=== PATIENT | female | born 1935 | race Caucasian/White ===

== ENCOUNTER 2016-11-20 12:20 | Inpatient (IN) | payer MEDICARE ==
[2016-11-20] VITALS (12 sets, daily range): BP systolic 119–150; BP diastolic 52–77; PULSE 55–99; RESP 16–18; TEMP 97.9–99.6; O2SAT 93–97
[~2016-11-20] VITALS: Ht 149.9 cm; Wt 58.5 kg
[~2016-11-20 12:20] MED LIST: AMLO5 PO; ASPI81 PO; ATOR40TA PO; CLOP75 PO; DOCU1CAP39 PO; FISH100020 PO; GLUCTAB PO; HYDR-2768 PO; METO50TA PO; PACE200T4 PO; THERM PO; TRAD5TAB PO; VITA20003 PO; WALKER ROLLING
[2016-11-20] MEDS ORDERED: ASPIRIN 81 MG CHEW TAB PO ONE (13:00)
--- NOTE | 2016-11-20 13:00 | PD ---
HPI Chief Complaint: General Weakness Time Seen by Provider: 12:36 Travel History International Travel<30 days: No Contact w/Intl Traveler<30days: No Traveled to known affect area: No History of Present Illness HPI The patient is a 81-year-old female who presents emergency department for shortness of breath and generalized weakness. The patient has a history of previous bypass 2, last cardiac bypass was performed by Dr. Albarado in May 2016. The patient notes deconditioning over the last month with increased shortness of breath with exertion. The patient also notes progressive symptoms over the last 2 days with walking, shortness of breath, and anterior chest discomfort. The patient states the pain is dull, nonradiating, associated shortness of breath, occasionally diaphoresis. She did note one fevers high as 100.4, but denies any cough. The patient's symptoms are exertional and alleviated at rest, similar to previous chest pain from coronary artery disease but not as intense as prior episodes. 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 Marlon Dickey. The patient's primary physician is Dr. Flowers. Symptoms are moderate , worse with exertion, and alleviated at rest. The patient denies any nausea, vomiting, or abdominal pain. The patient does have a history of hypertension, hyperlipidemia, coronary artery disease with previous bypass, and diabetes which is controlled with metformin. PFSH Past Medical History Hx Anticoagulant Therapy: Yes (Plavix) Arthritis: Yes (HANDS) Asthma: Yes Autoimmune Disease: No Blood Disorders: No Heart Rhythm Problems: Yes Cancer: No Cardiac Catheterization: Yes (10 STENTS) Cardiovascular Problems: Yes (CABG 2015) High Cholesterol: Yes Chemotherapy: No Chest Pain: Yes Congestive Heart Failure: Yes COPD: No Cerebrovascular Accident: No Diabetes: Yes Patient Takes Glucophage: Yes (11/20/16) Diminished Hearing: No Diverticulitis: Yes Endocrine: No Gastrointestinal Disorders: Yes (DIVERTICULITIS) GERD: No Glaucoma: No Genitourinary: Yes Hepatitis: No Hiatal Hernia: Yes Heparin Induced Thrombocytopen: Yes Hypertension: Yes Immune Disorder: No Kidney Stones: No Musculoskeletal: No Neurologic: No Psychiatric: No Reproductive: No Respiratory: No Integumentary: No Myocardial Infarction: Yes (X6) Renal Failure: No Sickle Cell Disease: No Sleep Apnea: No Thyroid Disease: No Ulcer: No Tetanus Vaccination: < 5 Years Influenza Vaccination: Yes PNEUMOCCOCAL Vaccine (Year): 2 Menopausal: Yes : 3 Para: 3 Miscarriage: 0 : 0 Past Surgical History Abdominal Surgery: Yes (GALLBLADDER) AICD: No Appendectomy: Yes Arteriovenous Shunt: No Cardiac Surgery: Yes (CABG 1994) Section: Yes (X1) Cholecystectomy: Yes Coronary Artery Bypass Graft: Yes (X2- 1994) Coronary Stent: Yes Ear Surgery: No Endocrine Surgery: No Eye Surgery: No Genitourinary Surgery: Yes Gynecologic Surgery: Yes (HYSTERECTOMY) Hysterectomy: Yes Insulin Pump: No Joint Replacement: No Oral Surgery: No Pacemaker: No Thoracic Surgery: No Other Surgery: Yes (APPY, SURG, GALLBLADDER, CABG, STENTS) Family History Family Myocardial Infarction: Yes Social History Alcohol Use: No Tobacco Use: No Substance Use: No Allergies-Medications (Allergen,Severity, Reaction): Coded Allergies: HMG-CoA Reductase Inhibitors (Verified Allergy, Intermediate, BODY ACHES, 11/20/16) Lipitor (Verified Adverse Reaction, Severe, ""STATINS""-ELEVATED LIVER ENZYMES, 11/20/16) Contrast Media (Verified Adverse Reaction, Intermediate, Hives, 11/20/16) Iodine (Verified Adverse Reaction, Intermediate, Hives, 11/20/16) Micardis (Verified Adverse Reaction, Intermediate, Chest Pain, 11/20/16) Monopril (Verified Adverse Reaction, Intermediate, Cough, 11/20/16) Reported Meds & Prescriptions Reported Meds & Active Scripts Active Reported Amlodipine (Amlodipine Besylate) 5 Mg Tab 5 Mg PO HS Aspirin 81 Mg Tabdr 81 Mg PO HS Atorvastatin (Atorvastatin Calcium) 40 Mg Tab 40 Mg PO HS Plavix (Clopidogrel Bisulfate) 75 Mg Tab 75 Mg PO DAILY Metformin (Metformin HCl) 500 Mg Tab 500 Mg PO TIDPC With meals Metoprolol Tartrate 50 Mg Tab 50 Mg PO BID Multi Vitamin (Multiple Vitamin) 1 Tab Tab 1 Tab PO DAILY Fish Oil 1000 mg ([place]-3 Fatty Acids) 1 Cap Cap 1,000 Mg PO TID Fenofibrate 48 Mg Tab 48 Mg PO HS Nitroglycerin SL (Nitroglycerin) 0.4 Mg Subl 0.4 Mg SL DIRECTED PRN ONE TABLET UNDER THE TONGUE NEEDED FOR CHEST PAIN, MAY REPEAT EVERY FIVE MINUTES FOR A TOTAL OF 3 DOSES OR CALL 911 IF NO RELIEF Lasix (Furosemide) 40 Mg Tab 40 Mg PO DAILY Levothyroxine (Levothyroxine Sodium) 25 Mcg Tab 25 Mcg PO DAILY Losartan (Losartan Potassium) 50 Mg Tab 50 Mg PO DAILY K-Tab (Potassium Chloride) 20 Meq Tab 20 Meq PO DAILY Vitamin D-3 (Cholecalciferol) 2,000 Unit Tab 2,000 Units PO HS Review of Systems Except as stated in HPI: all other systems reviewed are Neg General / Constitutional: Positive: Fever (1 temperature of 100.4) Cardiovascular: Positive: Chest Pain or Discomfort, Dyspnea on exertion Respiratory: Positive: Shortness of Breath, No: Cough Gastrointestinal: No: Nausea, Vomiting, Abdominal Pain Musculoskeletal: Positive: Weakness, No: Edema Neurologic: Positive: Weakness Physical Exam Narrative GENERAL: Awake, alert, pleasant 81-year-old female who appears her stated age and is in no acute respiratory distress. SKIN: Warm and dry. HEAD: Atraumatic. Normocephalic. EYES: Pupils equal and round. No scleral icterus. No injection or drainage. ENT: No nasal bleeding or discharge. Mucous membranes pink and moist. NECK: Trachea midline. No JVD. CARDIOVASCULAR: Regular rate and rhythm. No murmur appreciated. Midline sternal scar. RESPIRATORY: No accessory muscle use. Clear to auscultation. Breath sounds equal bilaterally. GASTROINTESTINAL: Abdomen soft, non-tender, nondistended. Hepatic and splenic margins not palpable. MUSCULOSKELETAL: No obvious deformities. No clubbing. No cyanosis. No edema. Well-healed scar medial aspect lower extremities. NEUROLOGICAL: Awake and alert. No obvious cranial nerve deficits. Motor grossly within normal limits. Normal speech. Nonfocal. PSYCHIATRIC: Appropriate mood and affect; insight and judgment normal. Data Data Last Documented VS Vital Signs Date Time Temp Pulse Resp B/P Pulse Ox O2 Delivery O2 Flow Rate FiO2 11/20/16 14:00 61 16 138/61 96 Nasal Cannula 2 11/20/16 12:21 97.9 Orders Electrocardiogram (11/20/16 ) B-Type Natriuretic Peptide (11/20/16 12:55) Ckmb (Isoenzyme) Profile (11/20/16 12:55) Complete Blood Count With Diff (11/20/16 12:55) Comprehensive Metabolic Panel (11/20/16 12:55) Magnesium (Mg) (11/20/16 12:55) Prothrombin Time / Inr (Pt) (11/20/16 12:55) Act Partial Throm Time (Ptt) (11/20/16 12:55) Troponin I (11/20/16 12:55) Lipase (11/20/16 12:55) Chest, Single Ap (11/20/16 12:55) Ecg Monitoring (11/20/16 12:55) Bilateral Bp Monitoring (11/20/16 12:55) Iv Access Insert/Monitor (11/20/16 12:55) Oximetry (11/20/16 12:55) Oxygen Administration (11/20/16 12:55) Aspirin Chew (Aspirin Chew) (11/20/16 13:00) Sodium Chloride 0.9% Flush (Ns Flush) (11/20/16 13:00) Nitroglycerin 2% Oint (Nitroglycerin 2% (11/20/16 14:00) Furosemide Inj (Lasix Inj) (11/20/16 14:00) Admit Order (Ed Use Only) (11/20/16 14:09) Labs Laboratory Tests Test 11/20/16 13:00 White Blood Count 11.8 TH/MM3 Red Blood Count 3.30 MIL/MM3 Hemoglobin 9.7 GM/DL Hematocrit 28.7 % Mean Corpuscular Volume 87.0 FL Mean Corpuscular Hemoglobin 29.4 PG Mean Corpuscular Hemoglobin 33.7 % Concent Red Cell Distribution Width 15.1 % Platelet Count 177 TH/MM3 Mean Platelet Volume 8.7 FL Neutrophils (%) (Auto) 80.6 % Lymphocytes (%) (Auto) 11.4 % Monocytes (%) (Auto) 7.1 % Eosinophils (%) (Auto) 0.5 % Basophils (%) (Auto) 0.4 % Neutrophils # (Auto) 9.5 TH/MM3 Lymphocytes # (Auto) 1.3 TH/MM3 Monocytes # (Auto) 0.8 TH/MM3 Eosinophils # (Auto) 0.1 TH/MM3 Basophils # (Auto) 0.0 TH/MM3 CBC Comment DIFF FINAL Differential Comment Prothrombin Time 11.7 SEC Prothromb Time International 1.1 RATIO Ratio Activated Partial 31.4 SEC Thromboplast Time Sodium Level 136 MEQ/L Potassium Level 3.9 MEQ/L Chloride Level 101 MEQ/L Carbon Dioxide Level 22.8 MEQ/L Anion Gap 12 MEQ/L Blood Urea Nitrogen 36 MG/DL Creatinine 2.18 MG/DL Estimat Glomerular Filtration 22 ML/MIN Rate Random Glucose 160 MG/DL Calcium Level 9.1 MG/DL Magnesium Level 1.6 MG/DL Total Bilirubin 1.2 MG/DL Aspartate Amino Transf 32 U/L (AST/SGOT) Alanine Aminotransferase 30 U/L (ALT/SGPT) Alkaline Phosphatase 70 U/L Total Creatine Kinase 64 U/L Troponin I 0.50 NG/ML B-Type Natriuretic Peptide 1182 PG/ML Total Protein 8.1 GM/DL Albumin 3.5 GM/DL Lipase 226 U/L MDM Medical Decision Making Medical Screen Exam Complete: Yes Emergency Medical Condition: Yes Medical Record Reviewed: Yes Interpretation(s) EKG reveals normal sinus rhythm with a rate of 64. Right bundle-branch block. No significant changes when compared to previous EKG June 03, 2016. Laboratory Tests Test 11/20/16 13:00 White Blood Count 11.8 TH/MM3 Red Blood Count 3.30 MIL/MM3 Hemoglobin 9.7 GM/DL Hematocrit 28.7 % Mean Corpuscular Volume 87.0 FL Mean Corpuscular Hemoglobin 29.4 PG Mean Corpuscular Hemoglobin 33.7 % Concent Red Cell Distribution Width 15.1 % Platelet Count 177 TH/MM3 Mean Platelet Volume 8.7 FL Neutrophils (%) (Auto) 80.6 % Lymphocytes (%) (Auto) 11.4 % Monocytes (%) (Auto) 7.1 % Eosinophils (%) (Auto) 0.5 % Basophils (%) (Auto) 0.4 % Neutrophils # (Auto) 9.5 TH/MM3 Lymphocytes # (Auto) 1.3 TH/MM3 Monocytes # (Auto) 0.8 TH/MM3 Eosinophils # (Auto) 0.1 TH/MM3 Basophils # (Auto) 0.0 TH/MM3 CBC Comment DIFF FINAL Differential Comment Prothrombin Time 11.7 SEC Prothromb Time International 1.1 RATIO Ratio Activated Partial 31.4 SEC Thromboplast Time Sodium Level 136 MEQ/L Potassium Level 3.9 MEQ/L Chloride Level 101 MEQ/L Carbon Dioxide Level 22.8 MEQ/L Anion Gap 12 MEQ/L Blood Urea Nitrogen 36 MG/DL Creatinine 2.18 MG/DL Estimat Glomerular Filtration 22 ML/MIN Rate Random Glucose 160 MG/DL Calcium Level 9.1 MG/DL Magnesium Level 1.6 MG/DL Total Bilirubin 1.2 MG/DL Aspartate Amino Transf 32 U/L (AST/SGOT) Alanine Aminotransferase 30 U/L (ALT/SGPT) Alkaline Phosphatase 70 U/L Total Creatine Kinase 64 U/L Troponin I 0.50 NG/ML B-Type Natriuretic Peptide 1182 PG/ML Total Protein 8.1 GM/DL Albumin 3.5 GM/DL Lipase 226 U/L Chest x-ray reveals mild pulmonary vascular congestion. Differential Diagnosis Differential diagnosis includes acute coronary syndrome, congestive heart failure, aortic stenosis, pleural effusion, pneumonia, deconditioning, pulmonary embolism. Narrative Course IV was established, labs were drawn and sent, and the patient was placed on cardiac telemetry monitoring and continuous pulse oximetry monitoring. EKG was ordered and interpreted. Chest x-ray was ordered. The patient was administered aspirin 162 mg orally. The patient's chest x-ray reveals pulmonary edema. BNP is elevated greater than 1100, troponin is +0.50. EKG reveals right bundle branch block but there are no acute changes. Patient may have underlying acute coronary syndrome versus acute congestive heart failure. The patient has [facility], therefore, the on-call [facility] physician was paged for admission. Patient was placed on nitro paste administered 1 dose of Lasix. The mid-level provider, Leia Amaya, discussed the patient with Dr. Berg who recommends heparin drip. Therefore, patient was placed on a heparin drip. Physician Communication Physician Communication The on-call [facility] physician was paged for admission. I discussed the patient Dr. Garza who agrees with admission. Diagnosis Primary Impression: ACS (acute coronary syndrome) Additional Impression: Congestive heart failure Qualified Code: I50.9 - Acute congestive heart failure, unspecified congestive heart failure type Admitting Information Admitting Physician Requests: Admit Condition: Stable Salo Gallagher MD Nov 20, 2016 13:00
[2016-11-20 13:10] LABS: AUTOMATED NEUTROPHIL # 9.5 TH/MM3 (1.8-7.7); BASOPHIL % 0.4 % (0.0-2.0); EOSINOPHIL # 0.1 TH/MM3 (0-0.4); EOSINOPHIL % 0.5 % (0.0-4.0); HEMATOCRIT 28.7 % (35.0-46.0); HEMO FLAGS DIFF FINAL; LYMPH % 11.4 % (9.0-44.0); LYMPHOCYTE # 1.3 TH/MM3 (1.0-4.8); MEAN CORPUSCULAR HEMOGLOBIN 29.4 PG (27.0-34.0); MEAN CORPUSCULAR HGB CONC 33.7 % (32.0-36.0); MONO % 7.1 % (0.0-8.0); NEUT % 80.6 % (16.0-70.0); PLATELET COUNT 177 TH/MM3 (150-450); RED CELL DISTRIBUTION WIDTH 15.1 % (11.6-17.2); WHITE BLOOD COUNT 11.8 TH/MM3 (4.0-11.0)
[2016-11-20 13:18] LABS: ANION GAP 12 MEQ/L (5-15); AST (GOT) 32 U/L (15-37); BICARBONATE 22.8 MEQ/L (21.0-32.0); BLOOD UREA NITROGEN 36 MG/DL (7-18); CHLORIDE 101 MEQ/L (98-107); GLOMERULAR FILTRATION RATE 22 ML/MIN (>89); MAGNESIUM 1.6 MG/DL (1.5-2.5); POTASSIUM 3.9 MEQ/L (3.5-5.1); SODIUM (NA) 136 MEQ/L (136-145)
[2016-11-20 13:19] LABS: APTT (PATIENT) 31.4 SEC (24.3-30.1); INTERNATIONAL NORMALIZED RATIO 1.1 RATIO; PROTHROMBIN TIME - PATIENT 11.7 SEC (9.8-11.6)
[2016-11-20 13:23] LABS: ALKALINE PHOSPHATASE 70 U/L (45-117); ALT (GPT) 30 U/L (10-53); TOTAL BILIRUBIN ADULT 1.2 MG/DL (0.2-1.0)
[2016-11-20 13:24] LABS: CREATINE KINASE 64 U/L (26-192)
[2016-11-20] MEDS ORDERED: LOSA50TA PO (13:38)
[2016-11-20] MEDS ORDERED: FISH100020 PO (13:38)
[2016-11-20] MEDS ORDERED: POTA1TAB4 PO (13:38)
[2016-11-20] MEDS ORDERED: NITR1SUB3 SL (13:38)
[2016-11-20] MEDS ORDERED: LEVO25TA4 PO (13:38)
[2016-11-20] MEDS ORDERED: MULT-135 PO (13:38)
[2016-11-20] MEDS ORDERED: FENO48TA PO (13:38)
[2016-11-20] MEDS ORDERED: METF500T PO (13:38)
[2016-11-20] MEDS ORDERED: FURO1TAB60 PO (13:38)
[2016-11-20] MEDS ORDERED: CHOL1TAB42 PO (13:38)
[2016-11-20] MEDS ORDERED: METO50TA PO (13:38)
[2016-11-20] MEDS ORDERED: PLAV75TA29 PO (13:38)
[2016-11-20] MEDS ORDERED: ASPI1TAB69 PO (13:39)
[2016-11-20] MEDS ORDERED: ATOR40TA16 PO (13:39)
[2016-11-20] MEDS ORDERED: AMLO5TAB2 PO (13:40)
--- NOTE | 2016-11-20 13:59 | RADRPT ---
EXAM DATE/TIME: 11/20/2016 13:31 [facility] COMPARISON: No previous studies available for comparison. INDICATIONS : Chest pain. MEDICAL HISTORY : Hypertension. Myocardial infarction. Congestive heart failure. SURGICAL HISTORY : CABG. Coronary artery stent. ENCOUNTER: Initial ACUITY: 2 days PAIN SCORE: 10/10 LOCATION: Bilateral chest FINDINGS: A single view of the chest demonstrates the left chest tube has been removed. There is no evidence o f pneumothorax. Central line has also been removed. There are seven intact sternal wires. Mild pul monary hilar vascular congestion. CONCLUSION: Chest tube has been removed. No pneumothorax seen. Leonel Gutierrez MD on November 20, 2016 at 13:55 Board Certified Radiologist. This report was verified electronically.
[2016-11-20] MEDS ORDERED: FUROSEMIDE 40 MG/4 ML VIAL IV PUSH ONE (14:00)
[2016-11-20] MEDS ORDERED: NITROGLYCERIN 2% OINT 1 GM PACKET TOPICAL ONE (14:00)
[2016-11-20 15:44] LABS: HEMATOCRIT 27.4 % (35.0-46.0); MEAN CELL VOLUME 87.5 FL (80.0-100.0); MEAN CORPUSCULAR HGB CONC 34.2 % (32.0-36.0); PLATELET COUNT 164 TH/MM3 (150-450); RED BLOOD COUNT 3.13 MIL/MM3 (4.00-5.30); RED CELL DISTRIBUTION WIDTH 15.1 % (11.6-17.2); REVIEW FLAG FINAL; WHITE BLOOD COUNT 10.5 TH/MM3 (4.0-11.0)
[2016-11-20 15:58] LABS: APTT (PATIENT) 30.1 SEC (24.3-30.1)
[2016-11-20] MEDS: INSULIN ASPART SUPPLEMENTAL SCALE SQ SCH ×2 (16:00→21:00)
[2016-11-20] MEDS ORDERED: GLUCAGON 1 MG/ML VIAL OTHER PRN (16:00)
[2016-11-20] MEDS ORDERED: DEXTROSE 50% IN WATER 50 ML VIAL(D50) IV PUSH PRN (16:00)
[2016-11-20] MEDS: HEPARIN-D5W INJ 250 ML IV SCH (16:04)
[2016-11-20] MEDS ORDERED: FUROSEMIDE 40 MG/4 ML VIAL IV PUSH SCH (16:15)
--- NOTE | 2016-11-20 16:19 | HHI.HP ---
HPI Service [facility] Hospitalists Primary Care Physician Hermila Lanier MD Admission Diagnosis acute coronary syndrome/NSTEMI, congestive heart failure Chief Complaint: weakness Travel History International Travel<30 Days: No Contact w/Intl Traveler <30 Da: No Traveled to Known Affected Are: No History of Present Illness Pt has cad and had redo cabg x 3 in May 2016. over past month has had some progressive weakness. noted some palpitations today. described some sob in ED. seen by cardiology and felt to have some chf. pt started on lasix and heparin in ED and medicine asked to admit. pt says she had low grade fever and some msk pain in left arm and took 6 ibuprofen over past few days. Review of Systems Other msk left arm pain vague palpitations weakness. Past Family Social History Past Medical History cad, redo cabg x 3 2015 htn dm ckd 3 hypothyroidism hyperlipidema lap mirian Reported Medications Amlodipine (Amlodipine Besylate) 5 Mg Tab 5 Mg PO HS Aspirin 81 Mg Tabdr 81 Mg PO HS Atorvastatin (Atorvastatin Calcium) 40 Mg Tab 40 Mg PO HS Plavix (Clopidogrel Bisulfate) 75 Mg Tab 75 Mg PO DAILY Metformin (Metformin HCl) 500 Mg Tab 500 Mg PO TIDPC With meals Metoprolol Tartrate 50 Mg Tab 50 Mg PO BID Multi Vitamin (Multiple Vitamin) 1 Tab Tab 1 Tab PO DAILY Fish Oil 1000 mg ([place]-3 Fatty Acids) 1 Cap Cap 1,000 Mg PO TID Fenofibrate 48 Mg Tab 48 Mg PO HS Nitroglycerin SL (Nitroglycerin) 0.4 Mg Subl 0.4 Mg SL DIRECTED PRN ONE TABLET UNDER THE TONGUE NEEDED FOR CHEST PAIN, MAY REPEAT EVERY FIVE MINUTES FOR A TOTAL OF 3 DOSES OR CALL 911 IF NO RELIEF Lasix (Furosemide) 40 Mg Tab 40 Mg PO DAILY Levothyroxine (Levothyroxine Sodium) 25 Mcg Tab 25 Mcg PO DAILY Losartan (Losartan Potassium) 50 Mg Tab 50 Mg PO DAILY K-Tab (Potassium Chloride) 20 Meq Tab 20 Meq PO DAILY Vitamin D-3 (Cholecalciferol) 2,000 Unit Tab 2,000 Units PO HS Allergies: Coded Allergies: HMG-CoA Reductase Inhibitors (Verified Allergy, Intermediate, BODY ACHES, 11/20/16) Lipitor (Verified Adverse Reaction, Severe, ""STATINS""-ELEVATED LIVER ENZYMES, 11/20/16) Contrast Media (Verified Adverse Reaction, Intermediate, Hives, 11/20/16) Iodine (Verified Adverse Reaction, Intermediate, Hives, 11/20/16) Micardis (Verified Adverse Reaction, Intermediate, Chest Pain, 11/20/16) Monopril (Verified Adverse Reaction, Intermediate, Cough, 11/20/16) Family History nc Social History no etoh/tob Physical Exam Vital Signs heart reg lung cta abd s/nt ext no edema Vital Signs Date Time Temp Pulse Resp B/P Pulse Ox O2 Delivery O2 Flow Rate FiO2 11/20/16 15:00 56 16 130/61 96 Nasal Cannula 2 11/20/16 14:00 61 16 138/61 96 Nasal Cannula 2 11/20/16 12:50 97 Nasal Cannula 2 11/20/16 12:41 63 18 145/62 97 Nasal Cannula 2 11/20/16 12:41 66 18 92 Room Air 11/20/16 12:21 97.9 99 17 134/77 95 Laboratory Laboratory Tests Test 11/20/16 11/20/16 13:00 15:35 White Blood Count 11.8 10.5 Red Blood Count 3.30 3.13 Hemoglobin 9.7 9.4 Hematocrit 28.7 27.4 Mean Corpuscular Volume 87.0 87.5 Mean Corpuscular Hemoglobin 29.4 30.0 Mean Corpuscular Hemoglobin 33.7 34.2 Concent Red Cell Distribution Width 15.1 15.1 Platelet Count 177 164 Mean Platelet Volume 8.7 8.9 Neutrophils (%) (Auto) 80.6 Lymphocytes (%) (Auto) 11.4 Monocytes (%) (Auto) 7.1 Eosinophils (%) (Auto) 0.5 Basophils (%) (Auto) 0.4 Neutrophils # (Auto) 9.5 Lymphocytes # (Auto) 1.3 Monocytes # (Auto) 0.8 Eosinophils # (Auto) 0.1 Basophils # (Auto) 0.0 CBC Comment DIFF FINAL Differential Comment Prothrombin Time 11.7 Prothromb Time International 1.1 Ratio Activated Partial 31.4 30.1 Thromboplast Time Sodium Level 136 Potassium Level 3.9 Chloride Level 101 Carbon Dioxide Level 22.8 Anion Gap 12 Blood Urea Nitrogen 36 Creatinine 2.18 Estimat Glomerular Filtration 22 Rate Random Glucose 160 Calcium Level 9.1 Magnesium Level 1.6 Total Bilirubin 1.2 Aspartate Amino Transf 32 (AST/SGOT) Alanine Aminotransferase 30 (ALT/SGPT) Alkaline Phosphatase 70 Total Creatine Kinase 64 Troponin I 0.50 B-Type Natriuretic Peptide 1182 Total Protein 8.1 Albumin 3.5 Lipase 226 Result Diagram: 11/20/16 1535 11/20/16 1300 Assessment and Plan Problem List: (1) CAD (coronary artery disease) Status: Acute Plan: cad and redo 3v cabg 05/22 Pt presents with vague chest/respiratory sx's and weakness troponin elevated and she has devante. cxr was concerning for chf. pt seen by cardiology heparin initiated cont bb/asa/plavix/statin lasix initiated monitor cr in AM...if worsens then will need to hold diuretic (2) DEVANTE (acute kidney injury) Status: Acute Plan: see above (3) HTN (hypertension) Status: Chronic Plan: home meds (4) DM type 2 (diabetes mellitus, type 2) Status: Chronic Plan: ssi. hold oha (5) redo cabg x 3 Status: Chronic Plan: see above Physician Certification 2 Midnight Certification Type: Admission for Inpatient Services Order for Inpatient Services 3The services are ordered in accordance with Medicare regulations or non- Medicare payer requirements, as applicable. In the case of services not specified as inpatient-only, they are appropriately provided as inpatient services in accordance with the 2-midnight benchmark. Estimated LOS (days): 3 3 days is the estimated time the patient will need to remain in the hospital, assuming treatment plan goals are met and no additional complications. Post-Hospital Plan: Home Adrian Garza MD Nov 20, 2016 16:19
--- NOTE | 2016-11-20 16:54 | MB ---
cc: KELLIE GARCIA MD DATE OF CONSULTATION 11/20/16 REASON FOR CONSULTATION Possible non-ST elevation IA. HISTORY OF PRESENT ILLNESS The patient is a very pleasant 81-year woman who sees my colleague, Dr. Marlon Dickey, for a history of coronary artery disease with a recent redo coronary artery bypass graft May 2016. She presented with about a month of increased shortness of breath on exertion as well as some cough with a mild fever but also some fairly vague central chest discomfort. She describes it as pressure but also more of an inability to "get air". Because of the symptoms, she presented to the emergency department where her BNP was elevated and her troponin was also mildly elevated thus I was consulted. She is currently feeling well without any residual symptoms. No current chest pain, shortness of breath. PAST MEDICAL HISTORY 1. The coronary disease as above 2. Diabetes 3. Hypertension, 4. Hyperlipidemia, 5. COPD, 6. Asthma. MEDICATIONS Current, Heparin drip. ALLERGIES CONTRAST MEDIA STATINS IODINE LIPITOR MICARDIS MONPRIL. PHYSICAL EXAMINATION VITAL SIGNS: Afebrile, pulse 56, respiratory rate 16, BP 130/61, satting 96 on two liters. GENERAL: Pleasant elderly woman in no distress. NECK: No JVD. LUNGS: Clear to auscultation bilaterally. CARDIOVASCULAR: Regular rhythm, no murmurs appreciated. ABDOMEN: Benign. EXTREMITIES: No edema. LABORATORY DATA White count 10.0, hematocrit 27.4, platelets 164. Sodium 36, potassium 3.9, chloride 101, bicarb 22.8, BUN 36, creatinine 2.18 up from 17 May 2016. Troponin is 0.5, total CK is normal, BNP is 1182. CARDIOLOGY STUDIES EKG shows sinus rhythm with right bundle-branch block and left anterior fascicular block. No acute ST or T-wave changes. IMPRESSION 1. Shortness of breath. The patient's shortness of breath may be due to congestive heart given her elevated BNP does falsely elevated acute renal failure. I think it is somewhat more likely that she is fluid overloaded as opposed to volume depleted so I think gentle diuresis is reasonable despite her acute renal failure. Hopefully, her creatinine turns around fairly quickly with diuresis. If her creatinine bumps an alternatives strategy will be required. Her chest pain is fairly atypical and her troponin is likely more due to her renal insufficiency as opposed to acute coronary syndrome, but we will trend these enzymes and make a determination about any further cardiac imaging once this has been completed. Further recommendations will be based on her clinical course. Thank you again for the opportunity to participate in this patient's care. MD PEARL De Jesus/ /4:05 PM /4:34 PM
[2016-11-20] MEDS ORDERED: NON-FORMULARY DRUG (Omega-3 Fatty Acids (Fish Oil 1000 mg) 1,000 MG) PO SCH (18:00)
[2016-11-20] MEDS: ASPIRIN EC 81 MG TABEC PO SCH (21:00)
--- NOTE | 2016-11-20 21:17 | RADRPT ---
EXAM DATE/TIME: 11/20/2016 20:37 [facility] COMPARISON: CHEST SINGLE AP, November 20, 2016, 13:31. CHEST PA & LAT, June 05, 2016, 8:0 9. INDICATIONS : Short of Breath. MEDICAL HISTORY : Hypertension. Myocardial infarction. Congestive heart failure. SURGICAL HISTORY : CABG. Coronary artery stent. ENCOUNTER: Subsequent ACUITY: 2 days PAIN SCORE: 0/10 LOCATION: Bilateral chest FINDINGS: The heart is enlarged. There is very mild interstitial edema present. There is no alveolar consolid ation, pleural effusion or pneumothorax. Portion of bony skeleton visualized is unremarkable. CONCLUSION: Cardiomegaly. I believe there is mild congestive failure that has improved from film earlier the . Daniel Corey MD FACR on November 20, 2016 at 21:09 Board Certified Radiologist. This report was verified electronically.
[2016-11-20] MEDS: ATORVASTATIN 40 MG TAB PO SCH (21:54)
[2016-11-20] MEDS: amLODIPine BESYLATE 5 MG TAB PO SCH (21:54)
[2016-11-20] MEDS: FENOFIBRATE 48 MG TAB PO SCH (21:54)
[2016-11-20] MEDS: METOPROLOL TARTRATE 50 MG TAB PO SCH (21:54)
[2016-11-20] MEDS: CHOLECALCIFEROL (VIT D3) 1000 UNIT TAB PO SCH (21:55)
[2016-11-21] VITALS (28 sets, daily range): BP systolic 106–127; BP diastolic 48–62; PULSE 50–86; RESP 16–18; TEMP 98.2–100.3; O2SAT 93–95
[2016-11-21 00:43] LABS: APTT (PATIENT) 42.2 SEC (24.3-30.1)
[2016-11-21 05:30] LABS: APTT (PATIENT) 44.4 SEC (24.3-30.1)
[2016-11-21 05:36] LABS: BICARBONATE 25.9 MEQ/L (21.0-32.0); POTASSIUM 3.4 MEQ/L (3.5-5.1)
[2016-11-21] MEDS: INSULIN ASPART SUPPLEMENTAL SCALE SQ SCH ×4 (06:10→21:20)
[2016-11-21] MEDS: LEVOTHYROXINE SODIUM 25 MCG TAB PO SCH (06:10)
[2016-11-21] MEDS: METOPROLOL TARTRATE 50 MG TAB PO SCH ×2 (08:20→21:20)
[2016-11-21] MEDS: POTASSIUM CHLORIDE 20 MEQ CONTROLLED RELEASE TAB PO SCH (08:20)
[2016-11-21] MEDS: CLOPIDOGREL 75 MG TAB PO SCH (08:20)
[2016-11-21] MEDS: FUROSEMIDE 40 MG/4 ML VIAL IV PUSH SCH (08:21)
--- NOTE | 2016-11-21 08:38 | HHI.PR ---
Subjective Remarks feels ok. says she thinks her "heart was playing tricks on her last night...?fluttering" Objective Vitals heart reg lung basilar crackles abd s/nt ext no edema Vital Signs Date Time Temp Pulse Resp B/P Pulse Ox O2 Delivery O2 Flow Rate FiO2 11/21/16 07:00 100.3 64 18 118/55 94 11/21/16 06:00 58 11/21/16 05:00 63 11/21/16 04:00 65 11/21/16 03:30 99.0 68 16 120/54 94 11/21/16 03:00 66 11/21/16 02:00 70 11/21/16 01:00 66 11/21/16 00:00 65 11/20/16 23:30 99.6 63 16 119/52 96 11/20/16 23:00 65 11/20/16 22:00 77 11/20/16 21:00 99.0 71 18 150/66 93 11/20/16 21:00 65 11/20/16 20:00 60 16 146/57 96 Nasal Cannula 2 11/20/16 19:00 63 16 127/58 96 Nasal Cannula 2 11/20/16 18:00 64 16 137/57 96 Nasal Cannula 2 11/20/16 17:00 55 16 130/57 96 Nasal Cannula 2 11/20/16 15:00 56 16 130/61 96 Nasal Cannula 2 11/20/16 14:00 61 16 138/61 96 Nasal Cannula 2 11/20/16 12:50 97 Nasal Cannula 2 11/20/16 12:41 63 18 145/62 97 Nasal Cannula 2 11/20/16 12:41 66 18 92 Room Air 11/20/16 12:21 97.9 99 17 134/77 95 11/20/16 11/20/16 11/21/16 15:00 23:00 07:00 Intake Total 331 ml Output Total 650 ml Balance -319 ml Intake Oral 240 ml IV Total 91 ml Output Urine Total 650 ml # Bowel Movements 0 Result Diagram: 11/20/16 1535 11/21/16 0501 A/P Problem List: (1) CAD (coronary artery disease) Status: Acute Plan: cad and redo 3v cabg 05/22 Pt presents with vague chest/respiratory sx's and weakness troponin elevated and she has devante. cxr was concerning for chf. pt seen by cardiology heparin initiated cont bb/asa/plavix/statin lasix initiated monitor cr and hold diuretic if worsening. (2) DEVANTE (acute kidney injury) Status: Acute Plan: see above (3) HTN (hypertension) Status: Chronic Plan: home meds (4) DM type 2 (diabetes mellitus, type 2) Status: Chronic Plan: ssi. hold oha (5) redo cabg x 3 Status: Chronic Plan: see above Adrian Garza MD Nov 21, 2016 08:38
[2016-11-21] MEDS ORDERED: LOSARTAN 50 MG TAB PO SCH (09:00)
[2016-11-21] MEDS ORDERED: POTASSIUM CHLORIDE 20 MEQ CONTROLLED RELEASE TAB PO ONE (09:00)
--- NOTE | 2016-11-21 10:40 | PD.CARD.PN ---
Subjective Subjective Remarks Pt feels much better. Objective Medications Administered Medications Medications (Trade) Dose Ordered Sig/Mildred Route PRN Reason Start Time Stop Time Status Last Admin Dose Admin Heparin Sodium/ Dextrose (Heparin-D5W Inj) 250 ml @ 0 mls/hr TITRATE IV 11/20/16 15:00 11/20/16 16:04 Furosemide (Lasix Inj) 40 mg DAILY IV PUSH 11/21/16 09:00 11/21/16 08:21 Amlodipine Besylate (Norvasc) 5 mg HS PO 11/20/16 21:00 11/20/16 21:54 Atorvastatin Calcium (Lipitor) 40 mg HS PO 11/20/16 21:00 11/20/16 21:54 Clopidogrel Bisulfate (Plavix) 75 mg DAILY PO 11/21/16 09:00 11/21/16 08:20 Fenofibrate (Tricor) 48 mg HS PO 11/20/16 21:00 11/20/16 21:54 Levothyroxine Sodium (Synthroid) 25 mcg DAILY@06 PO 11/21/16 06:00 11/21/16 06:10 Losartan Potassium (Cozaar) 50 mg DAILY PO 11/21/16 09:00 11/21/16 08:20 Metoprolol Tartrate (Lopressor) 50 mg BID PO 11/20/16 21:00 11/21/16 08:20 Potassium Chloride (KCl) 20 meq DAILY PO 11/21/16 09:00 11/21/16 08:20 Cholecalciferol (Vitamin D3) 2,000 units HS PO 11/20/16 21:00 11/20/16 21:55 Vital Signs / I&O Vital Signs Date Time Temp Pulse Resp B/P Pulse Ox O2 Delivery O2 Flow Rate FiO2 11/21/16 07:00 100.3 64 18 118/55 94 11/21/16 06:00 58 11/21/16 05:00 63 11/21/16 04:00 65 11/21/16 03:30 99.0 68 16 120/54 94 11/21/16 03:00 66 11/21/16 02:00 70 11/21/16 01:00 66 11/21/16 00:00 65 11/20/16 23:30 99.6 63 16 119/52 96 11/20/16 23:00 65 11/20/16 22:00 77 11/20/16 21:00 99.0 71 18 150/66 93 11/20/16 21:00 65 11/20/16 20:00 60 16 146/57 96 Nasal Cannula 2 11/20/16 19:00 63 16 127/58 96 Nasal Cannula 2 11/20/16 18:00 64 16 137/57 96 Nasal Cannula 2 11/20/16 17:00 55 16 130/57 96 Nasal Cannula 2 11/20/16 15:00 56 16 130/61 96 Nasal Cannula 2 11/20/16 14:00 61 16 138/61 96 Nasal Cannula 2 11/20/16 12:50 97 Nasal Cannula 2 11/20/16 12:41 63 18 145/62 97 Nasal Cannula 2 11/20/16 12:41 66 18 92 Room Air 11/20/16 12:21 97.9 99 17 134/77 95 I/O 11/20/16 11/20/16 11/20/16 11/21/16 11/21/16 11/21/16 07:00 15:00 23:00 07:00 15:00 23:00 Intake Total 331 ml Output Total 650 ml Balance -319 ml Intake Oral 240 ml IV Total 91 ml Output Urine Total 650 ml # Bowel Movements 0 Physical Exam GENERAL: This is a well-nourished, well-developed patient, in no apparent distress. CARDIOVASCULAR: Regular rate and rhythm without murmurs, gallops, or rubs. RESPIRATORY: Clear to auscultation. Breath sounds equal bilaterally. No wheezes , rales, or rhonchi. GASTROINTESTINAL: Abdomen soft, non-tender, nondistended. Normal active bowel sounds MUSCULOSKELETAL: Extremities without clubbing, cyanosis, or edema. NEURO: Alert & Oriented x4 to person, place, time, situation. Moves all ext x4 Laboratory Laboratory Tests Test 11/20/16 11/20/16 11/20/16 11/21/16 13:00 15:35 23:47 05:01 White Blood Count 11.8 TH/MM3 10.5 TH/MM3 Red Blood Count 3.30 MIL/MM3 3.13 MIL/MM3 Hemoglobin 9.7 GM/DL 9.4 GM/DL Hematocrit 28.7 % 27.4 % Mean Corpuscular Volume 87.0 FL 87.5 FL Mean Corpuscular Hemoglobin 29.4 PG 30.0 PG Mean Corpuscular Hemoglobin 33.7 % 34.2 % Concent Red Cell Distribution Width 15.1 % 15.1 % Platelet Count 177 TH/MM3 164 TH/MM3 Mean Platelet Volume 8.7 FL 8.9 FL Neutrophils (%) (Auto) 80.6 % Lymphocytes (%) (Auto) 11.4 % Monocytes (%) (Auto) 7.1 % Eosinophils (%) (Auto) 0.5 % Basophils (%) (Auto) 0.4 % Neutrophils # (Auto) 9.5 TH/MM3 Lymphocytes # (Auto) 1.3 TH/MM3 Monocytes # (Auto) 0.8 TH/MM3 Eosinophils # (Auto) 0.1 TH/MM3 Basophils # (Auto) 0.0 TH/MM3 CBC Comment DIFF FINAL Differential Comment Prothrombin Time 11.7 SEC Prothromb Time International 1.1 RATIO Ratio Activated Partial 31.4 SEC 30.1 SEC 42.2 SEC 44.4 SEC Thromboplast Time Sodium Level 136 MEQ/L 137 MEQ/L Potassium Level 3.9 MEQ/L 3.4 MEQ/L Chloride Level 101 MEQ/L 101 MEQ/L Carbon Dioxide Level 22.8 MEQ/L 25.9 MEQ/L Anion Gap 12 MEQ/L 10 MEQ/L Blood Urea Nitrogen 36 MG/DL 39 MG/DL Creatinine 2.18 MG/DL 2.06 MG/DL Estimat Glomerular Filtration 22 ML/MIN 23 ML/MIN Rate Random Glucose 160 MG/DL 187 MG/DL Calcium Level 9.1 MG/DL 8.9 MG/DL Magnesium Level 1.6 MG/DL Total Bilirubin 1.2 MG/DL Aspartate Amino Transf 32 U/L (AST/SGOT) Alanine Aminotransferase 30 U/L (ALT/SGPT) Alkaline Phosphatase 70 U/L Total Creatine Kinase 64 U/L Troponin I 0.50 NG/ML B-Type Natriuretic Peptide 1182 PG/ML Total Protein 8.1 GM/DL Albumin 3.5 GM/DL Lipase 226 U/L Assessment and Plan Problem List: (1) Troponin level elevated Assessment and Plan: will continue to trend, likely due to chf, may need nuc stress (2) CAD (coronary artery disease) (3) CKD (chronic kidney disease) stage 3, GFR 30-59 ml/min Assessment and Plan: Improved w/ diuresis (4) Systolic CHF Assessment and Plan: much improved sx today. Tomi Cummings MD Nov 21, 2016 10:40
--- NOTE | 2016-11-21 15:36 | EKG ---
Date Performed: 11/20/2016 Time Performed: 12:38:19 PTAGE: 81 years EKG: Sinus rhythm MARKED LEFT AXIS DEVIATION RIGHT BUNDLE BRANCH BLOCK Probable inferior infarct, age undetermined Dif fuse nonspecific ST-T wave changes, probably secondary to bundle branch block and largely unchanged f rom prior tracing Clinical correlation is recommended ABNORMAL ECG PREVIOUS TRACING : 06/03/2016 03.43 DOCTOR: Dominick Lima Interpretating Date/Time 11/21/2016 15:35:59
--- NOTE | 2016-11-21 16:41 | EC ---
Study Study Date:11/21/2016 STUDY CONCLUSIONS SUMMARY - Left ventricle: The cavity size was normal. Wall thickness was normal. Systolic function was normal. The estimated ejection fraction was in the range of 50% to 55%. Wall motion was normal; there were no regional wall motion abnormalities. - Aortic valve: Valve mobility was restricted. Transvalvular velocity was increased. There was moderate stenosis. Mean gradient: 21mm Hg (S). Valve area: 1.29cm^2 (Vmax). - Mitral valve: Moderate regurgitation. - Tricuspid valve: Mild-moderate regurgitation. - Pulmonic valve: Peak gradient: 11mm Hg (S). If LV function is below 40, please consider prescribing an ACEI or ARB or document rationale for non-use. PROCEDURE DATA STUDY STATUS: Elective. Procedure: Transthoracic echocardiography. Image quality was good. Scanning was performed from the parasternal, apical, and subcostal acoustic windows. Study completion: The patient tolerated the procedure well. Transthoracic echocardiography. M-mode, complete 2D, complete spectral Doppler, and color Doppler. Height: Height: 59in. Weight: Weight: 129.7lb. Body mass index: BMI: 26.3kg/m^2. Body surface area: BSA: 1.54m^2. Patient status: Inpatient. CARDIAC ANATOMY LEFT VENTRICLE: The cavity size was normal. Wall thickness was normal. Systolic function was normal. The estimated ejection fraction was in the range of 50% to 55%. Wall motion was normal; there were no regional wall motion abnormalities. AORTIC VALVE: Trileaflet; mildly thickened, moderately calcified leaflets. Valve mobility was restricted. Doppler: Transvalvular velocity was increased. There was moderate stenosis. No regurgitation. Valve area: 1.29cm^2 (Vmax). Indexed valve area: 0.84cm^2/m^2 (Vmax). Mean gradient: 21mm Hg (S). Peak gradient: 33mm Hg (S). AORTA: Aortic root: The aortic root was normal in size. MITRAL VALVE: Mildly thickened leaflets, . Doppler: Transvalvular velocity was within the normal range. There was no evidence for stenosis. Moderate regurgitation. Mean gradient: 3mm Hg (D). Peak gradient: 10mm Hg (D). LEFT ATRIUM: The atrium was normal in size. RIGHT VENTRICLE: The cavity size was normal. Wall thickness was normal. PULMONIC VALVE: Doppler: Transvalvular velocity was within the normal range. There was no evidence for stenosis. Mild to moderate regurgitation. Peak gradient: 11mm Hg (S). TRICUSPID VALVE: Structurally normal valve. Doppler: Transvalvular velocity was within the normal range. Mild-moderate regurgitation. PULMONARY ARTERY: The main pulmonary artery was normal-sized. Systolic pressure was within the normal range. RIGHT ATRIUM: The atrium was normal in size. PERICARDIUM: There was no pericardial effusion. SYSTEMIC VEINS: Inferior vena cava: The vessel was normal in size. Patient weight: 129.7lb _Ejection fraction:_ 65-75% _Fractional shortening:_ 32% up to 5Kg 5-11.5Kg 11.6-22.9Kg 23-45Kg 45-57Kg Aortic Root 7-13 <17 13-22 17-27 17-27 LA diam 6-13 <23 24-38 33-47 37-40 RVID 10-17 7-15 7-15 7-18 8-17 LVIDd 12-22 <32 24-38 33-47 37-40 LVPW 2-4 3-6 5-7 6-8 7-8 IVS 2-4 3-6 5-7 6-8 7-8 BASIC MEASUREMENTS ADULT NORMAL Left ventricle LV internal dimension, ED, chordal 46.7 mm 43-52 level, PLAX LV internal dimension, ES, chordal 37 mm 23-38 level, PLAX Fractional shortening, chordal level, *21 % >29 PLAX LV posterior wall thickness, ED 7.7 mm IVS/LVPW ratio, ED 1.14 <1.3 Ventricular septum Septal thickness, ED 8.81 mm Aortic valve Leaflet separation 20 mm 15-26 BASIC MEASUREMENTS ADULT NORMAL Aortic valve Leaflet separation 20 mm 15-26 Aorta Root diameter, ED 25 mm 20-37 Left atrium Anterior-posterior dimension, ES 29 mm 19-40 Anterior-posterior dimension index, ES 1.88 cm/m^2 <2.2 LA/aortic root ratio 1.16 DOPPLER MEASUREMENTS ADULT NORMAL Main pulmonary artery Pressure, S 22 mm Hg =30 Pressure, ED 14 mm Hg Aortic valve Peak velocity, S 289 cm/s Mean velocity, S 215 cm/s VTI, S 50.9 cm Mean gradient, S 21 mm Hg Peak gradient, S 33 mm Hg Valve area, Vmax 1.29 cm^2 Valve area index, Vmax 0.84 cm^2/m^2 Mitral valve Peak E-wave velocity 147 cm/s Peak A-wave velocity 90.1 cm/s Mean velocity, D 74.2 cm/s Deceleration time 183 ms 150-230 Mean gradient, D 3 mm Hg Peak gradient, D 10 mm Hg Peak E/A ratio 1.6 Maximal regurgitant velocity 557 cm/s Tricuspid valve Regurgitant peak velocity 238 cm/s Peak RV-RA gradient, S 23 mm Hg Maximal regurgitant velocity 238 cm/s Systemic veins Estimated CVP 10 mm Hg Right ventricle RV pressure, S *33 mm Hg <30 Pulmonic valve Peak velocity, S 167 cm/s Peak gradient, S 11 mm Hg Regurgitant velocity, ED 103 cm/s LEGEND: Mean values are shown as u=mean value. Asterisk (*) farfan values outside specified normal range. Prepared and signed by Tomi Cummings [id number]
[2016-11-21] MEDS: ASPIRIN EC 81 MG TABEC PO SCH (21:20)
[2016-11-21] MEDS: amLODIPine BESYLATE 5 MG TAB PO SCH (21:20)
[2016-11-21] MEDS: ATORVASTATIN 40 MG TAB PO SCH (21:21)
[2016-11-21] MEDS: CHOLECALCIFEROL (VIT D3) 1000 UNIT TAB PO SCH (21:21)
[2016-11-21] MEDS: FENOFIBRATE 48 MG TAB PO SCH (21:21)
[2016-11-21 21:30] LABS: BLOOD, URINE NEG (NEG); COMMENT (UR) CULT NOT INDICATED; CULTURE IF INDICATED CULT NOT INDICATED; GLUCOSE,URINE NEG (NEG); HYALINE CAST, URINE 1 /lpf (RARE); KETONE, URINE NEG (NEG); MUCUS URINE FEW /lpf (OCC); NITRITE,URINE NEG (NEG); URINE COLOR YELLOW (YELLW/STRAW)
[2016-11-21] MEDS: HEPARIN-D5W INJ 250 ML IV SCH (22:10)
[2016-11-21] MEDS ORDERED: ACETAMINOPHEN 325 MG TAB PO PRN (23:00)
[2016-11-21 23:33] LABS: POTASSIUM 3.6 MEQ/L (3.5-5.1)
[2016-11-22] VITALS (26 sets, daily range): BP systolic 124–153; BP diastolic 48–78; PULSE 48–81; RESP 16–18; TEMP 97.8–98.4; O2SAT 95–97
[2016-11-22 06:01] LABS: APTT (PATIENT) 51.5 SEC (24.3-30.1)
[2016-11-22] MEDS: LEVOTHYROXINE SODIUM 25 MCG TAB PO SCH (06:17)
[2016-11-22] MEDS: INSULIN ASPART SUPPLEMENTAL SCALE SQ SCH ×4 (06:17→21:00)
--- NOTE | 2016-11-22 07:56 | PD.CARD.PN ---
Subjective Subjective Remarks c/o irregular heart rhythm (Avery Goldberg) Objective Vital Signs / I&O Vital Signs Date Time Temp Pulse Resp B/P Pulse Ox O2 Delivery O2 Flow Rate FiO2 11/22/16 06:00 59 11/22/16 05:00 48 11/22/16 04:00 63 11/22/16 03:00 97.8 51 16 124/66 95 11/22/16 03:00 51 11/22/16 02:00 50 11/22/16 01:00 54 11/22/16 00:00 55 11/21/16 23:00 98.4 56 16 108/48 93 11/21/16 23:00 56 11/21/16 22:00 59 11/21/16 21:00 67 11/21/16 20:00 98.2 71 16 127/62 95 11/21/16 20:00 71 11/21/16 19:00 66 11/21/16 18:00 64 11/21/16 17:16 93 21 11/21/16 17:00 60 11/21/16 16:00 56 11/21/16 15:24 98.3 61 18 114/48 94 11/21/16 15:00 60 11/21/16 14:00 55 11/21/16 13:00 86 11/21/16 12:14 95 11/21/16 12:00 54 11/21/16 11:00 98.5 53 18 106/48 94 11/21/16 11:00 51 11/21/16 10:00 53 11/21/16 09:00 50 11/21/16 08:00 62 I/O 11/21/16 11/21/16 11/21/16 11/22/16 11/22/16 11/22/16 07:00 15:00 23:00 07:00 15:00 23:00 Intake Total 331 ml 720 ml 324 ml Output Total 650 ml 1150 ml Balance -319 ml 720 ml -826 ml Intake Oral 240 ml 720 ml 240 ml IV Total 91 ml 84 ml Output Urine Total 650 ml 1150 ml # Voids 4 # Bowel Movements 0 0 Physical Exam GENERAL: Well-nourished, well-developed patient in no apparent distress. NECK: No JVD. No carotid bruit. CARDIOVASCULAR: bradycardia irregular rhythm. S1/S2 no murmur, rub, or gallop. RESPIRATORY: No accessory muscle use. Clear to auscultation. Breath sounds equal bilaterally. GASTROINTESTINAL: Abdomen soft, non-tender, nondistended. MUSCULOSKELETAL: Extremities without clubbing, cyanosis, or edema. Laboratory Laboratory Tests Test 11/21/16 11/21/16 11/21/16 11/21/16 12:08 16:13 21:00 22:24 Total Creatine Kinase 72 U/L 67 U/L 59 U/L Troponin I 0.34 NG/ML 0.30 NG/ML 0.26 NG/ML Urine Color YELLOW Urine Turbidity CLEAR Urine pH 5.0 Urine Specific [place] 1.008 Urine Protein NEG mg/dL Urine Glucose (UA) NEG mg/dL Urine Ketones NEG mg/dL Urine Occult Blood NEG Urine Nitrite NEG Urine Bilirubin NEG Urine Urobilinogen 2.0 MG/DL Urine Leukocyte Esterase NEG Urine RBC LESS THAN 1 /hpf Urine WBC LESS THAN 1 /hpf Urine Hyaline Casts 1 /lpf Urine Mucus FEW /lpf Microscopic Urinalysis Comment CULT NOT INDICATED Sodium Level 138 MEQ/L Potassium Level 3.6 MEQ/L Chloride Level 101 MEQ/L Carbon Dioxide Level 27.0 MEQ/L Anion Gap 10 MEQ/L Blood Urea Nitrogen 43 MG/DL Creatinine 1.98 MG/DL Estimat Glomerular Filtration 24 ML/MIN Rate Random Glucose 134 MG/DL Calcium Level 9.0 MG/DL Test 11/22/16 05:25 Activated Partial 51.5 SEC Thromboplast Time (Avery Goldberg) Assessment and Plan Problem List: (1) Troponin level elevated (2) CAD (coronary artery disease) (3) CKD (chronic kidney disease) stage 3, GFR 30-59 ml/min (4) Systolic CHF Assessment and Plan elevated troponin - get Lexiscan SPECT bradycardia - get ECG stop metoprolol (Avery Goldberg) Assessment and Plan CHF, acute diastolic - moderate valve dz. moderate and moderate MR. Volume overload likely due to renal insufficiency. Gentle diuresis. Lasix 40 IV daily. -I/O slightly. weight 0.5 Kg less. On losartan. May consider changing to hydralazine to minimize any contributing factors to her worsened kidney function. bradycardia - tele shows irreg irreg rhythm probable afib with slow ventricular rate. Will obtain EKG. CAD - recent CABG 6 mo ago. No CP. troponin mildly elevated due to CHF and Cr. no plans lexiscan for now. Regardless of results, [facility] would certainly put her on HD. (Leonel Coyle MD) Avery Goldberg Nov 22, 2016 07:56 Leonel Coyle MD Nov 22, 2016 08:29
--- NOTE | 2016-11-22 09:48 | HHI.PR ---
Subjective Remarks Pt with h/o re-do CABG approx 1 yr ago Objective Vitals Vital Signs Date Time Temp Pulse Resp B/P Pulse Ox O2 Delivery O2 Flow Rate FiO2 11/22/16 08:15 67 11/22/16 06:00 59 11/22/16 05:00 48 11/22/16 04:00 63 11/22/16 03:00 97.8 51 16 124/66 95 11/22/16 03:00 51 11/22/16 02:00 50 11/22/16 01:00 54 11/22/16 00:00 55 11/21/16 23:00 98.4 56 16 108/48 93 11/21/16 23:00 56 11/21/16 22:00 59 11/21/16 21:00 67 11/21/16 20:00 98.2 71 16 127/62 95 11/21/16 20:00 71 11/21/16 19:00 66 11/21/16 18:00 64 11/21/16 17:16 93 21 11/21/16 17:00 60 11/21/16 16:00 56 11/21/16 15:24 98.3 61 18 114/48 94 11/21/16 15:00 60 11/21/16 14:00 55 11/21/16 13:00 86 11/21/16 12:14 95 11/21/16 12:00 54 11/21/16 11:00 98.5 53 18 106/48 94 11/21/16 11:00 51 11/21/16 10:00 53 11/21/16 11/21/16 11/22/16 15:00 23:00 07:00 Intake Total 720 ml 324 ml Output Total 1150 ml Balance 720 ml -826 ml Intake Oral 720 ml 240 ml IV Total 84 ml Output Urine Total 1150 ml # Voids 4 # Bowel Movements 0 Result Diagram: 11/20/16 1535 11/21/16 2224 A/P Problem List: (1) CAD (coronary artery disease) Status: Acute Plan: - cad and redo 3v cabg 05/22 - Pt admitted with vague chest/respiratory sx's and weakness - troponins were elevated but flat pattern - Case d/w Dr. Coyle (11/22/16) - ACS unlikely, flat troponins, and LHC would likely cause ARF - NO ihsan at this time - stop heparin (11/22/16) - CXR improving from admission and pt on NO supplemental oxygen - Echo (11/20/16) - EF 50-55% - Aortic Valve moderated stenosis - Mitral valve moderate regurgitation - Tricuspid valve mild to moderate regurgitation - pt's lasix 40mg was changed from PO to IV on admission for possible CHF - closely follow pt's renal fxn - Possible underlying afib noted on telemetry - awaiting repeat 12-lead EKG - pt with bradycardia - metoprolol was decreased to 25mg BID with parameters to hold if HR below 60 - bb/asa/plavix/statin (2) DEVANTE (acute kidney injury) Status: Acute Plan: see above (3) HTN (hypertension) Status: Chronic Plan: home meds (4) DM type 2 (diabetes mellitus, type 2) Status: Chronic Plan: ssi. hold oha (5) redo cabg x 3 Status: Chronic Plan: see above Problem Qualifiers (1) CAD (coronary artery disease): Qualified Code: I25.10 - Coronary artery disease involving [place] heart without angina pectoris, unspecified vessel or lesion type (2) DM type 2 (diabetes mellitus, type 2): Qualified Code: E11.8 - Type 2 diabetes mellitus with complication, without long-term current use of insulin You Cheek DO Nov 22, 2016 09:48
[2016-11-22] MEDS: CLOPIDOGREL 75 MG TAB PO SCH (10:03)
[2016-11-22] MEDS: METOPROLOL TARTRATE 25 MG TAB PO SCH ×2 (10:03→21:03)
[2016-11-22] MEDS: POTASSIUM CHLORIDE 20 MEQ CONTROLLED RELEASE TAB PO SCH (10:03)
[2016-11-22] MEDS: FUROSEMIDE 40 MG/4 ML VIAL IV PUSH SCH (10:04)
[2016-11-22] MEDS: SODIUM CHLORIDE 0.9% FLUSH 5 ML FLUSH IVF PRN ×2 (10:04→21:03)
[2016-11-22 11:57] LABS: FREE T4 1.31 NG/DL (0.76-1.46)
[2016-11-22] MEDS: FENOFIBRATE 48 MG TAB PO SCH (21:02)
[2016-11-22] MEDS: ATORVASTATIN 40 MG TAB PO SCH (21:02)
[2016-11-22] MEDS: amLODIPine BESYLATE 5 MG TAB PO SCH (21:03)
[2016-11-22] MEDS: CHOLECALCIFEROL (VIT D3) 1000 UNIT TAB PO SCH (21:03)
[2016-11-22] MEDS: ASPIRIN EC 81 MG TABEC PO SCH (21:03)
[2016-11-23] VITALS (17 sets, daily range): BP systolic 116–133; BP diastolic 49–71; PULSE 58–90; RESP 18; TEMP 97.7–99.2; O2SAT 96–99
[2016-11-23] MEDS: INSULIN ASPART SUPPLEMENTAL SCALE SQ SCH ×2 (05:17→11:20)
[2016-11-23] MEDS: LEVOTHYROXINE SODIUM 25 MCG TAB PO SCH (05:17)
[2016-11-23 06:33] LABS: AUTOMATED NEUTROPHIL # 2.5 TH/MM3 (1.8-7.7); BASOPHIL # 0.1 TH/MM3 (0-0.2); BASOPHIL % 1.1 % (0.0-2.0); EOSINOPHIL # 0.4 TH/MM3 (0-0.4); EOSINOPHIL % 8.3 % (0.0-4.0); HEMATOCRIT 27.6 % (35.0-46.0); HEMO FLAGS DIFF FINAL; LYMPH % 32.6 % (9.0-44.0); LYMPHOCYTE # 1.7 TH/MM3 (1.0-4.8); MEAN CELL VOLUME 86.3 FL (80.0-100.0); MEAN CORPUSCULAR HEMOGLOBIN 29.5 PG (27.0-34.0); MEAN CORPUSCULAR HGB CONC 34.2 % (32.0-36.0); MONO % 10.1 % (0.0-8.0); NEUT % 47.9 % (16.0-70.0); PLATELET COUNT 218 TH/MM3 (150-450); RED CELL DISTRIBUTION WIDTH 15.1 % (11.6-17.2); WHITE BLOOD COUNT 5.1 TH/MM3 (4.0-11.0)
[2016-11-23 06:52] LABS: APTT (PATIENT) 29.7 SEC (24.3-30.1)
[2016-11-23 06:54] LABS: MAGNESIUM 1.8 MG/DL (1.5-2.5); POTASSIUM 4.2 MEQ/L (3.5-5.1)
[2016-11-23] MEDS: METOPROLOL TARTRATE 25 MG TAB PO SCH (08:16)
[2016-11-23] MEDS: POTASSIUM CHLORIDE 20 MEQ CONTROLLED RELEASE TAB PO SCH (08:17)
[2016-11-23] MEDS: FUROSEMIDE 40 MG/4 ML VIAL IV PUSH SCH (08:17)
[2016-11-23] MEDS: CLOPIDOGREL 75 MG TAB PO SCH (08:17)
--- NOTE | 2016-11-23 08:38 | HHI.PR ---
Objective Vitals Vital Signs Date Time Temp Pulse Resp B/P Pulse Ox O2 Delivery O2 Flow Rate FiO2 11/23/16 07:00 70 11/23/16 06:00 62 11/23/16 05:00 69 11/23/16 04:00 61 11/23/16 04:00 98.9 65 18 116/49 97 11/23/16 03:00 69 11/23/16 02:00 66 11/23/16 01:00 66 11/23/16 00:00 58 11/23/16 00:00 99.2 65 18 133/71 97 11/22/16 23:00 67 11/22/16 22:00 68 11/22/16 21:00 80 11/22/16 20:27 21 11/22/16 20:00 78 11/22/16 20:00 97.8 75 18 134/78 95 11/22/16 19:00 80 11/22/16 18:19 81 11/22/16 17:00 64 11/22/16 16:20 98.3 62 18 124/48 95 11/22/16 16:00 56 11/22/16 15:00 68 11/22/16 14:02 68 11/22/16 13:00 65 11/22/16 12:00 64 11/22/16 11:45 97.8 64 18 153/69 97 11/22/16 11:00 55 11/22/16 10:28 96 21 11/22/16 10:00 67 11/22/16 09:00 70 11/22/16 11/22/16 11/23/16 15:00 23:00 07:00 Intake Total 720 ml 240 ml Output Total 800 ml 550 ml Balance -80 ml -310 ml Intake Oral 720 ml 240 ml Output Urine Total 800 ml 550 ml # Bowel Movements 1 Result Diagram: 11/23/16 0505 11/23/16 0505 Other Results Laboratory Tests Test 11/21/16 11/21/16 11/21/16 11/21/16 12:08 16:13 21:00 22:24 Total Creatine Kinase 72 U/L 67 U/L 59 U/L Troponin I 0.34 NG/ML 0.30 NG/ML 0.26 NG/ML Urine Color YELLOW Urine Turbidity CLEAR Urine pH 5.0 Urine Specific [place] 1.008 Urine Protein NEG mg/dL Urine Glucose (UA) NEG mg/dL Urine Ketones NEG mg/dL Urine Occult Blood NEG Urine Nitrite NEG Urine Bilirubin NEG Urine Urobilinogen 2.0 MG/DL Urine Leukocyte Esterase NEG Urine RBC LESS THAN 1 /hpf Urine WBC LESS THAN 1 /hpf Urine Hyaline Casts 1 /lpf Urine Mucus FEW /lpf Microscopic Urinalysis Comment CULT NOT INDICATED Sodium Level 138 MEQ/L Potassium Level 3.6 MEQ/L Chloride Level 101 MEQ/L Carbon Dioxide Level 27.0 MEQ/L Anion Gap 10 MEQ/L Blood Urea Nitrogen 43 MG/DL Creatinine 1.98 MG/DL Estimat Glomerular Filtration 24 ML/MIN Rate Random Glucose 134 MG/DL Calcium Level 9.0 MG/DL Test 11/22/16 11/22/16 11/23/16 05:25 11:09 05:05 Activated Partial 51.5 SEC 29.7 SEC Thromboplast Time Free Thyroxine 1.31 NG/DL Thyroid Stimulating Hormone 1.420 uIU/ML 3rd Gen White Blood Count 5.1 TH/MM3 Red Blood Count 3.20 MIL/MM3 Hemoglobin 9.4 GM/DL Hematocrit 27.6 % Mean Corpuscular Volume 86.3 FL Mean Corpuscular Hemoglobin 29.5 PG Mean Corpuscular Hemoglobin 34.2 % Concent Red Cell Distribution Width 15.1 % Platelet Count 218 TH/MM3 Mean Platelet Volume 8.8 FL Neutrophils (%) (Auto) 47.9 % Lymphocytes (%) (Auto) 32.6 % Monocytes (%) (Auto) 10.1 % Eosinophils (%) (Auto) 8.3 % Basophils (%) (Auto) 1.1 % Neutrophils # (Auto) 2.5 TH/MM3 Lymphocytes # (Auto) 1.7 TH/MM3 Monocytes # (Auto) 0.5 TH/MM3 Eosinophils # (Auto) 0.4 TH/MM3 Basophils # (Auto) 0.1 TH/MM3 CBC Comment DIFF FINAL Differential Comment Sodium Level 137 MEQ/L Potassium Level 4.2 MEQ/L Chloride Level 99 MEQ/L Carbon Dioxide Level 28.0 MEQ/L Anion Gap 10 MEQ/L Blood Urea Nitrogen 45 MG/DL Creatinine 1.86 MG/DL Estimat Glomerular Filtration 26 ML/MIN Rate Random Glucose 129 MG/DL Calcium Level 9.3 MG/DL Magnesium Level 1.8 MG/DL B-Type Natriuretic Peptide 146 PG/ML Imaging Last Impressions Chest X-Ray 1/14/17 1255 Signed Impressions: Service Date/Time: Sunday, November 20, 2016 13:31 - CONCLUSION: Chest tube has been removed. No pneumothorax seen. Leonel Gutierrez MD Objective Remarks General: NAD, AAOx3 Chest: CTA bilaterally Cardiac: Regular Abd: +BS, soft ND/NT Ext: No edema A/P Problem List: (1) CAD (coronary artery disease) Status: Acute Plan: - Pt with hx of CAD and redo 3v CABG in 05/22 - Pt admitted with vague chest/respiratory sx's and weakness - troponin were elevated but flat pattern - ACS unlikely, flat troponin, and LHC would likely cause ARF - NO ihsan at this time - Heparin stopped on 11/22/16 - CXR improving from admission and pt on NO supplemental oxygen - Echo (11/20/16) - EF 50-55% - Aortic Valve moderated stenosis - Mitral valve moderate regurgitation - Tricuspid valve mild to moderate regurgitation - pt's Lasix 40mg was changed from PO to IV on admission for possible CHF - closely follow pt's renal fxn - Possible underlying A. fib noted on telemetry - 12-lead EKG with noted sinus rhythm - Pt had noted bradycardia on 11/22/16 and Metoprolol was decreased to 25mg BID with parameters to hold if HR below 60 - bb/asa/plavix/statin (2) DEVANTE (acute kidney injury) Status: Acute Plan: - See above (3) HTN (hypertension) Status: Chronic Plan: - Stable on home meds (4) DM type 2 (diabetes mellitus, type 2) Status: Chronic Plan: - NovoLog SSI - Accu check - OHA on hold (5) redo cabg x 3 Status: Chronic Plan: - See above Problem Qualifiers (1) CAD (coronary artery disease): Qualified Code: I25.10 - Coronary artery disease involving [place] heart without angina pectoris, unspecified vessel or lesion type (2) DM type 2 (diabetes mellitus, type 2): Qualified Code: E11.8 - Type 2 diabetes mellitus with complication, without long-term current use of insulin Lisseth Renteria Nov 23, 2016 08:38
[2016-11-23] MEDS ORDERED: METO25TA3 PO (08:51)
--- NOTE | 2016-11-23 08:59 | HHI.DCPOC ---
Discharge Care Plan Diagnosis: (1) Congestive heart failure (2) DEVANTE (acute kidney injury) (3) Troponin level elevated (4) CKD (chronic kidney disease) stage 3, GFR 30-59 ml/min (5) DM type 2 (diabetes mellitus, type 2) (6) HTN (hypertension) (7) CAD (coronary artery disease) (8) redo cabg x 3 Goals to Promote Your Health - Patient will STOP her Losartan 50mg daily for now. She is to monitor her blood pressures at home and keep a log for her PCP. - Patient will get repeat labs on with results to go to Dr. Charles Painter - Patient will be on a decreased dose of Metoprolol 25mg twice daily - Patient is to followup with her PCP. Dr. Lanier in 1 week, call for an appt. - Patient is to followup with Dr. Coyle in 1-2 weeks, call for an appt. Directions to Meet Your Goals Take your medications as prescribed Follow your dietary instruction Follow activity as directed Keep your appointments as scheduled Take your immunizations and boosters as scheduled If your symptoms worsen call your PCP, if no PCP go to Urgent Care Center or Emergency Room Smoking is Dangerous to Your Health. Avoid second hand smoke Call the 24-hour hour crisis hotline for domestic abuse at Lisseth Renteria Nov 23, 2016 08:59 You Cheek DO Dec 02, 2016 22:42
--- NOTE | 2016-11-23 09:15 | HHI.DS ---
Discharge Summary Admission Date Nov 20, 2016 at 14:12 Discharge Date: Nov 23, 2016 Admitting Diagnosis acute coronary syndrome/NSTEMI, congestive heart failure (1) CAD (coronary artery disease) Diagnosis: Principal (2) DEVANTE (acute kidney injury) Diagnosis: Principal (3) HTN (hypertension) Diagnosis: Secondary (4) DM type 2 (diabetes mellitus, type 2) Diagnosis: Secondary (5) redo cabg x 3 Diagnosis: Secondary Consultants Dr. Leonel Coyle - Cardiology Brief History Pt has cad and had redo cabg x 3 in May 2016. over past month has had some progressive weakness. noted some palpitations today. described some sob in ED. seen by cardiology and felt to have some chf. pt started on lasix and heparin in ED and medicine asked to admit. pt says she had low grade fever and some msk pain in left arm and took 6 ibuprofen over past few days. CBC/BMP: 11/23/16 0505 11/23/16 0505 Significant Findings Laboratory Tests Test 11/20/16 11/20/16 11/20/16 11/21/16 13:00 15:35 23:47 05:01 White Blood Count 11.8 TH/MM3 (4.0-11.0) Red Blood Count 3.30 MIL/MM3 3.13 MIL/MM3 (4.00-5.30) (4.00-5.30) Hemoglobin 9.7 GM/DL 9.4 GM/DL (11.6-15.3) (11.6-15.3) Hematocrit 28.7 % 27.4 % (35.0-46.0) (35.0-46.0) Neutrophils (%) (Auto) 80.6 % (16.0-70.0) Neutrophils # (Auto) 9.5 TH/MM3 (1.8-7.7) Prothrombin Time 11.7 SEC (9.8-11.6) Activated Partial 31.4 SEC 42.2 SEC 44.4 SEC Thromboplast Time (24.3-30.1) (24.3-30.1) (24.3-30.1) Blood Urea Nitrogen 36 MG/DL (7-18) 39 MG/DL (7-18) Creatinine 2.18 MG/DL 2.06 MG/DL (0.50-1.00) (0.50-1.00) Estimat Glomerular Filtration 22 ML/MIN (>89) 23 ML/MIN (>89) Rate Random Glucose 160 MG/DL 187 MG/DL (74-106) (74-106) Total Bilirubin 1.2 MG/DL (0.2-1.0) Troponin I 0.50 NG/ML (0.02-0.05) B-Type Natriuretic Peptide 1182 PG/ML (0-100) Potassium Level 3.4 MEQ/L (3.5-5.1) Test 11/21/16 11/21/16 11/21/16 11/21/16 12:08 16:13 21:00 22:24 Troponin I 0.34 NG/ML 0.30 NG/ML 0.26 NG/ML (0.02-0.05) (0.02-0.05) (0.02-0.05) Urine Mucus FEW /lpf (OCC) Blood Urea Nitrogen 43 MG/DL (7-18) Creatinine 1.98 MG/DL (0.50-1.00) Estimat Glomerular Filtration 24 ML/MIN (>89) Rate Random Glucose 134 MG/DL (74-106) Test 11/22/16 11/23/16 05:25 05:05 Activated Partial 51.5 SEC Thromboplast Time (24.3-30.1) Red Blood Count 3.20 MIL/MM3 (4.00-5.30) Hemoglobin 9.4 GM/DL (11.6-15.3) Hematocrit 27.6 % (35.0-46.0) Monocytes (%) (Auto) 10.1 % (0.0-8.0) Eosinophils (%) (Auto) 8.3 % (0.0-4.0) Blood Urea Nitrogen 45 MG/DL (7-18) Creatinine 1.86 MG/DL (0.50-1.00) Estimat Glomerular Filtration 26 ML/MIN (>89) Rate Random Glucose 129 MG/DL (74-106) B-Type Natriuretic Peptide 146 PG/ML (0-100) PE at Discharge General: NAD, AAOx3 Chest: CTA bilaterally Cardiac: Regular Abd: +BS, soft ND/NT Ext: No edema Hospital Course Pt with hx of CAD and redo 3v CABG in 05/22. She was admitted with vague chest/ respiratory sx's and weakness. Her renal function was worse than baseline at admission with Cr 2.18. Troponin were elevated but flat pattern, felt that ACS unlikely with flat troponin. Cardiology was consulted and they felt that a LHC would likely cause ARF so it was decided that no Lexiscan was to be performed at that time. CXR at admission with evidence of mild CHF. 2D Echo (11/20/16) with EF 50-55%, moderate aortic stenosis, moderate mitral regurgitation, and mild to moderate tricuspid regurgitation. It was felt that her symptoms were related to CHF, acute diastolic with her moderate valve dz. with volume overload likely due to renal insufficiency. We proceeded with gentle diuresis converting her po Lasix to 40mg IV daily on 11/21/16. Her Losartan was held at admission due to acute kidney injury. Repeat CXR with improved from admission and pt was did not require any supplemental oxygen. Pt was noted to have bradycardia during admission with telemetry showing irreg irreg rhythm probable A. fib with slow ventricular rate. 12-lead EKG with noted sinus rhythm. Pt Metoprolol was decreased to 25mg BID and HR remained stable in the 60-70's. Patient will STOP her Losartan 50mg daily for now. She is to monitor her blood pressures at home and keep a log for her PCP. Patient will get repeat labs on with results to go to Dr. Spencer Painter She will be on a decreased dose of Metoprolol 25mg twice daily Patient is to followup with her PCP. Dr. Lanier in 1 week, call for an appt. Patient is to followup with Dr. Coyle in 1-2 weeks, call for an appt. Pt Condition on Discharge: Stable Discharge Disposition: Discharge Home Discharge Instructions DIET: Follow Instructions for: Heart Healthy Diet Activities you can perform: Regular-No Restrictions Follow up Referrals: Cardiology - [address] Leonel Coyle PCP Follow-up - [address] Spencer Painter New Medications: Metoprolol Tartrate (Metoprolol Tartrate) 25 Mg Tab 25 MG PO BID CAD #62 TAB Continued Medications: Amlodipine (Amlodipine) 5 Mg Tab 5 MG PO HS Blood Pressure Management #30 Ref 0 TAB Aspirin (Aspirin) 81 Mg Tabdr 81 MG PO HS TAB Atorvastatin (Atorvastatin) 40 Mg Tab 40 MG PO HS Cholesterol Management #30 Ref 0 TAB Cholecalciferol (Vitamin D-3) 2,000 Unit Tab 2000 UNITS PO HS Clopidogrel (Plavix) 75 Mg Tab 75 MG PO DAILY Blood Clot Prevention #30 Ref 0 TAB Fenofibrate (Fenofibrate) 48 Mg Tab 48 MG PO HS #30 Ref 0 TAB Furosemide (Lasix) 40 Mg Tab 40 MG PO DAILY #30 Ref 0 TAB Levothyroxine (Levothyroxine) 25 Mcg Tab 25 MCG PO DAILY Thyroid #30 Ref 0 TAB Metformin (Metformin) 500 Mg Tab 500 MG PO TIDPC With meals Blood Sugar Management #90 Ref 0 TAB Multiple Vitamin (Multi Vitamin) 1 Tab Tab 1 TAB PO DAILY TAB Nitroglycerin SL (Nitroglycerin SL) 0.4 Mg Subl 0.4 MG SL DIRECTED ONE TABLET UNDER THE TONGUE NEEDED FOR CHEST PAIN, MAY REPEAT EVERY FIVE MINUTES FOR A TOTAL OF 3 DOSES OR CALL 911 IF NO RELIEF PRN CHEST PAIN #100 Ref 0 TAB.SL Rhame-3 Fatty Acids (Fish Oil 1000 mg) 1 Cap Cap 1000 MG PO TID Potassium Chloride ER (K-Tab) 20 Meq Tab 20 MEQ PO DAILY Electrolyte Replacement #30 Ref 0 TAB Discontinued Medications: Losartan (Losartan) 50 Mg Tab 50 MG PO DAILY Blood Pressure Management #30 Ref 0 TAB Metoprolol Tartrate (Metoprolol Tartrate) 50 Mg Tab 50 MG PO BID #60 Ref 0 TAB Additional Information Patient examined. Assessment and plan formulated with Lisseth Renteria PA-C. I agree with the above. Lisseth Renteria Nov 23, 2016 09:15 You Cheek DO Dec 02, 2016 22:42
--- NOTE | 2016-11-23 10:23 | EKG ---
Date Performed: 11/22/2016 Time Performed: 16:32:24 PTAGE: 81 years EKG: Normal Sinus rhythm RBBB Left axis deviation Compared to prior tracing no significant change Abnormal ECG PREVIOUS TRACING : 11/20/2016 12.38 DOCTOR: Randall Rodriguez Interpretating Date/Time 11/23/2016 10:22:27
--- NOTE | 2016-11-23 10:50 | EKG ---
Date Performed: 11/23/2016 Time Performed: 05:35:10 PTAGE: 81 years EKG: Sinus rhythm Prolonged QT interval Left axis deviation RBBB with left anterior fascicular block Abnormal ECG Comp ared to prior tracing no significant change PREVIOUS TRACING : 11/22/2016 16.32 DOCTOR: Randall Rodriguez Interpretating Date/Time 11/23/2016 10:46:02
[2016-11-23] MEDS ORDERED: EPINEPHrine HCL (1:10,000) 1 MG/10 ML SYRINGE ONE (11:45)
[2016-11-23] MEDS ORDERED: ATROPINE SULFATE 1 MG/10 ML SYRINGE ONE (11:45)
== END 2016-11-23 15:24 | disposition home or self-care (01) | DRG 682 ==
LOC: NEPE 12:20 → NEDA 14:12 → HCIS 20:45
PROVIDERS: ADMIT Hospitalist; ATTEND Hospitalist
DX: N17.9 Acute kidney failure, unspecified (principal); I50.31 Acute diastolic (congestive) heart failure; E11.22 Type 2 diabetes mellitus with diabetic chronic kidney disease; I45.2 Bifascicular block; I13.0 Hypertensive heart and chronic kidney disease with heart failure and stage 1 through stage 4 chronic kidney disease, or unspecified chronic kidney disease; J44.9 Chronic obstructive pulmonary disease, unspecified; I25.10 Atherosclerotic heart disease of native coronary artery without angina pectoris; N18.3 Chronic kidney disease, stage 3 (moderate); I08.3 Combined rheumatic disorders of mitral, aortic and tricuspid valves; I48.91 Unspecified atrial fibrillation; E78.5 Hyperlipidemia, unspecified; E03.9 Hypothyroidism, unspecified; I45.10 Unspecified right bundle-branch block; M19.042 Primary osteoarthritis, left hand; M19.041 Primary osteoarthritis, right hand; J45.909 Unspecified asthma, uncomplicated; I25.2 Old myocardial infarction; Z79.84 Long term (current) use of oral hypoglycemic drugs; Z91.041 Radiographic dye allergy status; Z95.1 Presence of aortocoronary bypass graft
CPT/HCPCS: 71010; 71020; 80048; 80053; 81001; 82550; 82948; 83690; 83735; 83880; 84439; 84443; 84484; 85025; 85027; 85610; 85730; 93005; 93306; J0171; J0461; J1644; J1815; J1940

== ENCOUNTER 2018-01-15 00:31 | Inpatient (IN) | payer MEDICARE ==
[~2018-01-15] VITALS: Ht 149.9 cm; Wt 57.5 kg
[2018-01-15] VITALS (14 sets, daily range): BP systolic 122–200; BP diastolic 57–91; PULSE 45–105; RESP 14–18; TEMP 97.8–99.1; O2SAT 95–100
[~2018-01-15 00:31] MED LIST changes: -AMLO5 PO; +AMLO5TAB2 PO; +ASPI1TAB69 PO; -ASPI81 PO; -ATOR40TA PO; +ATOR40TA16 PO; +CHOL1TAB42 PO; -CLOP75 PO; -DOCU1CAP39 PO; +FENO48TA PO; +FURO1TAB60 PO; -GLUCTAB PO; -HYDR-2768 PO; +LEVO25TA4 PO; +METF500T PO; +METO25TA3 PO; -METO50TA PO; +MULT-135 PO; +NITR1SUB3 SL; -PACE200T4 PO; +PLAV75TA29 PO; +POTA1TAB4 PO; -THERM PO; -TRAD5TAB PO; -VITA20003 PO; -WALKER ROLLING
[2018-01-15] MEDS ORDERED: SODIUM CHLORIDE 0.9% FLUSH 10 ML FLUSH IVF PRN (00:45)
--- NOTE | 2018-01-15 00:57 | PD ---
HPI Chief Complaint: Chest Pain Time Seen by Provider: 00:39 Travel History International Travel<30 days: No Contact w/Intl Traveler<30days: No Traveled to known affect area: No History of Present Illness HPI 82-year-old female patient with history of CAD, multiple MIs, status post CABG, hypertension, presents to the ER today because she started having substernal chest pains or radiation to the back today which she states was earlier 9 out of 10. She had taken her on nitroglycerin and EMS had given her some nitroglycerin as well on aspirin and she states that is currently not that bad. She denies any nausea, vomiting, or other symptoms. She states that she has been having intermittent chest pains and had been prescribed indoor but states that this was worse than usual. Modifying Factors: None Associated Signs & Symptoms: Chest pains Risk Factors: Cardiac history PFSH Past Medical History Hx Anticoagulant Therapy: Yes (Plavix) Arthritis: Yes (HANDS) Asthma: No Autoimmune Disease: No Blood Disorders: No Anxiety: No Depression: No Heart Rhythm Problems: Yes Cancer: No Cardiac Catheterization: Yes (>20 STENTS) Cardiovascular Problems: Yes (CABG 2015) High Cholesterol: Yes Chemotherapy: No Chest Pain: Yes Congestive Heart Failure: Yes COPD: No Cerebrovascular Accident: No Diabetes: Yes Patient Takes Glucophage: No Diminished Hearing: No Diverticulitis: Yes Endocrine: Yes Gastrointestinal Disorders: Yes GERD: No Glaucoma: No Genitourinary: Yes Hepatitis: No Hiatal Hernia: No Heparin Induced Thrombocytopen: Yes Hypertension: Yes Immune Disorder: No Kidney Stones: No Musculoskeletal: No Neurologic: No Psychiatric: No Reproductive: No Respiratory: No Integumentary: No Myocardial Infarction: Yes (X6) Renal Failure: No Sickle Cell Disease: No Sleep Apnea: No Thyroid Disease: Yes Ulcer: No PNEUMOCCOCAL Vaccine (Year): 2 Menopausal: Yes : 3 Para: 3 Miscarriage: 0 : 0 Past Surgical History Abdominal Surgery: Yes (GALLBLADDER) AICD: No Appendectomy: Yes Arteriovenous Shunt: No Body Medical Devices: heart stents Cardiac Surgery: Yes (CABG 1994) Section: Yes (X1) Cholecystectomy: Yes Coronary Artery Bypass Graft: Yes (X2) Coronary Stent: Yes Ear Surgery: No Endocrine Surgery: No Eye Surgery: No Genitourinary Surgery: Yes Gynecologic Surgery: Yes (HYSTERECTOMY) Hysterectomy: Yes Insulin Pump: No Joint Replacement: No Oral Surgery: No Pacemaker: No Thoracic Surgery: No Tonsillectomy: Yes Other Surgery: Yes ( SURG) Family History Family Myocardial Infarction: Yes Social History Alcohol Use: No Tobacco Use: No Substance Use: No Allergies-Medications (Allergen,Severity, Reaction): Coded Allergies: amlodipine (Unverified Allergy, Intermediate, BODY ACHES, 01/15/18) pravastatin (Unverified Allergy, Intermediate, BODY ACHES, 01/15/18) simvastatin (Unverified Allergy, Intermediate, BODY ACHES, 01/15/18) atorvastatin (Unverified Adverse Reaction, Severe, ""STATINS""-ELEVATED LIVER ENZYMES, 01/15/18) diatrizoate meglumine (Unverified Adverse Reaction, Intermediate, Hives, ) fosinopril (Unverified Adverse Reaction, Intermediate, Cough, 01/15/18) gadobenic acid (Unverified Adverse Reaction, Intermediate, Hives, 01/15/18) gadodiamide (Unverified Adverse Reaction, Intermediate, Hives, 01/15/18) gadoteridol (Unverified Adverse Reaction, Intermediate, Hives, 01/15/18) iodine (Unverified Adverse Reaction, Intermediate, Hives, 01/15/18) iodixanol (Unverified Adverse Reaction, Intermediate, Hives, 01/15/18) iohexol (Unverified Adverse Reaction, Intermediate, Hives, 01/15/18) potassium iodide (Unverified Adverse Reaction, Intermediate, Hives, ) povidone-iodine (Unverified Adverse Reaction, Intermediate, Hives, 01/15/18 ) sodium iodide (Unverified Adverse Reaction, Intermediate, Hives, 01/15/18) sodium iodide (Unverified Adverse Reaction, Intermediate, Hives, 01/15/18) telmisartan (Unverified Adverse Reaction, Intermediate, Chest Pain, ) Reported Meds & Prescriptions Reported Meds & Active Scripts Active Metoprolol Tartrate 25 Mg Tab 25 Mg PO BID Reported Isosorbide Mononitrate ER (Isosorbide Mononitrate) 30 Mg Kashif 30 Mg PO DAILY Losartan (Losartan Potassium) 25 Mg Tab 25 Mg PO DAILY Tradjenta (Linagliptin) 5 Mg Tab 5 Mg PO DAILY Amlodipine (Amlodipine Besylate) 5 Mg Tab 5 Mg PO HS Atorvastatin (Atorvastatin Calcium) 40 Mg Tab 40 Mg PO HS Nitroglycerin SL (Nitroglycerin) 0.4 Mg Subl 0.4 Mg SL DIRECTED PRN ONE TABLET UNDER THE TONGUE NEEDED FOR CHEST PAIN, MAY REPEAT EVERY FIVE MINUTES FOR A TOTAL OF 3 DOSES OR CALL 911 IF NO RELIEF Lasix (Furosemide) 40 Mg Tab 20 Mg PO DAILY Levothyroxine (Levothyroxine Sodium) 25 Mcg Tab 25 Mcg PO DAILY Vitamin D-3 (Cholecalciferol) 2,000 Unit Tab 2,000 Units PO HS Review of Systems Except as stated in HPI: all other systems reviewed are Neg Physical Exam Narrative GENERAL: Well-developed elderly female patient currently mild distress. Awake and oriented 3. SKIN: Focused skin assessment warm/dry. HEAD: Atraumatic. Normocephalic. EYES: Pupils equal and round. No scleral icterus. No injection or drainage. ENT: No nasal bleeding or discharge. Mucous membranes pink and moist. NECK: Trachea midline. No JVD. Supple. CARDIOVASCULAR: Regular rate and rhythm. No murmur appreciated. RESPIRATORY: No accessory muscle use. Clear to auscultation. Breath sounds equal bilaterally. GASTROINTESTINAL: Abdomen soft, non-tender, nondistended. Hepatic and splenic margins not palpable. MUSCULOSKELETAL: No obvious deformities. No clubbing. No cyanosis. No edema. NEUROLOGICAL: Awake and alert. No obvious cranial nerve deficits. Motor grossly within normal limits. Normal speech. PSYCHIATRIC: Appropriate mood and affect; insight and judgment normal. Data Data Last Documented VS Vital Signs Date Time Temp Pulse Resp B/P (MAP) Pulse Ox O2 Delivery O2 Flow Rate FiO2 01/15/18 00:52 80 18 183/85 (117) 100 Nasal Cannula 2.00 01/15/18 00:32 97.8 Orders Orders Electrocardiogram (01/15/18 00:40) B-Type Natriuretic Peptide (01/15/18 00:40) Ckmb (Isoenzyme) Profile (01/15/18 00:40) Complete Blood Count With Diff (01/15/18 00:40) Comprehensive Metabolic Panel (01/15/18 00:40) Magnesium (Mg) (01/15/18 00:40) Prothrombin Time / Inr (Pt) (01/15/18 00:40) Act Partial Throm Time (Ptt) (01/15/18 00:40) Troponin I (01/15/18 00:40) Ecg Monitoring (01/15/18 00:40) Bilateral Bp Monitoring (01/15/18 00:40) Iv Access Insert/Monitor (01/15/18 00:40) Oximetry (01/15/18 00:40) Oxygen Administration (01/15/18 00:40) Sodium Chloride 0.9% Flush (Ns Flush) (01/15/18 00:45) Chest, Single Ap (01/15/18 00:52) Labetalol Inj (Trandate Inj) (01/15/18 03:30) Admit Order (Ed Use Only) (01/15/18 03:23) Commercial Portfolio Manager / Telemetry GABY.Q8H (01/15/18 03:23) Vital Signs (Adult) Q4H (01/15/18 03:23) Diet Heart Healthy (01/15/18 Breakfast) Activity Bed Rest (01/15/18 03:23) Labs Laboratory Tests Test 01/15/18 00:40 White Blood Count 7.6 TH/MM3 Red Blood Count 3.95 MIL/MM3 Hemoglobin 11.4 GM/DL Hematocrit 33.4 % Mean Corpuscular Volume 84.4 FL Mean Corpuscular Hemoglobin 28.9 PG Mean Corpuscular Hemoglobin Concent 34.2 % Red Cell Distribution Width 15.8 % Platelet Count 220 TH/MM3 Mean Platelet Volume 8.5 FL Neutrophils (%) (Auto) 37.7 % Lymphocytes (%) (Auto) 49.0 % Monocytes (%) (Auto) 6.6 % Eosinophils (%) (Auto) 5.7 % Basophils (%) (Auto) 1.0 % Neutrophils # (Auto) 2.9 TH/MM3 Lymphocytes # (Auto) 3.8 TH/MM3 Monocytes # (Auto) 0.5 TH/MM3 Eosinophils # (Auto) 0.4 TH/MM3 Basophils # (Auto) 0.1 TH/MM3 CBC Comment DIFF FINAL Differential Comment Prothrombin Time 10.3 SEC Prothromb Time International Ratio 1.0 RATIO Activated Partial Thromboplast Time 30.1 SEC Blood Urea Nitrogen 27 MG/DL Creatinine 1.23 MG/DL Random Glucose 198 MG/DL Total Protein 8.9 GM/DL Albumin 3.6 GM/DL Calcium Level 9.7 MG/DL Magnesium Level 1.8 MG/DL Alkaline Phosphatase 253 U/L Aspartate Amino Transf (AST/SGOT) 40 U/L Alanine Aminotransferase (ALT/SGPT) 33 U/L Total Bilirubin 0.3 MG/DL Sodium Level 137 MEQ/L Potassium Level 4.0 MEQ/L Chloride Level 103 MEQ/L Carbon Dioxide Level 24.9 MEQ/L Anion Gap 9 MEQ/L Estimat Glomerular Filtration Rate 42 ML/MIN Total Creatine Kinase 81 U/L Troponin I 0.03 NG/ML B-Type Natriuretic Peptide 161 PG/ML MDM Medical Decision Making Medical Screen Exam Complete: Yes Emergency Medical Condition: Yes Medical Record Reviewed: Yes Interpretation(s) EKG shows normal sinus rhythm at a rate of 91 bpm with a right bundle branch block pattern unchanged from previous EKG. Laboratory Tests Test 01/15/18 00:40 Red Blood Count 3.95 MIL/MM3 (4.00-5.30) Hemoglobin 11.4 GM/DL (11.6-15.3) Hematocrit 33.4 % (35.0-46.0) Lymphocytes (%) (Auto) 49.0 % (9.0-44.0) Eosinophils (%) (Auto) 5.7 % (0.0-4.0) Blood Urea Nitrogen 27 MG/DL (7-18) Creatinine 1.23 MG/DL (0.50-1.00) Random Glucose 198 MG/DL (74-106) Total Protein 8.9 GM/DL (6.4-8.2) Alkaline Phosphatase 253 U/L (45-117) Aspartate Amino Transf (AST/SGOT) 40 U/L (15-37) Estimat Glomerular Filtration Rate 42 ML/MIN (>89) B-Type Natriuretic Peptide 161 PG/ML (0-100) Differential Diagnosis Chest pains: ACS versus anxiety attack versus unstable angina Narrative Course Chest x-ray did not show any signs of acute pulmonary processes. Cardiac enzymes negative. EKG did not show any signs of acute ST changes. Her blood pressures are fairly elevated in the ER. She was given labetalol for the blood pressure elevation. My plan would be to admit her for further evaluation and treatment. Case has been discussed with Dr. Mejia who states the patient can be admitted under Dr. Garza service with cardiology consult. Diagnosis Primary Impression: Chest pain Additional Impression: Hypertensive urgency Admitting Information Admitting Physician Requests: Admit Evaristo Masters MD Jan 15, 2018 00:57
[2018-01-15 01:07] LABS: AUTOMATED NEUTROPHIL # 2.9 TH/MM3 (1.8-7.7); BASOPHIL # 0.1 TH/MM3 (0-0.2); EOSINOPHIL # 0.4 TH/MM3 (0-0.4); EOSINOPHIL % 5.7 % (0.0-4.0); HEMATOCRIT 33.4 % (35.0-46.0); HEMOGLOBIN 11.4 GM/DL (11.6-15.3); LYMPHOCYTE # 3.8 TH/MM3 (1.0-4.8); MEAN CELL VOLUME 84.4 FL (80.0-100.0); MEAN CORPUSCULAR HEMOGLOBIN 28.9 PG (27.0-34.0); MEAN CORPUSCULAR HGB CONC 34.2 % (32.0-36.0); MEAN PLATELET VOLUME 8.5 FL (7.0-11.0); MONO % 6.6 % (0.0-8.0); MONOCYTE # 0.5 TH/MM3 (0-0.9); NEUT % 37.7 % (16.0-70.0); PLATELET COUNT 220 TH/MM3 (150-450); RED BLOOD COUNT 3.95 MIL/MM3 (4.00-5.30); RED CELL DISTRIBUTION WIDTH 15.8 % (11.6-17.2); WHITE BLOOD COUNT 7.6 TH/MM3 (4.0-11.0)
[2018-01-15] MEDS ORDERED: ISOS30TA3 PO (01:10)
[2018-01-15] MEDS ORDERED: LOSA25TA PO (01:10)
[2018-01-15] MEDS ORDERED: TRAD5TAB PO (01:10)
--- NOTE | 2018-01-15 01:13 | RADRPT ---
EXAM DATE/TIME: 01/15/2018 01:54 [facility] COMPARISON: CHEST PA & LAT, November 20, 2016, 20:37. INDICATIONS : Chest pain MEDICAL HISTORY : Hypertension. Diabetes mellitus type II. Congestive heart failure. Myocardial infarctions. SURGICAL HISTORY : CABG. Appendectomy. Stents. ENCOUNTER: Initial ACUITY: 1 day PAIN SCORE: 4/10 LOCATION: Bilateral chest FINDINGS: No infiltrates seen. No large effusion. No perceptible pneumothorax. Mild cardiomegaly is stable. Patient has had previous median sternotomy and CABG. CONCLUSION: No acute cardiopulmonary disease demonstrated. Previous CABG. Mild compensated cardiomegaly is stable . Fausto Sterling MD on January 15, 2018 at 1:10 Board Certified Radiologist. This report was verified electronically.
[2018-01-15 01:21] LABS: PROTHROMBIN TIME - PATIENT 10.3 SEC (9.8-11.6)
[2018-01-15 01:24] LABS: ALBUMIN 3.6 GM/DL (3.4-5.0); ALT (GPT) 33 U/L (10-53); AST (GOT) 40 U/L (15-37); BICARBONATE 24.9 MEQ/L (21.0-32.0); BLOOD UREA NITROGEN 27 MG/DL (7-18); CALCIUM 9.7 MG/DL (8.5-10.1); CHLORIDE 103 MEQ/L (98-107); CREATININE 1.23 MG/DL (0.50-1.00); GLOMERULAR FILTRATION RATE 42 ML/MIN (>89); GLUCOSE,RANDOM 198 MG/DL (74-106); MAGNESIUM 1.8 MG/DL (1.5-2.5); SODIUM (NA) 137 MEQ/L (136-145)
[2018-01-15 01:28] LABS: ALKALINE PHOSPHATASE 253 U/L (45-117); TOTAL BILIRUBIN ADULT 0.3 MG/DL (0.2-1.0); TOTAL PROTEIN 8.9 GM/DL (6.4-8.2); TROPONIN I 0.03 NG/ML (0.02-0.05)
[2018-01-15] MEDS ORDERED: LABETALOL HCL 100 MG/20 ML VIAL IV PUSH ONE (03:30)
[2018-01-15] MEDS ORDERED: INSU1INJ13 SQ (08:53)
[2018-01-15] MEDS ORDERED: GLUCAGON 1 MG/ML VIAL OTHER PRN (09:15)
[2018-01-15] MEDS ORDERED: DEXTROSE 50% IN WATER 50 ML VIAL(D50) IV PUSH PRN (09:15)
--- NOTE | 2018-01-15 09:23 | HHI.HP ---
HPI Service [facility] Hospitalists Primary Care Physician Hermila Lanier MD Admission Diagnosis Chest pain/hypertensive urgency Chief Complaint: Chest pain, SOB Travel History International Travel<30 Days: No Contact w/Intl Traveler <30 Da: No Traveled to Known Affected Are: No History of Present Illness Mrs. Reyes is a pleasant 82 y/o female with CAD s/p CABG x 2 in 1994 and redo CABG x 3 in 05/22, diastolic CHF, aortic valve stenosis and HTN. Pt presented to the ED on 01/14/18 with complaints of chest pain and SOB. Pt has been having intermittent chest pain for some time, basically since her redo CABG in 2015. She reports that the pain is felt mid sternally and occurs sporadically, occasionally with exertion and is also nonexertional. This pain can have some associated SOB as well as belching/gas. She reports that she takes Nitro regularly for this pain. She had some improvement after being started on Imdur with the pain occurring less frequently. Last night the pain began while she was sitting and watching TV around 9PM. She had taken two Nitro pills without relief of the pain. This prompted her to call EMS. EMS had given her some nitroglycerin as well on aspirin with some minimal improvement. Her BP was quite high at the time of arrival to the ED at 200/91. Pt was given Labetalol IV and her BP did improve. Pt reports that once her BP improved that her pain resolved. She denies any nausea/vomiting, diaphoresis, headache, dizziness or palpitations. Her CXR at admission noted no acute cardiopulmonary disease demonstrated, previous CABG, and mild compensated cardiomegaly is stable. Pt reports that she has had several changes to her medications recently. She was taken on her Plavix in November. Her Lasix was decreased from 40mg daily to 20mg daily and she was taken off her Metformin due to her renal indices rising earlier this year. She states that she has had more issues with LE edema since her dose of Lasix was reduced earlier this year. Review of Systems Constitutional: DENIES: Fever, Chills, Dizziness Eyes: DENIES: Vision loss Ears, nose, mouth, throat: DENIES: Hearing loss Respiratory: DENIES: Cough Cardiovascular: COMPLAINS OF: Chest pain, Dyspnea on Exertion, Lower Extremity Edema, DENIES: Palpitations, Orthopnea Gastrointestinal: DENIES: Abdominal pain, Nausea, Vomiting Genitourinary: DENIES: Hematuria, Dysuria Musculoskeletal: DENIES: Back pain, Neck pain Integumentary: DENIES: Rash Neurologic: DENIES: Headache Psychiatric: DENIES: Confusion Past Family Social History Past Medical History CAD with hx of [place] Angina pectoris Aortic valve stenosis Chronic kidney disease, stage 3 CHF Diabetes mellitus HTN Hyperlipidemia Hypothyroidism Vitamin B12 deficiency Vitamin D deficiency 2D Echo (11/20/16) with EF 50-55%, moderate aortic stenosis, moderate mitral regurgitation, and mild to moderate tricuspid regurgitation. Past Surgical History CABG x 2 in 1994 Re-do CABG x3 in 05/2016 Multiple coronary stents Appendectomy Cholecystectomy MIGUEL in 1968 Salpingo-oophorectomy in 2011 Reported Medications -Metoprolol Tartrate 25 Mg PO BID -Isosorbide Mononitrate ER 30 Mg PO DAILY -Losartan 25 Mg PO DAILY -Tradjenta 5 Mg PO DAILY -Amlodipine 5 Mg PO HS -Atorvastatin 40 Mg PO HS -Nitroglycerin SL 0.4 Mg SL DIRECTED PRN ONE TABLET UNDER THE TONGUE NEEDED FOR CHEST PAIN, MAY REPEAT EVERY FIVE MINUTES FOR A TOTAL OF 3 DOSES OR CALL 911 IF NO RELIEF -Lasix 20 Mg PO DAILY -Levothyroxine 25 Mcg PO DAILY -Vitamin D-3 2,000 Units PO HS -Tresiba 10 Units SQ DAILY Allergies: Coded Allergies: glipizide (Verified Allergy, Intermediate, 01/15/18) LEG SWELLING pravastatin (Verified Allergy, Intermediate, BODY ACHES, 01/15/18) simvastatin (Verified Allergy, Intermediate, BODY ACHES, 01/15/18) atorvastatin (Verified Adverse Reaction, Severe, ""STATINS""-ELEVATED LIVER ENZYMES, 01/15/18) diatrizoate meglumine (Verified Adverse Reaction, Intermediate, Hives, 09/24) fosinopril (Verified Adverse Reaction, Intermediate, Cough, 01/15/18) gadobenic acid (Verified Adverse Reaction, Intermediate, Hives, 01/15/18) gadodiamide (Verified Adverse Reaction, Intermediate, Hives, 01/15/18) gadoteridol (Verified Adverse Reaction, Intermediate, Hives, 01/15/18) iodine (Verified Adverse Reaction, Intermediate, Hives, 01/15/18) iodixanol (Verified Adverse Reaction, Intermediate, Hives, 01/15/18) iohexol (Verified Adverse Reaction, Intermediate, Hives, 01/15/18) potassium iodide (Verified Adverse Reaction, Intermediate, Hives, 01/15/18) povidone-iodine (Verified Adverse Reaction, Intermediate, Hives, 01/15/18) sodium iodide (Verified Adverse Reaction, Intermediate, Hives, 01/15/18) sodium iodide (Verified Adverse Reaction, Intermediate, Hives, 01/15/18) telmisartan (Verified Adverse Reaction, Intermediate, Chest Pain, 01/15/18) Family History Noncontributory Social History Pt denies any alcohol, tobacco or illicit drug use Pt lives alone, she is Pt has 3 children 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8 105 18 200/91 (127) 100 Physical Exam GENERAL: This is a well-nourished, well-developed patient, in no apparent distress. SKIN: No rashes, ecchymoses or lesions. Cool and dry. HEENT: Atraumatic. Normocephalic. No temporal or scalp tenderness. No scleral icterus. Airway patent. NECK: Trachea midline, supple, nontender. CARDIO: Regular. RESP: Crackles at the bases bilaterally. ABD: +BS, soft, non-tender, nondistended. EXT: Mild pedal edema. NEURO: Awake and alert. Motor and sensory grossly within normal limits. Normal speech. Laboratory Laboratory Tests Test 01/15/18 00:40 White Blood Count 7.6 Red Blood Count 3.95 Hemoglobin 11.4 Hematocrit 33.4 Mean Corpuscular Volume 84.4 Mean Corpuscular Hemoglobin 28.9 Mean Corpuscular Hemoglobin Concent 34.2 Red Cell Distribution Width 15.8 Platelet Count 220 Mean Platelet Volume 8.5 Neutrophils (%) (Auto) 37.7 Lymphocytes (%) (Auto) 49.0 Monocytes (%) (Auto) 6.6 Eosinophils (%) (Auto) 5.7 Basophils (%) (Auto) 1.0 Neutrophils # (Auto) 2.9 Lymphocytes # (Auto) 3.8 Monocytes # (Auto) 0.5 Eosinophils # (Auto) 0.4 Basophils # (Auto) 0.1 CBC Comment DIFF FINAL Differential Comment Prothrombin Time 10.3 Prothromb Time International Ratio 1.0 Activated Partial Thromboplast Time 30.1 Blood Urea Nitrogen 27 Creatinine 1.23 Random Glucose 198 Total Protein 8.9 Albumin 3.6 Calcium Level 9.7 Magnesium Level 1.8 Alkaline Phosphatase 253 Aspartate Amino Transf (AST/SGOT) 40 Alanine Aminotransferase (ALT/SGPT) 33 Total Bilirubin 0.3 Sodium Level 137 Potassium Level 4.0 Chloride Level 103 Carbon Dioxide Level 24.9 Anion Gap 9 Estimat Glomerular Filtration Rate 42 Total Creatine Kinase 81 Troponin I 0.03 B-Type Natriuretic Peptide 161 Result Diagram: 01/15/180 01/15/1839 Imaging Last Impressions Chest X-Ray 01/15/18 0052 Signed Impressions: Service Date/Time: Monday, January 15, 2018 01:54 - CONCLUSION: No acute cardiopulmonary disease demonstrated. Previous CABG. Mild compensated cardiomegaly is stable. Fausto Sterling MD Caprini VTE Risk Assessment Caprini VTE Risk Assessment: Mod/High Risk (score >= 2) Caprini Risk Assessment Model Point Value = 1 Point Value = 2 Point Value = 3 Point Value = 5 Age 41-60 Minor surgery BMI > 25 kg/m2 Swollen legs Varicose veins or History of unexplained or recurrent spontaneous Oral contraceptives or hormone replacement Sepsis (< 1 month) Serious lung disease, including pneumonia (< 1 month) Abnormal pulmonary function Acute myocardial infarction Congestive heart failure (< 1 month) History of inflammatory bowel disease Medical patient at bed rest Age 61-74 Arthroscopic surgery Major open surgery (> 45 min) Laparoscopic surgery (> 45 min) Malignancy Confined to bed (> 72 hours) Immobilizing plaster cast Central venous access Age >= 75 History of VTE Family history of VTE Factor V Leiden Prothrombin 14320P Lupus anticoagulant Anticardiolipin antibodies Elevated serum homocysteine Heparin-induced thrombocytopenia Other congenital or acquired thrombophilia Stroke (< 1 month) Elective arthroplasty Hip, pelvis, or leg fracture Acute spinal cord injury (< 1 month) Prophylaxis Regimen Total Risk Factor Score Risk Level Prophylaxis Regimen 0-1 Low Early ambulation 2 Moderate Order ONE of the following: *Sequential Compression Device (SCD) *Heparin 5000 units SQ BID 3-4 Higher Order ONE of the following medications: *Heparin 5000 units SQ TID *Enoxaparin/Lovenox 40 mg SQ daily (WT < 150 kg, CrCl > 30 mL/min) *Enoxaparin/Lovenox 30 mg SQ daily (WT < 150 kg, CrCl > 10-29 mL/min) *Enoxaparin/Lovenox 30 mg SQ BID (WT < 150 kg, CrCl > 30 mL/min) AND/OR *Sequential Compression Device (SCD) 5 or more Highest Order ONE of the following medications: *Heparin 5000 units SQ TID (Preferred with Epidurals) *Enoxaparin/Lovenox 40 mg SQ daily (WT < 150 kg, CrCl > 30 mL/min) *Enoxaparin/Lovenox 30 mg SQ daily (WT < 150 kg, CrCl > 10-29 mL/min) *Enoxaparin/Lovenox 30 mg SQ BID (WT < 150 kg, CrCl > 30 mL/min) AND *Sequential Compression Device (SCD) Assessment and Plan Problem List: (1) Chest pain ICD Codes: R07.9 - Chest pain, unspecified Status: Acute Plan: Chest pain CAD with hx of redo 3 vessel CABG in 2016 Angina Pectoris Hx of CHF - Pt is an 82 y/o female with CAD s/p CABG x 2 in 1994 and redo CABG x 3 in 05/22 , diastolic CHF, aortic valve stenosis and HTN. - Pt presented to the ED on 01/14/18 with complaints of chest pain and SOB. Pt has been having intermittent chest pain for some time, basically since her redo CABG in 2016. She reports that the pain is felt mid sternally and occurs sporadically, occasionally with exertion and is also nonexertional. This pain can have some associated SOB as well as belching/gas. She reports that she takes Nitro regularly for this pain. She had some improvement after being started on Imdur with the pain occurring less frequently. - Last night the pain began while she was sitting and watching TV. She had taken two Nitro pills without relief of the pain. EMS had given her some nitroglycerin as well on aspirin with some minimal improvement. Her BP was quite high at the time of arrival to the ED at 200/91. Pt was given Labetalol IV and her BP did improve. - CXR at admission noted no acute cardiopulmonary disease demonstrated, previous CABG, and mild compensated cardiomegaly is stable. - Her chest pain is chronic and intermittent, ?chest wall pain vs. anginal equivalent vs. CHF/volume related vs GERD vs. other. - Pt reports that she has had several changes to her medications recently. She was taken on her Plavix in November. Her Lasix was decreased from 40mg daily to 20mg daily and she was taken off her Metformin due to her renal indices rising earlier this year. She states that she has had more issues with LE edema since her dose of Lasix was reduced earlier this year. - Resume her Imdur 30mg po daily, Metoprolol 25mg po BID, Norvasc 5mg po daily - Increase Lasix to 40mg po daily and monitor renal function. Pt does not take KCL as an outpt - Cariology has been consulted from the ED - 2D echo to re-evaluate valvular heart disease - Repeat CXR in AM - Supportive care - DVT prophylaxis with SCDs HTN - Resume home meds except Losartan for now as we are increasing Lasix dose - Monitor BP and labs closely - Clonidine PRN Diabetes mellitus, type 2 - Pt is on Tradgenta 5mg po daily and Tresiba 10 units SQ daily at home - Hold home meds - Novolog SSI - Accu checks Hypothyroidism - Cont. home meds CKD, stage 3 - Labs are stable compared to outpt labs (GFR rage from 25-44 since November 2017 ) - Monitor with medication adjustments (2) Congestive heart failure ICD Codes: I50.9 - Heart failure, unspecified Status: Acute (3) CKD (chronic kidney disease) stage 3, GFR 30-59 ml/min ICD Codes: N18.3 - Chronic kidney disease, stage 3 (moderate) Status: Acute (4) DM type 2 (diabetes mellitus, type 2) ICD Codes: E11.9 - DM type 2 (diabetes mellitus, type 2) Status: Chronic (5) HTN (hypertension) ICD Codes: I10 - HTN (hypertension) Status: Chronic (6) CAD (coronary artery disease) ICD Codes: I25.10 - Atherosclerotic heart disease of [place] coronary artery without angina pectoris Status: Acute Assessment and Plan Patient examined. Assessment and plan formulated with Lisseth Renteria PA-C. I agree with the above. nstemi. spoke with cardiology. start heparin and plan for possible lhc tomorrow. pt nervous about lhc as she will need prep and worried about roshan. Physician Certification 2 Midnight Certification Type: Admission for Inpatient Services Order for Inpatient Services The services are ordered in accordance with Medicare regulations or non- Medicare payer requirements, as applicable. In the case of services not specified as inpatient-only, they are appropriately provided as inpatient services in accordance with the 2-midnight benchmark. Estimated LOS (days): 2 2 days is the estimated time the patient will need to remain in the hospital, assuming treatment plan goals are met and no additional complications. Post-Hospital Plan: Not yet determined Lisseth Renteria Jan 15, 2018 09:23 Adrian Garza MD Jan 15, 2018 14:35
[2018-01-15] MEDS: LEVOTHYROXINE SODIUM 25 MCG TAB PO SCH (09:30)
--- NOTE | 2018-01-15 10:05 | EKG ---
Date Performed: 01/15/2018 Time Performed: 00:38:54 PTAGE: 82 years EKG: Sinus rhythm WITH FIRST DEGREE AV BLOCK MARKED LEFT AXIS DEVIATION RIGHT BUNDLE BRANCH BLOCK ABNORMAL ECG No sign ificant change from prior electrocardiogram. PREVIOUS TRACING : 11/23/2016 05.35 DOCTOR: Yo Ferrer Interpretating Date/Time 01/15/2018 10:04:30
[2018-01-15] MEDS: FUROSEMIDE 40 MG TAB PO SCH (10:34)
[2018-01-15] MEDS: METOPROLOL TARTRATE 25 MG TAB PO SCH ×2 (10:34→21:00)
[2018-01-15] MEDS: ISOSORBIDE MONONITRATE 30 MG CR TAB (IMDUR) PO SCH (10:34)
--- NOTE | 2018-01-15 11:03 | PD.CONS ---
HPI Service Cardiology Consult Requested By Adrian Bennett Reason for Consult CAD, angina, Hypertension Primary Care Physician Hermila Lanier MD History of Present Illness 82 y/o lady, patient of Dr. Marlon Dickey, presented to the ED last night with complaints of chest pain. Pt has been having intermittent chest pain for some time, basically since her redo CABG in 2015. She reports that the pain is felt mid sternally and occurs sporadically, occasionally with exertion and is also nonexertional. This pain can have some associated SOB as well as belching/ gas. She reports that she takes Nitro regularly for this pain. She had some improvement after being started on Imdur with the pain occurring less frequently. Last night the pain began while she was sitting and watching TV around 9PM. She had taken two Nitro pills without relief of the pain. This prompted her to call EMS. EMS had given her some nitroglycerin as well on aspirin with some minimal improvement. Her BP was quite high at the time of arrival to the ED at 200/91. Pt was given Labetalol IV and her BP did improve. Pt reports that once her BP improved that her pain resolved. She denies any nausea/vomiting, diaphoresis, headache, dizziness or palpitations. Her CXR at admission noted no acute cardiopulmonary disease demonstrated, previous CABG, and mild compensated cardiomegaly is stable. Pt reports that she has had several changes to her medications recently. She was taken on her Plavix in November. Her Lasix was decreased from 40mg daily to 20mg daily and she was taken off her Metformin due to her renal indices rising earlier this year. She states that she has had more issues with LE edema since her dose of Lasix was reduced earlier this year. No chest pain for now. Negative ECG and initial troponin for acute ischemia. She has hx of CAD s/p CABG x 2 in 1994 and redo CABG x 3 in 05/2016, diastolic CHF, aortic valve stenosis and HTN. Review of Systems Consitutional: DENIES: Fatigue, Fever, Chills, Weight gain, Weight loss Eyes: DENIES: Amaurosis Fugax, Change in vision HEENT: DENIES: Lightheadedness, Change in hearing Respiratory: COMPLAINS OF: See HPI, Shortness of breath, DENIES: Cough, Snoring , Wheezing, Sputum production Cardiovascular: COMPLAINS OF: See HPI, Chest pain, DENIES: Palpitations, Syncope, Tachycardia Gastrointestinal: COMPLAINS OF: Reflux, DENIES: Nausea, Vomiting, Change in bowel habits, Bloody stools, Melena Genitourinary: DENIES: Urinary incontinence, Difficulty voiding Integumentary: DENIES: Rash Neurologic: DENIES: Tingling or numbness, Memory problems, Poor Balance, Stroke symptoms Musculoskeletal: COMPLAINS OF: Joint pain, DENIES: Muscle pain, Limited range of motion, Back pain Psychiatric: DENIES: Anxiety, Depression, Sleep disturbances Hematologic: DENIES: Bruising tendencies, Bleeding tendencies Endocrine: DENIES: Weight gain, Weight loss, Thyroid disease Past Family Social History Allergies: Coded Allergies: glipizide (Verified Allergy, Intermediate, 01/15/18) LEG SWELLING pravastatin (Verified Allergy, Intermediate, BODY ACHES, 01/15/18) simvastatin (Verified Allergy, Intermediate, BODY ACHES, 01/15/18) atorvastatin (Verified Adverse Reaction, Severe, ""STATINS""-ELEVATED LIVER ENZYMES, 01/15/18) diatrizoate meglumine (Verified Adverse Reaction, Intermediate, Hives, 09/24) fosinopril (Verified Adverse Reaction, Intermediate, Cough, 01/15/18) gadobenic acid (Verified Adverse Reaction, Intermediate, Hives, 01/15/18) gadodiamide (Verified Adverse Reaction, Intermediate, Hives, 01/15/18) gadoteridol (Verified Adverse Reaction, Intermediate, Hives, 01/15/18) iodine (Verified Adverse Reaction, Intermediate, Hives, 01/15/18) iodixanol (Verified Adverse Reaction, Intermediate, Hives, 01/15/18) iohexol (Verified Adverse Reaction, Intermediate, Hives, 01/15/18) potassium iodide (Verified Adverse Reaction, Intermediate, Hives, 01/15/18) povidone-iodine (Verified Adverse Reaction, Intermediate, Hives, 01/15/18) sodium iodide (Verified Adverse Reaction, Intermediate, Hives, 01/15/18) sodium iodide (Verified Adverse Reaction, Intermediate, Hives, 01/15/18) telmisartan (Verified Adverse Reaction, Intermediate, Chest Pain, 01/15/18) Past Medical History CAD with hx of [place] Angina pectoris Aortic valve stenosis Chronic kidney disease, stage 3 CHF Diabetes mellitus HTN Hyperlipidemia Hypothyroidism Vitamin B12 deficiency Vitamin D deficiency 2D Echo (11/20/16) with EF 50-55%, moderate aortic stenosis, moderate mitral regurgitation, and mild to moderate tricuspid regurgitation. Past Surgical History CABG x 2 in 1994 Re-do CABG x3 in 05/2016 Multiple coronary stents Appendectomy Cholecystectomy MIGUEL in 1968 Salpingo-oophorectomy in 2011 Reported Medications Reported Meds & Active Scripts Active Metoprolol Tartrate 25 Mg Tab 25 Mg PO BID Reported Tresiba Flextouch Pen Inj (Insulin Degludec Inj) 600 unit/3 ML Pen 10 Units SQ DAILY Isosorbide Mononitrate ER (Isosorbide Mononitrate) 30 Mg Kashif 30 Mg PO DAILY Losartan (Losartan Potassium) 25 Mg Tab 25 Mg PO DAILY Tradjenta (Linagliptin) 5 Mg Tab 5 Mg PO DAILY Amlodipine (Amlodipine Besylate) 5 Mg Tab 5 Mg PO HS Atorvastatin (Atorvastatin Calcium) 40 Mg Tab 40 Mg PO HS Nitroglycerin SL (Nitroglycerin) 0.4 Mg Subl 0.4 Mg SL DIRECTED PRN ONE TABLET UNDER THE TONGUE NEEDED FOR CHEST PAIN, MAY REPEAT EVERY FIVE MINUTES FOR A TOTAL OF 3 DOSES OR CALL 911 IF NO RELIEF Lasix (Furosemide) 40 Mg Tab 20 Mg PO DAILY Levothyroxine (Levothyroxine Sodium) 25 Mcg Tab 25 Mcg PO DAILY Vitamin D-3 (Cholecalciferol) 2,000 Unit Tab 2,000 Units PO HS Active Ordered Medications Current Medications Medications (Trade) Dose Ordered Sig/Mildred Route Start Time Stop Time Status Last Admin (NS Flush) 2 ml UNSCH PRN IVF 01/15/18 00:45 (Lipitor) 40 mg HS PO 01/15/18 21:00 (Imdur) 30 mg DAILY PO 01/15/18 10:00 01/15/18 10:34 (Synthroid) 25 mcg DAILY@0600 PO 01/15/18 09:30 (Lopressor) 25 mg BID PO 01/15/18 09:30 01/15/18 10:34 (Norvasc) 5 mg HS PO 01/15/18 21:00 UNV (Lasix) 40 mg DAILY PO 01/15/18 09:00 01/15/18 10:34 (NovoLOG SUPPLEMENTAL SCALE) 1 ACHS SLIDING SCALE SQ 01/15/18 12:00 (D50w (Vial) Inj) 50 ml UNSCH PRN IV PUSH 01/15/18 09:15 (Glucagon Inj) 1 mg UNSCH PRN OTHER 01/15/18 09:15 Family History Noncontributory Social History Pt denies any alcohol, tobacco or illicit drug use Pt lives alone, she is Pt has 3 children 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 is a 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[employer] 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 Physical Exam Vital Signs Vital Signs Date Time Temp Pulse Resp B/P (MAP) Pulse Ox O2 Delivery O2 Flow Rate FiO2 01/15/18 10:36 72 151/68 (95) 01/15/18 09:35 97.8 70 17 153/67 (95) 97 01/15/18 06:37 62 18 141/63 (89) 98 Nasal Cannula 2.00 01/15/18 05:46 64 18 178/74 (108) 98 Nasal Cannula 2.00 01/15/18 05:04 61 18 132/62 (85) 99 Nasal Cannula 2.00 01/15/18 04:35 63 18 128/61 (83) 98 Nasal Cannula 2.00 01/15/18 03:44 69 18 183/77 (112) 99 Nasal Cannula 2.00 01/15/18 00:52 80 18 183/85 (117) 100 Nasal Cannula 2.00 01/15/18 00:44 87 18 100 Nasal Cannula 2.00 01/15/18 00:32 97.8 105 18 200/91 (127) 100 Physical Exam GENERAL: This is a well-nourished, well-developed patient, in no apparent distress. SKIN: No rashes, ecchymoses or lesions. Cool and dry. HEENT: Atraumatic. Normocephalic. No temporal or scalp tenderness. No scleral icterus. Airway patent. NECK: Trachea midline, supple, nontender. bilateral carotid bruit CARDIO: Regular rate and rhythm. Normal S1 and S2. 3/6 systolic murmur RUSB and apex. RESP: Crackles at the bases bilaterally. ABD: +BS, soft, non-tender, nondistended. EXT: Mild pedal edema. NEURO: Awake and alert. Motor and sensory grossly within normal limits. Normal speech. Laboratory Laboratory Tests Test 01/15/18 00:40 White Blood Count 7.6 Red Blood Count 3.95 Hemoglobin 11.4 Hematocrit 33.4 Mean Corpuscular Volume 84.4 Mean Corpuscular Hemoglobin 28.9 Mean Corpuscular Hemoglobin Concent 34.2 Red Cell Distribution Width 15.8 Platelet Count 220 Mean Platelet Volume 8.5 Neutrophils (%) (Auto) 37.7 Lymphocytes (%) (Auto) 49.0 Monocytes (%) (Auto) 6.6 Eosinophils (%) (Auto) 5.7 Basophils (%) (Auto) 1.0 Neutrophils # (Auto) 2.9 Lymphocytes # (Auto) 3.8 Monocytes # (Auto) 0.5 Eosinophils # (Auto) 0.4 Basophils # (Auto) 0.1 CBC Comment DIFF FINAL Differential Comment Prothrombin Time 10.3 Prothromb Time International Ratio 1.0 Activated Partial Thromboplast Time 30.1 Blood Urea Nitrogen 27 Creatinine 1.23 Random Glucose 198 Total Protein 8.9 Albumin 3.6 Calcium Level 9.7 Magnesium Level 1.8 Alkaline Phosphatase 253 Aspartate Amino Transf (AST/SGOT) 40 Alanine Aminotransferase (ALT/SGPT) 33 Total Bilirubin 0.3 Sodium Level 137 Potassium Level 4.0 Chloride Level 103 Carbon Dioxide Level 24.9 Anion Gap 9 Estimat Glomerular Filtration Rate 42 Total Creatine Kinase 81 Troponin I 0.03 B-Type Natriuretic Peptide 161 Result Diagram: 01/15/183901/15/1839 Assessment and Plan Problem List: (1) ACS (acute coronary syndrome) ICD Codes: I20.0 - ACS (acute coronary syndrome) Status: Acute (2) redo cabg x 3 Status: Chronic (3) Hypertensive urgency ICD Codes: I16.0 - Hypertensive urgency Status: Acute (4) Congestive heart failure ICD Codes: I50.9 - Heart failure, unspecified Status: Acute (5) DM type 2 (diabetes mellitus, type 2) ICD Codes: E11.9 - DM type 2 (diabetes mellitus, type 2) Status: Chronic (6) CKD (chronic kidney disease) stage 3, GFR 30-59 ml/min ICD Codes: N18.3 - Chronic kidney disease, stage 3 (moderate) Status: Acute Assessment and Plan 82 yo lady, patient of dr. Marlon Dickey, with hx of CAD s/p CABG x 2 in 1994 and redo CABG x 3 in 05/2016, moderate aortic valve stenosis presented with angina 1. ACS, Chest pain free now will repeat Troponin, if negative, then Bryanna nuclear stress test. She is concerned of possible cath and risk of CHIOMA 2. CAD, hx of redo CABG 2015. Continue Aspirin and statin 3. Moderate , Will repeat Echo 4 HTN, better control now, Will monitor after AM medications. Dr. Wheeler covers for Dr. Coyle or Dr. Dickey today. Wing Veronica Wheeler MD Jan 15, 2018 11:03
[2018-01-15] MEDS: INSULIN ASPART SUPPLEMENTAL SCALE SQ SCH ×2 (12:00→21:00)
[2018-01-15] MEDS ORDERED: HEPARIN-D5W 25,000 U/250 ML 250 ML IV PRN (14:45)
[2018-01-15] MEDS ORDERED: HEPARIN SODIUM - IV 10,000 UNITS/10 ML VIAL IV PUSH ONE (14:45)
[2018-01-15 16:13] LABS: HEMOGLOBIN 10.7 GM/DL (11.6-15.3); MEAN CELL VOLUME 84.2 FL (80.0-100.0); MEAN CORPUSCULAR HGB CONC 34.4 % (32.0-36.0); MEAN PLATELET VOLUME 8.4 FL (7.0-11.0); PLATELET COUNT 218 TH/MM3 (150-450); RED BLOOD COUNT 3.69 MIL/MM3 (4.00-5.30); RED CELL DISTRIBUTION WIDTH 15.8 % (11.6-17.2); WHITE BLOOD COUNT 8.9 TH/MM3 (4.0-11.0)
[2018-01-15 16:29] LABS: INTERNATIONAL NORMALIZED RATIO 1.2 RATIO; PROTHROMBIN TIME - PATIENT 11.7 SEC (9.8-11.6)
[2018-01-15] MEDS ORDERED: HEPARIN SODIUM - IV 10,000 UNITS/10 ML VIAL IV PUSH PRN ×2 (20:45)
[2018-01-15] MEDS: amLODIPine BESYLATE 5 MG TAB PO SCH (21:07)
[2018-01-15] MEDS: ATORVASTATIN 40 MG TAB PO SCH (21:08)
[2018-01-16] VITALS (8 sets, daily range): BP systolic 121–142; BP diastolic 58–64; PULSE 49–72; RESP 16–19; TEMP 97.8–98; O2SAT 93–97
[2018-01-16 03:46] LABS: AUTOMATED NEUTROPHIL # 4.4 TH/MM3 (1.8-7.7); BASOPHIL # 0.2 TH/MM3 (0-0.2); BASOPHIL % 2.8 % (0.0-2.0); EOSINOPHIL # 0.5 TH/MM3 (0-0.4); HEMATOCRIT 29.8 % (35.0-46.0); HEMOGLOBIN 10.3 GM/DL (11.6-15.3); LYMPH % 28.7 % (9.0-44.0); LYMPHOCYTE # 2.3 TH/MM3 (1.0-4.8); MEAN CELL VOLUME 84.1 FL (80.0-100.0); MEAN CORPUSCULAR HGB CONC 34.5 % (32.0-36.0); MEAN PLATELET VOLUME 8.4 FL (7.0-11.0); MONO % 6.4 % (0.0-8.0); MONOCYTE # 0.5 TH/MM3 (0-0.9); NEUT % 56.1 % (16.0-70.0); PLATELET COUNT 203 TH/MM3 (150-450); RED BLOOD COUNT 3.55 MIL/MM3 (4.00-5.30); RED CELL DISTRIBUTION WIDTH 15.6 % (11.6-17.2); WHITE BLOOD COUNT 7.8 TH/MM3 (4.0-11.0)
[2018-01-16 04:14] LABS: BICARBONATE 27.4 MEQ/L (21.0-32.0); CALCIUM 8.9 MG/DL (8.5-10.1); CREATININE 1.23 MG/DL (0.50-1.00); MAGNESIUM 1.8 MG/DL (1.5-2.5)
[2018-01-16] MEDS: LEVOTHYROXINE SODIUM 25 MCG TAB PO SCH (05:42)
--- NOTE | 2018-01-16 06:23 | RADRPT ---
EXAM DATE/TIME: 01/16/2018 05:22 [facility] COMPARISON: CHEST SINGLE AP, January 15, 2018, 1:54. INDICATIONS : Shortness of breath. MEDICAL HISTORY : Myocardial infarction. Hypertension. Diabetes mellitus type II. Congestive heart failure. SURGICAL HISTORY : CABG. Appendectomy. Stents. ENCOUNTER: Subsequent ACUITY: 2 days PAIN SCORE: 0/10 LOCATION: Bilateral chest FINDINGS: A single portable frontal view the chest shows mild cardiomegaly. No pulmonary vascular engorgement. Lungs are clear. No effusions. Median sternotomy wires. CONCLUSION: Stable cardiomegaly. Clear lungs. Blade Azar Jr., MD on January 16, 2018 at 6:21 Board Certified Radiologist. This report was verified electronically.
[2018-01-16] MEDS: INSULIN ASPART SUPPLEMENTAL SCALE SQ SCH ×4 (08:00→21:50)
[2018-01-16] MEDS ORDERED: PNEUMOCOCCAL POLYVALENT INJ 25 MCG/0.5 ML SYR IM ONE (09:00)
[2018-01-16] MEDS: ISOSORBIDE MONONITRATE 30 MG CR TAB (IMDUR) PO SCH (09:44)
[2018-01-16] MEDS: METOPROLOL TARTRATE 25 MG TAB PO SCH ×2 (09:44→21:49)
[2018-01-16] MEDS: FUROSEMIDE 40 MG TAB PO SCH (09:44)
[2018-01-16] MEDS ORDERED: HYDROCORTISONE SOD SUCCINATE 250 MG VIAL IV PUSH ONE (09:45)
--- NOTE | 2018-01-16 10:15 | PD.CARD.PN ---
Subjective Subjective Remarks no chest pain overnight, resting comfortably. (Abi Delong) Objective Medications Current Medications Medications (Trade) Dose Ordered Sig/Mildred Route Start Time Stop Time Status Last Admin (NS Flush) 2 ml UNSCH PRN IVF 01/15/18 00:45 (Lipitor) 40 mg HS PO 01/15/18 21:00 01/15/18 21:08 (Imdur) 30 mg DAILY PO 01/15/18 10:00 01/16/18 09:44 (Synthroid) 25 mcg DAILY@0600 PO 01/15/18 09:30 01/16/18 05:42 (Lopressor) 25 mg BID PO 01/15/18 09:30 01/16/18 09:44 (Norvasc) 5 mg HS PO 01/15/18 21:00 01/15/18 21:07 (Lasix) 40 mg DAILY PO 01/15/18 09:00 01/16/18 09:44 (NovoLOG SUPPLEMENTAL SCALE) 1 ACHS SLIDING SCALE SQ 01/15/18 12:00 (D50w (Vial) Inj) 50 ml UNSCH PRN IV PUSH 01/15/18 09:15 (Glucagon Inj) 1 mg UNSCH PRN OTHER 01/15/18 09:15 (Heparin Inj) 5,000 units UNSCH PRN IV PUSH 01/15/18 20:45 (Heparin Inj) 2,500 units UNSCH PRN IV PUSH 01/15/18 20:45 01/15/18 15:14 Heparin Sodium/ Dextrose 250 ml @ 7 mls/hr TITRATE PRN IV 01/15/18 14:45 01/15/18 15:13 Vital Signs / I&O Vital Signs Date Time Temp Pulse Resp B/P (MAP) Pulse Ox O2 Delivery O2 Flow Rate FiO2 01/16/18 04:00 Room Air 01/16/18 04:00 61 01/16/18 00:00 Room Air 01/16/18 00:00 98.0 53 16 121/58 (79) 97 01/16/18 00:00 50 01/15/18 20:00 Room Air 01/15/18 20:00 59 01/15/18 20:00 98.6 64 18 134/64 (87) 95 01/15/18 16:00 56 01/15/18 16:00 99.1 58 14 127/60 (82) 97 01/15/18 12:00 50 01/15/18 12:00 98.2 45 16 122/57 (78) 98 01/15/18 10:36 72 151/68 (95) I/O 01/15/18 01/15/18 01/15/18 01/16/18 01/16/18 01/16/18 06:59 14:59 22:59 06:59 14:59 22:59 Intake Total 325 ml 84 ml Output Total 400 ml 651 ml Balance -400 ml -326 ml 84 ml Intake Oral 325 ml 0 ml IV Total 84 ml Output Urine Total 400 ml 650 ml Stool Total 1 ml # Voids 2 # Bowel Movements 1 0 Physical Exam GENERAL: SKIN: Warm and dry. HEAD: Atraumatic. Normocephalic. EYES: Pupils equal and round. No scleral icterus. No injection or drainage. ENT: No nasal bleeding or discharge. Mucous membranes pink and moist. NECK: Trachea midline. No JVD. CARDIOVASCULAR: Regular rate and rhythm. systolic murmur III/ LUSB RESPIRATORY: No accessory muscle use. Clear to auscultation. Breath sounds equal bilaterally. GASTROINTESTINAL: Abdomen soft, non-tender, nondistended. Hepatic and splenic margins not palpable. MUSCULOSKELETAL: Extremities without clubbing, cyanosis, or edema. No obvious deformities. NEUROLOGICAL: Awake and alert. No obvious cranial nerve deficits. Normal speech. PSYCHIATRIC: Appropriate mood and affect; insight and judgment normal. Laboratory Laboratory Tests Test 01/15/18 11:21 01/15/18 15:48 01/15/18 21:30 01/16/18 03:20 Troponin I 8.45 NG/ML White Blood Count 8.9 TH/MM3 7.8 TH/MM3 Red Blood Count 3.69 MIL/MM3 3.55 MIL/MM3 Hemoglobin 10.7 GM/DL 10.3 GM/DL Hematocrit 31.0 % 29.8 % Mean Corpuscular Volume 84.2 FL 84.1 FL Mean Corpuscular Hemoglobin 29.0 PG 29.0 PG Mean Corpuscular Hemoglobin Concent 34.4 % 34.5 % Red Cell Distribution Width 15.8 % 15.6 % Platelet Count 218 TH/MM3 203 TH/MM3 Mean Platelet Volume 8.4 FL 8.4 FL Prothrombin Time 11.7 SEC Prothromb Time International Ratio 1.2 RATIO Activated Partial Thromboplast Time 92.6 SEC 50.4 SEC 50.6 SEC Neutrophils (%) (Auto) 56.1 % Lymphocytes (%) (Auto) 28.7 % Monocytes (%) (Auto) 6.4 % Eosinophils (%) (Auto) 6.0 % Basophils (%) (Auto) 2.8 % Neutrophils # (Auto) 4.4 TH/MM3 Lymphocytes # (Auto) 2.3 TH/MM3 Monocytes # (Auto) 0.5 TH/MM3 Eosinophils # (Auto) 0.5 TH/MM3 Basophils # (Auto) 0.2 TH/MM3 CBC Comment DIFF FINAL Differential Comment Blood Urea Nitrogen 24 MG/DL Creatinine 1.23 MG/DL Random Glucose 115 MG/DL Calcium Level 8.9 MG/DL Magnesium Level 1.8 MG/DL Sodium Level 140 MEQ/L Potassium Level 3.7 MEQ/L Chloride Level 104 MEQ/L Carbon Dioxide Level 27.4 MEQ/L Anion Gap 9 MEQ/L Estimat Glomerular Filtration Rate 42 ML/MIN Imaging Last 24 hours Impressions Chest X-Ray 01/16/18 0600 Signed Impressions: Service Date/Time: Tuesday, January 16, 2018 05:22 - CONCLUSION: Stable cardiomegaly. Clear lungs. Blade Azar Jr., MD (Abi Delong) Assessment and Plan Problem List: (1) ACS (acute coronary syndrome) ICD Codes: I20.0 - ACS (acute coronary syndrome) Status: Acute (2) redo cabg x 3 Status: Chronic (3) Hypertensive urgency ICD Codes: I16.0 - Hypertensive urgency Status: Acute (4) Congestive heart failure ICD Codes: I50.9 - Heart failure, unspecified Status: Acute (5) DM type 2 (diabetes mellitus, type 2) ICD Codes: E11.9 - DM type 2 (diabetes mellitus, type 2) Status: Chronic (6) CKD (chronic kidney disease) stage 3, GFR 30-59 ml/min ICD Codes: N18.3 - Chronic kidney disease, stage 3 (moderate) Status: Acute Assessment and Plan 82 yo WF with CAD, CABG x 2 with redo in 2015, CHF, AVS and diabetes who presents with exertional chest pain and SOB. chest pain- asymptomatic overnight echo 11/2016 EF 50-55%, mod will obtain updated echo NSTEMI- troponin elevation, 8.45 repeat trop to monitor trend creatinine 1.2 consider [facility] (Abi Delong) Assessment and Plan NSTEMI - severe CAD [facility] patent but mid LAD with 80% but small caliber and tortuous [place] titrate isosorbide 60 daily monitor possible DC tomorrow (Leonel Coyle MD) Abi Delong Jan 16, 2018 10:15 Leonel Coyle MD Jan 16, 2018 15:30
[2018-01-16] MEDS ORDERED: HYDROCORTISONE SOD SUCCINATE 100 MG VIAL IV PUSH ONE (10:45)
--- NOTE | 2018-01-16 12:44 | ECHRPT ---
Indication: HEART FAILURE CONCLUSIONS Normal left ventricular size. Wall thickness is normal. The left ventricular systolic function is hyperdynamic with an estimated ejection fraction in the ra nge of 65- 70%. The left atrial size is moderately dilated. The right atrial size is [id number] dilated. No atrial level shunt is demonstrated by color flow Doppler interrogation. The aortic root and proximal ascending aorta are not well visualized. [id number] mitral valve regurgitation. Diffuse calcification of the aortic valve. Moderate aortic valve stenosis (severe by GISSELL; mild-moderate by mean gradient). Aortic valve area is 0.43 cm. Aortic valve mean gradient is 23 mmHg. There is mild to moderate tricuspid valve regurgitation. The estimated pulmonary arterial pressure is 36.6 mmHg. Mild pulmonary valve regurgitation. BP: 153 / 67 HR: 95 Rhythm: Sinus MEASUREMENTS (Male / Female) Normal Values Technical Quality:Fair 2D ECHO LV Diastolic Diameter PLAX 4.8 cm 4.2 - 5.9 / 3.9 - 5.3 cm LV Systolic Diameter PLAX 3.1 cm IVS Diastolic Thickness 0.9 cm 0.6 - 1.0 / 0.6 - 0.9 cm LVPW Diastolic Thickness 0.9 cm 0.6 - 1.0 / 0.6 - 0.9 cm LV Relative Wall Thickness 0.4 RV Internal Dim ED PLAX 2.9 cm LVOT Diameter 1.4 cm Aortic Root Diameter 2.7 cm LA Systolic Diameter LX 3.8 cm 3.0 - 4.0 / 2.7 - 3.8 cm M-MODE AV Cusp Separation MM 1.5 cm DOPPLER AV Peak Velocity 327.0 cm/s AV Peak Gradient 42.8 mmHg AV Mean Gradient 23.0 mmHg AV Velocity Time Integral 80.1 cm LVOT Peak Velocity 80.2 cm/s LVOT Peak Gradient 2.6 mmHg LVOT Velocity Time Integral 22.5 cm AV Area Cont Eq vti 0.4 cm AV Area Cont Eq pk 0.4 cm Mitral E Point Velocity 116.0 cm/s Mitral A Point Velocity 110.0 cm/s Mitral E to A Ratio 1.1 LV E' Lateral Velocity 4.2 cm/s Mitral E to LV E' Lateral Ratio 27.7 LV E' Septal Velocity 5.0 cm/s Mitral E to LV E' Septal Ratio 23.3 TR Peak Velocity 258.0 cm/s TR Peak Gradient 26.6 mmHg Right Atrial Pressure 10.0 mmHg Pulmonary Artery Systolic Pressu 36.6 mmHg Right Ventricular Systolic Press 36.6 mmHg PV Peak Velocity 63.5 cm/s PV Peak Gradient 1.6 mmHg FINDINGS LEFT VENTRICLE Normal left ventricular size. Wall thickness is normal. The left ventricular systolic function is hyperdynamic with an estimated ejection fraction in the ra nge of 65- 70%. RIGHT VENTRICLE Normal right ventricular size and systolic function. LEFT ATRIUM The left atrial size is moderately dilated. RIGHT ATRIUM The right atrial size is [id number] dilated. ATRIAL SEPTUM No atrial level shunt is demonstrated by color flow Doppler interrogation. AORTA The aortic root and proximal ascending aorta are not well visualized. MITRAL VALVE [id number] mitral valve regurgitation. AORTIC VALVE Diffuse calcification of the aortic valve. Moderate aortic valve stenosis (severe by GISSELL; mild-moderate by mean gradient). Aortic valve area is 0.43 cm. Aortic valve mean gradient is 23 mmHg. TRICUSPID VALVE There is mild to moderate tricuspid valve regurgitation. The estimated pulmonary arterial pressure is 36.6 mmHg. PULMONARY VALVE Mild pulmonary valve regurgitation. VESSELS The inferior vena cava is normal in size. PERICARDIUM No pericardial effusion. Leonel Coyle MD, FACC (Electronically Signed) Final Date:16 January 2018 12:42
[2018-01-16] MEDS ORDERED: NITROGLYCERIN INJ 5 ML ONE (14:07)
[2018-01-16] MEDS ORDERED: HEPARIN SODIUM - IV 10,000 UNITS/10 ML VIAL ONE (14:07)
[2018-01-16] MEDS ORDERED: diphenhydrAMINE HCL 50 MG/ML VIAL ONE (14:17)
[2018-01-16] MEDS ORDERED: MIDAZOLAM HCL 2 MG/2 ML VIAL ONE (14:31)
[2018-01-16] MEDS ORDERED: MISC INFORMATION XX ONE (15:15)
[2018-01-16] MEDS ORDERED: METOCLOPRAMIDE HCL 10 MG/2 ML VIAL IV PUSH PRN (15:15)
[2018-01-16] MEDS ORDERED: BACITRACIN OINT 0.9 GM PKT TOP ONE (15:15)
[2018-01-16] MEDS ORDERED: LIDOCAINE HCL 1% 50 ML VIAL INFIL PRN (15:15)
[2018-01-16] MEDS ORDERED: SODIUM CHLOR 0.9% 250 ML INJ 250 ML IV PRN (15:15)
[2018-01-16] MEDS ORDERED: LORazepam 2 MG/ML VIAL IV PUSH PRN (15:15)
[2018-01-16] MEDS ORDERED: ATROPINE SULFATE 1 MG/ML VIAL IV PUSH PRN (15:15)
[2018-01-16] MEDS ORDERED: ONDANSETRON HCL 4 MG/2 ML VIAL IV PUSH PRN (15:15)
--- NOTE | 2018-01-16 15:30 | CATHPROC ---
[employer] HIS Report Study Information Study Number Admission Scheduled Start Study Start [id number] Jan 15 2018 3:26AM 01/16/2018 Jan 16 2018 2:07PM Study Type [place] Service Left/Possible PCI Cardiac Catheterization Admit Source Facility Department Emergency department [facility] - [employer] Physician and Clinical Staff Initial Leonel Dominguez Building Insulation Installer Benny Guerrero,RN Other Lindsey Lee ,BSN Recorder Cha Mcdonald,ADRIANNA TECH2 Scrub Lesley García,CALL CENTER OPERATIONS MANAGER TECH2 Procedures Performed Procedure Location (Site) Vessel Name Coronary Angiograms LCA Left Coronary Coronary Angiograms RCA Right Coronary Coronary Angiograms SHIPMAN-LAD Left Coronary Coronary Angiograms SVG-RCA Right Coronary LV Gram-hand inj. LV Asc. Aorta (A) Wire insertion Fem Art (right) Femoral Art Equipment Time Process Machine Operator Description Size Mfg Part Number Used/Scraped TRANSDUCER, TRUWAVE [id number] 14:08 RAMIREZ ASHLEY * Used W/STOCKCOCK *[id number] WIRE, GUIDE AMPLATZ STIFF [id number] 14:40 COOK/KIRAN 300CM Used 300CM TAVR *[id number] TAVR 534-645T *[id number] 534-660T *[id number] 534-520T *[id number] 534-521T *[id number] 534-642T *[id number] 14:08 MEDLINE INDUSTRIES PACK, CCL CUSTOM * Used *[id number] 14:08 Edkimo PACER PEN, SKIN DUAL W/ RULER * Used *[id number] 14:36 5 CUPS and some sugar MEDICAL SHEATH, FR6.5 PRELUDE 11CM FR 6.5 038ACT Used *[id number] 14:08 5 CUPS and some sugar MEDICAL WIRE, 3MMJ .035 180CM 180CM Used *[id number] 14:40 5 CUPS and some sugar MEDICAL WIRE, EXCHANGE 260CM 3MMJ 260CM Used *[id number] 14:08 NAMIC MANIFOLD, 4 PORT * Used *[id number] 14:08 NYCOMED OMNIPAQUE, 350 MG, 150ML 150ML [id number] Used [id number] 14:08 DANIELLE MEDICAL BLANKET,WARM AIR CCL * Used *[id number] 14:08 TERUMO MEDICAL SHEATH, FR5 TERUMO (10CM) FR 5 Used *[id number] 14:38 VASCULAR SOLUTIONS PIGTAIL DUAL LUMEN CATHETER FR 6 5540 *[id number] Used History: Current Medications Medication Dosage/Unit Route Frequency Last Date/Time Taken LOPRESSOR VITAMIN D Synthroid LASIX NTG SL Statins (any) NORVASC Imdur History: Allergies Allergy Reaction iohexol Hives potassium iodide Hives sodium iodide Hives diatrizoate meglumine Hives iodine Hives povidone-iodine Hives pravastatin BODY ACHES simvastatin BODY ACHES amlodipine BODY ACHES gadoteridol Hives gadodiamide Hives fosinopril Cough iodixanol Hives atorvastatin ""STATINS""-ELEVATED LIVER ENZYMES telmisartan Chest Pain gadobenic acid Hives glipizide History: Risk Factors Family History of Hypertension Dyslipidemia Previous MT Previous Heart Failure Premature CAD Yes Yes Yes Yes Yes Prior Valve Prior PCI Prior CABG Prior CABGDate Surgery No Yes Yes 05/07/2016 Cerebrovascular Peripheral Artery Chronic Lung On Dialysis Diabetes Diabetes Therapy Disease Disease Disease No No No No Yes Oral History: Symptoms/Diagnosis Selection Items Chest pain SOB History: Stress Tests Stress or Imaging Studies Performed No History: Other Disease Selection Items Renal Failure/Insufficiency History: Other Current Smoker No Labs Hgb (g/dl) Hct (%) RBC (MIL/MM3) WBC (l/cumm) Platelets (thousands) 11.60-17.00 35.00-51.00 4.00-5.90 4.00-11.00 150.00-450.00 10.3 29.8 3.5 7.8 203 Glucose (mg/dl) BUN (mg/dl) Creatinine (mg/dl) BUN:Creatinine (1:x) 74.00-106.00 7.00-18.00 0.50-1.30 10.00-20.00 115 24 1.2 20 Na (meq/l) K (meq/l) Cl (meq/l) CO2 (mmol/L) Ca (mg/dl) 136.00-145.00 3.50-5.10 98.00-107.00 21.00-32.00 8.50-10.10 140 3.7 104 27.4 8.9 PT (sec) PTT (sec) INR (PTT:PT) 9.80-11.60 24.30-30.10 0.90-1.10 11.7 50.6 1.2 Troponin I (ng/ml) CPK (u/l) 0.02-0.05 26.00-308.00 8.45 81 Medication Medication Total Dose (Bolus/Oral) Medication Total Dosage/Unit 1% XYLOCAINE 20 mL BENADRYL 50 mg VERSED 1 mg Medications (Bolus/Oral) Medication Time Given Dosage/Unit Administered By Reason BENADRYL 01/16/2018 2:31:00 PM 50 mg Leonel Coyle 50 mg BENADRYL given in lab by Leonel Coyle in Left Forearm via Peripheral IV. VERSED 01/16/2018 2:32:26 PM 0.5 mg Benny Guerrero 0.5 mg VERSED given in lab by Benny Guerrero RN in Left Forearm via Peripheral IV. Ordered by Leonel Coyle. 1% XYLOCAINE 01/16/2018 2:33:10 PM 20 mL Leonel Coyle 20 mL 1% XYLOCAINE given in lab by Leonel Coyle in Right Groin via Subcutaneous. VERSED 01/16/2018 2:38:21 PM 0.5 mg Benny Guerrero 0.5 mg VERSED given in lab by Benny Guerrero RN in Left Forearm via Peripheral IV. Ordered by Leonel Coyle. Medication (Drip) Medication Time Given Dosage/Unit Concentration/Unit Diluent (ml) Solution IV Solutions 01/16/2018 2:08:35 PM 0 mL (IV) 500 NaCl .9 Patient arrived on IV Solutions in Left Forearm via Peripheral IV. Pump/Drip Flow = 20 ml/hr using Na Cl .9. Initial Case Assessment Cardiovascular HR Rhythm NIBP Chest Pain 59 sr 147/58 0 Circulatory - Right Pulses Dorsalis Pedis Femoral 2 2 Scale (0,1,2,3,4,d) Circulatory - Left Pulses Dorsalis Pedis Femoral 2 2 Scale (0,1,2,3,4,d) Neurological State Oriented to time-place- Alert Moves all extremities person Respiration - General Respiration Rate SpO2 (%) (B/min) 18 91 Final Case Assessment Cardiovascular HR Rhythm NIBP Chest Pain 61 sr 149/50 0 Circulatory - Right Pulses Dorsalis Pedis Femoral 2 2 Scale (0,1,2,3,4,d) Circulatory - Left Pulses Dorsalis Pedis Femoral 2 2 Scale (0,1,2,3,4,d) Neurological State Oriented to time-place- Alert Moves all extremities person Respiration - General Respiration Rate SpO2 (%) (B/min) 18 98 Chronological Log Time Study Chronological Log 14:05:14 Patient arrived via Bed. 14:05:18 Patient Name, D.O.B, / Armband Verified By R.N. 14:07:23 Consent signed by the physician and the patient and verified by the [employer] staff. 14:07:24 Pre-op and post- op instructions given; patient acknowledges understanding of instructions. 14:07:25 Verbal Stimulation=2 Physical Stimulation=2 Airway=2 Respiration=2 TOTAL=8. (0=absent, 1=li mited, 2=present) 14:08:27 Presedation assessment performed by [employer] RN. 14:08:30 Patient has been NPO for More than 6Hrs. 14:08:31 Skin Breakdown-none per patient 14:08:32 Lani Prominences Protected 14:08:34 A # 18 IV was noted in the Forearm (left). Grade = patent 14:08:35 Patient arrived on IV Solutions in Left Forearm via Peripheral IV. Pump/Drip Flow = 20 ml/h r using NaCl .9. 14:08:36 History and physical on the chart or being dictated. 14:10:25 Reference ECG taken Vitals capture started with the following parameters, Patient=Adult, Interval=5 min, Initial Pr ojavhq=353 mmHg, 14:10:28 Deflation Rate=5 mmHg, Cuff placed on Left Leg 14:11:53 HR=59 bpm, GGAA=194/58 mmhg, SpO2=93.0 %, Resp=15 B/min Assessment: Initial Case, HR=59 BPM, Rhythm=sr, VZFV=821/58 mmhg, Chest Pain=0 Right Pulses: Nas Ped=2, Femoral=2 14:12:50 Left Pulses: Nas Ped=2, Femoral=2 Neurological: State=Alert, Ox3, NAVA Respiration: Resp=18 B/min, SpO2=91 % 14:16:09 HR=60 bpm, DREB=581/58 mmhg, SpO2=93.0 %, Resp=13 B/min 14:17:33 A # 20 IV was noted in the Antecubital (right). Grade = 0 not in use 14:20:55 Bilateral groins prepped with 2% chlorhexidine, and draped after a 3 minute waiting time. 14:21:45 HR=61 bpm, WKPL=351/68 mmhg, SpO2=93.0 %, Resp=16 B/min 14:23:56 Pressure channel 1 zeroed. 14:24:02 paged 14:26:10 HR=59 bpm, XTPS=730/65 mmhg, SpO2=98.0 %, Resp=18 B/min 14:29:11 MD arrived. 14:29:55 Pressure channel 2 zeroed. 14:31:00 50 mg BENADRYL given in lab by Leonel Coyle in Left Forearm via Peripheral IV. 14:31:11 HR=58 bpm, ONKQ=953/58 mmhg, SpO2=97.0 %, Resp=12 B/min 14:32:26 0.5 mg VERSED given in lab by Benny Guerrero, RN in Left Forearm via Peripheral IV. Ordered by Leonel Coyle. Time Out. Correct patient, correct procedure, correct physician, power injector not loaded with contrast with surgical 14:32:40 team present. Time Out Concurred by MD and individual staff in procedure. 14:33:09 Case Start 14:33:10 20 mL 1% XYLOCAINE given in lab by Leonel Coyle in Right Groin via Subcutaneous. 14:35:10 Access site was Right Femoral Artery. 14:35:16 A SHEATH, FR6.5 PRELUDE 11CM FR 6.5 was advanced into the Fem Art (right) using the Percuta neous technique. 14:36:40 HR=60 bpm, NBKZ=093/69 mmhg, SpO2=99.0 %, Resp=15 B/min 14:36:50 A WIRE, 3MMJ .035 180CM 180CM was inserted via Fem Art (right). A AL 1 INFINITI CATHETER FR 6 was advanced over a wire. OMNIPAQUE, 350 MG, 150ML 150ML was used for 14:36:57 injections. Wire advanced across the aortic valve After removing the current catheter a PIGTAIL DUAL LUMEN CATHETER FR 6 was advanced over a WIRE , EXCHANGE 14:37:47 260CM 3MMJ 260CM. 14:38:21 0.5 mg VERSED given in lab by Benny Guerrero, RN in Left Forearm via Peripheral IV. Ordered by Leonel Coyle. 14:41:15 HR=57 bpm, XHDX=015/63 mmhg, SpO2=97.0 %, Resp=18 B/min Recorded Pressure: LV, Ao, HR=63, Condition=Condition 1 14:42:03 (Left Ventricle) LV 177/6/11, (Aorta) Ao 163/65/102 Recorded Pressure: LV, Ao, Ao, HR=59, Condition=Condition 1 (Left Ventricle) LV 180/5/11, 14:42:22 (Aorta) Ao 162/61/99, (Aorta) Ao 162/63/100 14:43:00 A WIRE, 3MMJ .035 180CM 180CM was inserted via Fem Art (right). After removing the current catheter a JL 4.0 INFINITI CATHETER FR 5 was advanced over a WIRE, 3 MMJ .035 180CM 14:43:12 180CM. 14:44:48 The LCA was injected and visualized at various angles. OMNIPAQUE, 350 MG, 150ML 150ML used . After removing the current catheter a JR 4.0 INFINITI CATHETER FR 5 was advanced over a WIRE, 3 MMJ .035 180CM 14:45:59 180CM. 14:46:18 HR=65 bpm, TUSX=986/49 mmhg, SpO2=97.0 %, Resp=18 B/min 14:47:24 The RCA was injected and visualized at various angles. OMNIPAQUE, 350 MG, 150ML 150ML used . 14:48:06 The SVG-RCA was injected and visualized at various angles. OMNIPAQUE, 350 MG, 150ML 150ML u sed. 14:50:00 A WIRE, 3MMJ .035 180CM 180CM was inserted via Fem Art (right). After removing the current catheter a MARIBEL INFINITI CATHETER FR 6 was advanced over a WIRE, 3MMJ .035 180CM 14:50:49 180CM. 14:51:23 The SHIPMAN-LAD was injected and visualized at various angles. OMNIPAQUE, 350 MG, 150ML 150ML used. 14:51:56 HR=60 bpm, KKHP=954/61 mmhg, SpO2=98.0 %, Resp=15 B/min After removing the current catheter a MPA-2 INFINITI CATHETER FR 6 was advanced over a WIRE, 3M MJ .035 180CM 14:54:47 180CM. 14:56:14 HR=63 bpm, ODWR=133/52 mmhg, SpO2=98.0 %, Resp=21 B/min 15:00:38 The Asc. Aorta (A) was manually injected with 10 cc's and visualized. OMNIPAQUE, 350 MG, 15 0ML 150ML used. 15:01:14 Catheter was removed 15:01:15 HR=63 bpm, PMDE=011/50 mmhg, SpO2=98.0 %, Resp=19 B/min 15:02:22 Case End 15:02:52 Activated Clotting Time Drawn 15:04:40 ACT (Normal Range 90-180) = 122 Assessment: Final Case, HR=61 BPM, Rhythm=sr, NJGC=404/50 mmhg, Chest Pain=0 Right Pulses: Nas Ped=2, Femoral=2 15:05:05 Left Pulses: Nas Ped=2, Femoral=2 Neurological: State=Alert, Ox3, NAVA Respiration: Resp=18 B/min, SpO2=98 % 15:05:38 Sheath(s) left in place, will be removed in Holding Area 15:05:41 Sterile dressing applied to site 15:05:42 No case complications noted. 15:05:43 Cine recording checked. 15:05:44 Bedside Report will be given. 15:05:50 Patient moved to bed 15:06:08 Vitals capture stopped. 15:12:09 Patient tranported to DOCU End Study - Contrast Media Used In Study Contrast Total Opened (mL) Total Used (mL) Total Wasted (mL) Omnipaque 100 100 0 End Study - Maximum Contrast Load Max Contrast Load (mL) 245.1 End Study - Radiation Exposure Fluoro Time (minutes) 6.5 End Study - Patient Disposition Complications Transferred To Interventional Outcome No Telemetry Bed No attempt made
[2018-01-16] MEDS ORDERED: IOHEXOL 350 MG/ML 100 ML BTL (for Cath Lab) OTHER ONE (15:49)
--- NOTE | 2018-01-16 16:54 | MA ---
cc: Leonel Coyle MD 01/16/2018 PROCEDURE PERFORMED: 1. Fluoroscopy with interpretation. 2. Left heart catheterization. 3. Coronary angiography. 4. Coronary bypass graft angiography. METHOD: Risks, benefits and alternatives discussed with the patient. Patient understood, consented to the procedure. Patient was brought in the catheterization lab, placed on the catheterization table. Right groin was prepped and draped in sterile fashion. Right groin was anesthetized with 2% lidocaine. Right common femoral artery was cannulated, and a 6 Swedish sheath was placed without difficulty. LEFT HEART CATHETERIZATION: A 6 Swedish AL1 with a straight Amplatz super stiff wire was used to cross the valve. A dual-lumen pigtail catheter was then advanced to cross simultaneous. Left ventricular and aortic pressures were performed with a mean gradient of only 20 mmHg consistent with mild to moderate aortic stenosis. Left ventricular end-diastolic pressure is 11 mmHg. CORONARY ANGIOGRAPHY: 1. Left main coronary has 90% ostial stenosis. Remainder of the left anterior descending coronary proximally has mild to moderate diffuse disease. Small diagonal branch which has a steep angulation, has a 90% stenosis. The mid left anterior descending coronary is subtotally occluded. 2. Left circumflex gives rise to 2 very small obtuse marginal branches and appears to be occluded in the mid segment. Remainder of the obtuse marginal branch distally is occluded. 3. Right coronary is occluded proximally. CORONARY BYPASS GRAFT ANGIOGRAPHY: 1. Left internal mammary artery to the left anterior descending coronary is widely patent. Just distal to the anastomosis, there is an 80% stenosis in the mid segment, but it is a very small caliber size, has steep angulation to it. It is about a 2 mm caliber size vessel. It would be difficult to access due to tortuous internal mammary. 2. Saphenous vein graft to the right coronary is widely patent. Posterior descending is widely patent. 3. Saphenous vein graft to the obtuse marginal branch appears to be occluded. CONCLUSIONS: 1. Severe lime 3-vessel coronary artery disease. 2. Two of 3 coronary bypass grafts of the most recent grafts are patent. PLAN: Circumflex territory is very small and not approachable. The diagonal branch also is small and not approachable. The right coronary is grafted and looks great. Left internal mammary, although patent, does have a stenosis within the mid left anterior descending coronary, just beyond the coronary anastomosis. It is a rather small caliber size vessel, probably only 2.0 mm in diameter. Additionally, left internal mammary is difficult to engage from the groin given the angulation of subclavian, quite tortuous itself. She has prior history of contrast nephropathy. At this point, we elected not to pursue with any attempted revascularization percutaneously. Will allow her to make a full recovery. I am going to titrate her medical therapy and titrate the isosorbide to 60 mg a day. If she does well with that, I think just medical management approach will be best. If she continues to have symptoms, we could attempt revascularization of the mid left anterior descending coronary artery, although higher risk, and it may be more easily approachable from the left wrist to see if we can get a more selective engagement. Hopeful for discharge tomorrow. From an aortic valve standpoint, only mild to moderate. Her left ventricular end-diastolic pressure now suggests that she is euvolemic, so will back off on the Lasix back to 20 mg a day. MD ANDERSON Bermudez/CHEYENNE , 04:20 PM , 04:52 PM
--- NOTE | 2018-01-16 18:40 | HHI.PR ---
Subjective Remarks Pt denies chest pain or palpitations. Objective Vitals Vital Signs Date Time Temp Pulse Resp B/P (MAP) Pulse Ox O2 Delivery O2 Flow Rate FiO2 01/16/18 15:49 95 Room Air 01/16/18 12:00 49 01/16/18 08:07 97.9 63 16 142/63 (89) 93 01/16/18 08:00 Room Air 01/16/18 08:00 56 01/16/18 04:00 Room Air 01/16/18 04:00 61 01/16/18 00:00 Room Air 01/16/18 00:00 98.0 53 16 121/58 (79) 97 01/16/18 00:00 50 01/15/18 20:00 Room Air 01/15/18 20:00 59 01/15/18 20:00 98.6 64 18 134/64 (87) 95 Result Diagram: 01/16/18 0320 01/16/18 0320 Imaging Last Impressions Chest X-Ray 01/16/18 0600 Signed Impressions: Service Date/Time: Tuesday, January 16, 2018 05:22 - CONCLUSION: Stable cardiomegaly. Clear lungs. Blade Azar Jr., MD Objective Remarks GENERAL: This is a well-nourished, well-developed patient, in no apparent distress. CARDIOVASCULAR: Regular rate and rhythm without murmurs, gallops, or rubs. RESPIRATORY: Clear to auscultation. Breath sounds equal bilaterally. No wheezes , rales, or rhonchi. GASTROINTESTINAL: Abdomen soft, non-tender, nondistended. Normal active bowel sounds MUSCULOSKELETAL: Extremities without clubbing, cyanosis, or edema. NEURO: Alert & Oriented x4 to person, place, time, situation. Moves all ext x4 A/P Problem List: (1) Chest pain ICD Codes: R07.9 - Chest pain, unspecified Status: Acute Plan: Chest pain CAD with hx of redo 3 vessel CABG in 2016 Angina Pectoris Hx of CHF - Pt is an 82 y/o female with CAD s/p CABG x 2 in 1994 and redo CABG x 3 in 05/22 , diastolic CHF, aortic valve stenosis and HTN. - Pt presented to the ED on 01/14/18 with complaints of chest pain and SOB. Pt has been having intermittent chest pain for some time, basically since her redo CABG in 2015. She reports that the pain is felt mid sternally and occurs sporadically, occasionally with exertion and is also nonexertional. This pain can have some associated SOB as well as belching/gas. She reports that she takes Nitro regularly for this pain. She had some improvement after being started on Imdur with the pain occurring less frequently. - Last night the pain began while she was sitting and watching TV. She had taken two Nitro pills without relief of the pain. EMS had given her some nitroglycerin as well on aspirin with some minimal improvement. Her BP was quite high at the time of arrival to the ED at 200/91. Pt was given Labetalol IV and her BP did improve. - CXR at admission noted no acute cardiopulmonary disease demonstrated, previous CABG, and mild compensated cardiomegaly is stable. - Her chest pain is chronic and intermittent, ?chest wall pain vs. anginal equivalent vs. CHF/volume related vs GERD vs. other. - Pt reports that she has had several changes to her medications recently. She was taken on her Plavix in November. Her Lasix was decreased from 40mg daily to 20mg daily and she was taken off her Metformin due to her renal indices rising earlier this year. She states that she has had more issues with LE edema since her dose of Lasix was reduced earlier this year. - troponin 0.03, 8.45, 3.11 - [facility] 01/16/[address] Coyle - severe 3 vessel disease - 2 of 3 graft vessels are patent - no new stents - imdur increased to 60mg daily - lasix 20mg daily - Metoprolol 25mg po BID, Norvasc 5mg po daily - Echocardiogram (01/16/18) - hyperdynamic LV, EF 65-70% - Supportive care - DVT prophylaxis with SCDs HTN - metoprolol, norvasc - Monitor BP and labs closely - Clonidine PRN Diabetes mellitus, type 2 - Pt is on Tradgenta 5mg po daily and Tresiba 10 units SQ daily at home - Hold home meds - Novolog SSI - Accu checks Hypothyroidism - Cont. home meds CKD, stage 3 - Labs are stable compared to outpt labs (GFR rage from 25-44 since November 2017 ) - Monitor with medication adjustments (2) Congestive heart failure ICD Codes: I50.9 - Heart failure, unspecified Status: Acute (3) CKD (chronic kidney disease) stage 3, GFR 30-59 ml/min ICD Codes: N18.3 - Chronic kidney disease, stage 3 (moderate) Status: Acute (4) DM type 2 (diabetes mellitus, type 2) ICD Codes: E11.9 - DM type 2 (diabetes mellitus, type 2) Status: Chronic (5) HTN (hypertension) ICD Codes: I10 - HTN (hypertension) Status: Chronic (6) CAD (coronary artery disease) ICD Codes: I25.10 - Atherosclerotic heart disease of [place] coronary artery without angina pectoris Status: Acute You Cheek DO Jan 16, 2018 18:39
[2018-01-16] MEDS: ATORVASTATIN 40 MG TAB PO SCH (21:49)
[2018-01-16] MEDS: amLODIPine BESYLATE 5 MG TAB PO SCH (21:49)
[2018-01-17] VITALS (9 sets, daily range): BP systolic 107–148; BP diastolic 53–65; PULSE 46–77; RESP 16–19; TEMP 97.4–98.2; O2SAT 93–95
[2018-01-17] MEDS: LEVOTHYROXINE SODIUM 25 MCG TAB PO SCH (06:48)
[2018-01-17] MEDS: INSULIN ASPART SUPPLEMENTAL SCALE SQ SCH ×4 (08:00→21:01)
--- NOTE | 2018-01-17 08:55 | PD.CARD.PN ---
Subjective Subjective Remarks No further chest pain or shortness of breath. Denies palpitations. Has been ambulating. Objective Medications Current Medications Medications (Trade) Dose Ordered Sig/Mildred Route Start Time Stop Time Status Last Admin (NS Flush) 2 ml UNSCH PRN IVF 01/15/18 00:45 (Lipitor) 40 mg HS PO 01/15/18 21:00 01/16/18 21:49 (Synthroid) 25 mcg DAILY@0600 PO 01/15/18 09:30 01/17/18 06:48 (Lopressor) 25 mg BID PO 01/15/18 09:30 01/16/18 21:49 (Norvasc) 5 mg HS PO 01/15/18 21:00 01/16/18 21:49 (NovoLOG SUPPLEMENTAL SCALE) 1 ACHS SLIDING SCALE SQ 01/15/18 12:00 01/16/18 21:50 (D50w (Vial) Inj) 50 ml UNSCH PRN IV PUSH 01/15/18 09:15 (Glucagon Inj) 1 mg UNSCH PRN OTHER 01/15/18 09:15 (Ativan Inj) 0.5 mg UNSCH PRN IV PUSH 01/16/18 15:15 01/17/18 15:14 (Atropine Inj) 0.5 mg UNSCH PRN IV PUSH 01/16/18 15:15 Sodium Chloride 250 ml @ 500 mls/hr ONCE PRN IV 01/16/18 15:15 01/17/18 15:14 (Reglan Inj) 10 mg Q4H PRN IV PUSH 01/16/18 15:15 (Zofran Inj) 4 mg Q4H PRN IV PUSH 01/16/18 15:15 (Xylocaine 1% Inj (50 ml)) 10 ml UNSCH PRN INFIL 01/16/18 15:15 01/17/18 15:14 (Lasix) 20 mg DAILY PO 01/17/18 09:00 (Imdur) 60 mg DAILY PO 01/17/18 09:00 Vital Signs / I&O Vital Signs Date Time Temp Pulse Resp B/P (MAP) Pulse Ox O2 Delivery O2 Flow Rate FiO2 01/17/18 04:00 49 01/17/18 04:00 97.8 77 19 128/60 (82) 95 01/17/18 00:10 68 01/17/18 00:00 97.8 70 18 107/53 (71) 95 01/17/18 00:00 Room Air 01/16/18 20:10 65 01/16/18 20:00 97.8 64 19 136/63 (87) 94 01/16/18 19:00 Room Air 01/16/18 16:07 97.8 72 17 138/64 (88) 97 01/16/18 15:49 95 Room Air 01/16/18 12:00 49 I/O 01/16/18 01/16/18 01/16/18 01/17/18 01/17/18 01/17/18 07:00 15:00 23:00 07:00 15:00 23:00 Intake Total 84 ml 0 ml 180 ml Balance 84 ml 0 ml 180 ml Intake Oral 0 ml 0 ml 180 ml IV Total 84 ml # Voids 2 3 2 # Bowel Movements 0 0 1 Physical Exam GENERAL: Well-developed well-nourished. In no acute distress. NECK: No carotid bruits. No JVD. CARDIOVASCULAR: Regular rate and rhythm. Systolic ejection murmur appreciated. RESPIRATORY: No accessory muscle use. Clear to auscultation. Breath sounds equal bilaterally. MUSCULOSKELETAL: No clubbing or cyanosis. No edema. NEUROLOGICAL: Awake and alert. Normal speech. SKIN: R groin cath site clean with minimal ecchymosis and mild TTP Laboratory Laboratory Tests Test 01/16/18 13:16 01/17/18 07:32 Troponin I 3.11 NG/ML Imaging Last Impressions Chest X-Ray 01/16/18 0600 Signed Impressions: Service Date/Time: Tuesday, January 16, 2018 05:22 - CONCLUSION: Stable cardiomegaly. Clear lungs. Blade Azar Jr., MD Assessment and Plan Problem List: (1) ACS (acute coronary syndrome) ICD Codes: I20.0 - ACS (acute coronary syndrome) Status: Acute (2) redo cabg x 3 Status: Chronic (3) Hypertensive urgency ICD Codes: I16.0 - Hypertensive urgency Status: Acute (4) Congestive heart failure ICD Codes: I50.9 - Heart failure, unspecified Status: Acute (5) DM type 2 (diabetes mellitus, type 2) ICD Codes: E11.9 - DM type 2 (diabetes mellitus, type 2) Status: Chronic (6) CKD (chronic kidney disease) stage 3, GFR 30-59 ml/min ICD Codes: N18.3 - Chronic kidney disease, stage 3 (moderate) Status: Acute Assessment and Plan 82 yo WF with CAD, CABG x 2 with redo in 2016, CHF, AVS and diabetes who presented with exertional chest pain and SOB. NSTEMI - severe CAD C - SHIPMAN-LAD patent but mid LAD with 80% but small caliber and tortuous SHIPMAN Patient agreeable for conservative approach at this time due to history of contrast nephropathy. Titrate isosorbide to 60 daily Could consider revascularization of mid LAD in the future if patient fails conservative management. Moderate aortic valve stenosis - monitor Brad Sands Jan 17, 2018 08:55
[2018-01-17 08:56] LABS: AUTOMATED NEUTROPHIL # 5.1 TH/MM3 (1.8-7.7); BASOPHIL % 0.6 % (0.0-2.0); EOSINOPHIL # 0.2 TH/MM3 (0-0.4); EOSINOPHIL % 1.9 % (0.0-4.0); HEMATOCRIT 30.2 % (35.0-46.0); HEMOGLOBIN 10.7 GM/DL (11.6-15.3); LYMPH % 28.4 % (9.0-44.0); LYMPHOCYTE # 2.4 TH/MM3 (1.0-4.8); MEAN CELL VOLUME 84.3 FL (80.0-100.0); MEAN CORPUSCULAR HEMOGLOBIN 29.7 PG (27.0-34.0); MEAN CORPUSCULAR HGB CONC 35.3 % (32.0-36.0); MEAN PLATELET VOLUME 8.4 FL (7.0-11.0); MONO % 9.1 % (0.0-8.0); MONOCYTE # 0.8 TH/MM3 (0-0.9); PLATELET COUNT 206 TH/MM3 (150-450); RED BLOOD COUNT 3.58 MIL/MM3 (4.00-5.30); RED CELL DISTRIBUTION WIDTH 15.5 % (11.6-17.2); WHITE BLOOD COUNT 8.5 TH/MM3 (4.0-11.0)
[2018-01-17] MEDS: FUROSEMIDE 20 MG TAB PO SCH (09:02)
[2018-01-17] MEDS: METOPROLOL TARTRATE 25 MG TAB PO SCH ×2 (09:02→21:00)
[2018-01-17] MEDS: ISOSORBIDE MONONITRATE 30 MG CR TAB (IMDUR) PO SCH (09:02)
[2018-01-17 09:08] LABS: BICARBONATE 24.8 MEQ/L (21.0-32.0); CALCIUM 9.4 MG/DL (8.5-10.1); CREATININE 1.38 MG/DL (0.50-1.00)
--- NOTE | 2018-01-17 16:19 | HHI.PR ---
Subjective Remarks Pt has been ambulating some in the room without any chest pain or pressure Tolerating oral intake Some noted bradycardia during the night Objective Vitals Vital Signs Date Time Temp Pulse Resp B/P (MAP) Pulse Ox O2 Delivery O2 Flow Rate FiO2 01/17/18 12:00 61 01/17/18 12:00 97.5 65 18 131/60 (83) 93 01/17/18 08:00 Room Air 01/17/18 08:00 62 01/17/18 08:00 97.4 60 18 148/64 (92) 94 01/17/18 04:00 49 01/17/18 04:00 97.8 77 19 128/60 (82) 95 01/17/18 00:10 68 01/17/18 00:00 97.8 70 18 107/53 (71) 95 01/17/18 00:00 Room Air 01/16/18 20:10 65 01/16/18 20:00 97.8 64 19 136/63 (87) 94 01/16/18 19:00 Room Air Result Diagram: 01/17/18 0732 01/17/18 0732 Other Results Laboratory Tests Test 01/15/18 21:30 01/16/18 03:20 01/16/18 13:16 01/17/18 07:32 Activated Partial Thromboplast Time 50.4 SEC 50.6 SEC 28.9 SEC White Blood Count 7.8 TH/MM3 8.5 TH/MM3 Red Blood Count 3.55 MIL/MM3 3.58 MIL/MM3 Hemoglobin 10.3 GM/DL 10.7 GM/DL Hematocrit 29.8 % 30.2 % Mean Corpuscular Volume 84.1 FL 84.3 FL Mean Corpuscular Hemoglobin 29.0 PG 29.7 PG Mean Corpuscular Hemoglobin Concent 34.5 % 35.3 % Red Cell Distribution Width 15.6 % 15.5 % Platelet Count 203 TH/MM3 206 TH/MM3 Mean Platelet Volume 8.4 FL 8.4 FL Neutrophils (%) (Auto) 56.1 % 60.0 % Lymphocytes (%) (Auto) 28.7 % 28.4 % Monocytes (%) (Auto) 6.4 % 9.1 % Eosinophils (%) (Auto) 6.0 % 1.9 % Basophils (%) (Auto) 2.8 % 0.6 % Neutrophils # (Auto) 4.4 TH/MM3 5.1 TH/MM3 Lymphocytes # (Auto) 2.3 TH/MM3 2.4 TH/MM3 Monocytes # (Auto) 0.5 TH/MM3 0.8 TH/MM3 Eosinophils # (Auto) 0.5 TH/MM3 0.2 TH/MM3 Basophils # (Auto) 0.2 TH/MM3 0.0 TH/MM3 CBC Comment DIFF FINAL DIFF FINAL Differential Comment Blood Urea Nitrogen 24 MG/DL 36 MG/DL Creatinine 1.23 MG/DL 1.38 MG/DL Random Glucose 115 MG/DL 101 MG/DL Calcium Level 8.9 MG/DL 9.4 MG/DL Magnesium Level 1.8 MG/DL Sodium Level 140 MEQ/L 138 MEQ/L Potassium Level 3.7 MEQ/L 3.5 MEQ/L Chloride Level 104 MEQ/L 101 MEQ/L Carbon Dioxide Level 27.4 MEQ/L 24.8 MEQ/L Anion Gap 9 MEQ/L 12 MEQ/L Estimat Glomerular Filtration Rate 42 ML/MIN 37 ML/MIN Troponin I 3.11 NG/ML Imaging Last Impressions Chest X-Ray 01/16/18 0600 Signed Impressions: Service Date/Time: Tuesday, January 16, 2018 05:22 - CONCLUSION: Stable cardiomegaly. Clear lungs. Blade Azar Jr., MD Objective Remarks General: NAD, AAOx3 Chest: CTA Cardiac: Regular Abd: +BS, soft ND/NT Ext: No edema A/P Problem List: (1) Chest pain ICD Codes: R07.9 - Chest pain, unspecified Status: Acute Plan: NSTEMI Chest pain CAD with hx of redo 3 vessel CABG in 2015 Angina Pectoris Hx of CHF - Pt is an 82 y/o female with CAD s/p CABG x 2 in 1994 and redo CABG x 3 in 05/22 , diastolic CHF, aortic valve stenosis and HTN. - Pt presented to the ED on 01/14/18 with complaints of chest pain and SOB. Pt has been having intermittent chest pain for some time, basically since her redo CABG in 2015. She reports that the pain is felt mid sternally and occurs sporadically, occasionally with exertion and is also nonexertional. This pain can have some associated SOB as well as belching/gas. She reports that she takes Nitro regularly for this pain. She had some improvement after being started on Imdur with the pain occurring less frequently. - Last night the pain began while she was sitting and watching TV. She had taken two Nitro pills without relief of the pain. EMS had given her some nitroglycerin as well on aspirin with some minimal improvement. Her BP was quite high at the time of arrival to the ED at 200/91. Pt was given Labetalol IV and her BP did improve. - CXR at admission noted no acute cardiopulmonary disease demonstrated, previous CABG, and mild compensated cardiomegaly is stable. - Her chest pain is chronic and intermittent - Pt reports that she has had several changes to her medications recently. She was taken on her Plavix in November. Her Lasix was decreased from 40mg daily to 20mg daily and she was taken off her Metformin due to her renal indices rising earlier this year. She states that she has had more issues with LE edema since her dose of Lasix was reduced earlier this year. - Troponin increased from 0.03 --> 8.45 --> 3.11 - [facility] 01/16/[address] Coyle - severe [place] 3 vessel disease - 2 of 3 graft vessels are patent - no new stents - Pt recommended medical management and Imdur increased to 60mg daily - Lasix 20mg daily - Metoprolol 25mg po BID, Norvasc 5mg po daily - Echocardiogram (01/16/18) - hyperdynamic LV, EF 65-70% - Supportive care - DVT prophylaxis with SCDs - Anticipate d/c home tomorrow HTN - Metoprolol, Norvasc - Monitor BP and labs closely - Clonidine PRN Diabetes mellitus, type 2 - Pt is on Tradjenta 5mg po daily and Tresiba 10 units SQ daily at home - Hold home meds - Novolog SSI - Accu checks Hypothyroidism - Cont. home meds CKD, stage 3 - Labs are slightly increased Cr today but overall stable compared to outpt labs (GFR range from 25-44 since November 2017) - Monitor with medication adjustments - Repeat labs in AM (2) Congestive heart failure ICD Codes: I50.9 - Heart failure, unspecified Status: Acute (3) CKD (chronic kidney disease) stage 3, GFR 30-59 ml/min ICD Codes: N18.3 - Chronic kidney disease, stage 3 (moderate) Status: Acute (4) DM type 2 (diabetes mellitus, type 2) ICD Codes: E11.9 - DM type 2 (diabetes mellitus, type 2) Status: Chronic (5) HTN (hypertension) ICD Codes: I10 - HTN (hypertension) Status: Chronic (6) CAD (coronary artery disease) ICD Codes: I25.10 - Atherosclerotic heart disease of [place] coronary artery without angina pectoris Status: Acute Assessment and Plan Patient examined. Assessment and plan formulated with Lisseth Renteria PA-C. I agree with the above. Lisseth Renteria Jan 17, 2018 16:19 You Cheek DO Jan 22, 2018 00:11
--- NOTE | 2018-01-17 19:09 | EKG ---
Date Performed: 01/17/2018 Time Performed: 09:40:10 PTAGE: 82 years EKG: SINUS BRADYCARDIA WITH FIRST DEGREE AV BLOCK MARKED LEFT AXIS DEVIATION RIGHT BUNDLE BRANCH BLOCK MINIMAL VOLTAGE CRITERIA FOR LVH, CONSIDER NORMAL VARIANT ABNORMAL ECG PREVIOUS TRACING : 01/16/2018 16.36 Since the previous tracing, no significant change noted DOCTOR: Sera Meneses Interpretating Date/Time 01/17/2018 19:07:45
--- NOTE | 2018-01-17 20:13 | EKG ---
Date Performed: 01/16/2018 Time Performed: 16:36:26 PTAGE: 82 years EKG: SINUS BRADYCARDIA FIRST DEGREE AV BLOCK MARKED LEFT AXIS DEVIATION RIGHT BUNDLE BRANCH BLOC K ABNORMAL ECG PREVIOUS TRACING : 01/15/2018 00.38 Since the previous tracing, no significant change noted DOCTOR: Sera Meneses Interpretating Date/Time 01/17/2018 20:12:34
[2018-01-17] MEDS: amLODIPine BESYLATE 5 MG TAB PO SCH (21:00)
[2018-01-17] MEDS: ATORVASTATIN 40 MG TAB PO SCH (21:01)
[2018-01-18] VITALS (7 sets, daily range): BP systolic 112–155; BP diastolic 59–83; PULSE 48–66; RESP 17–18; TEMP 97.8–98.3; O2SAT 93–96
[2018-01-18] MEDS: LEVOTHYROXINE SODIUM 25 MCG TAB PO SCH (05:47)
[2018-01-18 06:47] LABS: HEMATOCRIT 28.9 % (35.0-46.0); HEMOGLOBIN 9.8 GM/DL (11.6-15.3); MEAN CELL VOLUME 84.6 FL (80.0-100.0); MEAN CORPUSCULAR HEMOGLOBIN 28.8 PG (27.0-34.0); MEAN PLATELET VOLUME 8.3 FL (7.0-11.0); PLATELET COUNT 178 TH/MM3 (150-450); RED BLOOD COUNT 3.42 MIL/MM3 (4.00-5.30); RED CELL DISTRIBUTION WIDTH 15.7 % (11.6-17.2); WHITE BLOOD COUNT 8.4 TH/MM3 (4.0-11.0)
[2018-01-18 07:21] LABS: BICARBONATE 24.6 MEQ/L (21.0-32.0); CALCIUM 9.2 MG/DL (8.5-10.1); CREATININE 1.39 MG/DL (0.50-1.00)
[2018-01-18] MEDS: FUROSEMIDE 20 MG TAB PO SCH (09:30)
[2018-01-18] MEDS: METOPROLOL TARTRATE 25 MG TAB PO SCH (09:30)
[2018-01-18] MEDS: ISOSORBIDE MONONITRATE 30 MG CR TAB (IMDUR) PO SCH (09:30)
[2018-01-18] MEDS: INSULIN ASPART SUPPLEMENTAL SCALE SQ SCH ×2 (09:31→13:09)
[2018-01-18] MEDS ORDERED: ISOS30TA3 PO (16:49)
--- NOTE | 2018-01-18 17:05 | HHI.DS ---
Discharge Summary Admission Date Jan 15, 2018 at 03:26 Discharge Date: Jan 18, 2018 Admitting Diagnosis Chest pain/hypertensive urgency (1) Chest pain Diagnosis: Principal ICD Codes: R07.9 - Chest pain, unspecified Status: Acute (2) Congestive heart failure Diagnosis: Secondary ICD Codes: I50.9 - Heart failure, unspecified Status: Acute (3) CKD (chronic kidney disease) stage 3, GFR 30-59 ml/min Diagnosis: Secondary ICD Codes: N18.3 - Chronic kidney disease, stage 3 (moderate) Status: Acute (4) DM type 2 (diabetes mellitus, type 2) Diagnosis: Secondary ICD Codes: E11.9 - DM type 2 (diabetes mellitus, type 2) Status: Chronic (5) HTN (hypertension) Diagnosis: Secondary ICD Codes: I10 - HTN (hypertension) Status: Chronic (6) CAD (coronary artery disease) Diagnosis: Secondary ICD Codes: I25.10 - Atherosclerotic heart disease of [place] coronary artery without angina pectoris Status: Acute Consultants Dr. Wheeler and Dr. Coyle cardiology Procedures [facility] 01/16/[address] Coyle - severe [place] 3 vessel disease - 2 of 3 graft vessels are patent - no new stents Brief History Mrs. Reyes is a pleasant 82 y/o female with CAD s/p CABG x 2 in 1994 and redo CABG x 3 in 05/22, diastolic CHF, aortic valve stenosis and HTN. Pt presented to the ED on 01/14/18 with complaints of chest pain and SOB. Pt has been having intermittent chest pain for some time, basically since her redo CABG in 2015. She reports that the pain is felt mid sternally and occurs sporadically, occasionally with exertion and is also nonexertional. This pain can have some associated SOB as well as belching/gas. She reports that she takes Nitro regularly for this pain. She had some improvement after being started on Imdur with the pain occurring less frequently. Last night the pain began while she was sitting and watching TV around 9PM. She had taken two Nitro pills without relief of the pain. This prompted her to call EMS. EMS had given her some nitroglycerin as well on aspirin with some minimal improvement. Her BP was quite high at the time of arrival to the ED at 200/91. Pt was given Labetalol IV and her BP did improve. Pt reports that once her BP improved that her pain resolved. She denies any nausea/vomiting, diaphoresis, headache, dizziness or palpitations. Her CXR at admission noted no acute cardiopulmonary disease demonstrated, previous CABG, and mild compensated cardiomegaly is stable. Pt reports that she has had several changes to her medications recently. She was taken on her Plavix in November. Her Lasix was decreased from 40mg daily to 20mg daily and she was taken off her Metformin due to her renal indices rising earlier this year. She states that she has had more issues with LE edema since her dose of Lasix was reduced earlier this year. CBC/BMP: 01/18/18 0530 01/18/18 0530 Significant Findings Laboratory Tests Test 01/15/18 21:30 01/16/18 03:20 01/16/18 13:16 01/17/18 07:32 Activated Partial Thromboplast Time 50.4 SEC (24.3-30.1) 50.6 SEC (24.3-30.1) Red Blood Count 3.55 MIL/MM3 (4.00-5.30) 3.58 MIL/MM3 (4.00-5.30) Hemoglobin 10.3 GM/DL (11.6-15.3) 10.7 GM/DL (11.6-15.3) Hematocrit 29.8 % (35.0-46.0) 30.2 % (35.0-46.0) Eosinophils (%) (Auto) 6.0 % (0.0-4.0) Basophils (%) (Auto) 2.8 % (0.0-2.0) Eosinophils # (Auto) 0.5 TH/MM3 (0-0.4) Blood Urea Nitrogen 24 MG/DL (7-18) 36 MG/DL (7-18) Creatinine 1.23 MG/DL (0.50-1.00) 1.38 MG/DL (0.50-1.00) Random Glucose 115 MG/DL (74-106) Estimat Glomerular Filtration Rate 42 ML/MIN (>89) 37 ML/MIN (>89) Troponin I 3.11 NG/ML (0.02-0.05) Monocytes (%) (Auto) 9.1 % (0.0-8.0) Test 01/18/18 05:30 Red Blood Count 3.42 MIL/MM3 (4.00-5.30) Hemoglobin 9.8 GM/DL (11.6-15.3) Hematocrit 28.9 % (35.0-46.0) Blood Urea Nitrogen 42 MG/DL (7-18) Creatinine 1.39 MG/DL (0.50-1.00) Random Glucose 143 MG/DL (74-106) Estimat Glomerular Filtration Rate 36 ML/MIN (>89) Imaging Last Impressions Chest X-Ray 01/16/18 0600 Signed Impressions: Service Date/Time: Tuesday, January 16, 2018 05:22 - CONCLUSION: Stable cardiomegaly. Clear lungs. Blade Azar Jr., MD PE at Discharge General: NAD, AAOx3 Chest: CTA Cardiac: Regular Abd: +BS, soft ND/NT Ext: No edema Hospital Course NSTEMI Chest pain CAD with hx of redo 3 vessel CABG in 2015 Angina Pectoris Hx of CHF - Pt is an 82 y/o female with CAD s/p CABG x 2 in 1994 and redo CABG x 3 in 05/22 , diastolic CHF, aortic valve stenosis and HTN. - Pt presented to the ED on 01/14/18 with complaints of chest pain and SOB. Pt has been having intermittent chest pain for some time, basically since her redo CABG in 2015. She reports that the pain is felt mid sternally and occurs sporadically, occasionally with exertion and is also nonexertional. This pain can have some associated SOB as well as belching/gas. She reports that she takes Nitro regularly for this pain. She had some improvement after being started on Imdur with the pain occurring less frequently. - Last night the pain began while she was sitting and watching TV. She had taken two Nitro pills without relief of the pain. EMS had given her some nitroglycerin as well on aspirin with some minimal improvement. Her BP was quite high at the time of arrival to the ED at 200/91. Pt was given Labetalol IV and her BP did improve. - CXR at admission noted no acute cardiopulmonary disease demonstrated, previous CABG, and mild compensated cardiomegaly is stable. - Her chest pain is chronic and intermittent - Pt reports that she has had several changes to her medications recently. She was taken on her Plavix in November. Her Lasix was decreased from 40mg daily to 20mg daily and she was taken off her Metformin due to her renal indices rising earlier this year. She states that she has had more issues with LE edema since her dose of Lasix was reduced earlier this year. - Troponin increased from 0.03 --> 8.45 --> 3.11 - [facility] 01/16/[address] Coyle - severe [place] 3 vessel disease - 2 of 3 graft vessels are patent - no new stents - Pt recommended medical management and Imdur increased to 60mg daily - Lasix 20mg daily - Metoprolol 25mg po BID, Norvasc 5mg po daily - Echocardiogram (01/16/18) - hyperdynamic LV, EF 65-70% - Supportive care - DVT prophylaxis with SCDs - Anticipate d/c home tomorrow HTN - Metoprolol, Norvasc - Monitor BP and labs closely - Clonidine PRN Diabetes mellitus, type 2 - Pt is on Tradjenta 5mg po daily and Tresiba 10 units SQ daily at home - Hold home meds - Novolog SSI - Accu checks Hypothyroidism - Cont. home meds CKD, stage 3 - Labs are slightly increased Cr today but overall stable compared to outpt labs (GFR range from 25-44 since November 2017) - Monitor with medication adjustments Pt Condition on Discharge: Stable Discharge Disposition: Discharge Home Discharge Instructions DIET: Follow Instructions for: Heart Healthy Diet, Diabetic Diet Activities you can perform: Regular-No Restrictions Follow up Referrals: Cardiology - [address] Coyle PCP Follow-up - [address] Lanier New Medications: Isosorbide Mononitrate ER (Isosorbide Mononitrate ER) 30 Mg Kashif 60 MG PO DAILY for heart, #30 TAB 0 Refills Continued Medications: Amlodipine (Amlodipine) 5 Mg Tab 5 MG PO HS for Blood Pressure Management, #30 TAB 0 Refills Atorvastatin (Atorvastatin) 40 Mg Tab 40 MG PO HS for Cholesterol Management, #30 TAB 0 Refills Cholecalciferol (Vitamin D-3) 2,000 Unit Tab 2000 UNITS PO HS Furosemide (Lasix) 40 Mg Tab 20 MG PO DAILY, #30 TAB 0 Refills Insulin Degludec Inj (Tresiba Flextouch Pen Inj) 600 unit/3 ML Pen 10 UNITS SQ DAILY for Blood Sugar Management, #9 ML 0 Refills Levothyroxine (Levothyroxine) 25 Mcg Tab 25 MCG PO DAILY for Thyroid, #30 TAB 0 Refills Linagliptin (Tradjenta) 5 Mg Tab 5 MG PO DAILY for Blood Sugar Management, #30 TAB 0 Refills Metoprolol Tartrate (Metoprolol Tartrate) 25 Mg Tab 25 MG PO BID for CAD, #62 TAB Nitroglycerin SL (Nitroglycerin SL) 0.4 Mg Subl 0.4 MG SL DIRECTED PRN for CHEST PAIN, #100 TAB.SL 0 Refills ONE TABLET UNDER THE TONGUE NEEDED FOR CHEST PAIN, MAY REPEAT EVERY FIVE MINUTES FOR A TOTAL OF 3 DOSES OR CALL 911 IF NO RELIEF Discontinued Medications: Isosorbide Mononitrate ER (Isosorbide Mononitrate ER) 30 Mg Kashif 30 MG PO DAILY for Prevent Chest Pain, #30 TAB 0 Refills Losartan (Losartan) 25 Mg Tab 25 MG PO DAILY for Blood Pressure Management, #30 TAB 0 Refills Additional Information Patient examined. Assessment and plan formulated with Livier Rockwell PA-C. I agree with the above. Livier Rockwell Jan 18, 2018 17:05 You Cheek DO Jan 22, 2018 00:14
--- NOTE | 2018-01-18 19:28 | HHI.DCPOC ---
Discharge Care Plan Diagnosis: (1) Chest pain (2) Congestive heart failure (3) DM type 2 (diabetes mellitus, type 2) Goals to Promote Your Health * To prevent worsening of your condition and complications * To maintain your health at the optimal level Directions to Meet Your Goals Take your medications as prescribed Follow your dietary instruction Follow activity as directed Keep your appointments as scheduled Take your immunizations and boosters as scheduled If your symptoms worsen call your PCP, if no PCP go to Urgent Care Center or Emergency Room Smoking is Dangerous to Your Health. Avoid second hand smoke Call the 24-hour hour crisis hotline for domestic abuse at Livier Rockwell Jan 18, 2018 19:28 You Cheek DO Jan 22, 2018 00:14
[2018-01-19] MEDS ORDERED: FURO20TA PO (22:28)
[2018-01-19] MEDS ORDERED: THERTAB17 PO (22:28)
[2018-01-19] MEDS ORDERED: ASPI1TAB57 PO (22:28)
== END 2018-01-18 19:33 | disposition home or self-care (01) | DRG 281 ==
LOC: NEPE 00:31 → NEDA 03:26 → NEDH 08:41 → N04A 19:50
PROVIDERS: ADMIT Hospitalist; ATTEND Hospitalist
PROC: B2111ZZ Fluoroscopy of Multiple Coronary Arteries using Low Osmolar Contrast (ICD-10-PCS; 2018-01-16)
PROC: B2131ZZ Fluoroscopy of Multiple Coronary Artery Bypass Grafts using Low Osmolar Contrast (ICD-10-PCS; 2018-01-16)
PROC: 4A023N7 Measurement of Cardiac Sampling and Pressure, Left Heart, Percutaneous Approach (ICD-10-PCS; principal; 2018-01-16 11:15)
DX: I21.4 Non-ST elevation (NSTEMI) myocardial infarction (principal); I13.0 Hypertensive heart and chronic kidney disease with heart failure and stage 1 through stage 4 chronic kidney disease, or unspecified chronic kidney disease; I50.32 Chronic diastolic (congestive) heart failure; E11.22 Type 2 diabetes mellitus with diabetic chronic kidney disease; N18.3 Chronic kidney disease, stage 3 (moderate); I25.119 Atherosclerotic heart disease of native coronary artery with unspecified angina pectoris; Z95.5 Presence of coronary angioplasty implant and graft; Z95.1 Presence of aortocoronary bypass graft; I25.2 Old myocardial infarction; I16.0 Hypertensive urgency; E03.9 Hypothyroidism, unspecified; E78.5 Hyperlipidemia, unspecified; I08.3 Combined rheumatic disorders of mitral, aortic and tricuspid valves
CPT/HCPCS: 71045; 80048; 80053; 82550; 82948; 83735; 83880; 84484; 85002; 85025; 85027; 85610; 85730; 93005; 93306; 93459; 99152; 99153; C1769; C1893; J1200; J1644; J1720; J1815; J2250; Q9967

== ENCOUNTER 2018-01-19 18:18 | Observation (INO) | payer MEDICARE ==
[~2018-01-19] VITALS: Ht 149.9 cm; Wt 60.0 kg
[~2018-01-19 18:18] MED LIST changes: -ASPI1TAB69 PO; -FENO48TA PO; -FISH100020 PO; +INSU1INJ13 SQ; +ISOS30TA3 PO; -METF500T PO; -MULT-135 PO; -PLAV75TA29 PO; -POTA1TAB4 PO; +TRAD5TAB PO
[2018-01-19 18:33] VITALS: BP 178/76; PULSE 62; RESP 17; TEMP 98.1; O2SAT 98
[2018-01-19 22:18] VITALS: BP 209/97; PULSE 70; RESP 18; O2SAT 99
[2018-01-19] MEDS ORDERED: ASPI1TAB57 PO (22:28)
[2018-01-19] MEDS ORDERED: THERTAB17 PO (22:28)
[2018-01-19] MEDS ORDERED: FURO20TA PO (22:28)
[2018-01-19] MEDS ORDERED: METOPROLOL TARTRATE 5 MG/5 ML VIAL IV PUSH ONE (22:30)
[2018-01-19] MEDS ORDERED: SODIUM CHLORIDE 0.9% FLUSH 10 ML FLUSH IVF PRN (22:45)
--- NOTE | 2018-01-19 22:52 | PD ---
HPI Chief Complaint: Hypertension Time Seen by Provider: 22:12 Travel History International Travel<30 days: No Contact w/Intl Traveler<30days: No Traveled to known affect area: No History of Present Illness HPI Patient is an 82-year-old female presenting to ER For evaluation of elevated blood pressure reading. Patient states she had a headache at approximately 520 this afternoon, this prompted her to check her blood pressure and it was elevated. Patient checked it again a half an hour later and it was higher than the previous reading. This concerned her so she presented to the emergency department for evaluation. Patient denies any chest pain, shortness of breath, nausea, diaphoresis. Patient states when the headache occurred earlier this afternoon she did feel slightly dizzy but that has also resolved. Symptom onset was fairly sudden, symptom severity with mild in nature. There were no alleviating or exacerbating factors. Patient has not taken her nighttime blood pressure medications. PFSH Past Medical History Hx Anticoagulant Therapy: Yes (Plavix) Arthritis: Yes (HANDS) Heart Rhythm Problems: Yes Cardiac Catheterization: Yes (>20 STENTS) Cardiovascular Problems: Yes (CABG 2015) High Cholesterol: Yes Chest Pain: Yes Congestive Heart Failure: Yes Diabetes: Yes Diverticulitis: Yes Endocrine: Yes Gastrointestinal Disorders: Yes Genitourinary: Yes Heparin Induced Thrombocytopen: Yes Hypertension: Yes Myocardial Infarction: Yes (X6) Thyroid Disease: Yes Ulcer: No PNEUMOCCOCAL Vaccine (Year): 2 Menopausal: Yes : 3 Para: 3 Miscarriage: 0 : 0 Past Surgical History Abdominal Surgery: Yes (GALLBLADDER) AICD: No Appendectomy: Yes Arteriovenous Shunt: No Body Medical Devices: heart stents Cardiac Surgery: Yes (CABG 1994) Section: Yes (X1) Cholecystectomy: Yes Coronary Artery Bypass Graft: Yes (X2) Coronary Stent: Yes Ear Surgery: No Endocrine Surgery: No Eye Surgery: No Genitourinary Surgery: Yes Gynecologic Surgery: Yes (HYSTERECTOMY) Hysterectomy: Yes Insulin Pump: No Joint Replacement: No Oral Surgery: No Pacemaker: No Thoracic Surgery: No Tonsillectomy: Yes Other Surgery: Yes ( SURG) Family History Family Myocardial Infarction: Yes Social History Alcohol Use: No Tobacco Use: No Substance Use: No Allergies-Medications (Allergen,Severity, Reaction): Coded Allergies: glipizide (Verified Allergy, Intermediate, 01/19/18) LEG SWELLING pravastatin (Verified Allergy, Intermediate, BODY ACHES, 01/19/18) simvastatin (Verified Allergy, Intermediate, BODY ACHES, 01/19/18) atorvastatin (Verified Adverse Reaction, Severe, ""STATINS""-ELEVATED LIVER ENZYMES, 01/19/18) diatrizoate meglumine (Verified Adverse Reaction, Intermediate, Hives, ) fosinopril (Verified Adverse Reaction, Intermediate, Cough, 01/19/18) gadobenic acid (Verified Adverse Reaction, Intermediate, Hives, 01/19/18) gadodiamide (Verified Adverse Reaction, Intermediate, Hives, 01/19/18) gadoteridol (Verified Adverse Reaction, Intermediate, Hives, 01/19/18) iodine (Verified Adverse Reaction, Intermediate, Hives, 01/19/18) iodixanol (Verified Adverse Reaction, Intermediate, Hives, 01/19/18) iohexol (Verified Adverse Reaction, Intermediate, Hives, 01/19/18) potassium iodide (Verified Adverse Reaction, Intermediate, Hives, 01/19/18) povidone-iodine (Verified Adverse Reaction, Intermediate, Hives, 01/19/18) sodium iodide (Verified Adverse Reaction, Intermediate, Hives, 01/19/18) sodium iodide (Verified Adverse Reaction, Intermediate, Hives, 01/19/18) telmisartan (Verified Adverse Reaction, Intermediate, Chest Pain, 01/19/18) Reported Meds & Prescriptions Reported Meds & Active Scripts Active Isosorbide Mononitrate ER (Isosorbide Mononitrate) 30 Mg Kashif 60 Mg PO DAILY Metoprolol Tartrate 25 Mg Tab 25 Mg PO BID Reported Thera-M (Multiple Vitamins W/ Minerals) 1 Tab 1 Tab PO DAILT Aspirin 81 (Aspirin) 81 Mg Tabdr 81 Mg PO DAILY Furosemide 20 Mg Tab 20 Mg PO DAILY Tresiba Flextouch Pen Inj (Insulin Degludec Inj) 600 unit/3 ML Pen 10 Units SQ DAILY Tradjenta (Linagliptin) 5 Mg Tab 5 Mg PO DAILY Amlodipine (Amlodipine Besylate) 5 Mg Tab 5 Mg PO HS Atorvastatin (Atorvastatin Calcium) 40 Mg Tab 40 Mg PO HS Nitroglycerin SL (Nitroglycerin) 0.4 Mg Subl 0.4 Mg SL DIRECTED PRN ONE TABLET UNDER THE TONGUE NEEDED FOR CHEST PAIN, MAY REPEAT EVERY FIVE MINUTES FOR A TOTAL OF 3 DOSES OR CALL 911 IF NO RELIEF Levothyroxine (Levothyroxine Sodium) 25 Mcg Tab 25 Mcg PO DAILY Vitamin D-3 (Cholecalciferol) 2,000 Unit Tab 2,000 Units PO HS Review of Systems Except as stated in HPI: all other systems reviewed are Neg HENT: Positive: Headaches Cardiovascular: No: Chest Pain or Discomfort Respiratory: No: Shortness of Breath Gastrointestinal: No: Nausea Neurologic: Positive: Dizziness Physical Exam Narrative GENERAL: Well-developed, well-nourished, alert elderly female. Presenting in no acute distress. SKIN: Warm and dry. HEAD: Atraumatic. Normocephalic. EYES: Pupils equal and round. No scleral icterus. No injection or drainage. ENT: No nasal bleeding or discharge. Mucous membranes pink and moist. NECK: Trachea midline. No JVD. CARDIOVASCULAR: Regular rate and rhythm. 3/6 systolic murmur. RESPIRATORY: No accessory muscle use. Clear to auscultation. Breath sounds equal bilaterally. GASTROINTESTINAL: Abdomen soft, non-tender, nondistended. Hepatic and splenic margins not palpable. MUSCULOSKELETAL: Extremities without clubbing, cyanosis, or edema. No obvious deformities. NEUROLOGICAL: Awake and alert. No obvious cranial nerve deficits. Motor grossly within normal limits. Five out of 5 muscle strength in the arms and legs. Normal speech. PSYCHIATRIC: Appropriate mood and affect; insight and judgment normal. Data Data Last Documented VS Vital Signs Date Time Temp Pulse Resp B/P (MAP) Pulse Ox O2 Delivery O2 Flow Rate FiO2 01/19/18:18 70 18 209/97 (134) 99 Room Air 01/19/18 18:33 98.1 Orders Orders Electrocardiogram (01/19/18 ) Metoprolol Tartrate Inj (Lopressor Inj) (01/19/18 22:30) Iv Access Insert/Monitor (01/19/18 22:26) Ckmb (Isoenzyme) Profile (01/19/18 22:38) Complete Blood Count With Diff (01/19/18 22:38) Comprehensive Metabolic Panel (01/19/18 22:38) Magnesium (Mg) (01/19/18 22:38) Prothrombin Time / Inr (Pt) (01/19/18 22:38) Act Partial Throm Time (Ptt) (01/19/18 22:38) Troponin I (01/19/18 22:38) Chest, Single Ap (01/19/18 22:38) Ecg Monitoring (01/19/18 22:38) Bilateral Bp Monitoring (01/19/18 22:38) Oximetry (01/19/18 22:38) Oxygen Administration (01/19/18 22:38) Sodium Chloride 0.9% Flush (Ns Flush) (01/19/18 22:45) MDM Medical Decision Making Medical Screen Exam Complete: Yes Emergency Medical Condition: Yes Medical Record Reviewed: Yes Interpretation(s) Vital Signs Date Time Temp Pulse Resp B/P (MAP) Pulse Ox O2 Delivery O2 Flow Rate FiO2 01/19/18 22:18 70 18 209/97 (134) 99 Room Air 01/19/18 18:33 98.1 62 17 178/76 (110) 98 Differential Diagnosis Hypertension versus hypertensive urgency versus metabolic abnormality versus ACS versus [place] versus other Narrative Course Patient is a well-appearing 82-year-old female presenting for evaluation of elevated blood pressure reading and headache. Blood pressure is elevated on arrival. Labs and imaging and pending. Metoprolol 5 mg IV 1 dose was ordered for initial blood pressure management, patient's heart rate was 70 initially, reassessed at 62, patient received only 2.5 mg of IV metoprolol. Care of patient transferred to Dr. Cobb. Eve Gan Jan 19, 2018 22:52
[2018-01-19 23:03] VITALS: BP_SYST 189; BP_SYST 209; BP_DIAS 80; BP_DIAS 97; PULSE 58
[2018-01-19 23:06] VITALS: RESP 18; O2SAT 97
[2018-01-19 23:06] LABS: AUTOMATED NEUTROPHIL # 4.7 TH/MM3 (1.8-7.7); BASOPHIL # 0.1 TH/MM3 (0-0.2); BASOPHIL % 1.5 % (0.0-2.0); EOSINOPHIL # 0.6 TH/MM3 (0-0.4); EOSINOPHIL % 6.6 % (0.0-4.0); HEMOGLOBIN 10.7 GM/DL (11.6-15.3); LYMPH % 28.8 % (9.0-44.0); LYMPHOCYTE # 2.4 TH/MM3 (1.0-4.8); MEAN CELL VOLUME 82.9 FL (80.0-100.0); MEAN CORPUSCULAR HEMOGLOBIN 29.5 PG (27.0-34.0); MEAN CORPUSCULAR HGB CONC 35.6 % (32.0-36.0); MEAN PLATELET VOLUME 8.4 FL (7.0-11.0); MONO % 7.8 % (0.0-8.0); MONOCYTE # 0.7 TH/MM3 (0-0.9); NEUT % 55.3 % (16.0-70.0); PLATELET COUNT 213 TH/MM3 (150-450); RED BLOOD COUNT 3.62 MIL/MM3 (4.00-5.30); RED CELL DISTRIBUTION WIDTH 15.7 % (11.6-17.2); WHITE BLOOD COUNT 8.4 TH/MM3 (4.0-11.0)
--- NOTE | 2018-01-19 23:06 | RADRPT ---
EXAM DATE/TIME: 01/19/2018 22:43 [place] COMPARISON: CHEST SINGLE AP, January 16, 2018, 5:22. INDICATIONS : Chest pain MEDICAL HISTORY : Myocardial infarction. Hypertension. Diabetes mellitus type II. Congestive heart failure SURGICAL HISTORY : Umbilical hernia repair. CABG. Appendectomy. Stents ENCOUNTER: Initial ACUITY: 1 day PAIN SCORE: 0/10 LOCATION: Bilateral chest FINDINGS: A single view of the chest demonstrates the lungs to be symmetrically aerated without acute infiltrat e. A 1.4 cm nodular density projecting just above the left hemidiaphragm I believe is related to the costochondral junction of the anterior left sixth rib. Otherwise, no suspicious nodules. Heart size i s prominent with coronary ostial rings characteristic of prior CABG. There appears to be interval senait cement of a stent possibly in one of the bypass grafts. Median sternotomy wires and osseous structure s are all intact. CONCLUSION: 1. 1.4 cm nodule projecting just above the left hemidiaphragm I believe is related to the costochondr al junction of the anterior left sixth rib. Lungs are otherwise clear. 2. Heart size is prominent but well compensated. 3. Findings a prior CABG. There may be a long stent in one of the bypass grafts. Wes Gunn MD on January 19, 2018 at 23:00 Board Certified Radiologist. This report was verified electronically.
[2018-01-19 23:13] VITALS: BP 153/70; PULSE 58; RESP 18; O2SAT 98
[2018-01-19 23:24] LABS: PROTHROMBIN TIME - PATIENT 10.4 SEC (9.8-11.6)
[2018-01-19 23:33] LABS: ALBUMIN 3.7 GM/DL (3.4-5.0); ALKALINE PHOSPHATASE 227 U/L (45-117); ALT (GPT) 31 U/L (10-53); AST (GOT) 44 U/L (15-37); BICARBONATE 26.2 MEQ/L (21.0-32.0); BLOOD UREA NITROGEN 34 MG/DL (7-18); CALCIUM 8.8 MG/DL (8.5-10.1); CHLORIDE 102 MEQ/L (98-107); CREATININE 1.39 MG/DL (0.50-1.00); GLOMERULAR FILTRATION RATE 36 ML/MIN (>89); GLUCOSE,RANDOM 125 MG/DL (74-106); MAGNESIUM 1.9 MG/DL (1.5-2.5); SODIUM (NA) 139 MEQ/L (136-145); TOTAL BILIRUBIN ADULT 0.5 MG/DL (0.2-1.0); TOTAL PROTEIN 8.6 GM/DL (6.4-8.2)
[2018-01-20] VITALS (8 sets, daily range): BP systolic 118–183; BP diastolic 67–79; PULSE 59–65; RESP 17–18; O2SAT 95–96
[2018-01-20 02:55] LABS: TROPONIN I 0.33 NG/ML (0.02-0.05)
[2018-01-20 06:10] LABS: TROPONIN I 0.31 NG/ML (0.02-0.05)
[2018-01-20] MEDS ORDERED: ISOS30TA3 PO (08:45)
--- NOTE | 2018-01-20 08:57 | HHI.DCPOC ---
Discharge Care Plan Diagnosis: (1) HTN (hypertension) (2) Elevated troponin (3) CAD (coronary artery disease) (4) CKD (chronic kidney disease) stage 3, GFR 30-59 ml/min Goals to Promote Your Health TAKE IMDUR(ISOSORBIDE) AT NIGHT WITH TYLENOL. * To prevent worsening of your condition and complications * To maintain your health at the optimal level Directions to Meet Your Goals Take your medications as prescribed Follow your dietary instruction Follow activity as directed Keep your appointments as scheduled Take your immunizations and boosters as scheduled If your symptoms worsen call your PCP, if no PCP go to Urgent Care Center or Emergency Room Smoking is Dangerous to Your Health. Avoid second hand smoke Call the 24-hour hour crisis hotline for domestic abuse at Arie Tejeda Jan 20, 2018 08:57
[2018-01-20] MEDS ORDERED: LOSA50TA PO (08:59)
[2018-01-20] MEDS ORDERED: ASPIRIN EC 81 MG TABEC PO SCH (09:00)
[2018-01-20] MEDS ORDERED: FUROSEMIDE 20 MG TAB PO SCH (09:00)
[2018-01-20] MEDS ORDERED: LOSARTAN 50 MG TAB PO ONE (09:00)
[2018-01-20] MEDS ORDERED: METOPROLOL TARTRATE 25 MG TAB PO SCH (09:00)
[2018-01-20] MEDS ORDERED: LEVOTHYROXINE SODIUM 25 MCG TAB PO SCH (09:00)
--- NOTE | 2018-01-20 09:30 | HHI.HP ---
[facility] Primary Care Physician Hermila Lanier MD Chief Complaint Hypertension History of Present Illness This is a 82-year-old female history of CAD with CABG in the past as well as multiple stents that presents to ED with a primary complaint of high blood pressure. Patient states that she had a headache and checked her blood pressure at home and it was elevated. This concerned her and so she came to the ED. Denies chest discomforts. Denies shortness of breath. Denies nausea or diaphoresis. Upon reviewing records she had a heart catheterization with Dr. her 01/16/18 revealing 2 of 3 grafts to be patent. Vessel to the LAD had 80% stenosis but was found to be a difficult for intervention. Medical management was the choice. States that her headache is now resolved. She had no photophobia. No blurred vision. Denied numbness tingling or weakness in extremities. Voices compliance with her medications. She thinks that the Imdur is causing her headache. She states that she was on losartan was tolerating it but it was discontinued for some reason. But denies having any issues while taking losartan. Review of Systems General: Patient denies fevers, chills, and recent travel. HEENT: Patient denies headache, sore throat, difficulty swallowing. Cardiovascular: Denies chest discomfort as mentioned above. Denies sensation of heart beating rapidly or irregularly. No syncope. Denies diaphoresis Respiratory: Denies shortness of breath or inspirational chest discomfort. Denies coughing wheezing or hemoptysis. GI: Patient denies nausea, vomiting, diarrhea, abdominal pain, bloody stools. Musculoskeletal: Patient denies joint pain or edema. Denies calf pain or edema. Neurovascular: Patient denies numbness, tingling, weakness in extremities. Complains of headache. Not the worst headache of her life. Believes it is related to increasing Imdur dose recently. Endocrine: Denies polyuria and polydipsia. Hematologic: Denies easy bruising. Skin: Denies rash or itching. Past Family Social History Allergies: Coded Allergies: glipizide (Verified Allergy, Intermediate, 01/19/18) LEG SWELLING pravastatin (Verified Allergy, Intermediate, BODY ACHES, 01/19/18) simvastatin (Verified Allergy, Intermediate, BODY ACHES, 01/19/18) atorvastatin (Verified Adverse Reaction, Severe, ""STATINS""-ELEVATED LIVER ENZYMES, 01/19/18) diatrizoate meglumine (Verified Adverse Reaction, Intermediate, Hives, ) fosinopril (Verified Adverse Reaction, Intermediate, Cough, 01/19/18) gadobenic acid (Verified Adverse Reaction, Intermediate, Hives, 01/19/18) gadodiamide (Verified Adverse Reaction, Intermediate, Hives, 01/19/18) gadoteridol (Verified Adverse Reaction, Intermediate, Hives, 01/19/18) iodine (Verified Adverse Reaction, Intermediate, Hives, 01/19/18) iodixanol (Verified Adverse Reaction, Intermediate, Hives, 01/19/18) iohexol (Verified Adverse Reaction, Intermediate, Hives, 01/19/18) potassium iodide (Verified Adverse Reaction, Intermediate, Hives, 01/19/18) povidone-iodine (Verified Adverse Reaction, Intermediate, Hives, 01/19/18) sodium iodide (Verified Adverse Reaction, Intermediate, Hives, 01/19/18) sodium iodide (Verified Adverse Reaction, Intermediate, Hives, 01/19/18) telmisartan (Verified Adverse Reaction, Intermediate, Chest Pain, 01/19/18) Past Medical History CAD with CABG and multiple stents. Diabetes, hypertension, hyperlipidemia, and hypothyroidism. Past Surgical History CABG. Multiple heart catheterizations with most recently being 01/16/18. Hysterectomy, cholecystectomy, and tonsillectomy. Reported Medications Reported Meds & Active Scripts Active Isosorbide Mononitrate ER (Isosorbide Mononitrate) 30 Mg Kashif 60 Mg PO HS Metoprolol Tartrate 25 Mg Tab 25 Mg PO BID Reported Thera-M (Multiple Vitamins W/ Minerals) 1 Tab 1 Tab PO DAILT Aspirin 81 (Aspirin) 81 Mg Tabdr 81 Mg PO DAILY Furosemide 20 Mg Tab 20 Mg PO DAILY Tresiba Flextouch Pen Inj (Insulin Degludec Inj) 600 unit/3 ML Pen 10 Units SQ DAILY Tradjenta (Linagliptin) 5 Mg Tab 5 Mg PO DAILY Amlodipine (Amlodipine Besylate) 5 Mg Tab 5 Mg PO HS Atorvastatin (Atorvastatin Calcium) 40 Mg Tab 40 Mg PO HS Nitroglycerin SL (Nitroglycerin) 0.4 Mg Subl 0.4 Mg SL DIRECTED PRN ONE TABLET UNDER THE TONGUE NEEDED FOR CHEST PAIN, MAY REPEAT EVERY FIVE MINUTES FOR A TOTAL OF 3 DOSES OR CALL 911 IF NO RELIEF Levothyroxine (Levothyroxine Sodium) 25 Mcg Tab 25 Mcg PO DAILY Vitamin D-3 (Cholecalciferol) 2,000 Unit Tab 2,000 Units PO HS Active Ordered Medications Current Medications Medications (Trade) Dose Ordered Sig/Mildred Route Start Time Stop Time Status Last Admin (NS Flush) 2 ml UNSCH PRN IVF 01/19/18 22:45 (Lipitor) 40 mg HS PO 01/20/18 21:00 (Lopressor) 25 mg BID PO 01/20/18 09:00 01/20/18 09:10 (Norvasc) 5 mg HS PO 01/20/18 21:00 (Ecotrin Ec) 81 mg DAILY PO 01/20/18 09:00 01/20/18 09:09 (Lasix) 20 mg DAILY PO 01/20/18 09:00 01/20/18 09:10 (Synthroid) 25 mcg DAILY@0600 PO 01/20/18 09:00 01/20/18 09:09 Family History There is family history of CAD. Social History Non-smoker. Denies alcohol or illicit drugs. Physical Exam Vital Signs Vital Signs Date Time Temp Pulse Resp B/P (MAP) Pulse Ox O2 Delivery O2 Flow Rate FiO2 01/20/18 09:12 65 18 173/74 (107) 95 Room Air 01/20/18 08:15 65 18 183/78 (113) 95 Room Air 01/20/18 07:00 59 18 118/79 (92) 95 Room Air 01/20/18 05:51 59 18 166/70 (102) 95 Room Air 01/20/18 02:45 62 18 164/72 (102) 96 Room Air 01/20/18 00:07 60 18 148/67 (94) 96 Room Air 01/19/18 23:13 58 18 153/70 (97) 98 Room Air 01/19/18 23:06 18 97 Room Air 01/19/18 23:06 97 Room Air 01/19/18 23:03 58 209/97 (134) 189/80 (116) 01/19/18 22:18 70 18 209/97 (134) 99 Room Air 01/19/18 18:33 98.1 62 17 178/76 (110) 98 Physical Exam GENERAL: This is a well-nourished, well-developed patient, in no apparent distress. Patient speaks in clear complete sentences. Patient is pleasant. HEENT: Head is atraumatic and normocephalic. Neck is supple without lymphadenopathy and trachea is midline. No JVD or carotid bruits. CARDIOVASCULAR: Grade 2 systolic murmur right sternal border. This does not radiate to the neck. Regular rate and rhythm without gallops or rubs. RESPIRATORY: Clear to auscultation. Breath sounds equal bilaterally. No wheezes , rales, or rhonchi. Chest wall is nontender. No use of accessory muscles. GASTROINTESTINAL: Abdomen is nontender, nondistended. Abdomen soft. No obvious pulsatile mass or bruit. No CVA tenderness. Strong femoral pulses bilaterally. Normal bowel sounds in all quadrants. MUSCULOSKELETAL: Patient is moving upper and lower extremities freely. No calf tenderness or edema, no Homans sign. Strong pulses in upper and lower extremities. NEUROLOGICAL: Patient is alert and oriented. Cranial nerves 2-12 are grossly intact. No focal deficits and speech is clear. SKIN: No rash and turgor is normal. Laboratory Laboratory Tests Test 01/19/18 22:55 01/20/18 02:10 01/20/18 05:15 White Blood Count 8.4 Red Blood Count 3.62 Hemoglobin 10.7 Hematocrit 30.0 Mean Corpuscular Volume 82.9 Mean Corpuscular Hemoglobin 29.5 Mean Corpuscular Hemoglobin Concent 35.6 Red Cell Distribution Width 15.7 Platelet Count 213 Mean Platelet Volume 8.4 Neutrophils (%) (Auto) 55.3 Lymphocytes (%) (Auto) 28.8 Monocytes (%) (Auto) 7.8 Eosinophils (%) (Auto) 6.6 Basophils (%) (Auto) 1.5 Neutrophils # (Auto) 4.7 Lymphocytes # (Auto) 2.4 Monocytes # (Auto) 0.7 Eosinophils # (Auto) 0.6 Basophils # (Auto) 0.1 CBC Comment DIFF FINAL Differential Comment Prothrombin Time 10.4 Prothromb Time International Ratio 1.0 Activated Partial Thromboplast Time 27.3 Blood Urea Nitrogen 34 Creatinine 1.39 Random Glucose 125 Total Protein 8.6 Albumin 3.7 Calcium Level 8.8 Magnesium Level 1.9 Alkaline Phosphatase 227 Aspartate Amino Transf (AST/SGOT) 44 Alanine Aminotransferase (ALT/SGPT) 31 Total Bilirubin 0.5 Sodium Level 139 Potassium Level 4.2 Chloride Level 102 Carbon Dioxide Level 26.2 Anion Gap 11 Estimat Glomerular Filtration Rate 36 Total Creatine Kinase 93 71 68 Troponin I 0.40 0.33 0.31 Result Diagram: 01/19/18225401/19/182254 Imaging Last 24 hours Impressions Chest X-Ray 01/19/188 Signed Impressions: Service Date/Time: January 22:43 - CONCLUSION: 1. 1.4 cm nodule projecting just above the left hemidiaphragm I believe is related to the costochondral junction of the anterior left sixth rib. Lungs are otherwise clear. 2. Heart size is prominent but well compensated. 3. Findings a prior CABG. There may be a long stent in one of the bypass grafts. Wes Gunn MD Course EKGs are right bundle branch block, sinus bradycardia 2 with a rate of 57 and 59 and sinus rhythm rate of 62. First-degree AV block. No significant ST segment depressions or elevations. Caprini VTE Risk Assessment Caprini VTE Risk Assessment: Mod/High Risk (score >= 2) Caprini Risk Assessment Model Point Value = 1 Point Value = 2 Point Value = 3 Point Value = 5 Age 41-60 Minor surgery BMI > 25 kg/m2 Swollen legs Varicose veins or History of unexplained or recurrent spontaneous Oral contraceptives or hormone replacement Sepsis (< 1 month) Serious lung disease, including pneumonia (< 1 month) Abnormal pulmonary function Acute myocardial infarction Congestive heart failure (< 1 month) History of inflammatory bowel disease Medical patient at bed rest Age 61-74 Arthroscopic surgery Major open surgery (> 45 min) Laparoscopic surgery (> 45 min) Malignancy Confined to bed (> 72 hours) Immobilizing plaster cast Central venous access Age >= 75 History of VTE Family history of VTE Factor V Leiden Prothrombin [id number] Lupus anticoagulant Anticardiolipin antibodies Elevated serum homocysteine Heparin-induced thrombocytopenia Other congenital or acquired thrombophilia Stroke (< 1 month) Elective arthroplasty Hip, pelvis, or leg fracture Acute spinal cord injury (< 1 month) Prophylaxis Regimen Total Risk Factor Score Risk Level Prophylaxis Regimen 0-1 Low Early ambulation 2 Moderate Order ONE of the following: *Sequential Compression Device (SCD) *Heparin 5000 units SQ BID 3-4 Higher Order ONE of the following medications: *Heparin 5000 units SQ TID *Enoxaparin/Lovenox 40 mg SQ daily (WT < 150 kg, CrCl > 30 mL/min) *Enoxaparin/Lovenox 30 mg SQ daily (WT < 150 kg, CrCl > 10-29 mL/min) *Enoxaparin/Lovenox 30 mg SQ BID (WT < 150 kg, CrCl > 30 mL/min) AND/OR *Sequential Compression Device (SCD) 5 or more Highest Order ONE of the following medications: *Heparin 5000 units SQ TID (Preferred with Epidurals) *Enoxaparin/Lovenox 40 mg SQ daily (WT < 150 kg, CrCl > 30 mL/min) *Enoxaparin/Lovenox 30 mg SQ daily (WT < 150 kg, CrCl > 10-29 mL/min) *Enoxaparin/Lovenox 30 mg SQ BID (WT < 150 kg, CrCl > 30 mL/min) AND *Sequential Compression Device (SCD) Assessment and Plan Assessment and Plan * Hypertension: Patient has had serial cardiac enzymes which have been elevated at 0.40, 0.33, and 0.31. She routinely has had elevated troponins and her recent hospitalizations. Likely related to secondary CT from hypertension/ renal insufficiency. Patient was evaluated by Dr. Jacobson of cardiology in the Chest pain center. She is denying having any chest discomfort. She was concerned of her hypertension. Patient states that she tolerated losartan prior but that was discontinued for reason that she cannot recall. Recommendation is to adjust medication. I discussed the patient with her depot agent which is Dr. her. He has recommended that we add losartan 50 mg daily and have her take her Imdur in the evening with the Tylenol. Keep a journal of her blood pressure readings and follow-up with him and PCP. She should return to ED for interval issues. * Elevated troponins: Patient's troponins are elevated and recent hospitalizations. Likely secondary CT related to uncontrolled hypertension and renal insufficiency. The lab findings were discussed with the patient and even if a heart catheterization was recommended she would not have wanted it. * CAD: Continue medications. Follow-up with cardiology. * Diabetes: Resume medication. Diabetic diet. * Hyperlipidemia: Continue medications. Patient is stable at this time. She is agreeable to this plan. Arie Tejeda Jan 20, 2018 09:30
--- NOTE | 2018-01-20 17:37 | EKG ---
Date Performed: 01/20/2018 Time Performed: 02:09:08 PTAGE: 82 years EKG: Sinus rhythm WITH FIRST DEGREE AV BLOCK MARKED LEFT AXIS DEVIATION RIGHT BUNDLE BRANCH BLOCK ABNORMAL ECG Since PREVIOUS TRACING , no significant change noted PREVIOUS TRACIN01/19/2018 22.32 DOCTOR: Arlene Jacobson Interpretating Date/Time 01/20/2018 17:35:43
--- NOTE | 2018-01-20 17:37 | EKG ---
Date Performed: 01/19/2018 Time Performed: 22:32:10 PTAGE: 82 years EKG: SINUS BRADYCARDIA MARKED LEFT AXIS DEVIATION RIGHT BUNDLE BRANCH BLOCK LEFT VENTRICULAR HYP ERTROPHY AND ST-T CHANGE ABNORMAL ECG Since PREVIOUS TRACING , no significant change noted PREVIOUS TRACIN01/17/2018 09.40 DOCTOR: Arlene Jacobson Interpretating Date/Time 01/20/2018 17:37:06
--- NOTE | 2018-01-20 17:37 | EKG ---
Date Performed: 01/20/2018 Time Performed: 05:20:28 PTAGE: 82 years EKG: SINUS BRADYCARDIA WITH FIRST DEGREE AV BLOCK MARKED LEFT AXIS DEVIATION RIGHT BUNDLE BRANCH BLOCK ABNORMAL ECG Since PREVIOUS TRACING , no significant change noted PREVIOUS TRACIN01/20/2018 02.09 DOCTOR: Arlene Jacobson Interpretating Date/Time 01/20/2018 17:35:30
[2018-01-20] MEDS ORDERED: ATORVASTATIN 40 MG TAB PO SCH (21:00)
[2018-01-20] MEDS ORDERED: amLODIPine BESYLATE 5 MG TAB PO SCH (21:00)
== END 2018-01-20 12:24 | disposition home or self-care (01) ==
LOC: NEPE 18:18 → NEDA 01-20 00:14 → NEDH 01-20 04:36
PROVIDERS: ADMIT Internal Medicine Interventional Cardiology; ATTEND Internal Medicine Interventional Cardiology
DX: I13.0 Hypertensive heart and chronic kidney disease with heart failure and stage 1 through stage 4 chronic kidney disease, or unspecified chronic kidney disease (principal); I50.9 Heart failure, unspecified; N18.3 Chronic kidney disease, stage 3 (moderate); R74.8 Abnormal levels of other serum enzymes; R51 Headache; R42 Dizziness and giddiness; E11.22 Type 2 diabetes mellitus with diabetic chronic kidney disease; I25.10 Atherosclerotic heart disease of native coronary artery without angina pectoris; I25.2 Old myocardial infarction; I45.10 Unspecified right bundle-branch block; I44.0 Atrioventricular block, first degree; R00.1 Bradycardia, unspecified; E78.00 Pure hypercholesterolemia, unspecified; E03.9 Hypothyroidism, unspecified; M19.042 Primary osteoarthritis, left hand; M19.041 Primary osteoarthritis, right hand; Z79.899 Other long term (current) drug therapy; Z79.82 Long term (current) use of aspirin; Z95.1 Presence of aortocoronary bypass graft
CPT/HCPCS: 71045; 80053; 82550; 83735; 84484; 85025; 85610; 85730; 93005; 96374; 99285; G0378

== ENCOUNTER 2018-05-23 10:53 | Inpatient (IN) ==
--- NOTE | 2018-05-23 12:09 | ED ---
HPI General Chief Complaint: Chest Pain Stated Complaint: Medical Time Seen by Provider: 05/23/18 11:39 Source: patient Mode of arrival: ambulatory Limitations: no limitations History of Present Illness HPI narrative: Patient comes in stating that she has had substernal chest pressure nonradiating ongoing for the last 4 hours, patient states that the last time she felt this way she had an MT, and Dr. her was that her last cleaner that day. Patient's risk factors include previous MT, hypertension , diabetes and high cholesterol...... Per chart review a January 2018 note from the cardiology shows 80% LAD occlusion but with small caliber MD complaint: chest pain Complete Quality Measures for STEMI Alert Patients STEMI Alert: No Duration: intermittent Onset: during rest Pain location: substernal Severity: mild Severity scale (1-10): 4 Quality: heaviness Pain radiation: none Relieving factors: nothing Exacerbating factors: nothing Treatments prior to arrival chest pain: none Related Data On Oral Contraceptives: No Allergies Allergy/AdvReac Type Severity Reaction Status Date / Time glipizide Allergy Intermediate Verified 01/19/18 18:32 pravastatin Allergy Intermediate BODY ACHES Verified 01/19/18 18:32 simvastatin Allergy Intermediate BODY ACHES Verified 01/19/18 18:32 atorvastatin AdvReac Severe ""STATINS""-ELEVATED Verified 01/19/18 18:32 LIVER ENZYMES diatrizoate meglumine AdvReac Intermediate Hives Verified 01/19/18 18:32 fosinopril AdvReac Intermediate Cough Verified 01/19/18 18:32 gadobenic acid AdvReac Intermediate Hives Verified 01/19/18 18:32 gadodiamide AdvReac Intermediate Hives Verified 01/19/18 18:32 gadoteridol AdvReac Intermediate Hives Verified 01/19/18 18:32 iodine AdvReac Intermediate Hives Verified 01/19/18 18:32 iodixanol AdvReac Intermediate Hives Verified 01/19/18 18:32 iohexol AdvReac Intermediate Hives Verified 01/19/18 18:32 potassium iodide AdvReac Intermediate Hives Verified 01/19/18 18:32 povidone-iodine AdvReac Intermediate Hives Verified 01/19/18 18:32 sodium iodide AdvReac Intermediate Hives Verified 01/19/18 18:32 sodium iodide AdvReac Intermediate Hives Verified 01/19/18 18:32 telmisartan AdvReac Intermediate Chest Pain Verified 01/19/18 18:32 Review of Systems Except as stated in HPI: all other systems reviewed are negative PMFSH History History Provided By: Patient Social History Social History Substance History: No History of Abuse Second Hand Smoke Exposure: No Smoking Status: Never smoker How Often Do You Have a Drink Containing Alcohol: Never Recent Travel in [place] within the Last 8 Weeks: No Recent Out of Country Travel within the Last 8 Weeks: No Exam Narrative Exam Narrative: GENERAL: Well-nourished, well-developed patient in no apparent distress. SKIN: Warm and dry. HEAD: Atraumatic. Normocephalic. EYES: Pupils equal and round. No scleral icterus. No injection or drainage. ENT: No nasal bleeding or discharge. Mucous membranes pink and moist. NECK: Trachea midline. No JVD. CARDIOVASCULAR: Regular rate and rhythm. no rubs or gallops RESPIRATORY: No accessory muscle use. Clear to auscultation. Breath sounds equal bilaterally. GASTROINTESTINAL: Abdomen soft, non-tender, nondistended. No rebound or guarding MUSCULOSKELETAL: Extremities without clubbing, cyanosis, or edema. No obvious deformities. NEUROLOGICAL: Awake and alert. No obvious cranial nerve deficits. Motor grossly within normal limits. Five out of 5 muscle strength in the arms and legs. Normal speech. PSYCHIATRIC: Appropriate mood and affect; insight and judgment normal. Course Initial Documented Vital Signs Temperature 98.4 F 05/23/18 11:31 Pulse Rate 58 L 05/23/18 11:31 Respiratory Rate 16 05/23/18 11:31 Blood Pressure 151/94 H 05/23/18 11:31 Pulse Oximetry 98 05/23/18 11:31 Last Documented Vital Signs Temperature 98.4 F 05/23/18 11:31 Pulse Rate 55 L 05/23/18 13:14 Respiratory Rate 16 05/23/18 13:14 Blood Pressure 163/69 H 05/23/18 13:14 Pulse Oximetry 96 05/23/18 13:14 Medical Decision Making Medical Records Medical records reviewed: Yes I reviewed the patient's medical records. Lab Data Lab results reviewed: Yes I reviewed the patient's lab results. Result diagrams: 05/23/18 12:05 05/23/18 12:05 Lab Results 05/23/18 05/23/18 05/23/18 Range/Units 12:05 12:05 12:05 WBC 8.5 (4.0-11.0) th/mm3 RBC 4.23 (4.00-5.30) mil/mm3 Hgb 12.3 (11.6-15.3) gm/dL Hct 35.8 (35.0-46.0) % MCV 84.6 (80.0-100.0) fL MCH 29.1 (27.0-34.0) pg MCHC 34.4 (32.0-36.0) % RDW 15.7 (11.6-17.2) % Plt Count 179 (150-450) th/mm3 MPV 8.8 (7.0-11.0) fL Neut % (Auto) 61.2 (16.0-70.0) % Lymph % (Auto) 27.6 (9.0-44.0) % [place] % (Auto) 5.9 (0.0-8.0) % Eos % (Auto) 4.6 H (0.0-4.0) % Baso % (Auto) 0.7 (0.0-2.0) % Neut # (Auto) 5.2 (1.8-7.7) th/mm3 Lymph # (Auto) 2.3 (1.0-4.8) th/mm3 [place] # (Auto) 0.5 (0.0-0.9) th/mm3 Eos # (Auto) 0.4 (0.0-0.4) th/mm3 Baso # (Auto) 0.1 (0.0-0.2) th/mm3 WBC Differential . Differential Comment Auto diff final PT 10.5 (9.8-11.6) sec INR 1.0 Ratio APTT 28.4 (24.3-30.1) sec Sodium (136-145) meq/L Potassium (3.5-5.1) meq/L Chloride (98-107) meq/L Carbon Dioxide (21.0-32.0) meq/L Anion Gap (5-15) meq/L BUN (7-18) mg/dL Creatinine (0.50-1.00) mg/dL Estimated GFR (>89) mL/min Random Glucose (74-106) mg/dL Calcium (8.5-10.1) mg/dL Total Bilirubin (0.2-1.0) mg/dL AST (15-37) U/L ALT (10-53) U/L Alkaline Phosphatase (45-117) U/L Total Creatine Kinase (26-192) U/L CK-MB (CK-2) (0.5-3.6) ng/mL Troponin I (0.02-0.05) ng/mL B-Natriuretic Peptide 174 H (0-100) pg/mL Total Protein (6.4-8.2) g/dL Albumin (3.4-5.0) g/dL // Range/Units 12:05 WBC (4.0-11.0) th/mm3 RBC (4.00-5.30) mil/mm3 Hgb (11.6-15.3) gm/dL Hct (35.0-46.0) % MCV (80.0-100.0) fL MCH (27.0-34.0) pg MCHC (32.0-36.0) % RDW (11.6-17.2) % Plt Count (150-450) th/mm3 MPV (7.0-11.0) fL Neut % (Auto) (16.0-70.0) % Lymph % (Auto) (9.0-44.0) % [place] % (Auto) (0.0-8.0) % Eos % (Auto) (0.0-4.0) % Baso % (Auto) (0.0-2.0) % Neut # (Auto) (1.8-7.7) th/mm3 Lymph # (Auto) (1.0-4.8) th/mm3 [place] # (Auto) (0.0-0.9) th/mm3 Eos # (Auto) (0.0-0.4) th/mm3 Baso # (Auto) (0.0-0.2) th/mm3 WBC Differential Differential Comment PT (9.8-11.6) sec INR Ratio APTT (24.3-30.1) sec Sodium 139 (136-145) meq/L Potassium 4.4 (3.5-5.1) meq/L Chloride 102 (98-107) meq/L Carbon Dioxide 25.2 (21.0-32.0) meq/L Anion Gap 12 (5-15) meq/L BUN 42 H (7-18) mg/dL Creatinine 1.73 H (0.50-1.00) mg/dL Estimated GFR 28 L (>89) mL/min Random Glucose 176 H (74-106) mg/dL Calcium 9.6 (8.5-10.1) mg/dL Total Bilirubin 0.5 (0.2-1.0) mg/dL AST 39 H (15-37) U/L ALT 42 (10-53) U/L Alkaline Phosphatase 181 H (45-117) U/L Total Creatine Kinase 109 (26-192) U/L CK-MB (CK-2) 1.6 (0.5-3.6) ng/mL Troponin I Less than 0.02 L (0.02-0.05) ng/mL B-Natriuretic Peptide (0-100) pg/mL Total Protein 8.9 H (6.4-8.2) g/dL Albumin 3.9 (3.4-5.0) g/dL Imaging Data Attestation: I personally reviewed and interpreted this imaging study as follows : Radiologist's impression: Chest X-Ray 05/23/18 11:41 CONCLUSION: No acute disease ECG Data EKG Prior to Arrival: No Attestation: I personally reviewed and interpreted this ECG as follows: Prior ECG tracings: not available for review Interpretation: sinus kyra, LAD, RBBB/, NO STEMI PATTERN NOTED Discharge Plan Discharge Disposition Patient Disposition: 30 Still Patient Discharge Condition Condition: Stable Discharge Details Diagnosis: Chest pain, rule out acute myocardial infarction, Renal insufficiency Physicians Team ED Provider: Mauricio Wilson Primary Care Provider: Hermila Anderson Status ED Status: With Doctor
[2018-05-23 12:28] LABS: Baso # (Auto) 0.1 th/mm3 (0.0-0.2); Baso % (Auto) 0.7 % (0.0-2.0); Eos # (Auto) 0.4 th/mm3 (0.0-0.4); Eos % (Auto) 4.6 % (0.0-4.0); Hematocrit 35.8 % (35.0-46.0); Hemoglobin 12.3 gm/dL (11.6-15.3); Lymph # (Auto) 2.3 th/mm3 (1.0-4.8); Lymph % (Auto) 27.6 % (9.0-44.0); Mean Corpuscular HGB Conc 34.4 % (32.0-36.0); Mean Corpuscular Hemoglobin 29.1 pg (27.0-34.0); Mean Corpuscular Volume 84.6 fL (80.0-100.0); Mean Platelet Volume 8.8 fL (7.0-11.0); Mono # (Auto) 0.5 th/mm3 (0.0-0.9); Mono % (Auto) 5.9 % (0.0-8.0); Neut # (Auto) 5.2 th/mm3 (1.8-7.7); Neut % (Auto) 61.2 % (16.0-70.0); Platelet Count 179 th/mm3 (150-450); Red Blood Count 4.23 mil/mm3 (4.00-5.30); Red Cell Distribution Width 15.7 % (11.6-17.2); White Blood Count 8.5 th/mm3 (4.0-11.0)
--- NOTE | 2018-05-23 12:31 | XR ---
EXAM DATE: 05/23/2018 12:27 PM EDT AGE/SEX: 82 years / Female INDICATIONS: . High blood pressure, with shortness of breath. CLINICAL DATA: This is the patient's initial encounter. Patient reports that signs and symptoms have been present for 1 day and indicates a pain score of 0/10. MEDICAL/SURGICAL HISTORY: Hypertension. None. COMPARISON: [facility] – [place], CHEST SINGLE AP, 01/19/2018. . FINDINGS: Lungs are focally clear. No pleural effusion is evident. Cardiac contours are satisfactory. Sternotom y wires are present. Coronary stents noted. CONCLUSION: No acute disease Electronically signed by: Fausto Todd MD 05/23/2018 12:30 PM EDT
[2018-05-23 12:51] LABS: Activated Partial Thrombo Time 28.4 sec (24.3-30.1); Prothrombin Time 10.5 sec (9.8-11.6)
[2018-05-23 12:55] LABS: Albumin 3.9 g/dL (3.4-5.0); Anion Gap 12 meq/L (5-15); Aspartate Aminotransferase 39 U/L (15-37); Blood Urea Nitrogen 42 mg/dL (7-18); Calcium 9.6 mg/dL (8.5-10.1); Carbon Dioxide 25.2 meq/L (21.0-32.0); Chloride 102 meq/L (98-107); Glomerular Filtration Rate 28 mL/min (>89); Glucose,Random 176 mg/dL (74-106); Potassium 4.4 meq/L (3.5-5.1); Sodium 139 meq/L (136-145)
[2018-05-23 13:00] LABS: Alanine Aminotransferase 42 U/L (10-53); Alkaline Phosphatase 181 U/L (45-117); Creatine Kinase 109 U/L (26-192); Total Protein 8.9 g/dL (6.4-8.2)
[2018-05-23 13:13] LABS: Creatine Kinase MB 1.6 ng/mL (0.5-3.6)
[2018-05-23] MEDS ORDERED: Acetaminophen 500 MG Tablet PO PRN (15:19)
--- NOTE | 2018-05-23 15:42 | P.HPIM ---
History of Present Illness Primary Care Physician: Hermila Anderson Chief Complaint: chest pain, labile blood pressure History of Present Illness: Patient is a pleasant 82-year-old female with history of coronary artery disease. Patient follows with cardiology, Dr. Leonel Coyle. Patient underwent repeat left heart catheterization a few months ago revealing severe chilkat three-vessel coronary artery disease and one occluded graft with distal LAD disease beyond the anastomosis of the SHIPMAN graft, which is all being managed medically. Upon admission, patient complained of vague chest pain and dizziness which seems to correlate with elevations in her blood pressure. Patient uses an automatic blood pressure machine at home and states that she is occasionally getting readings as high as systolic blood pressure of 200. Since arrival to the [place] ER, patient's systolic blood pressure has been ranging as high as 170-180 at times. VQ scan was performed per ER physician and was intermediate. Patient does not describe typical chest pain or dyspnea associated with pulmonary embolism. Patient has been already seen by her public safety dispatcher, Dr. Coyle. Patient to undergo Lexiscan. PMH: 1) hypertension, labile 2) coronary artery disease - h/o CT - s/p CABG - [facility] Spring 2017 showing - severe chilkat three-vessel coronary artery disease and - one occluded graft with distal LAD disease beyond the anastomosis of the SHIPMAN graft - Pt is followed by [facility] Cardiology, Dr. Leonel Coyle 3) aortic valve stenosis 4) diabetes, type II 5) hyperlipidemia 6) chronic kidney disease, stage III 7) history of CHF 8) hypothyroidism 9) vitamin B12 deficiency 10) vitamin D deficiency 2D Echo (11/20/16) with EF 50-55%, moderate aortic stenosis, moderate mitral regurgitation, and mild to moderate tricuspid regurgitation. 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 ALL: glipizide (Verified Allergy, Intermediate, 01/15/18) LEG SWELLING pravastatin (Verified Allergy, Intermediate, BODY ACHES, 01/15/18) simvastatin (Verified Allergy, Intermediate, BODY ACHES, 01/15/18) atorvastatin (Verified Adverse Reaction, Severe, ""STATINS""-ELEVATED LIVER ENZYMES, 01/15/18) diatrizoate meglumine (Verified Adverse Reaction, Intermediate, Hives, 09/24) fosinopril (Verified Adverse Reaction, Intermediate, Cough, 01/15/18) gadobenic acid (Verified Adverse Reaction, Intermediate, Hives, 01/15/18) gadodiamide (Verified Adverse Reaction, Intermediate, Hives, 01/15/18) gadoteridol (Verified Adverse Reaction, Intermediate, Hives, 01/15/18) iodine (Verified Adverse Reaction, Intermediate, Hives, 01/15/18) iodixanol (Verified Adverse Reaction, Intermediate, Hives, 01/15/18) iohexol (Verified Adverse Reaction, Intermediate, Hives, 01/15/18) potassium iodide (Verified Adverse Reaction, Intermediate, Hives, 01/15/18) povidone-iodine (Verified Adverse Reaction, Intermediate, Hives, 01/15/18) sodium iodide (Verified Adverse Reaction, Intermediate, Hives, 01/15/18) sodium iodide (Verified Adverse Reaction, Intermediate, Hives, 01/15/18) telmisartan (Verified Adverse Reaction, Intermediate, Chest Pain, 01/15/18) Home Medications Medication Instructions Recorded Confirmed Type amlodipine 5 mg PO DAILY 05/23/18 05/23/18 History aspirin 81 mg PO DAILY 05/23/18 05/23/18 History atorvastatin 40 mg PO DAILY 05/23/18 05/23/18 History docusate sodium [Colace] 100 mg PO DAILY PRN MDD unk 05/23/18 05/23/18 History furosemide 20 mg PO DAILY 05/23/18 05/23/18 History insulin degludec [Tresiba 15 unit SUB-Q DAILY 05/23/18 05/23/18 History FlexTouch U-100] isosorbide mononitrate 60 mg PO DAILY 05/23/18 05/23/18 History levothyroxine 25 mcg PO DAILY 05/23/18 05/23/18 History linagliptin [Tradjenta] 5 mg PO DAILY 05/23/18 05/23/18 History losartan 50 mg PO DAILY 05/23/18 05/23/18 History metoprolol tartrate 25 mg PO BID 05/23/18 05/23/18 History nitroglycerin [Nitrostat] 0.4 mg SUBLINGUAL Q5-15M PRN 05/23/18 05/23/18 History omega 4-ais-rzz-fish oil [Fish Oil] 1,000 PO 5XW 05/23/18 History - Diagnosis (1) Chest pain, rule out acute myocardial infarction (2) Hypertension, essential (3) Renal insufficiency Inpatient Certification: I certify that the inpatient services were ordered in accordance with Medicare regulations governing the order. This includes certification that hospital inpatient services are reasonable and necessary and in the case of services not specified as inpatient-only under 42 CFR 419.22(n), that they are appropriately provided as inpatient services in accordance to with the 2-midnight benchmark under 43 CFR 412.3(e) Estimated Total Length of Stay (Days): 3 Plans for Post Hospital Care: Not yet determined Review of Systems Constitutional: Denies anorexia, Denies body ache(s), Denies chills, Denies fever(s), Denies night sweats, Denies poor appetite, Denies weight gain, Denies weight loss Eyes: Denies blind spots, Denies blurry vision, Denies change in vision, Denies double vision, Denies discharge, Denies loss of peripheral vision, Denies loss of vision, Denies other visual disturbances, Denies pain Ears, Nose, Mouth, and Throat: Denies bleeding gums, Denies difficulty swallowing, Denies dizziness, Denies headache(s), Denies hearing loss, Denies pain with swallowing, Denies poor balance, Denies ringing in the ears, Denies sore throat, Denies throat swelling, Denies tongue swelling Cardiovascular: Reports chest pain, Denies excessive sweating, Denies fainting, Denies fast heart rate, Denies generalized swelling, Denies irregular heart rhythm, Denies leg swelling, Denies lightheadedness, Denies slow heart rate Respiratory: Denies cough, Denies shortness of breath, Denies snoring, Denies wheezing Gastrointestinal: Denies abdominal pain, Denies belching, Denies black, tarry stools, Denies bright, red blood in stools, Denies change in bowel habits, Denies change in stools, Denies coffee ground vomit, Denies constipation, Denies cramping, Denies difficulty swallowing, Denies heartburn, Denies incontinent of stools, Denies loose stools, Denies nausea, Denies pain with swallowing, Denies vomiting, Denies vomiting blood Genitourinary: Denies abnormal vaginal bleeding, Denies blood in urine, Denies difficulty starting urination, Denies difficulty urinating, Denies frequent nighttime urination, Denies painful urination, Denies pelvic pain, Denies side pain, Denies urinary incontinence, Denies urinary hesitancy, Denies urinary urgency Musculoskeletal: Denies abnormal walking, Denies back pain, Denies body aches, Denies decreased muscle mass, Denies joint pain, Denies joint swelling, Denies muscle weakness, Denies neck pain, Denies numbness, Denies stiffness, Denies tingling Skin/Breast: Denies bleeding lesions, Denies change in skin color, Denies changing lesions, Denies itching, Denies lesions, Denies new lesions, Denies non -healing lesions, Denies redness, Denies sensitivity to light, Denies rash, Denies skin pain, Denies skin swelling, Denies skin ulcer, Denies sores, Denies unusual bruising, Denies wounds, Denies yellowing of the skin Neurologic: Denies abnormal hearing, Denies abnormal movements, Denies abnormal speech, Denies abnormal walking, Denies behavioral changes, Denies burning sensations, Denies confusion, Denies dizziness, Denies fainting, Denies frequent falls, Denies headache(s), Denies lack of coordination, Denies localized weakness, Denies loss of vision, Denies memory loss, Denies numbness, Denies other visual disturbances, Denies radiating pain, Denies restless legs, Denies convulsions, Denies seizure-like activity, Denies sensory deficit, Denies tingling/numbness/burning sensations, Denies tremor(s), Denies unsteadiness, Denies weakness Psychiatric: Denies abnormal sleep pattern, Denies anxiety, Denies behavioral changes, Denies change in appetite, Denies confusion, Denies depression, Denies difficulty concentrating, Denies hearing things others do not hear, Denies irritability, Denies lack of enjoyment, Denies memory loss, Denies mood swings, Denies panic attacks, Denies paranoia, Denies seeing things others do not see, Denies thoughts of hurting/killing others, Denies thoughts of hurting/killing yourself Endocrine: Denies cold intolerance, Denies excessive sweating, Denies fatigue, Denies flushing, Denies heat intolerance, Denies increased hunger, Denies increased thirst, Denies increased urination, Denies rapid, pounding, or irregular heartbeat Hematologic/Lymphatic: Denies easy bleeding, Denies easy bruising, Denies enlarged lymph nodes Allergic/Immunologic: Denies hives, Denies lip swelling, Denies throat swelling , Denies wheezing PMFSH - History History Provided By: Patient - Medical History Medical History: Medical History (Last Reviewed 05/23/18 @ 12:03 by Mauricio Wilson) Diabetes High cholesterol Hypertension - Tobacco History Second Hand Smoke Exposure: No Smoking Status: Never smoker - Alcohol History How Often Do You Have a Drink Containing Alcohol: Never - Substance Use History Substance History: No History of Abuse - Travel History Recent Travel in the [facility] Within the Last 8 Weeks: No Recent Travel Out of the Country Within the Last 8 Weeks: No - Immunization History Tetanus Immunization: Unsure Medications and Allergies Active Medications: Active Medications Acetaminophen (Tylenol) 500 mg PO Q4H PRN PRN Reason: HEADACHE Aspirin (Aspirin) 325 mg PO DAILY [place] Nitroglycerin (Nitrostat Sl) 0.4 mg SL Q5M PRN PRN Reason: ANGINA Sodium Chloride (Ns Flush) 2 ml IV.FLUSH BID [place] Sodium Chloride (Ns Flush) 2 ml IV.FLUSH PRN PRN PRN Reason: FLUSH AFTER USING IV ACCESS Allergies Allergy/AdvReac Type Severity Reaction Status Date / Time glipizide Allergy Intermediate Verified 01/19/18 18:32 pravastatin Allergy Intermediate BODY ACHES Verified 01/19/18 18:32 simvastatin Allergy Intermediate BODY ACHES Verified 01/19/18 18:32 atorvastatin AdvReac Severe ""STATINS""-ELEVATED Verified 01/19/18 18:32 LIVER ENZYMES diatrizoate meglumine AdvReac Intermediate Hives Verified 01/19/18 18:32 fosinopril AdvReac Intermediate Cough Verified 01/19/18 18:32 gadobenic acid AdvReac Intermediate Hives Verified 01/19/18 18:32 gadodiamide AdvReac Intermediate Hives Verified 01/19/18 18:32 gadoteridol AdvReac Intermediate Hives Verified 01/19/18 18:32 iodine AdvReac Intermediate Hives Verified 01/19/18 18:32 iodixanol AdvReac Intermediate Hives Verified 01/19/18 18:32 iohexol AdvReac Intermediate Hives Verified 01/19/18 18:32 potassium iodide AdvReac Intermediate Hives Verified 01/19/18 18:32 povidone-iodine AdvReac Intermediate Hives Verified 01/19/18 18:32 sodium iodide AdvReac Intermediate Hives Verified 01/19/18 18:32 sodium iodide AdvReac Intermediate Hives Verified 01/19/18 18:32 telmisartan AdvReac Intermediate Chest Pain Verified 01/19/18 18:32 Home Medications Medication Instructions Recorded Confirmed Type amlodipine 5 mg PO DAILY 05/23/18 05/23/18 History aspirin 81 mg PO DAILY 05/23/18 05/23/18 History atorvastatin 40 mg PO DAILY 05/23/18 05/23/18 History docusate sodium [Colace] 100 mg PO DAILY PRN MDD unk 05/23/18 05/23/18 History furosemide 20 mg PO DAILY 05/23/18 05/23/18 History insulin degludec [Tresiba 15 unit SUB-Q DAILY 05/23/18 05/23/18 History FlexTouch U-100] isosorbide mononitrate 60 mg PO DAILY 05/23/18 05/23/18 History levothyroxine 25 mcg PO DAILY 05/23/18 05/23/18 History linagliptin [Tradjenta] 5 mg PO DAILY 05/23/18 05/23/18 History losartan 50 mg PO DAILY 05/23/18 05/23/18 History metoprolol tartrate 25 mg PO BID 05/23/18 05/23/18 History nitroglycerin [Nitrostat] 0.4 mg SUBLINGUAL Q5-15M PRN 05/23/18 05/23/18 History omega 7-hnc-yvg-fish oil [Fish Oil] 1,000 PO 5XW 05/23/18 History Exam Vital signs: Vital Signs 05/23/18 11:31 05/23/18 11:41 05/23/18 13:14 Temperature 98.4 F Pulse Rate 58 L 61 55 L Respiratory Rate 16 18 16 Blood Pressure 151/94 H 184/79 H 163/69 H Pulse Oximetry 98 94 L 96 05/23/18 15:19 Temperature Pulse Rate 58 L Respiratory Rate 18 Blood Pressure 155/70 H Pulse Oximetry 96 Intake & Output 05/22/18 05/23/18 05/23/18 18:59 06:59 18:59 Weight 62.142 kg Narrative: GENERAL: This is a well-nourished, well-developed patient, in no apparent distress. CARDIOVASCULAR: Regular rate and rhythm with ANDERSON RESPIRATORY: Clear to auscultation. Breath sounds equal bilaterally. No wheezes , rales, or rhonchi. GASTROINTESTINAL: Abdomen soft, non-tender, nondistended. Normal active bowel sounds MUSCULOSKELETAL: Extremities without clubbing, cyanosis, or edema. NEURO: Alert & Oriented x4 to person, place, time, situation. Moves all ext x4 Results - Labs CBC & Chem 7: 05/24/18 08:47 05/24/18 08:47 - Imaging Chest X-Ray 05/23/18 11:41 CONCLUSION: No acute disease Pulmonary Perfusion Imaging 05/23/18 12:51 CONCLUSION: 1. Solitary matched defect on the left indeterminant probability in regards to pulmonary embolus. Caprini VTE Risk Assessment Caprini VTE Risk Assessment: Moderate/High Risk (score >= 2) Caprini Risk Assessment Model: Point Value = 1 Point Value = 2 Point Value = 3 Point Value = 5 Age 41-60 Minor surgery BMI > 25 kg/m2 Swollen legs Varicose veins or History of unexplained or recurrent spontaneous Oral contraceptives or hormone replacement Sepsis (< 1 month) Serious lung disease, including pneumonia (< 1 month) Abnormal pulmonary function Acute myocardial infarction Congestive heart failure (< 1 month) History of inflammatory bowel disease Medical patient at bed rest Age 61-74 Arthroscopic surgery Major open surgery (> 45 min) Laparoscopic surgery (> 45 min) Malignancy Confined to bed (> 72 hours) Immobilizing plaster cast Central venous access Age >= 75 History of VTE Family history of VTE Factor V Leiden Prothrombin [id number] Lupus anticoagulant Anticardiolipin antibodies Elevated serum homocysteine Heparin-induced thrombocytopenia Other congenital or acquired thrombophilia Stroke (< 1 month) Elective arthroplasty Hip, pelvis, or leg fracture Acute spinal cord injury (< 1 month) Prophylaxis Regimen: Total Risk Factor Score Risk Level Prophylaxis Regimen 0-1 Low Early ambulation 2 Moderate Order ONE of the following: *Sequential Compression Device (SCD) *Heparin 5000 units SQ BID 3-4 Higher Order ONE of the following medications: *Heparin 5000 units SQ TID *Enoxaparin/Lovenox 40 mg SQ daily (WT < 150 kg, CrCl > 30 mL/min) *Enoxaparin/Lovenox 30 mg SQ daily (WT < 150 kg, CrCl > 10-29 mL/min) *Enoxaparin/Lovenox 30 mg SQ BID (WT < 150 kg, CrCl > 30 mL/min) AND/OR *Sequential Compression Device (SCD) 5 or more Highest Order ONE of the following medications: *Heparin 5000 units SQ TID (Preferred with Epidurals) *Enoxaparin/Lovenox 40 mg SQ daily (WT < 150 kg, CrCl > 30 mL/min) *Enoxaparin/Lovenox 30 mg SQ daily (WT < 150 kg, CrCl > 10-29 mL/min) *Enoxaparin/Lovenox 30 mg SQ BID (WT < 150 kg, CrCl > 30 mL/min) AND *Sequential Compression Device (SCD) Assessment and Plan - Assessment (1) Chest pain, rule out acute myocardial infarction Code(s): R07.9 - Chest pain, unspecified Status: Acute Plan: Patient is a pleasant 82-year-old female with history of coronary artery disease. Patient follows with cardiology, Dr. Leonel Coyle. Patient underwent repeat left heart catheterization a few months ago revealing severe chilkat three-vessel coronary artery disease and one occluded graft with distal LAD disease beyond the anastomosis of the SHIPMAN graft, which is all being managed medically. Upon admission, patient complained of vague chest pain and dizziness which seems to correlate with elevations in her blood pressure. Patient uses an automatic blood pressure machine at home and states that she is occasionally getting readings as high as systolic blood pressure of 200. Since arrival to the [place] ER, patient's systolic blood pressure has been ranging as high as 170-180 at times. VQ scan was performed per ER physician and was intermediate. Patient does not describe typical chest pain or dyspnea associated with pulmonary embolism. Patient has been already seen by her public safety dispatcher, Dr. Coyle. Patient to undergo Lexiscan. - serial troponins negative - serial EKGs showed acute changes - Pt seen by [facility] Cardiology, Dr. Coyle - CXR (05/23/18) --> No acute findings - Case d/w Cardiology, Dr. Coyle (05/24) - Pt does NOT require lexiscan at this time - continue cozaar 50mg daily - continue metoprolol 25mg BID - Dose of norvasc has been increased to 10mg daily - DVT prophylaxis - supportive care - anticipate d/c to home later this evening or 05/25 (2) Hypertension, essential Code(s): I10 - Essential (primary) hypertension Status: Acute Plan: - see above (3) Renal insufficiency Code(s): N28.9 - Disorder of kidney and ureter, unspecified Status: Acute Plan: - see above
[2018-05-23] MEDS ORDERED: Docusate Sodium 100 MG Capsule PO PRN (16:47)
--- NOTE | 2018-05-23 17:26 | NM ---
EXAM DATE: 05/23/2018 4:43 PM EDT AGE/SEX: 82 years / Female INDICATIONS: Shortness of breath with chest pain for four hours. CLINICAL DATA: This is the patient's initial encounter. Patient reports that signs and symptoms have been present for 1 day and indicates a pain score of 5/10. MEDICAL/SURGICAL HISTORY: Hypertension. Diabetes mellitus type II. None. COMPARISON: No prior exams available for comparison. No external comparison. DOSE: 3.1 mCi Tc99m DTPA aerosol 8.5 mCi Tc99m MAA IV TECHNIQUE: Following five minutes of tidal breathing of DTPA aerosol, planar images of the lungs wer e performed in eight projections. The patient was then injected with MAA, and eight-view perfusion s can was performed. FINDINGS: There is a matched defect in the left upper lobe posteriorly near the major fissure on both ventilati on and perfusion portion of the exam. The patient's chest x-ray is clear at this site. CONCLUSION: 1. Solitary matched defect on the left indeterminant probability in regards to pulmonary embolus. Electronically signed by: Tawana Mcguire MD 05/23/2018 5:25 PM EDT
[2018-05-23] MEDS: Metoprolol Tartrate 25 MG Tablet PO SCH (21:54)
[2018-05-23] MEDS: Sod Chloride 0.9% Inj 1,000 ML IV.CONT SCH (21:58)
[2018-05-23 23:16] LABS: Creatine Kinase 85 U/L (26-192)
--- NOTE | 2018-05-24 08:23 | MB ---
cc: Leonel Coyle MD DATE: 05/24/2018 REASON FOR CONSULTATION: Dizziness. HISTORY OF PRESENT ILLNESS: This is an 82-year-old female well known to me due to a history of coronary artery disease. She recently underwent cardiac catheterization earlier this year, which did reveal severe [place] 3-vessel coronary artery disease and one occluded graft with distal LAD disease beyond the anastomosis of the SHIPMAN graft, which was all managed medically. She has done pretty well since then. She denies actually any kate chest pain this particular case. She states that her main complaint is dizziness. She describes it as an acute onset, lasting about 10 minutes, mainly sort of a spinning sensation, not associated with any positional changes. She denies again any chest pain, but did report some maybe faint palpitations, although she did not check her heart rate. She came in to the emergency department, blood pressure was elevated in the 170-180 mmHg range systolic. Troponins were negative. We are consulted for further recommendations. PAST MEDICAL HISTORY: Coronary artery disease as described above with coronary artery bypass surgery, hypertension, hyperlipidemia, and diabetes. SOCIAL HISTORY: Denies alcohol, tobacco or drug use. ALLERGIES: GLIPIZIDE, PRAVASTATIN, SIMVASTATIN, ATORVASTATIN, DIATRIZOATE MEGLUMINE. HOME MEDICATIONS: See medication reconciliation. LABORATORY DATA: WBC 8.5, hemoglobin is 12.3, platelet count is 179. INR is 1. Chemistry shows sodium 139, potassium 4.4, BUN is 42, creatinine is 1.73. Troponins are negative x 2. 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 PHYSICAL EXAMINATION: VITAL SIGNS: Temperature is 97, pulse is 58, blood pressure 155/70 mmHg. GENERAL: Alert and oriented x 3, no acute distress. HEENT: Shows pupils are reactive to light and accommodation. Extraocular movements are intact. NECK: No elevation jugular venous distention. No thyromegaly. No lymphadenopathy. No carotid bruits. LUNGS: Clear to auscultation bilaterally. CARDIOVASCULAR: Regular. There is a II/ holosystolic murmur radiating towards the apex. ABDOMEN: Nontender, nondistended with good bowel sounds. No hepatosplenomegaly. EXTREMITIES: Show no clubbing, cyanosis or edema. Good peripheral pulses. NEUROLOGIC: Cranial nerves intact. Motor and sensory are grossly intact. ASSESSMENT: 1. Dizziness. 2. History of coronary artery disease, bypass surgery. 3. Palpitations. 4. Hypertension. PLAN: The patient actually never really describes any symptoms of chest pain consistent with her prior angina. She has been taking 30 mg of isosorbide twice a day. She tried a higher dose, but did not tolerate that very well. We will continue with the current dose of isosorbide. Blood pressure is elevated, but I am not sure that this was a contributing factor to her presentation. Her symptoms almost sound like vertigo. Given the palpitations ,it may also be beneficial to set up for an outpatient 24-hour Holter monitor just to make sure this is not arrhythmia driven. We will titrate her amlodipine to 10 mg a day and follow up on a blood pressure diary and outpatient followup. Next medication may be hydralazine to add given that her heart rate is are already in the 50s. She is not symptomatic with that heart rate. She can be discharged and follow up in the outpatient setting. MD ANDERSON Bermudez/LUIS , 08:01 AM , 08:22 AM
[2018-05-24] MEDS ORDERED: amLODIPine 5 MG Tablet PO SCH (09:00)
[2018-05-24] MEDS: Isosorbide Mononitrate 60 MG ER 24HR Tablet (Imdur) PO SCH (09:07)
[2018-05-24] MEDS: Aspirin 325 MG Tablet PO SCH (09:07)
[2018-05-24] MEDS: Metoprolol Tartrate 25 MG Tablet PO SCH ×2 (09:08→21:04)
[2018-05-24 10:32] LABS: Calcium 9.1 mg/dL (8.5-10.1); Potassium 4.2 meq/L (3.5-5.1)
[2018-05-24 10:36] LABS: Chol/HDL Ratio 3.55 Ratio; HDL Cholesterol 41.9 mg/dL (40.0-60.0)
[2018-05-24 10:41] LABS: Baso # (Auto) 0.1 th/mm3 (0.0-0.2); Baso % (Auto) 0.9 % (0.0-2.0); Eos # (Auto) 0.5 th/mm3 (0.0-0.4); Eos % (Auto) 6.8 % (0.0-4.0); Hemoglobin 10.8 gm/dL (11.6-15.3); Lymph # (Auto) 1.7 th/mm3 (1.0-4.8); Lymph % (Auto) 22.9 % (9.0-44.0); Mean Corpuscular HGB Conc 33.8 % (32.0-36.0); Mean Corpuscular Hemoglobin 29.6 pg (27.0-34.0); Mean Corpuscular Volume 87.6 fL (80.0-100.0); Mean Platelet Volume 8.7 fL (7.0-11.0); Mono # (Auto) 0.6 th/mm3 (0.0-0.9); Mono % (Auto) 7.5 % (0.0-8.0); Neut # (Auto) 4.6 th/mm3 (1.8-7.7); Neut % (Auto) 61.9 % (16.0-70.0); Platelet Count 142 th/mm3 (150-450); Red Blood Count 3.65 mil/mm3 (4.00-5.30); Red Cell Distribution Width 15.5 % (11.6-17.2); White Blood Count 7.4 th/mm3 (4.0-11.0)
[2018-05-24] MEDS: amLODIPine 10 MG Tablet PO SCH (11:23)
--- NOTE | 2018-05-24 13:20 | P.PNIM ---
Subjective Interval history: Pt denies chest pain. Physical Exam Vital signs: Vital Signs 05/23/18 15:19 05/23/18 17:33 05/23/18 21:25 Temperature Pulse Rate 58 L 51 L Respiratory Rate 18 17 Blood Pressure 155/70 H 175/74 H Pulse Oximetry 96 96 05/24/18 03:34 05/24/18 05:30 05/24/18 08:20 Temperature 97.5 F L 97.9 F Pulse Rate 57 L 55 L 54 L Respiratory Rate 18 17 Blood Pressure 188/77 H 147/61 H Pulse Oximetry 99 95 05/24/18 11:31 Temperature 97.6 F Pulse Rate 52 L Respiratory Rate 17 Blood Pressure 136/58 L Pulse Oximetry 95 Intake & Output 05/23/18 05/24/18 05/24/18 18:59 06:59 18:59 Weight 62.142 kg Narrative: GENERAL: This is a well-nourished, well-developed patient, in no apparent distress. CARDIOVASCULAR: regular, 3/6 [place]ERSON RESPIRATORY: Clear to auscultation. Breath sounds equal bilaterally. No wheezes , rales, or rhonchi. GASTROINTESTINAL: Abdomen soft, non-tender, nondistended. Normal active bowel sounds MUSCULOSKELETAL: Extremities without clubbing, cyanosis, or edema. NEURO: Alert & Oriented x4 to person, place, time, situation. Moves all ext x4 Results - Labs CBC & Chem 7: 05/24/18 08:47 05/24/18 08:47 - Imaging Impressions Pulmonary Perfusion Imaging 05/23/18 12:51 CONCLUSION: 1. Solitary matched defect on the left indeterminant probability in regards to pulmonary embolus. Assessment and Plan - Assessment (1) Chest pain, rule out acute myocardial infarction Code(s): R07.9 - Chest pain, unspecified Status: Acute Plan: Patient is a pleasant 82-year-old female with history of coronary artery disease. Patient follows with cardiology, Dr. Leonel Coyle. Patient underwent repeat left heart catheterization a few months ago revealing severe [place] three-vessel coronary artery disease and one occluded graft with distal LAD disease beyond the anastomosis of the SHIPMAN graft, which is all being managed medically. Upon admission, patient complained of vague chest pain and dizziness which seems to correlate with elevations in her blood pressure. Patient uses an automatic blood pressure machine at home and states that she is occasionally getting readings as high as systolic blood pressure of 200. Since arrival to the [facility], patient's systolic blood pressure has been ranging as high as 170-180 at times. VQ scan was performed per ER physician and was intermediate. Patient does not describe typical chest pain or dyspnea associated with pulmonary embolism. Patient has been already seen by her dry mop maker, Dr. Coyle. Patient to undergo Lexiscan. - serial troponins negative - serial EKGs showed acute changes - Pt seen by [facility] Cardiology, Dr. Coyle - CXR (05/23/18) --> No acute findings - Case d/w Cardiology, Dr. Coyle (05/24) - Pt does NOT require lexiscan at this time - continue cozaar 50mg daily - continue metoprolol 25mg BID - Dose of norvasc has been increased to 10mg daily - observe pt overnight with norvasc dose increased - d/c to home 05/25 in the AM - see orders - DVT prophylaxis - supportive care (2) Hypertension, essential Code(s): I10 - Essential (primary) hypertension Status: Acute Plan: - see above (3) Renal insufficiency Code(s): N28.9 - Disorder of kidney and ureter, unspecified Status: Acute Plan: - see above
--- NOTE | 2018-05-24 14:52 | ECG ---
Date Performed: 05/23/2018 Time Performed: 22:08:39 PTAGE: 82 years EKG: Sinus rhythm WITH FIRST DEGREE AV BLOCK MARKED LEFT AXIS DEVIATION RIGHT BUNDLE BRANCH BLOCK ABNORMAL ECG PREVIOUS TRACING : 05/23/2018 13.58 DOCTOR: Leonel Coyle Interpretating Date/Time 05/24/2018 14:51:25
--- NOTE | 2018-05-24 15:13 | ECG ---
Date Performed: 05/23/2018 Time Performed: 13:58:05 PTAGE: 82 years EKG: SINUS BRADYCARDIA BORDERLINE LEFT AXIS DEVIATION RIGHT BUNDLE BRANCH BLOCK ABNORMAL ECG PREVIOUS TRACING : 01/20/2018 05.20 DOCTOR: Leonel Coyle Interpretating Date/Time 05/24/2018 15:13:12
[2018-05-24] MEDS: Sod Chloride 0.9% Inj 1,000 ML IV.CONT SCH ×2 (20:10→21:01)
[2018-05-25 07:34] LABS: Baso # (Auto) 0.1 th/mm3 (0.0-0.2); Eos # (Auto) 0.6 th/mm3 (0.0-0.4); Eos % (Auto) 9.3 % (0.0-4.0); Hematocrit 31.7 % (35.0-46.0); Hemoglobin 10.7 gm/dL (11.6-15.3); Lymph # (Auto) 2.2 th/mm3 (1.0-4.8); Lymph % (Auto) 33.3 % (9.0-44.0); Mean Corpuscular HGB Conc 33.8 % (32.0-36.0); Mean Corpuscular Hemoglobin 28.9 pg (27.0-34.0); Mean Corpuscular Volume 85.7 fL (80.0-100.0); Mean Platelet Volume 8.6 fL (7.0-11.0); Mono # (Auto) 0.5 th/mm3 (0.0-0.9); Mono % (Auto) 8.2 % (0.0-8.0); Neut # (Auto) 3.2 th/mm3 (1.8-7.7); Neut % (Auto) 48.2 % (16.0-70.0); Platelet Count 147 th/mm3 (150-450); Red Cell Distribution Width 15.5 % (11.6-17.2); White Blood Count 6.6 th/mm3 (4.0-11.0)
[2018-05-25 07:59] LABS: Calcium 9.1 mg/dL (8.5-10.1); Potassium 4.2 meq/L (3.5-5.1)
[2018-05-25] MEDS: Isosorbide Mononitrate 60 MG ER 24HR Tablet (Imdur) PO SCH (10:29)
[2018-05-25] MEDS: Aspirin 325 MG Tablet PO SCH (10:29)
[2018-05-25] MEDS: amLODIPine 10 MG Tablet PO SCH (10:31)
[2018-05-25] MEDS: Metoprolol Tartrate 25 MG Tablet PO SCH ×2 (10:33→10:46)
== END 2018-05-25 13:11 | disposition home health service (06) ==
LOC: NEDA 10:53 → NEPFCDU 10:53 → NEPE 10:53 → OBSVTOIN 15:19 → NEDH 05-24 02:59 → NEDA 05-24 03:21 → NEPFCDU 05-24 15:23
PROVIDERS: ADMIT Hospitalist; ATTEND Hospitalist

== ENCOUNTER 2018-08-26 15:30 | Observation (INO) ==
[2018-08-26] MEDS ORDERED: Morphine Inj 4 MG/ML Vial IV.PUSH ONE (15:56)
[2018-08-26 16:08] LABS: Baso # (Auto) 0.1 th/mm3 (0.0-0.2); Baso % (Auto) 1.3 % (0.0-2.0); Eos # (Auto) 0.4 th/mm3 (0.0-0.4); Eos % (Auto) 5.6 % (0.0-4.0); Hemoglobin 11.5 gm/dL (11.6-15.3); Lymph % (Auto) 26.7 % (9.0-44.0); Mean Corpuscular HGB Conc 35.9 % (32.0-36.0); Mean Corpuscular Hemoglobin 31.4 pg (27.0-34.0); Mean Corpuscular Volume 87.4 fL (80.0-100.0); Mean Platelet Volume 8.9 fL (7.0-11.0); Mono # (Auto) 0.4 th/mm3 (0.0-0.9); Mono % (Auto) 5.5 % (0.0-8.0); Neut # (Auto) 4.6 th/mm3 (1.8-7.7); Neut % (Auto) 60.9 % (16.0-70.0); Platelet Count 173 th/mm3 (150-450); Red Blood Count 3.66 mil/mm3 (4.00-5.30); White Blood Count 7.6 th/mm3 (4.0-11.0)
--- NOTE | 2018-08-26 16:19 | ED ---
HPI General Chief Complaint: Chest Pain Stated Complaint: weakness Time Seen by Provider: 08/26/18 15:44 Source: patient and old records reviewed Mode of arrival: ambulatory Limitations: no limitations History of Present Illness HPI narrative: Patient presents with chest pain. Onset was this morning. The pain was relieved by nitroglycerin x2. The pain recurred at about 2:30 PM and persists. It is improved following 3 additional sublingual nitroglycerin. MD complaint: Reports chest pain STEMI Alert: No Time: 14:30 Duration: constant and other (improving with NTG X 3) Onset: other (taking new med since last night--hydralazine) Pain location: Reports substernal Severity: mild Severity scale (1-10): 4 Quality: Reports tightness and heaviness Pain radiation: Reports none Relieving factors: nitroglycerin Exacerbating factors: nothing Context: Reports new medications (hydralazine) Associated symptoms: Reports dyspnea and other (Fatigue); Denies diaphoresis Treatments prior to arrival chest pain: Reports aspirin (81 mg) and nitroglycerin (5 total today) Related Data Home Medications Medication Instructions Recorded Confirmed aspirin 81 mg PO DAILY 05/23/18 08/26/18 docusate sodium [Colace] 100 mg PO DAILY PRN MDD unk 05/23/18 08/26/18 furosemide 20 mg PO DAILY 05/23/18 08/26/18 insulin degludec [Tresiba 15 unit SUB-Q DAILY 05/23/18 08/26/18 FlexTouch U-100] isosorbide mononitrate 60 mg PO DAILY 05/23/18 08/26/18 levothyroxine 25 mcg PO DAILY 05/23/18 08/26/18 linagliptin [Tradjenta] 5 mg PO DAILY 05/23/18 08/26/18 losartan 100 mg PO DAILY 05/23/18 08/26/18 nitroglycerin [Nitrostat] 0.4 mg SUBLINGUAL Q5-15M PRN 05/23/18 08/26/18 omega 7-jlb-hmn-fish oil [Fish Oil] 1,000 mg PO 5XW 05/23/18 08/26/18 carvedilol 25 mg PO BID 08/26/18 08/26/18 hydralazine 50 mg PO TID 08/26/18 08/26/18 Allergies Allergy/AdvReac Type Severity Reaction Status Date / Time glipizide Allergy Intermediate Verified 01/19/18 18:32 pravastatin Allergy Intermediate BODY ACHES Verified 01/19/18 18:32 simvastatin Allergy Intermediate BODY ACHES Verified 01/19/18 18:32 atorvastatin AdvReac Severe ""STATINS""-ELEVATED Verified 01/19/18 18:32 LIVER ENZYMES diatrizoate meglumine AdvReac Intermediate Hives Verified 01/19/18 18:32 fosinopril AdvReac Intermediate Cough Verified 01/19/18 18:32 gadobenic acid AdvReac Intermediate Hives Verified 01/19/18 18:32 gadodiamide AdvReac Intermediate Hives Verified 01/19/18 18:32 gadoteridol AdvReac Intermediate Hives Verified 01/19/18 18:32 iodine AdvReac Intermediate Hives Verified 01/19/18 18:32 iodixanol AdvReac Intermediate Hives Verified 01/19/18 18:32 iohexol AdvReac Intermediate Hives Verified 01/19/18 18:32 potassium iodide AdvReac Intermediate Hives Verified 01/19/18 18:32 povidone-iodine AdvReac Intermediate Hives Verified 01/19/18 18:32 sodium iodide AdvReac Intermediate Hives Verified 01/19/18 18:32 sodium iodide AdvReac Intermediate Hives Verified 01/19/18 18:32 telmisartan AdvReac Intermediate Chest Pain Verified 01/19/18 18:32 Review of Systems ROS: all other systems reviewed are negative [facility] Medical History Medical History Acute renal failure (Acute) Diabetes (Acute) High cholesterol (Acute) Hypertension (Acute) Myocardial infarction (Acute) CHF (congestive heart failure) (Chronic) Surgical History Surgical History Hx of CABG (Acute) Social History Social History Substance History: No History of Abuse Second Hand Smoke Exposure: No Smoking Status: Never smoker How Often Do You Have a Drink Containing Alcohol: Never [facility] within [facility] Last 8 Weeks: No Recent Out of Country Travel within the Last 8 Weeks: No Immunization History Tetanus Immunization: Unsure Exam Const General: cooperative, healthy appearing and comfortable Orientation: alert, awake and oriented x3 HENMT Head: normal to inspection, normocephalic and atraumatic Eyes General: appearance normal, both eyes and all related structures Conjunctivae: conjunctivae normal Sclera: sclerae normal EOM: EOM intact bilaterally Neck Neck: normal visual inspection and full ROM Chest Chest: normal inspection of the chest Resp Effort & Inspection: normal respiratory effort and able to speak in complete sentences Auscultation: clear to auscultation bilaterally Cardio Rate: regular rate Rhythm: regular rhythm Heart Sounds: S1 normal and S2 normal GI Inspection: normal to inspection Palpation: soft Back/Spine/Pelvis Cervical Spine: cervical ROM normal Thoracic/Lumbar Spine: thoraco-lumbar ROM normal Skin General: no rashes or lesions noted, turgor normal and dry skin Neuro General: alert, awake, oriented x3, moves all extremities and CN's II-XI intact bilaterally Extrem General: normal to inspection, full ROM and no pedal edema Psych Appearance: grossly normal Mental Status: mental status grossly normal Speech and Movement: speech and movement normal Mood: congruent mood Affect: normal affect Attitude: cooperative Thought Process: normal Thought Content: normal Judgment: judgment good Course Initial Documented Vital Signs Pulse Rate 69 08/26/18 15:35 Respiratory Rate 20 08/26/18 15:35 Blood Pressure 147/63 H 08/26/18 15:35 Pulse Oximetry 97 08/26/18 15:35 Last Documented Vital Signs Pulse Rate 70 08/26/18 15:47 Respiratory Rate 17 08/26/18 15:47 Blood Pressure 157/73 H 08/26/18 15:47 Pulse Oximetry 96 08/26/18 15:59 Critical Care Time Critical Care Time: Yes Total Critical Care Time: 30 Attestation: Time to perform other separately billable procedures was not included in the critical care time. My time did not include minutes spent treating any other patients simultaneously or on activities that did not directly contribute to the patient's treatment. The services I provided to this patient were to treat and/or prevent clinically significant deterioration due to chest pain in a patient with a strong history of coronary artery disease I provided critical care services requiring my management, as noted below: Chart data review, documentation time, medication orders and management, vital sign assessments/reviewing monitor data, ordering and reviewing lab tests, ordering and interpreting/reviewing x-rays and diagnostic studies, care of the patient and discussion of the patient with the admitting physicians Medical Decision Making MDM Narrative Medical decision making narrative: This is a patient with known coronary artery disease who presents with chest pain. Her chest pain initially started this morning and was relieved by 2 sublingual nitroglycerin. The chest pain occurred at approximately 2:30 PM. The pain is improved but not completely relieved by 3 sublingual nitroglycerin. She is concerned that her symptoms are due to the initiation of hydralazine last night for blood pressure control. She states that she took the first dose last night and then went to bed. She reports chest pain following each dose of hydralazine today. Chest pain workup is in process. Sure workup is negative as far as her chest pain is concerned. She does have some acute on chronic renal insufficiency. I will give her a fluid bolus. She is amenable to admission to the chest pain center for further evaluation. Medical Screen Exam Complete: Yes Emergency Medical Condition: Yes Differential Diagnosis Differential Diagnosis: Differential diagnosis of chest pain includes but is not limited to musculoskeletal pain, pulmonary embolism, acute coronary syndrome , pneumonia, pleurisy Medical Records Medical records reviewed: Yes I reviewed the patient's medical records. The patient was admitted from 05/23-05/24 for dizziness, rule out ACS. She was ruled out by enzymes. She was seen by her finishing wire sawyer, Dr. Coyle, who did not feel that any further cardiac evaluation was necessary as the patient did not have chest pain at that time. Her symptoms were more compatible with vertigo. Lab Data Lab results reviewed: Yes I reviewed the patient's lab results. Result diagrams: 08/26/18 16:00 08/26/18 16:00 Lab Results 08/26/18 08/26/18 08/26/18 Range/Units 16:00 16:00 16:00 WBC 7.6 (4.0-11.0) th/mm3 RBC 3.66 L (4.00-5.30) mil/mm3 Hgb 11.5 L (11.6-15.3) gm/dL Hct 32.0 L (35.0-46.0) % MCV 87.4 (80.0-100.0) fL MCH 31.4 (27.0-34.0) pg MCHC 35.9 (32.0-36.0) % RDW 14.0 (11.6-17.2) % Plt Count 173 (150-450) th/mm3 MPV 8.9 (7.0-11.0) fL Neut % (Auto) 60.9 (16.0-70.0) % Lymph % (Auto) 26.7 (9.0-44.0) % Williamson % (Auto) 5.5 (0.0-8.0) % Eos % (Auto) 5.6 H (0.0-4.0) % Baso % (Auto) 1.3 (0.0-2.0) % Neut # (Auto) 4.6 (1.8-7.7) th/mm3 Lymph # (Auto) 2.0 (1.0-4.8) th/mm3 Williamson # (Auto) 0.4 (0.0-0.9) th/mm3 Eos # (Auto) 0.4 (0.0-0.4) th/mm3 Baso # (Auto) 0.1 (0.0-0.2) th/mm3 WBC Differential . Differential Comment Auto diff final PT 10.0 (9.8-11.6) sec INR 1.0 Ratio APTT 26.8 (24.3-30.1) sec Sodium 135 L (136-145) meq/L Potassium 4.5 (3.5-5.1) meq/L Chloride 104 (98-107) meq/L Carbon Dioxide 22.7 (21.0-32.0) meq/L Anion Gap 8 (5-15) meq/L BUN 65 H (7-18) mg/dL Creatinine 2.15 H (0.50-1.00) mg/dL Estimated GFR 22 L (>89) mL/min Random Glucose 226 H (74-106) mg/dL Calcium 8.8 (8.5-10.1) mg/dL Magnesium 2.3 (1.5-2.5) mg/dL Total Bilirubin 0.3 (0.2-1.0) mg/dL AST 32 (15-37) U/L ALT 28 (10-53) U/L Alkaline Phosphatase 131 H (45-117) U/L Total Creatine Kinase 79 (26-192) U/L Troponin I Less than 0.02 L (0.02-0.05) ng/mL Total Protein 8.2 (6.4-8.2) g/dL Albumin 3.7 (3.4-5.0) g/dL Lipase 495 H (73-393) U/L Imaging Data Radiologist's impression: Chest X-Ray 08/26/18 15:47 CONCLUSION: Previous sternotomy. Cardiomegaly. Mild basilar atelectasis. No effusion or pneumothorax. ECG Data EKG Prior to Arrival: No Attestation: I personally reviewed and interpreted this ECG as follows: (EKG shows a sinus rhythm with a rate of 75. She has a right bundle branch block. No acute ischemic changes. No change from previous EKG.) Prior ECG tracings: available for review Discharge Plan Physicians Team ED Provider: Taylor Bermudez Primary Care Provider: Hermila Anderson Rxs /Orders / Referrals /Forms Prescriptions: No Action carvedilol 25 mg Tablet 25 mg PO BID RF: 0 hydralazine 50 mg Tablet 50 mg PO TID RF: 0 docusate sodium [Colace] 100 mg Capsule 100 mg PO DAILY MDD unk PRN (Reason: Constipation) RF: 0 losartan 50 mg Tablet 100 mg PO DAILY RF: 0 isosorbide mononitrate 30 mg Tablet Extended Release 24 Hr 60 mg PO DAILY RF: 0 levothyroxine 25 mcg Tablet 25 mcg PO DAILY RF: 0 nitroglycerin [Nitrostat] 0.4 mg Tablet, Sublingual 0.4 mg SUBLINGUAL Q5-15M PRN (Reason: Chest Pain) RF: 0 aspirin 81 mg Tablet,Chewable 81 mg PO DAILY RF: 0 furosemide 20 mg Tablet 20 mg PO DAILY RF: 0 omega 8-lki-gjj-fish oil [Fish Oil] 1,000 mg (120 mg-180 mg) Capsule 1,000 mg PO 5XW RF: 0 linagliptin [Tradjenta] 5 mg Tablet 5 mg PO DAILY RF: 0 insulin degludec [Tresiba FlexTouch U-100] 100 unit/mL (3 mL) Insulin Pen 15 unit SUB-Q DAILY RF: 0 Discharge Interventions Interventions: Vital Signs Last Done: 08/26/18 15:35 Status ED Status: With Doctor
--- NOTE | 2018-08-26 16:20 | XR ---
EXAM DATE: 08/26/2018 3:47 PM EDT AGE/SEX: 83 years / Female INDICATIONS: Chest pain. CLINICAL DATA: This is the patient's subsequent encounter. Patient reports that signs and symptoms h ave been present for 1 day and indicates a pain score of 5/10. MEDICAL/SURGICAL HISTORY: Cardiovascular disease. CABG. COMPARISON: [facility] [place], CHEST 1V SINGLE AP, 05/23/2018. . FINDINGS: Previous sternotomy. Mild basilar atelectasis. Cardiomegaly. Tortuous aorta. No pneumothorax. CONCLUSION: Previous sternotomy. Cardiomegaly. Mild basilar atelectasis. No effusion or pneumothorax. Electronically signed by: Hima Zee MD 08/26/2018 4:18 PM EDT
[2018-08-26 16:27] LABS: Activated Partial Thrombo Time 26.8 sec (24.3-30.1)
[2018-08-26 16:35] LABS: Alanine Aminotransferase 28 U/L (10-53); Albumin 3.7 g/dL (3.4-5.0); Alkaline Phosphatase 131 U/L (45-117); Anion Gap 8 meq/L (5-15); Aspartate Aminotransferase 32 U/L (15-37); Blood Urea Nitrogen 65 mg/dL (7-18); Calcium 8.8 mg/dL (8.5-10.1); Carbon Dioxide 22.7 meq/L (21.0-32.0); Chloride 104 meq/L (98-107); Creatine Kinase 79 U/L (26-192); Glomerular Filtration Rate 22 mL/min (>89); Glucose,Random 226 mg/dL (74-106); Lipase 495 U/L (73-393); Magnesium 2.3 mg/dL (1.5-2.5); Potassium 4.5 meq/L (3.5-5.1); Sodium 135 meq/L (136-145); Total Protein 8.2 g/dL (6.4-8.2)
[2018-08-26] MEDS ORDERED: Sod Chloride 0.9% Inj 1,000 ML IV.SIG SCH (17:00)
[2018-08-26] MEDS ORDERED: Docusate Sodium 100 MG Capsule PO PRN (17:08)
[2018-08-26] MEDS ORDERED: Dextrose 50% in Water 50 ML Vial IV.PUSH PRN (17:10)
[2018-08-26] MEDS: hydrALAZINE 50 MG Tablet PO SCH (18:10)
--- NOTE | 2018-08-26 20:49 | ECG ---
Date Performed: 08/26/2018 Time Performed: 15:50:17 PTAGE: 83 years EKG: Sinus rhythm WITH FIRST DEGREE AV BLOCK MARKED LEFT AXIS DEVIATION RIGHT BUNDLE BRANCH BLOCK ABNORMAL ECG PREVIOUS TRACING : 05/23/2018 22.08 Since the previous tracing, no significant change noted DOCTOR: Sera Meneses Interpretating Date/Time 08/26/2018 20:48:34
[2018-08-26] MEDS: Carvedilol 12.5 MG Tablet PO SCH (21:45)
[2018-08-26] MEDS: Insulin NovoLOG Aspart Correctional Sugar Inj SQ SCH (21:45)
[2018-08-27] MEDS: Acetaminophen 500 MG Tablet PO PRN ×2 (02:42→21:50)
[2018-08-27] MEDS: Insulin NovoLOG Aspart Correctional Sugar Inj SQ SCH ×4 (08:12→21:51)
--- NOTE | 2018-08-27 08:39 | P.HPCA ---
History of Present Illness Primary Care Physician: Hermila Coello Chief Complaint: Chest pain History of Present Illness: 83 year old female with history of CAD, x2 CABG surgeries (1994 and 2015), diabetes, ARF, and hypertension presents to ER for further evaluation of chest pain. Follows with Dr. Coyle and reports recent medication changes including stopping metoprolol and amlodipine, increasing losartan from 50 mg to 100 mg daily, adding hydralazine and carvedilol. First dose of hydralazine Tuesday evening. Tolerated well states "I slept the best I have in a long time." Upon awakening Tuesday morning, took second dose of hydralazine. Approximately 1 hour after dose developed substernal heaviness with associated symptoms of dyspnea and nausea. No radiation. Duration approximately 30 minutes. Took a total x2 sublingual nitroglycerin denies immediate if any relief. After pressure resolved continued to feel "poor most of morning." Took second dose of hydralazine around noon Tuesday. Again 1 hour after taking hydralazine developed substernal heaviness somewhat more severe. Associated symptoms included dyspnea, nausea, with radiation to bilateral jaw, neck and "all over." Duration 1 hour. Attempted to call Dr. Coyle's office, unable call center therefore came to the ER for further evaluation. Of note patient states recent bilateral carotid ultrasound and echocardiogram completed last week. Known aortic stenosis. Follow-up appointment scheduled 09/14/18 to determine further plan. Known heart murmur and states Dr. Coyle and Dr. Dickey monitoring closely for possible valve replacement. Denies history of LOC or dizziness, however blood pressure becoming more difficult to manage. Reports [place] January 2018 and cardiac catheterization completed at that time. Medical management recommended. Past cardiac testing 01/22/18 Echocardiogram CONCLUSIONS Normal left ventricular size. Wall thickness is normal. The left ventricular systolic function is hyperdynamic with an estimated ejection fraction in the range of 65-7 Diffuse calcification of the aortic valve. Moderate aortic valve stenosis (severe by GISSELL; mild- moderate by mean gradient). Aortic valve area is 0.43 cm. Aortic valve mean gradient is 23 mmHg. There is mild to moderate tricuspid valve regurgitation. The estimated pulmonary arterial pressure is 36.6 mmHg. Mild pulmonary valve regurgitation. 01/16/[address] Coyle) Conclusions: 1. Severe [place] 3- vessel coronary artery disease. 2. 2 [facility] most recent grafts are patent. 06/02/2016 CABG REDO (Dr. Albarado) REDO CABG x3, SHIPMAN to LAD (fair), SVG to OM ( good ), SVG to RCA (good), EVH (left and right legs) 06/02/2017 Cardiac catheterization (Dr. Dickey) Conclusions: She demonstrated rather diffuse CAD. She would appear to be a candidate for repeat bypass graft to LAD, circumflex, and right coronary artery. 02/08/2013 Lexiscan-No evidence of stress induced ischemia. Normal wall motion EF 74%. 1994 CABGx3 ([facility]) Social history Known coronary artery disease, diabetes, hypertension, and hyperlipidemia. Lifelong non-smoker. No alcohol or recreational drug use. Lives independently. - Diagnosis (1) Chest pain, rule out acute myocardial infarction (2) Type 2 diabetes mellitus (3) Hypertension, essential (4) Aortic heart murmur Review of Systems All other systems reviewed negative except as stated in HPI [facility] - History History Provided By: Patient - Medical History Medical History: Medical History (Last Updated 08/27/18 @ 09:48 by VIJAY Rajput) Acute renal failure Coronary artery disease Myocardial infarction Systolic murmur Diabetes High cholesterol Hypertension CHF (congestive heart failure) - Surgical History Surgical History: Surgical History (Last Updated 08/27/18 @ 09:48 by VIJAY Rajput) Hx of CABG - Social History I have reviewed the patient's Social History: Yes - Tobacco History Second Hand Smoke Exposure: No Tobacco Use In Past 30 Days: No Smoking Status: Never smoker - Alcohol History How Often Do You Have a Drink Containing Alcohol: Never - Substance Use History Substance History: No History of Abuse - Travel History History of Recent Travel: No Recent Travel in the [place] Within the Last 8 Weeks: No Recent Travel Out of the Country Within the Last 8 Weeks: No - Immunization History Tetanus Immunization: Unsure Medications and Allergies Active Medications: Active Medications Acetaminophen (Tylenol) 500 mg PO Q4H PRN PRN Reason: HEADACHE Last Admin: 08/27/18 02:42 Dose: 500 mg Albuterol (Albuterol Neb (Prn)) 1.25 mg NEB Q4HR NEB PRN PRN Reason: SHORTNESS OF BREATH/WHEEZING Aspirin (Aspirin Chew) 81 mg PO DAILY [facility] Carvedilol (Coreg) 25 mg PO BID [facility] Last Admin: 08/26/18 21:45 Dose: 25 mg Dextrose (D50w Vial) 50 ml IV.PUSH UNSCH PRN PRN Reason: PER HYPOGLYCEMIA PROTOCOL Docusate Sodium (Colace) 100 mg PO DAILY PRN PRN Reason: Constipation Furosemide (Lasix) 20 mg PO DAILY [facility] Glucagon (Glucagon Inj) 1 mg OTHER PRN PRN PRN Reason: for Hypoglycemia Protocol Hydralazine HCl (Apresoline) 50 mg PO TID [facility] Last Admin: 08/26/18 18:10 Dose: Not Given Sodium Chloride (Ns Inj) 1,000 mls @ 0 mls/hr IV.SIG BOLUS [facility] Insulin Aspart (Novolog Insulin Correctional Sugar Inj) 0 unit SQ ACHS [facility]; Protocol Last Admin: 08/27/18 08:12 Dose: Not Given Isosorbide Mononitrate (Imdur) 60 mg PO DAILY [facility] Levothyroxine Sodium (Synthroid) 25 mcg PO DAILY@0700 [facility] Last Admin: 08/27/18 06:02 Dose: 25 mcg Losartan Potassium (Cozaar) 100 mg PO DAILY [facility] Ondansetron HCl (Zofran Inj) 4 mg IV.PUSH Q6H PRN PRN Reason: NAUSEA Pom: (Insulin Degludec [Tresiba Flextouch U-100] 15 Unit) 0 each SQ DAILY [facility] Sodium Chloride (Ns Flush) 2 ml IV.FLUSH UNSCH PRN PRN Reason: FLUSH AFTER USING IV ACCESS Allergies Allergy/AdvReac Type Severity Reaction Status Date / Time glipizide Allergy Intermediate Verified 01/19/18 18:32 pravastatin Allergy Intermediate BODY ACHES Verified 01/19/18 18:32 simvastatin Allergy Intermediate BODY ACHES Verified 01/19/18 18:32 atorvastatin AdvReac Severe ""STATINS""-ELEVATED Verified 01/19/18 18:32 LIVER ENZYMES diatrizoate meglumine AdvReac Intermediate Hives Verified 01/19/18 18:32 fosinopril AdvReac Intermediate Cough Verified 01/19/18 18:32 gadobenic acid AdvReac Intermediate Hives Verified 01/19/18 18:32 gadodiamide AdvReac Intermediate Hives Verified 01/19/18 18:32 gadoteridol AdvReac Intermediate Hives Verified 01/19/18 18:32 iodine AdvReac Intermediate Hives Verified 01/19/18 18:32 iodixanol AdvReac Intermediate Hives Verified 01/19/18 18:32 iohexol AdvReac Intermediate Hives Verified 01/19/18 18:32 potassium iodide AdvReac Intermediate Hives Verified 01/19/18 18:32 povidone-iodine AdvReac Intermediate Hives Verified 01/19/18 18:32 sodium iodide AdvReac Intermediate Hives Verified 01/19/18 18:32 sodium iodide AdvReac Intermediate Hives Verified 01/19/18 18:32 telmisartan AdvReac Intermediate Chest Pain Verified 01/19/18 18:32 Home Medications Medication Instructions Recorded Confirmed Type aspirin 81 mg PO DAILY 05/23/18 08/26/18 History docusate sodium [Colace] 100 mg PO DAILY PRN MDD unk 05/23/18 08/26/18 History furosemide 20 mg PO DAILY 05/23/18 08/26/18 History insulin degludec [Tresiba 15 unit SUB-Q DAILY 05/23/18 08/26/18 History FlexTouch U-100] isosorbide mononitrate 60 mg PO DAILY 05/23/18 08/26/18 History levothyroxine 25 mcg PO DAILY 05/23/18 08/26/18 History linagliptin [Tradjenta] 5 mg PO DAILY 05/23/18 08/26/18 History losartan 100 mg PO DAILY 05/23/18 08/26/18 History nitroglycerin [Nitrostat] 0.4 mg SUBLINGUAL Q5-15M PRN 05/23/18 08/26/18 History omega 1-whs-tmt-fish oil [Fish Oil] 1,000 mg PO 5XW 05/23/18 08/26/18 History carvedilol 25 mg PO BID 08/26/18 08/26/18 History hydralazine 50 mg PO TID 08/26/18 08/26/18 History Exam Vital signs: Vital Signs 08/26/18 15:35 08/26/18 15:47 08/26/18 15:59 Temperature Pulse Rate 69 70 Respiratory Rate 20 17 Blood Pressure 147/63 H 157/73 H Pulse Oximetry 97 96 96 08/26/18 16:41 08/26/18 18:35 08/26/18 20:00 Temperature 97.7 F Pulse Rate 60 66 60 Respiratory Rate 21 22 18 Blood Pressure 132/97 H 132/97 H 115/53 L Pulse Oximetry 94 L 96 98 08/26/18 23:17 08/27/18 03:17 08/27/18 07:39 Temperature 97.7 F 98.7 F Pulse Rate 66 56 L Respiratory Rate 16 16 Blood Pressure 126/65 106/59 L Pulse Oximetry 98 94 L 96 08/27/18 08:00 Temperature Pulse Rate 50 L Respiratory Rate Blood Pressure Pulse Oximetry Intake & Output 08/26/18 08/27/18 08/27/18 18:59 06:59 18:59 Weight 61.235 kg 61.235 kg Other: # Voids 2 Date of Last Bowel Movement 08/26/18 Weight On Admission 61.235 kg Narrative: GENERAL: Alert WN, WD, NAD, pleasant, elderly female HEAD: NC, AT EYES: Sclera clear, conjunctiva without injection, pupils equal and round ENT: Mucous membranes pink and moist, no nasal discharge or bleeding NECK: Supple, no masses, trachea midline CV: RRR, 3/6 systolic murmur, no rub, gallop, or JVD, S1-S2 no S3-S4. Bilateral carotid bruits R>L. RESP: Clear lungs throughout bilateral, no crackles, wheeze, rhonchi, symmetrical chest rise, nonlabored, able to speak in full sentences ABD: Soft, NT, ND, no masses, positive bowel tones EXT: Pulses +2x4, +2 pitting pedal edema MS: Normal tone x4 extremities, nontender, no obvious deformities, full range of motion NEURO: CN II through CN XII grossly intact, motor strength 5/5, gait WNL PSYCH: A+O x3, pleasant affect, appropriate speech, mood, insight and judgment SKIN: Normal turgor, normal texture, no lesions, no rashes, brisk cap refill, even hair distribution Results 08/26/18 16:00 08/26/18 16:00 Cardiac Enzymes 08/26/18 08/26/18 08/26/18 Range/Units 16:00 20:14 23:01 AST 32 (15-37) U/L Troponin I Less than 0.02 L Less than 0.02 L Less than 0.02 L (0.02-0.05) ng/mL Coagulation 08/26/18 Range/Units 16:00 PT 10.0 (9.8-11.6) sec APTT 26.8 (24.3-30.1) sec CBC 08/26/18 Range/Units 16:00 WBC 7.6 (4.0-11.0) th/mm3 RBC 3.66 L (4.00-5.30) mil/mm3 Hgb 11.5 L (11.6-15.3) gm/dL Hct 32.0 L (35.0-46.0) % Plt Count 173 (150-450) th/mm3 Neut # (Auto) 4.6 (1.8-7.7) th/mm3 Lymph # (Auto) 2.0 (1.0-4.8) th/mm3 [place] # (Auto) 0.4 (0.0-0.9) th/mm3 Eos # (Auto) 0.4 (0.0-0.4) th/mm3 Baso # (Auto) 0.1 (0.0-0.2) th/mm3 Comprehensive Metabolic Panel 08/26/18 Range/Units 16:00 Sodium 135 L (136-145) meq/L Potassium 4.5 (3.5-5.1) meq/L Chloride 104 (98-107) meq/L Carbon Dioxide 22.7 (21.0-32.0) meq/L BUN 65 H (7-18) mg/dL Creatinine 2.15 H (0.50-1.00) mg/dL Calcium 8.8 (8.5-10.1) mg/dL AST 32 (15-37) U/L ALT 28 (10-53) U/L Alkaline Phosphatase 131 H (45-117) U/L Total Protein 8.2 (6.4-8.2) g/dL Albumin 3.7 (3.4-5.0) g/dL Intake and Output 08/26/18 08/27/18 08/27/18 22:59 06:59 14:59 Other: # Voids 2 Date of Last Bowel Movement 08/26/18 Weight 61.235 kg 61.235 kg Weight On Admission 61.235 kg - Imaging and Cardiology Imaging: Impressions Chest X-Ray 08/26/18 15:47 CONCLUSION: Previous sternotomy. Cardiomegaly. Mild basilar atelectasis. No effusion or pneumothorax. EKG interpretations - EKG EKG results cardiology: sinus rhythm (First-degree AV block, right bundle branch block) Caprini VTE Risk Assessment Caprini VTE Risk Assessment: Moderate/High Risk (score >= 2) Caprini Risk Assessment Model: Point Value = 1 Point Value = 2 Point Value = 3 Point Value = 5 Age 41-60 Minor surgery BMI > 25 kg/m2 Swollen legs Varicose veins or History of unexplained or recurrent spontaneous Oral contraceptives or hormone replacement Sepsis (< 1 month) Serious lung disease, including pneumonia (< 1 month) Abnormal pulmonary function Acute myocardial infarction Congestive heart failure (< 1 month) History of inflammatory bowel disease Medical patient at bed rest Age 61-74 Arthroscopic surgery Major open surgery (> 45 min) Laparoscopic surgery (> 45 min) Malignancy Confined to bed (> 72 hours) Immobilizing plaster cast Central venous access Age >= 75 History of VTE Family history of VTE Factor V Leiden Prothrombin [id number] Lupus anticoagulant Anticardiolipin antibodies Elevated serum homocysteine Heparin-induced thrombocytopenia Other congenital or acquired thrombophilia Stroke (< 1 month) Elective arthroplasty Hip, pelvis, or leg fracture Acute spinal cord injury (< 1 month) Prophylaxis Regimen: Total Risk Factor Score Risk Level Prophylaxis Regimen 0-1 Low Early ambulation 2 Moderate Order ONE of the following: *Sequential Compression Device (SCD) *Heparin 5000 units SQ BID 3-4 Higher Order ONE of the following medications: *Heparin 5000 units SQ TID *Enoxaparin/Lovenox 40 mg SQ daily (WT < 150 kg, CrCl > 30 mL/min) *Enoxaparin/Lovenox 30 mg SQ daily (WT < 150 kg, CrCl > 10-29 mL/min) *Enoxaparin/Lovenox 30 mg SQ BID (WT < 150 kg, CrCl > 30 mL/min) AND/OR *Sequential Compression Device (SCD) 5 or more Highest Order ONE of the following medications: *Heparin 5000 units SQ TID (Preferred with Epidurals) *Enoxaparin/Lovenox 40 mg SQ daily (WT < 150 kg, CrCl > 30 mL/min) *Enoxaparin/Lovenox 30 mg SQ daily (WT < 150 kg, CrCl > 10-29 mL/min) *Enoxaparin/Lovenox 30 mg SQ BID (WT < 150 kg, CrCl > 30 mL/min) AND *Sequential Compression Device (SCD) Assessment and Plan - Assessment (1) Chest pain, rule out acute myocardial infarction Code(s): R07.9 - Chest pain, unspecified Status: Acute Plan: Admitted chest pain center. Monitor on telemetry overnight. ACS ruled out 3 sets of EKGs and cardiac enzymes. Will be seen Dominick Lima. 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 Wheeler. Further disposition to follow. 1000-Spoke with dr. Carrington. Discussed current medications and further recommendations. Continue to monitor patient and consult Dr. Coyle to assess her tomorrow recommended. Observation also to observe during medication change. Add Procardia 60 mg PO daily, stopping hydralazine. (2) Type 2 diabetes mellitus Code(s): E11.9 - Type 2 diabetes mellitus without complications Status: Chronic Plan: SSI low dose coverage. Continue home medications Tresiba and Tradjenta. (3) Hypertension, essential Code(s): I10 - Essential (primary) hypertension Status: Acute Plan: Continue losartan, carvedilol. Stop hydralazine. Add Procardia 30 mg daily. (4) Aortic heart murmur Code(s): I35.8 - Other nonrheumatic aortic valve disorders Status: Chronic Plan: Systolic murmur likely aortic stenosis. 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
[2018-08-27] MEDS ORDERED: INSULIN DEGLUDEC 15 UNIT SQ SCH (09:00)
--- NOTE | 2018-08-27 10:02 | P.PNCA ---
Subjective Interval history: 83-year-old lady was seen and evaluated by nurse practitioner and then presented somewhat extensively. She was then seen and examined personally. I have reviewed and am in agreement with the history as presented. In summary she has had 2 open-heart surgeries [place] [address] [place] at the second [place] [address] Jauregui. Along with her ione vessel disease one occluded graft that could not be opened. In addition she has aortic valvular disease. Both Dr. Dickey and Dr. her have apparently been contemplating the need for aortic valve surgery. Recently her medication was changed resulting in recurring episodes of angina which led to her presentation in the hospital. She has ruled out for ACS and is again stable. We will contact Dr. Nasrin Acosta to determine how she wants to manage her medications and arrange for rapid follow-up in the office with Dr. her to discuss possible intervention with the aortic valve. Medications and Allergies Active Medications: Active Medications Acetaminophen (Tylenol) 500 mg PO Q4H PRN PRN Reason: HEADACHE Last Admin: 08/27/18 02:42 Dose: 500 mg Albuterol (Albuterol Neb (Prn)) 1.25 mg NEB Q4HR NEB PRN PRN Reason: SHORTNESS OF BREATH/WHEEZING Aspirin (Aspirin Chew) 81 mg PO DAILY [facility] Carvedilol (Coreg) 25 mg PO BID [facility] Last Admin: 08/26/18 21:45 Dose: 25 mg Dextrose (D50w Vial) 50 ml IV.PUSH UNSCH PRN PRN Reason: PER HYPOGLYCEMIA PROTOCOL Docusate Sodium (Colace) 100 mg PO DAILY PRN PRN Reason: Constipation Furosemide (Lasix) 20 mg PO DAILY [facility] Glucagon (Glucagon Inj) 1 mg OTHER PRN PRN PRN Reason: for Hypoglycemia Protocol Hydralazine HCl (Apresoline) 50 mg PO TID [facility] Last Admin: 08/26/18 18:10 Dose: Not Given Sodium Chloride (Ns Inj) 1,000 mls @ 0 mls/hr IV.SIG BOLUS [facility] Insulin Aspart (Novolog Insulin Correctional Sugar Inj) 0 unit SQ ACHS [facility]; Protocol Last Admin: 08/27/18 08:12 Dose: Not Given Isosorbide Mononitrate (Imdur) 60 mg PO DAILY [facility] Levothyroxine Sodium (Synthroid) 25 mcg PO DAILY@0700 [facility] Last Admin: 08/27/18 06:02 Dose: 25 mcg Losartan Potassium (Cozaar) 100 mg PO DAILY [facility] Ondansetron HCl (Zofran Inj) 4 mg IV.PUSH Q6H PRN PRN Reason: NAUSEA Pom: (Insulin Degludec [Tresiba Flextouch U-100] 15 Unit) 0 each SQ DAILY [facility] Sodium Chloride (Ns Flush) 2 ml IV.FLUSH UNSCH PRN PRN Reason: FLUSH AFTER USING IV ACCESS Allergies Allergy/AdvReac Type Severity Reaction Status Date / Time glipizide Allergy Intermediate Verified 01/19/18 18:32 pravastatin Allergy Intermediate BODY ACHES Verified 01/19/18 18:32 simvastatin Allergy Intermediate BODY ACHES Verified 01/19/18 18:32 atorvastatin AdvReac Severe ""STATINS""-ELEVATED Verified 01/19/18 18:32 LIVER ENZYMES diatrizoate meglumine AdvReac Intermediate Hives Verified 01/19/18 18:32 fosinopril AdvReac Intermediate Cough Verified 01/19/18 18:32 gadobenic acid AdvReac Intermediate Hives Verified 01/19/18 18:32 gadodiamide AdvReac Intermediate Hives Verified 01/19/18 18:32 gadoteridol AdvReac Intermediate Hives Verified 01/19/18 18:32 iodine AdvReac Intermediate Hives Verified 01/19/18 18:32 iodixanol AdvReac Intermediate Hives Verified 01/19/18 18:32 iohexol AdvReac Intermediate Hives Verified 01/19/18 18:32 potassium iodide AdvReac Intermediate Hives Verified 01/19/18 18:32 povidone-iodine AdvReac Intermediate Hives Verified 01/19/18 18:32 sodium iodide AdvReac Intermediate Hives Verified 01/19/18 18:32 sodium iodide AdvReac Intermediate Hives Verified 01/19/18 18:32 telmisartan AdvReac Intermediate Chest Pain Verified 01/19/18 18:32 Home Medications Medication Instructions Recorded Confirmed Type aspirin 81 mg PO DAILY 05/23/18 08/26/18 History docusate sodium [Colace] 100 mg PO DAILY PRN MDD unk 05/23/18 08/26/18 History furosemide 20 mg PO DAILY 05/23/18 08/26/18 History insulin degludec [Tresiba 15 unit SUB-Q DAILY 05/23/18 08/26/18 History FlexTouch U-100] isosorbide mononitrate 60 mg PO DAILY 05/23/18 08/26/18 History levothyroxine 25 mcg PO DAILY 05/23/18 08/26/18 History linagliptin [Tradjenta] 5 mg PO DAILY 05/23/18 08/26/18 History losartan 100 mg PO DAILY 05/23/18 08/26/18 History nitroglycerin [Nitrostat] 0.4 mg SUBLINGUAL Q5-15M PRN 05/23/18 08/26/18 History omega 5-tsy-ogn-fish oil [Fish Oil] 1,000 mg PO 5XW 05/23/18 08/26/18 History carvedilol 25 mg PO BID 08/26/18 08/26/18 History hydralazine 50 mg PO TID 08/26/18 08/26/18 History Physical Exam Vital signs: Vital Signs 08/26/18 15:35 08/26/18 15:47 08/26/18 15:59 Temperature Pulse Rate 69 70 Respiratory Rate 20 17 Blood Pressure 147/63 H 157/73 H Pulse Oximetry 97 96 96 08/26/18 16:41 08/26/18 18:35 08/26/18 20:00 Temperature 97.7 F Pulse Rate 60 66 60 Respiratory Rate 21 22 18 Blood Pressure 132/97 H 132/97 H 115/53 L Pulse Oximetry 94 L 96 98 08/26/18 23:17 08/27/18 03:17 08/27/18 07:39 Temperature 97.7 F 98.7 F Pulse Rate 66 56 L Respiratory Rate 16 16 Blood Pressure 126/65 106/59 L Pulse Oximetry 98 94 L 96 08/27/18 08:00 08/27/18 08:44 08/27/18 09:00 Temperature 98.0 F Pulse Rate 60 61 Respiratory Rate 16 Blood Pressure 156/70 H Pulse Oximetry 93 L 94 L Intake & Output 08/26/18 08/27/18 08/27/18 18:59 06:59 18:59 Weight 61.235 kg 61.235 kg Other: # Voids 2 Date of Last Bowel Movement 08/26/18 Weight On Admission 61.235 kg Narrative: I am in agreement with the history as recorded per neck no JVD masses nodes or bruits however the carotid upstroke is diminished Cardiovascular regular rhythm with a 3/6 holosystolic murmur in the aortic distribution. There is no gallop or rub. Results 08/26/18 16:00 08/26/18 16:00 Cardiac Enzymes 08/26/18 08/26/18 08/26/18 Range/Units 16:00 20:14 23:01 AST 32 (15-37) U/L Troponin I Less than 0.02 L Less than 0.02 L Less than 0.02 L (0.02-0.05) ng/mL Coagulation 08/26/18 Range/Units 16:00 PT 10.0 (9.8-11.6) sec APTT 26.8 (24.3-30.1) sec CBC 08/26/18 Range/Units 16:00 WBC 7.6 (4.0-11.0) th/mm3 RBC 3.66 L (4.00-5.30) mil/mm3 Hgb 11.5 L (11.6-15.3) gm/dL Hct 32.0 L (35.0-46.0) % Plt Count 173 (150-450) th/mm3 Neut # (Auto) 4.6 (1.8-7.7) th/mm3 Lymph # (Auto) 2.0 (1.0-4.8) th/mm3 [facility] # (Auto) 0.4 (0.0-0.9) th/mm3 Eos # (Auto) 0.4 (0.0-0.4) th/mm3 Baso # (Auto) 0.1 (0.0-0.2) th/mm3 Comprehensive Metabolic Panel 08/26/18 Range/Units 16:00 Sodium 135 L (136-145) meq/L Potassium 4.5 (3.5-5.1) meq/L Chloride 104 (98-107) meq/L Carbon Dioxide 22.7 (21.0-32.0) meq/L BUN 65 H (7-18) mg/dL Creatinine 2.15 H (0.50-1.00) mg/dL Calcium 8.8 (8.5-10.1) mg/dL AST 32 (15-37) U/L ALT 28 (10-53) U/L Alkaline Phosphatase 131 H (45-117) U/L Total Protein 8.2 (6.4-8.2) g/dL Albumin 3.7 (3.4-5.0) g/dL Intake and Output 08/26/18 08/27/18 08/27/18 22:59 06:59 14:59 Other: # Voids 2 Date of Last Bowel Movement 08/26/18 Weight 61.235 kg 61.235 kg Weight On Admission 61.235 kg - Imaging and Cardiology Imaging: Impressions Chest X-Ray 08/26/18 15:47 CONCLUSION: Previous sternotomy. Cardiomegaly. Mild basilar atelectasis. No effusion or pneumothorax. Assessment and Plan - Assessment (1) Chest pain, rule out acute myocardial infarction Code(s): R07.9 - Chest pain, unspecified Status: Acute (2) Type 2 diabetes mellitus Code(s): E11.9 - Type 2 diabetes mellitus without complications Status: Acute (3) Hypertension, essential Code(s): I10 - Essential (primary) hypertension Status: Acute
[2018-08-27] MEDS: hydrALAZINE 50 MG Tablet PO SCH (10:20)
[2018-08-27] MEDS: Furosemide 20 MG Tablet PO SCH (10:20)
[2018-08-27] MEDS: Isosorbide Mononitrate 60 MG ER 24HR Tablet (Imdur) PO SCH (10:24)
[2018-08-27] MEDS: Carvedilol 12.5 MG Tablet PO SCH ×2 (10:25→21:51)
--- NOTE | 2018-08-27 11:33 | ECG ---
Date Performed: 08/26/2018 Time Performed: 23:09:35 PTAGE: 83 years EKG: Sinus rhythm WITH FIRST DEGREE AV BLOCK RIGHT BUNDLE BRANCH BLOCK LEFT ANTERIOR FASCICULAR BLOCK ABNORMAL ECG Pos sible pacer spike but clinical correlation recommended PREVIOUS TRACING : 08/26/2018 21.44 DOCTOR: Dominick Lima Interpretating Date/Time 08/27/2018 11:31:59
--- NOTE | 2018-08-27 11:34 | ECG ---
Date Performed: 08/26/2018 Time Performed: 21:44:05 PTAGE: 83 years EKG: Sinus rhythm WITH FIRST DEGREE AV BLOCK MARKED LEFT AXIS DEVIATION RIGHT BUNDLE BRANCH BLOCK ABNORMAL ECG No sign ificant change PREVIOUS TRACING : 08/26/2018 15.50 DOCTOR: Dominick Lima Interpretating Date/Time 08/27/2018 11:32:23
--- NOTE | 2018-08-27 16:01 | P.CONCA ---
History of Present Illness Service: [facility] Cardiology Consult date: 08/27/18 Reason for Consult: CAD, angina Primary Care Provider: Hermila Anderson Chief Complaint: Chest pain History of Present Illness: 83 year old lady,patient of Dr. Leonel Coyle, presents to ER for further evaluation of chest pain. The chest pain started after she took Hydralazine which was recently prescribed by Dr. Coyle. She reported DR. Coyle recently changed her BP medications including stopping metoprolol and amlodipine, increasing losartan from 50 mg to 100 mg daily, adding hydralazine and carvedilol. She tolerated the changes initially, but after taking Hydralazine yesterday morning, she reported substernal heaviness with associated symptoms of dyspnea and nausea. No radiation, lasted approximately 30 minutes. She Took a total x2 sublingual nitroglycerin with some relief. Took second dose of hydralazine around noon. Again 1 hour after taking hydralazine developed substernal heaviness somewhat more severe, accompanied with dyspnea, nausea, with radiation to bilateral jaw, neck and "all over." She has history of CAD, x2 CABG surgeries (1994 and 2015), diabetes, ARF, and hypertension. Reports NE January 2018 and cardiac catheterization completed at that time. Medical management recommended. Review of Systems All other systems reviewed negative except as stated in HPI PMFSH - History History Provided By: Patient - Medical History Medical History: Medical History (Last Reviewed 08/29/18 @ 07:56 by Ye Espinoza) Acute renal failure Coronary artery disease Diabetes High cholesterol Hypertension Myocardial infarction Systolic murmur CHF (congestive heart failure) - Surgical History Surgical History: Surgical History (Last Reviewed 08/29/18 @ 07:56 by Ye Espinoza) Hx of CABG - Tobacco History Second Hand Smoke Exposure: No Tobacco Use In Past 30 Days: No Smoking Status: Never smoker - Alcohol History How Often Do You Have a Drink Containing Alcohol: Never - Substance Use History Substance History: No History of Abuse - Travel History History of Recent Travel: No Recent Travel in the [place] Within the Last 8 Weeks: No Recent Travel Out of the Country Within the Last 8 Weeks: No - Immunization History Tetanus Immunization: Unsure Medications and Allergies Active Medications: Active Medications Acetaminophen (Tylenol) 500 mg PO Q4H PRN PRN Reason: HEADACHE Last Admin: 08/27/18 02:42 Dose: 500 mg Albuterol (Albuterol Neb (Prn)) 1.25 mg NEB Q4HR NEB PRN PRN Reason: SHORTNESS OF BREATH/WHEEZING Aspirin (Aspirin Chew) 81 mg PO DAILY [facility] Last Admin: 08/27/18 10:20 Dose: 81 mg Carvedilol (Coreg) 25 mg PO BID [facility] Last Admin: 08/27/18 10:25 Dose: 25 mg Dextrose (D50w Vial) 50 ml IV.PUSH UNSCH PRN PRN Reason: PER HYPOGLYCEMIA PROTOCOL Docusate Sodium (Colace) 100 mg PO DAILY PRN PRN Reason: Constipation Furosemide (Lasix) 20 mg PO DAILY [facility] Last Admin: 08/27/18 10:20 Dose: 20 mg Glucagon (Glucagon Inj) 1 mg OTHER PRN PRN PRN Reason: for Hypoglycemia Protocol Sodium Chloride (Ns Inj) 1,000 mls @ 0 mls/hr IV.SIG BOLUS [facility] Insulin Aspart (Novolog Insulin Correctional Sugar Inj) 0 unit SQ ACHS [facility]; Protocol Last Admin: 08/27/18 13:18 Dose: 1 unit Isosorbide Mononitrate (Imdur) 60 mg PO DAILY [facility] Last Admin: 08/27/18 10:24 Dose: 60 mg Levothyroxine Sodium (Synthroid) 25 mcg PO DAILY@0700 [facility] Last Admin: 08/27/18 06:02 Dose: 25 mcg Losartan Potassium (Cozaar) 100 mg PO DAILY [facility] Last Admin: 08/27/18 10:20 Dose: 100 mg Nifedipine (Procardia Xl) 30 mg PO BID [facility] Ondansetron HCl (Zofran Inj) 4 mg IV.PUSH Q6H PRN PRN Reason: NAUSEA Pom: (Insulin Degludec [Tresiba Flextouch U-100] 15 Unit) 0 each SQ DAILY [facility] Last Admin: 08/27/18 10:18 Dose: Not Given Patient Own Medication: Tradjenta ( Linagliptin) 5mg Tablet 0 each PO DAILY [facility] Sodium Chloride (Ns Flush) 2 ml IV.FLUSH UNSCH PRN PRN Reason: FLUSH AFTER USING IV ACCESS Allergies Allergy/AdvReac Type Severity Reaction Status Date / Time glipizide Allergy Intermediate Verified 01/19/18 18:32 pravastatin Allergy Intermediate BODY ACHES Verified 01/19/18 18:32 simvastatin Allergy Intermediate BODY ACHES Verified 01/19/18 18:32 atorvastatin AdvReac Severe ""STATINS""-ELEVATED Verified 01/19/18 18:32 LIVER ENZYMES diatrizoate meglumine AdvReac Intermediate Hives Verified 01/19/18 18:32 fosinopril AdvReac Intermediate Cough Verified 01/19/18 18:32 gadobenic acid AdvReac Intermediate Hives Verified 01/19/18 18:32 gadodiamide AdvReac Intermediate Hives Verified 01/19/18 18:32 gadoteridol AdvReac Intermediate Hives Verified 01/19/18 18:32 iodine AdvReac Intermediate Hives Verified 01/19/18 18:32 iodixanol AdvReac Intermediate Hives Verified 01/19/18 18:32 iohexol AdvReac Intermediate Hives Verified 01/19/18 18:32 potassium iodide AdvReac Intermediate Hives Verified 01/19/18 18:32 povidone-iodine AdvReac Intermediate Hives Verified 01/19/18 18:32 sodium iodide AdvReac Intermediate Hives Verified 01/19/18 18:32 sodium iodide AdvReac Intermediate Hives Verified 01/19/18 18:32 telmisartan AdvReac Intermediate Chest Pain Verified 01/19/18 18:32 Home Medications Medication Instructions Recorded Confirmed Type aspirin 81 mg PO DAILY 05/23/18 08/26/18 History docusate sodium [Colace] 100 mg PO DAILY PRN MDD unk 05/23/18 08/26/18 History furosemide 20 mg PO DAILY 05/23/18 08/26/18 History insulin degludec [Tresiba 15 unit SUB-Q DAILY 05/23/18 08/26/18 History FlexTouch U-100] levothyroxine 25 mcg PO DAILY 05/23/18 08/26/18 History linagliptin [Tradjenta] 5 mg PO DAILY 05/23/18 08/26/18 History nitroglycerin [Nitrostat] 0.4 mg SUBLINGUAL Q5-15M PRN 05/23/18 08/26/18 History omega [id number] oil [Fish Oil] 1,000 mg PO 5XW 05/23/18 08/26/18 History Exam Vital signs: Vital Signs 08/26/18 15:59 08/26/18 16:41 08/26/18 18:35 Temperature Pulse Rate 60 66 Respiratory Rate 21 22 Blood Pressure 132/97 H 132/97 H Pulse Oximetry 96 94 L 96 08/26/18 20:00 08/26/18 23:17 08/27/18 03:17 Temperature 97.7 F 97.7 F 98.7 F Pulse Rate 60 66 56 L Respiratory Rate 18 16 16 Blood Pressure 115/53 L 126/65 106/59 L Pulse Oximetry 98 98 94 L 08/27/18 07:39 08/27/18 08:00 08/27/18 08:44 Temperature 98.0 F Pulse Rate 60 Respiratory Rate 16 Blood Pressure 156/70 H Pulse Oximetry 96 93 L 94 L 08/27/18 09:00 08/27/18 11:28 Temperature 98.1 F Pulse Rate 61 53 L Respiratory Rate 16 Blood Pressure 110/53 L Pulse Oximetry 93 L Intake & Output 08/26/18 08/27/18 08/27/18 18:59 06:59 18:59 Weight 61.235 kg 61.235 kg Other: # Voids 2 Date of Last Bowel Movement 08/26/18 08/27/18 Weight On Admission 61.235 kg - Constitutional no acute distress - Routine HEENT Exam Head: Present: normocephalic, atraumatic ENT: Present: mucous membranes moist - Routine Neck Exam Present: supple, full ROM. Absent: JVD, carotid bruit - Routine Chest/Breast/Axilla Exam Chest wall: Absent: tenderness - Routine Respiratory Exam Present: CTA bilaterally - Routine Cardiovascular Exam Present: RRR, S1, S2 - Routine Extremities Exam Present: full ROM, normal capillary refill. Absent: cyanosis, clubbing, edema - Routine Skin Exam Present: intact, dry, warm. Absent: cyanosis, erythema - Routine Neurological Exam Present: alert, oriented X3, CN II-XII intact Results 08/29/18 06:45 08/29/18 06:45 Cardiac Enzymes 08/26/18 08/26/18 08/26/18 Range/Units 16:00 20:14 23:01 AST 32 (15-37) U/L Troponin I Less than 0.02 L Less than 0.02 L Less than 0.02 L (0.02-0.05) ng/mL Coagulation 08/26/18 Range/Units 16:00 PT 10.0 (9.8-11.6) sec APTT 26.8 (24.3-30.1) sec CBC 08/26/18 Range/Units 16:00 WBC 7.6 (4.0-11.0) th/mm3 RBC 3.66 L (4.00-5.30) mil/mm3 Hgb 11.5 L (11.6-15.3) gm/dL Hct 32.0 L (35.0-46.0) % Plt Count 173 (150-450) th/mm3 Neut # (Auto) 4.6 (1.8-7.7) th/mm3 Lymph # (Auto) 2.0 (1.0-4.8) th/mm3 [place] # (Auto) 0.4 (0.0-0.9) th/mm3 Eos # (Auto) 0.4 (0.0-0.4) th/mm3 Baso # (Auto) 0.1 (0.0-0.2) th/mm3 Comprehensive Metabolic Panel 08/26/18 Range/Units 16:00 Sodium 135 L (136-145) meq/L Potassium 4.5 (3.5-5.1) meq/L Chloride 104 (98-107) meq/L Carbon Dioxide 22.7 (21.0-32.0) meq/L BUN 65 H (7-18) mg/dL Creatinine 2.15 H (0.50-1.00) mg/dL Calcium 8.8 (8.5-10.1) mg/dL AST 32 (15-37) U/L ALT 28 (10-53) U/L Alkaline Phosphatase 131 H (45-117) U/L Total Protein 8.2 (6.4-8.2) g/dL Albumin 3.7 (3.4-5.0) g/dL Intake and Output 08/27/18 08/27/18 08/27/18 06:59 14:59 22:59 Other: # Voids 2 Date of Last Bowel Movement 08/27/18 Weight 61.235 kg - Imaging and Cardiology Imaging: Impressions Chest X-Ray 08/26/18 15:47 CONCLUSION: Previous sternotomy. Cardiomegaly. Mild basilar atelectasis. No effusion or pneumothorax. Assessment and Plan - Assessment (1) CAD (coronary artery disease) Code(s): I25.10 - Atherosclerotic heart disease of [place] coronary artery without angina pectoris Status: Acute Plan: Recurrent angina, recent coronary angiogram. Follow troponin, if negative consider DC home follow with Dr. 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
--- NOTE | 2018-08-28 08:53 | P.PNIM ---
Subjective Interval history: Pt feeling very tired today but her BP has been quite low She ate breakfast but appetite this afternoon isn't great. Pt reports some right arm pain after the echo today Physical Exam Vital signs: Vital Signs 08/27/18 08:44 08/27/18 09:00 08/27/18 11:28 Temperature 98.1 F Pulse Rate 61 53 L Respiratory Rate 16 Blood Pressure 110/53 L Pulse Oximetry 94 L 93 L 08/27/18 16:00 08/27/18 19:56 08/27/18 20:00 Temperature 98.0 F 97.6 F Pulse Rate 63 68 Respiratory Rate 16 18 17 Blood Pressure 111/52 L 136/63 Pulse Oximetry 95 95 08/27/18 23:07 08/28/18 04:00 08/28/18 04:53 Temperature 98.3 F 97.9 F 98.1 F Pulse Rate 60 57 L 54 L Respiratory Rate 17 17 19 Blood Pressure 127/60 104/49 L 82/43 L Pulse Oximetry 91 L 99 97 08/28/18 07:53 08/28/18 08:19 Temperature Pulse Rate 61 Respiratory Rate 15 Blood Pressure Pulse Oximetry Intake & Output 08/27/18 08/28/18 08/28/18 18:59 06:59 18:59 Intake Total 480 / 480 Balance 480 / 480 Intake: Oral 480 / 480 Other: # Voids 1 Date of Last Bowel Movement 08/27/18 08/27/18 Narrative: GENERAL: NAD, AAOx3 Cardiac: RRR, 3/6 systolic murmur, bilateral carotid bruits R>L. Chest: CTA bilateral ABD: +BS, soft, NT, ND EXT: Pulses +2x4 Results - Labs CBC & Chem 7: 08/29/18 06:45 08/29/18 06:45 Laboratory Results - last 24 hr 08/27/18 08/27/18 08/27/18 12:34 18:10 21:40 POC Glucose 170 H 165 H 170 H 08/28/18 08:21 POC Glucose 151 H Assessment and Plan - Assessment (1) Chest pain, rule out acute myocardial infarction Code(s): R07.9 - Chest pain, unspecified Status: Acute Plan: Chest pain HTN - Pt is an 83 y/o female with CAD s/p CABG x 2 surgeries (1994 and 2015), diabetes, ARF, and hypertension - [place] [facility] for evaluation of chest pain. Pt follows with Dr. Coyle and reports recent medication changes including stopping metoprolol and amlodipine, increasing losartan from 50 mg to 100 mg daily, and adding hydralazine and carvedilol. After starting the Hydralazine she felt like she started having intermittent chest pain similar to her anginal pain she has had in the past. - Pt was initially admitted to the Chest pain center at [place]. - Serial CE and EKG r/o ACS. - Cardiology was consulted. - Pts Hydralazine was stopped and she was ordered Procardia XL 60mg po daily - Pts BP was running low yesterday so the Procardia was cut in half to 30mg po BID with parameters. This was started on 08/27/18. - Pts BP this morning was still rather low - Pt is currently on Coreg 25mg BID, Cozaar 100mg daily, Procardia XL 30mg BID, Imdur 60mg daily, lasix 20mg daily - Discussed the case with Dr. Coyle this morning, we will stop the Procardia, decrease her Losartan to 50mg daily, decrease her Coreg to 12,5mg BID, increase her Imdur to 120mg daily, and hold her Lasix for now. - Repeat BMP this morning, STAT, as he reports that her Cr at admission is higher than baseline. CAD s/p CABG x 2 (1994 and 2015) - 2D echo (01/22/18) - Estimated ejection fraction in the range of 65-70% - Diffuse calcification of the aortic valve. Moderate aortic valve stenosis ( severe by GISSELL; mild-moderate by mean gradient). Aortic valve area is 0.43 cm. Aortic valve mean gradient is 23 mmHg. - There is mild to moderate tricuspid valve regurgitation. - Estimated pulmonary arterial pressure is 36.6 mmHg. Mild pulmonary valve regurgitation. - Pt had LHC on 01/16/[address] Coyle which noted severe [place] 3-vessel coronary artery disease, 2 of 3 coronary bypass grafts of the most recent grafts are patent. Aortic stenosis - management per Cardiology Diabetes Mellitus - NovoLog SSI - Accu checks Hypothyroidism - Home meds continued (2) Hypertension, essential Code(s): I10 - Essential (primary) hypertension Status: Acute (3) Aortic stenosis Code(s): I35.0 - Nonrheumatic aortic (valve) stenosis Status: Acute (4) Renal insufficiency Code(s): N28.9 - Disorder of kidney and ureter, unspecified Status: Acute (5) Type 2 diabetes mellitus Code(s): E11.9 - Type 2 diabetes mellitus without complications Status: Chronic - Attending Attestation The exam, history, and the medical decision-making described in the above note were completed with the assistance of the mid-level provider. I reviewed and agree with the findings presented. I attest that I had a [id number] encounter with the patient on the same day, and personally performed and documented my assessment and findings in the medical record. Patient examined. Assessment and plan formulated with Lisseth Renteria PA-C. I agree with the above. 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
[2018-08-28] MEDS: Carvedilol 12.5 MG Tablet PO SCH ×2 (10:15→22:20)
[2018-08-28] MEDS: Insulin NovoLOG Aspart Correctional Sugar Inj SQ SCH ×4 (10:15→22:18)
[2018-08-28] MEDS: Acetaminophen 500 MG Tablet PO PRN (10:16)
[2018-08-28] MEDS: Isosorbide Mononitrate 60 MG ER 24HR Tablet (Imdur) PO SCH (10:16)
[2018-08-28] MEDS: Furosemide 20 MG Tablet PO SCH (10:16)
--- NOTE | 2018-08-28 10:25 | ECHRPT ---
Indication: TAVR WORKUP CONCLUSIONS Normal left ventricular size. The left ventricular systolic function is hyperdynamic with an estimated ejection fraction in the ra nge of 65- 70%. Wall thickness is normal. The left atrial size is mildly dilated. Moderate mitral valve regurgitation. The mitral valve regurgitation jet is directed posteriorly. Aortic valve sclerosis is present. Aortic valve mean gradient is 40 mmHg. Diffuse calcification of the aortic valve. Severe aortic valve stenosis. Aortic valve area is 0.52 cm. There is mild to moderate tricuspid valve regurgitation. The estimated pulmonary arterial pressure is 53.3 mmHg. Mild pulmonary valve regurgitation. BP: / HR: Rhythm: Sinus MEASUREMENTS (Male / Female) Normal Values Technical Quality:Fair 2D ECHO LV Diastolic Diameter PLAX 5.4 cm 4.2 - 5.9 / 3.9 - 5.3 cm LV Systolic Diameter PLAX 3.7 cm IVS Diastolic Thickness 0.9 cm 0.6 - 1.0 / 0.6 - 0.9 cm LVPW Diastolic Thickness 0.9 cm 0.6 - 1.0 / 0.6 - 0.9 cm LV Relative Wall Thickness 0.3 RV Internal Dim ED PLAX 2.6 cm Aortic Root Diameter 2.9 cm LA Systolic Diameter LX 4.3 cm 3.0 - 4.0 / 2.7 - 3.8 cm M-MODE AV Cusp Separation MM 1.6 cm DOPPLER AV Peak Velocity 425.0 cm/s AV Peak Gradient 72.3 mmHg AV Mean Gradient 40.0 mmHg AV Velocity Time Integral 106.0 cm LVOT Peak Velocity 120.0 cm/s LVOT Peak Gradient 5.8 mmHg LVOT Velocity Time Integral 27.2 cm AV Area Cont Eq vti 0.5 cm AV Area Cont Eq pk 0.6 cm Mitral E Point Velocity 172.0 cm/s Mitral A Point Velocity 128.0 cm/s Mitral E to A Ratio 1.3 LV E' Lateral Velocity 8.8 cm/s Mitral E to LV E' Lateral Ratio 19.6 LV E' Septal Velocity 6.8 cm/s Mitral E to LV E' Septal Ratio 25.2 TR Peak Velocity 329.0 cm/s TR Peak Gradient 43.3 mmHg Right Atrial Pressure 10.0 mmHg Pulmonary Artery Systolic Pressu 53.3 mmHg Right Ventricular Systolic Press 53.3 mmHg PV Peak Velocity 65.4 cm/s PV Peak Gradient 1.7 mmHg FINDINGS LEFT VENTRICLE Normal left ventricular size. The left ventricular systolic function is hyperdynamic with an estimated ejection fraction in the ra nge of 65- 70%. Wall thickness is normal. RIGHT VENTRICLE Normal right ventricular size and systolic function. LEFT ATRIUM The left atrial size is mildly dilated. RIGHT ATRIUM The right atrial size is normal. ATRIAL SEPTUM No atrial level shunt is demonstrated by color flow Doppler interrogation. AORTA The aortic root and proximal ascending aorta are not well visualized. MITRAL VALVE Moderate mitral valve regurgitation. The mitral valve regurgitation jet is directed posteriorly. AORTIC VALVE Aortic valve sclerosis is present. Aortic valve mean gradient is 40 mmHg. Diffuse calcification of the aortic valve. Severe aortic valve stenosis. Aortic valve area is 0.52 cm. TRICUSPID VALVE There is mild to moderate tricuspid valve regurgitation. The estimated pulmonary arterial pressure is 53.3 mmHg. PULMONARY VALVE Mild pulmonary valve regurgitation. VESSELS The inferior vena cava is normal in size. PERICARDIUM No pericardial effusion. Leonel Coyle MD, FACC (Electronically Signed) Final Date:28 August 2018 10:24
--- NOTE | 2018-08-28 10:49 | P.PNCA ---
Subjective Interval history: Chest pain now resolved Patient comfortable in bed. Patient does report right neck pain likely related to position after echocardiogram Medications and Allergies Active Medications: Active Medications Acetaminophen (Tylenol) 500 mg PO Q4H PRN PRN Reason: HEADACHE Last Admin: 08/28/18 10:16 Dose: 500 mg Albuterol (Albuterol Neb (Prn)) 1.25 mg NEB Q4HR NEB PRN PRN Reason: SHORTNESS OF BREATH/WHEEZING Aspirin (Aspirin Chew) 81 mg PO DAILY [facility] Last Admin: 08/28/18 10:16 Dose: 81 mg Carvedilol (Coreg) 12.5 mg PO BID [facility] Dextrose (D50w Vial) 50 ml IV.PUSH UNSCH PRN PRN Reason: PER HYPOGLYCEMIA PROTOCOL Docusate Sodium (Colace) 100 mg PO DAILY PRN PRN Reason: Constipation Furosemide (Lasix) 20 mg PO DAILY [facility] Last Admin: 08/28/18 10:16 Dose: 20 mg Glucagon (Glucagon Inj) 1 mg OTHER PRN PRN PRN Reason: for Hypoglycemia Protocol Sodium Chloride (Ns Inj) 1,000 mls @ 0 mls/hr IV.SIG BOLUS [facility] Insulin Aspart (Novolog Insulin Correctional Sugar Inj) 0 unit SQ ACHS [facility]; Protocol Last Admin: 08/28/18 10:15 Dose: 1 unit Isosorbide Mononitrate (Imdur) 120 mg PO DAILY [facility] Levothyroxine Sodium (Synthroid) 25 mcg PO DAILY@0700 [facility] Last Admin: 08/28/18 06:34 Dose: 25 mcg Losartan Potassium (Cozaar) 50 mg PO DAILY [facility] Ondansetron HCl (Zofran Inj) 4 mg IV.PUSH Q6H PRN PRN Reason: NAUSEA Pom: (Insulin Degludec [Tresiba Flextouch U-100] 15 Unit) 0 each SQ DAILY [facility] Last Admin: 08/27/18 10:18 Dose: Not Given Patient Own Medication: Tradjenta ( Linagliptin) 5mg Tablet 0 each PO DAILY [facility] Sodium Chloride (Ns Flush) 2 ml IV.FLUSH UNSCH PRN PRN Reason: FLUSH AFTER USING IV ACCESS Allergies Allergy/AdvReac Type Severity Reaction Status Date / Time glipizide Allergy Intermediate Verified 01/19/18 18:32 pravastatin Allergy Intermediate BODY ACHES Verified 01/19/18 18:32 simvastatin Allergy Intermediate BODY ACHES Verified 01/19/18 18:32 atorvastatin AdvReac Severe ""STATINS""-ELEVATED Verified 01/19/18 18:32 LIVER ENZYMES diatrizoate meglumine AdvReac Intermediate Hives Verified 01/19/18 18:32 fosinopril AdvReac Intermediate Cough Verified 01/19/18 18:32 gadobenic acid AdvReac Intermediate Hives Verified 01/19/18 18:32 gadodiamide AdvReac Intermediate Hives Verified 01/19/18 18:32 gadoteridol AdvReac Intermediate Hives Verified 01/19/18 18:32 iodine AdvReac Intermediate Hives Verified 01/19/18 18:32 iodixanol AdvReac Intermediate Hives Verified 01/19/18 18:32 iohexol AdvReac Intermediate Hives Verified 01/19/18 18:32 potassium iodide AdvReac Intermediate Hives Verified 01/19/18 18:32 povidone-iodine AdvReac Intermediate Hives Verified 01/19/18 18:32 sodium iodide AdvReac Intermediate Hives Verified 01/19/18 18:32 sodium iodide AdvReac Intermediate Hives Verified 01/19/18 18:32 telmisartan AdvReac Intermediate Chest Pain Verified 01/19/18 18:32 Home Medications Medication Instructions Recorded Confirmed Type aspirin 81 mg PO DAILY 05/23/18 08/26/18 History docusate sodium [Colace] 100 mg PO DAILY PRN MDD unk 05/23/18 08/26/18 History furosemide 20 mg PO DAILY 05/23/18 08/26/18 History insulin degludec [Tresiba 15 unit SUB-Q DAILY 05/23/18 08/26/18 History FlexTouch U-100] isosorbide mononitrate 60 mg PO DAILY 05/23/18 08/26/18 History levothyroxine 25 mcg PO DAILY 05/23/18 08/26/18 History linagliptin [Tradjenta] 5 mg PO DAILY 05/23/18 08/26/18 History losartan 100 mg PO DAILY 05/23/18 08/26/18 History nitroglycerin [Nitrostat] 0.4 mg SUBLINGUAL Q5-15M PRN 05/23/18 08/26/18 History omega 3-zgm-zib-fish oil [Fish Oil] 1,000 mg PO 5XW 05/23/18 08/26/18 History carvedilol 25 mg PO BID 08/26/18 08/26/18 History hydralazine 50 mg PO TID 08/26/18 08/26/18 History Physical Exam Vital signs: Vital Signs 08/27/18 11:28 08/27/18 16:00 08/27/18 19:56 Temperature 98.1 F 98.0 F 97.6 F Pulse Rate 53 L 63 68 Respiratory Rate 16 16 18 Blood Pressure 110/53 L 111/52 L 136/63 Pulse Oximetry 93 L 95 95 08/27/18 20:00 08/27/18 23:07 08/28/18 04:00 Temperature 98.3 F 97.9 F Pulse Rate 60 57 L Respiratory Rate 17 17 17 Blood Pressure 127/60 104/49 L Pulse Oximetry 91 L 99 08/28/18 04:53 08/28/18 07:53 08/28/18 08:19 Temperature 98.1 F Pulse Rate 54 L 61 Respiratory Rate 19 15 Blood Pressure 82/43 L Pulse Oximetry 97 08/28/18 08:36 08/28/18 10:03 Temperature 98.4 F Pulse Rate 65 70 Respiratory Rate 16 Blood Pressure 111/51 L 109/59 L Pulse Oximetry 84 L Intake & Output 08/27/18 08/28/18 08/28/18 18:59 06:59 18:59 Intake Total 480 / 480 Balance 480 / 480 Intake: Oral 480 / 480 Other: # Voids 1 Date of Last Bowel Movement 08/27/18 08/27/18 - Constitutional no acute distress - Routine HEENT Exam ENT: Present: mucous membranes moist - Routine Neck Exam Absent: JVD - Routine Respiratory Exam Present: CTA bilaterally - Routine Cardiovascular Exam Present: RRR, murmur - Routine Abdominal Exam Present: soft, normoactive bowel sounds - Routine Extremities Exam Absent: edema - Routine Neurological Exam Present: oriented X3, CN II-XII intact. Absent: sensory deficit, motor deficit Results 08/26/18 16:00 08/26/18 16:00 Cardiac Enzymes 08/26/18 08/26/18 08/26/18 Range/Units 16:00 20:14 23:01 AST 32 (15-37) U/L Troponin I Less than 0.02 L Less than 0.02 L Less than 0.02 L (0.02-0.05) ng/mL Coagulation 08/26/18 Range/Units 16:00 PT 10.0 (9.8-11.6) sec APTT 26.8 (24.3-30.1) sec CBC 08/26/18 Range/Units 16:00 WBC 7.6 (4.0-11.0) th/mm3 RBC 3.66 L (4.00-5.30) mil/mm3 Hgb 11.5 L (11.6-15.3) gm/dL Hct 32.0 L (35.0-46.0) % Plt Count 173 (150-450) th/mm3 Neut # (Auto) 4.6 (1.8-7.7) th/mm3 Lymph # (Auto) 2.0 (1.0-4.8) th/mm3 [place] # (Auto) 0.4 (0.0-0.9) th/mm3 Eos # (Auto) 0.4 (0.0-0.4) th/mm3 Baso # (Auto) 0.1 (0.0-0.2) th/mm3 Comprehensive Metabolic Panel 08/26/18 Range/Units 16:00 Sodium 135 L (136-145) meq/L Potassium 4.5 (3.5-5.1) meq/L Chloride 104 (98-107) meq/L Carbon Dioxide 22.7 (21.0-32.0) meq/L BUN 65 H (7-18) mg/dL Creatinine 2.15 H (0.50-1.00) mg/dL Calcium 8.8 (8.5-10.1) mg/dL AST 32 (15-37) U/L ALT 28 (10-53) U/L Alkaline Phosphatase 131 H (45-117) U/L Total Protein 8.2 (6.4-8.2) g/dL Albumin 3.7 (3.4-5.0) g/dL Intake and Output 08/27/18 08/28/18 08/28/18 22:59 06:59 14:59 Intake Total 480 / 480 Balance 480 / 480 Intake: Oral 480 / 480 Other: # Voids 1 Date of Last Bowel Movement 08/27/18 - Imaging and Cardiology Imaging: Impressions Chest X-Ray 08/26/18 15:47 CONCLUSION: Previous sternotomy. Cardiomegaly. Mild basilar atelectasis. No effusion or pneumothorax. Assessment and Plan - Plan Chest painsomewhat atypical presentation. Patient had cardiac catheterization in January 2018 which did reveal severe [place] three-vessel coronary artery disease but 2 bypass grafts were patent. At that point, we elected for medical management. Electrocardiogram was unremarkable for ischemic changes. Troponin is negative. We will titrate isosorbide to 120 mg daily. Hypotensionwe made quite a few changes to her outpatient regimen to reduce lower extremity edema. She now has had several bouts of hypotension. We will stop hydralazine. We will discontinue nifedipine started in the hospital. We will reduce her losartan back to 50 mg a day, especially given her elevated creatinine. I am going to decrease her carvedilol to 12.5 mg twice daily. With this in addition to the up titration of isosorbide, will monitor her blood pressure over the next 24 hours to make any further changes as necessary. Acute renal failure on chronic kidney diseasecreatinine has been as low as 1.3- 1.4 mg/dL in the past. Her creatinine upon presentation was elevated at 2.2 mg/ dL. She did already receive her angiotensin receptor anuja today. We will hold her diuretic today. She may need gentle hydration, especially given her known aortic valve disease. Aortic valve stenosisnot entirely sure why she has had progressive symptoms of angina. I looked back at her last echocardiogram earlier this year which did show a severely reduced aortic valve area in the setting of moderate elevation in mean aortic valve gradient. We repeated the echo here in the hospital, and it does look like she has had progression in her aortic valve disease. By both gradient and aortic valve area, she has severe aortic valve stenosis. Given her prior bypass surgery and comorbidities, she would be at increased risk for surgical aortic valve replacement. We will have a discussion with the patient considering transcatheter aortic valve replacement. At this point over the next 24 hours we will watch her blood pressure, creatinine, and have discussions about future workup for aortic valve replacement which would include a repeat heart catheterization given that her last catheterization was greater than 6 months ago.
[2018-08-28 12:19] LABS: Calcium 8.6 mg/dL (8.5-10.1); Carbon Dioxide 23.4 meq/L (21.0-32.0); Potassium 4.4 meq/L (3.5-5.1)
[2018-08-29 07:35] LABS: Baso % (Auto) 0.6 % (0.0-2.0); Eos # (Auto) 0.4 th/mm3 (0.0-0.4); Eos % (Auto) 4.5 % (0.0-4.0); Hematocrit 28.5 % (35.0-46.0); Lymph % (Auto) 24.8 % (9.0-44.0); Mean Corpuscular Volume 88.5 fL (80.0-100.0); Mean Platelet Volume 8.8 fL (7.0-11.0); Mono # (Auto) 0.6 th/mm3 (0.0-0.9); Neut # (Auto) 4.9 th/mm3 (1.8-7.7); Neut % (Auto) 62.1 % (16.0-70.0); Platelet Count 129 th/mm3 (150-450); Red Blood Count 3.22 mil/mm3 (4.00-5.30); White Blood Count 7.9 th/mm3 (4.0-11.0)
[2018-08-29 07:57] LABS: Calcium 8.5 mg/dL (8.5-10.1); Carbon Dioxide 23.3 meq/L (21.0-32.0); Potassium 4.2 meq/L (3.5-5.1)
[2018-08-29] MEDS: Insulin NovoLOG Aspart Correctional Sugar Inj SQ SCH ×4 (08:53→22:43)
--- NOTE | 2018-08-29 09:08 | P.PNCA ---
Subjective Interval history: rested comfortably overnight. no chest pain, sob or palpitations. BP low overnight 84/61 but improving. creatinine improving. patient does admit to exertional dyspnea since June. Medications and Allergies Allergies Allergy/AdvReac Type Severity Reaction Status Date / Time glipizide Allergy Intermediate Verified 01/19/18 18:32 pravastatin Allergy Intermediate BODY ACHES Verified 01/19/18 18:32 simvastatin Allergy Intermediate BODY ACHES Verified 01/19/18 18:32 atorvastatin AdvReac Severe ""STATINS""-ELEVATED Verified 01/19/18 18:32 LIVER ENZYMES diatrizoate meglumine AdvReac Intermediate Hives Verified 01/19/18 18:32 fosinopril AdvReac Intermediate Cough Verified 01/19/18 18:32 gadobenic acid AdvReac Intermediate Hives Verified 01/19/18 18:32 gadodiamide AdvReac Intermediate Hives Verified 01/19/18 18:32 gadoteridol AdvReac Intermediate Hives Verified 01/19/18 18:32 iodine AdvReac Intermediate Hives Verified 01/19/18 18:32 iodixanol AdvReac Intermediate Hives Verified 01/19/18 18:32 iohexol AdvReac Intermediate Hives Verified 01/19/18 18:32 potassium iodide AdvReac Intermediate Hives Verified 01/19/18 18:32 povidone-iodine AdvReac Intermediate Hives Verified 01/19/18 18:32 sodium iodide AdvReac Intermediate Hives Verified 01/19/18 18:32 sodium iodide AdvReac Intermediate Hives Verified 01/19/18 18:32 telmisartan AdvReac Intermediate Chest Pain Verified 01/19/18 18:32 Home Medications Medication Instructions Recorded Confirmed Type aspirin 81 mg PO DAILY 05/23/18 08/26/18 History docusate sodium [Colace] 100 mg PO DAILY PRN MDD unk 05/23/18 08/26/18 History furosemide 20 mg PO DAILY 05/23/18 08/26/18 History insulin degludec [Tresiba 15 unit SUB-Q DAILY 05/23/18 08/26/18 History FlexTouch U-100] isosorbide mononitrate 60 mg PO DAILY 05/23/18 08/26/18 History levothyroxine 25 mcg PO DAILY 05/23/18 08/26/18 History linagliptin [Tradjenta] 5 mg PO DAILY 05/23/18 08/26/18 History losartan 100 mg PO DAILY 05/23/18 08/26/18 History nitroglycerin [Nitrostat] 0.4 mg SUBLINGUAL Q5-15M PRN 05/23/18 08/26/18 History omega 2-nmt-jfv-fish oil [Fish Oil] 1,000 mg PO 5XW 05/23/18 08/26/18 History carvedilol 25 mg PO BID 08/26/18 08/26/18 History hydralazine 50 mg PO TID 08/26/18 08/26/18 History Active Medications: Active Medications Acetaminophen (Tylenol) 500 mg PO Q4H PRN PRN Reason: HEADACHE Last Admin: 08/28/18 10:16 Dose: 500 mg Albuterol (Albuterol Neb (Prn)) 1.25 mg NEB Q4HR NEB PRN PRN Reason: SHORTNESS OF BREATH/WHEEZING Aspirin (Aspirin Chew) 81 mg PO DAILY [facility] Last Admin: 08/28/18 10:16 Dose: 81 mg Carvedilol (Coreg) 12.5 mg PO BID [facility] Last Admin: 08/28/18 22:20 Dose: 12.5 mg Dextrose (D50w Vial) 50 ml IV.PUSH UNSCH PRN PRN Reason: PER HYPOGLYCEMIA PROTOCOL Docusate Sodium (Colace) 100 mg PO DAILY PRN PRN Reason: Constipation Furosemide (Lasix) 20 mg PO DAILY [facility] Last Admin: 08/28/18 10:16 Dose: 20 mg Glucagon (Glucagon Inj) 1 mg OTHER PRN PRN PRN Reason: for Hypoglycemia Protocol Sodium Chloride (Ns Inj) 1,000 mls @ 0 mls/hr IV.SIG BOLUS [facility] Insulin Aspart (Novolog Insulin Correctional Sugar Inj) 0 unit SQ ACHS [facility]; Protocol Last Admin: 08/29/18 08:53 Dose: Not Given Isosorbide Mononitrate (Imdur) 120 mg PO DAILY [facility] Levothyroxine Sodium (Synthroid) 25 mcg PO DAILY@0700 [facility] Last Admin: 08/29/18 06:19 Dose: 25 mcg Losartan Potassium (Cozaar) 50 mg PO DAILY [facility] Ondansetron HCl (Zofran Inj) 4 mg IV.PUSH Q6H PRN PRN Reason: NAUSEA Pom: (Insulin Degludec [Tresiba Flextouch U-100] 15 Unit) 0 each SQ DAILY [facility] Last Admin: 08/27/18 10:18 Dose: Not Given Patient Own Medication: Tradjenta ( Linagliptin) 5mg Tablet 0 each PO DAILY [facility] Sodium Chloride (Ns Flush) 2 ml IV.FLUSH UNSCH PRN PRN Reason: FLUSH AFTER USING IV ACCESS Physical Exam Vital signs: Vital Signs 08/28/18 10:03 08/28/18 12:33 08/28/18 16:22 Temperature 97.9 F 98.0 F Pulse Rate 70 53 L 66 Respiratory Rate 16 16 Blood Pressure 109/59 L 79/41 L 122/60 Pulse Oximetry 91 L 92 L 08/28/18 20:00 08/29/18 00:00 08/29/18 04:00 Temperature 98.3 F 98.4 F 98.3 F Pulse Rate 60 68 65 Respiratory Rate 16 16 16 Blood Pressure 99/44 L 109/51 L 116/54 L Pulse Oximetry 94 L 95 96 08/29/18 08:00 08/29/18 08:53 Temperature 98.5 F Pulse Rate 55 L Respiratory Rate 16 Blood Pressure 84/31 L 120/60 Pulse Oximetry 91 L Intake & Output 08/28/18 08/29/18 08/29/18 18:59 06:59 18:59 Other: # Voids 2 2 Date of Last Bowel Movement 08/27/18 08/27/18 08/27/18 Narrative: GENERAL: SKIN: Warm and dry. HEAD: Normocephalic. EYES: No scleral icterus. No injection or drainage. NECK: Supple, trachea midline. No JVD or lymphadenopathy. CARDIOVASCULAR: Regular rate and rhythm , systolic murmur, gallops, or rubs. RESPIRATORY: Breath sounds equal bilaterally. No accessory muscle use. GASTROINTESTINAL: Abdomen soft, non-tender, nondistended. MUSCULOSKELETAL: No cyanosis, or edema. Results 08/29/18 06:45 08/29/18 06:45 CBC 08/29/18 Range/Units 06:45 WBC 7.9 (4.0-11.0) th/mm3 RBC 3.22 L (4.00-5.30) mil/mm3 Hgb 10.0 L (11.6-15.3) gm/dL Hct 28.5 L (35.0-46.0) % Plt Count 129 L (150-450) th/mm3 Neut # (Auto) 4.9 (1.8-7.7) th/mm3 Lymph # (Auto) 2.0 (1.0-4.8) th/mm3 [place] # (Auto) 0.6 (0.0-0.9) th/mm3 Eos # (Auto) 0.4 (0.0-0.4) th/mm3 Baso # (Auto) 0.0 (0.0-0.2) th/mm3 Comprehensive Metabolic Panel 08/28/18 08/29/18 Range/Units 11:17 06:45 Sodium 138 137 (136-145) meq/L Potassium 4.4 4.2 (3.5-5.1) meq/L Chloride 105 104 (98-107) meq/L Carbon Dioxide 23.4 23.3 (21.0-32.0) meq/L BUN 55 H 55 H (7-18) mg/dL Creatinine 1.99 H 1.66 H (0.50-1.00) mg/dL Calcium 8.6 8.5 (8.5-10.1) mg/dL Intake and Output 08/28/18 08/29/18 08/29/18 22:59 06:59 14:59 Other: # Voids 2 2 Date of Last Bowel Movement 08/27/18 08/27/18 Assessment and Plan - Plan Chest painsomewhat atypical presentation. Patient had cardiac catheterization in January 2018 which did reveal severe [place] three-vessel coronary artery disease but 2 bypass grafts were patent. At that point, we elected for medical management. Electrocardiogram was unremarkable for ischemic changes. Troponin is negative. cont isosorbide to 120 mg daily. Hypotensionwe made quite a few changes to her outpatient regimen to reduce lower extremity edema. She now has had several bouts of hypotension. hydralazine and nifedipine discontinued. losartan was reduced back to 50 mg a day, especially given her elevated creatinine. carvedilol reduced to 12.5 mg twice daily. With this in addition to the up titration of isosorbide, will monitor her blood pressure over the next 24 hours to make any further changes as necessary. Acute renal failure on chronic kidney diseasecreatinine has been as low as 1.3- 1.4 mg/dL in the past. Her creatinine upon presentation was elevated at 2.2 mg/ dL. Now improving at 1.6. Diuretic has been held. She may need gentle hydration , especially given her known aortic valve disease. Aortic valve stenosisnot entirely sure why she has had progressive symptoms of angina. I looked back at her last echocardiogram earlier this year which did show a severely reduced aortic valve area in the setting of moderate elevation in mean aortic valve gradient. We repeated the echo here in the hospital, and it does look like she has had progression in her aortic valve disease. By both gradient and aortic valve area, she has severe aortic valve stenosis. Given her prior bypass surgery and comorbidities, she would be at increased risk for surgical aortic valve replacement. We will have a discussion with the patient considering transcatheter aortic valve replacement which would include a repeat heart catheterization given that her last catheterization was greater than 6 months ago. Continue to monitor BP, if improving will consider discharge and follow up in outpatient to discuss TAVR evaluation. She has a follow up visit already scheduled with out office in early September. - Attending Attestation agree with above decrease BP meds gentle hydration DC planning for tomorrow ambulate outpatient AVR workup
[2018-08-29] MEDS: Carvedilol 12.5 MG Tablet PO SCH (09:39)
[2018-08-29] MEDS: Isosorbide Mononitrate 60 MG ER 24HR Tablet (Imdur) PO SCH (09:39)
--- NOTE | 2018-08-29 10:11 | P.PNIM ---
Subjective Interval history: Pt is feeling slightly better this morning, less fatigue this morning BP was low again overnight but systolic 120 this morning She reports in the past she had significant headaches on the high dose of Imdur and is trepidations about receiving that today but is ok with giving it a try to see how she does. Physical Exam Vital signs: Vital Signs 08/28/18 12:33 08/28/18 16:22 08/28/18 20:00 Temperature 97.9 F 98.0 F 98.3 F Pulse Rate 53 L 66 60 Respiratory Rate 16 16 16 Blood Pressure 79/41 L 122/60 99/44 L Pulse Oximetry 91 L 92 L 94 L 08/29/18 00:00 08/29/18 04:00 08/29/18 08:00 Temperature 98.4 F 98.3 F 98.5 F Pulse Rate 68 65 60 Respiratory Rate 16 16 16 Blood Pressure 109/51 L 116/54 L 84/31 L Pulse Oximetry 95 96 91 L 08/29/18 08:53 08/29/18 09:00 Temperature Pulse Rate 66 Respiratory Rate Blood Pressure 120/60 Pulse Oximetry Intake & Output 08/28/18 08/29/18 08/29/18 18:59 06:59 18:59 Other: # Voids 2 2 Date of Last Bowel Movement 08/27/18 08/27/18 08/27/18 Narrative: GENERAL: NAD, AAOx3 Cardiac: RRR, 3/6 systolic murmur, bilateral carotid bruits R>L. Chest: CTA bilateral ABD: +BS, soft, NT, ND EXT: No edema Results - Labs CBC & Chem 7: 08/29/18 06:45 08/29/18 06:45 Laboratory Results - last 24 hr 08/28/18 08/28/18 08/28/18 11:17 13:12 13:15 WBC RBC Hgb Hct MCV MCH MCHC RDW Plt Count MPV Neut % (Auto) Lymph % (Auto) [place] % (Auto) Eos % (Auto) Baso % (Auto) Neut # (Auto) Lymph # (Auto) [place] # (Auto) Eos # (Auto) Baso # (Auto) WBC Differential Differential Comment Sodium 138 Potassium 4.4 Chloride 105 Carbon Dioxide 23.4 Anion Gap 10 BUN 55 H Creatinine 1.99 H Estimated GFR 24 L POC Glucose 256 H 219 H Random Glucose 201 H Calcium 8.6 08/28/18 08/28/18 08/29/18 17:50 21:52 06:45 WBC 7.9 RBC 3.22 L Hgb 10.0 L Hct 28.5 L MCV 88.5 MCH 31.0 MCHC 35.0 RDW 14.0 Plt Count 129 L MPV 8.8 Neut % (Auto) 62.1 Lymph % (Auto) 24.8 [place] % (Auto) 8.0 Eos % (Auto) 4.5 H Baso % (Auto) 0.6 Neut # (Auto) 4.9 Lymph # (Auto) 2.0 [place] # (Auto) 0.6 Eos # (Auto) 0.4 Baso # (Auto) 0.0 WBC Differential . Differential Comment Auto diff final Sodium Potassium Chloride Carbon Dioxide Anion Gap BUN Creatinine Estimated GFR POC Glucose 104 152 H Random Glucose Calcium 08/29/18 08/29/18 06:45 08:49 WBC RBC Hgb Hct MCV MCH MCHC RDW Plt Count MPV Neut % (Auto) Lymph % (Auto) [place] % (Auto) Eos % (Auto) Baso % (Auto) Neut # (Auto) Lymph # (Auto) [place] # (Auto) Eos # (Auto) Baso # (Auto) WBC Differential Differential Comment Sodium 137 Potassium 4.2 Chloride 104 Carbon Dioxide 23.3 Anion Gap 10 BUN 55 H Creatinine 1.66 H Estimated GFR 30 L POC Glucose 147 H Random Glucose 125 H Calcium 8.5 - Imaging Chest X-Ray 08/26/18 15:47 CONCLUSION: Previous sternotomy. Cardiomegaly. Mild basilar atelectasis. No effusion or pneumothorax. Assessment and Plan - Assessment (1) Chest pain, rule out acute myocardial infarction Code(s): R07.9 - Chest pain, unspecified Status: Acute Plan: Chest pain HTN - Pt is an 83 y/o female with CAD s/p CABG x 2 surgeries (1994 and 2015), diabetes, ARF, and hypertension - She presented to ED at [facility] on 08/26/18 for evaluation of chest pain. Pt follows with Dr. Coyle and reports recent medication changes including stopping metoprolol and amlodipine, increasing losartan from 50 mg to 100 mg daily, and adding hydralazine and carvedilol. After starting the Hydralazine she felt like she started having intermittent chest pain similar to her anginal pain she has had in the past. - Pt was initially admitted to the Chest pain center at [place]. - Serial CE and EKG r/o ACS. - Cardiology was consulted. - Pts Hydralazine was stopped and she was ordered Procardia XL 60mg po daily - Pts BP was running low yesterday so the Procardia was cut in half to 30mg po BID with parameters. This was started on 08/27/18. - Pts BP this morning was still rather low - Pt is currently on Coreg 25mg BID, Cozaar 100mg daily, Procardia XL 30mg BID, Imdur 60mg daily, lasix 20mg daily - Discussed the case with Dr. Coyle on 08/28/18, we will stop the Procardia, decrease her Losartan to 50mg daily, decrease her Coreg to 12.5mg BID, increase her Imdur to 120mg daily - Further adjustments on 08/29/18 with stopping Losartan. Decrease Coreg to 6.25mg po BID, Cont. Imdur 120mg daily - Repeat BMP with noted improvement in her renal function, continue on home dose of Lasix. CAD s/p CABG x 2 (1994 and 2015) - 2D echo (01/22/18) - Estimated ejection fraction in the range of 65-70% - Diffuse calcification of the aortic valve. Moderate aortic valve stenosis ( severe by GISSELL; mild-moderate by mean gradient). Aortic valve area is 0.43 cm. Aortic valve mean gradient is 23 mmHg. - There is mild to moderate tricuspid valve regurgitation. - Estimated pulmonary arterial pressure is 36.6 mmHg. Mild pulmonary valve regurgitation. - Pt had LHC on 01/16/[address] Coyle which noted severe [place] 3-vessel coronary artery disease, 2 of 3 coronary bypass grafts of the most recent grafts are patent. Aortic stenosis - management per Cardiology Diabetes Mellitus - NovoLog SSI - Accu checks Hypothyroidism - Home meds continued (2) Hypertension, essential Code(s): I10 - Essential (primary) hypertension Status: Acute (3) Aortic stenosis Code(s): I35.0 - Nonrheumatic aortic (valve) stenosis Status: Acute (4) Renal insufficiency Code(s): N28.9 - Disorder of kidney and ureter, unspecified Status: Acute (5) Type 2 diabetes mellitus Code(s): E11.9 - Type 2 diabetes mellitus without complications Status: Chronic - Attending Attestation The exam, history, and the medical decision-making described in the above note were completed with the assistance of the mid-level provider. I reviewed and agree with the findings presented. I attest that I had a [id number] encounter with the patient on the same day, and personally performed and documented my assessment and findings in the medical record. Patient examined. Assessment and plan formulated with Lisseth Renteria PA-C. I agree with the above. 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
[2018-08-29] MEDS: Carvedilol 6.25 MG Tablet PO SCH (22:14)
--- NOTE | 2018-08-30 08:24 | P.PNCA ---
Subjective Interval history: no events Medications and Allergies Active Medications: Active Medications Acetaminophen (Tylenol) 500 mg PO Q4H PRN PRN Reason: HEADACHE Last Admin: 08/28/18 10:16 Dose: 500 mg Albuterol (Albuterol Neb (Prn)) 1.25 mg NEB Q4HR NEB PRN PRN Reason: SHORTNESS OF BREATH/WHEEZING Aspirin (Aspirin Chew) 81 mg PO DAILY [facility] Last Admin: 08/29/18 09:38 Dose: 81 mg Carvedilol (Coreg) 6.25 mg PO BID [facility] Last Admin: 08/29/18 22:14 Dose: 6.25 mg Dextrose (D50w Vial) 50 ml IV.PUSH UNSCH PRN PRN Reason: PER HYPOGLYCEMIA PROTOCOL Docusate Sodium (Colace) 100 mg PO DAILY PRN PRN Reason: Constipation Furosemide (Lasix) 20 mg PO DAILY [facility] Last Admin: 08/28/18 10:16 Dose: 20 mg Glucagon (Glucagon Inj) 1 mg OTHER PRN PRN PRN Reason: for Hypoglycemia Protocol Sodium Chloride (Ns Inj) 1,000 mls @ 0 mls/hr IV.SIG BOLUS [facility] Insulin Aspart (Novolog Insulin Correctional Sugar Inj) 0 unit SQ ACHS [facility]; Protocol Last Admin: 08/29/18 22:43 Dose: 3 unit Isosorbide Mononitrate (Imdur) 120 mg PO DAILY [facility] Last Admin: 08/29/18 09:39 Dose: 120 mg Levothyroxine Sodium (Synthroid) 25 mcg PO DAILY@0700 [facility] Last Admin: 08/30/18 06:45 Dose: 25 mcg Ondansetron HCl (Zofran Inj) 4 mg IV.PUSH Q6H PRN PRN Reason: NAUSEA Pom: (Insulin Degludec [Tresiba Flextouch U-100] 15 Unit) 0 each SQ DAILY [facility] Last Admin: 08/27/18 10:18 Dose: Not Given Patient Own Medication: Tradjenta ( Linagliptin) 5mg Tablet 0 each PO DAILY [facility] Sodium Chloride (Ns Flush) 2 ml IV.FLUSH UNSCH PRN PRN Reason: FLUSH AFTER USING IV ACCESS Allergies Allergy/AdvReac Type Severity Reaction Status Date / Time glipizide Allergy Intermediate Verified 01/19/18 18:32 pravastatin Allergy Intermediate BODY ACHES Verified 01/19/18 18:32 simvastatin Allergy Intermediate BODY ACHES Verified 01/19/18 18:32 atorvastatin AdvReac Severe ""STATINS""-ELEVATED Verified 01/19/18 18:32 LIVER ENZYMES diatrizoate meglumine AdvReac Intermediate Hives Verified 01/19/18 18:32 fosinopril AdvReac Intermediate Cough Verified 01/19/18 18:32 gadobenic acid AdvReac Intermediate Hives Verified 01/19/18 18:32 gadodiamide AdvReac Intermediate Hives Verified 01/19/18 18:32 gadoteridol AdvReac Intermediate Hives Verified 01/19/18 18:32 iodine AdvReac Intermediate Hives Verified 01/19/18 18:32 iodixanol AdvReac Intermediate Hives Verified 01/19/18 18:32 iohexol AdvReac Intermediate Hives Verified 01/19/18 18:32 potassium iodide AdvReac Intermediate Hives Verified 01/19/18 18:32 povidone-iodine AdvReac Intermediate Hives Verified 01/19/18 18:32 sodium iodide AdvReac Intermediate Hives Verified 01/19/18 18:32 sodium iodide AdvReac Intermediate Hives Verified 01/19/18 18:32 telmisartan AdvReac Intermediate Chest Pain Verified 01/19/18 18:32 Home Medications Medication Instructions Recorded Confirmed Type aspirin 81 mg PO DAILY 05/23/18 08/26/18 History docusate sodium [Colace] 100 mg PO DAILY PRN MDD unk 05/23/18 08/26/18 History furosemide 20 mg PO DAILY 05/23/18 08/26/18 History insulin degludec [Tresiba 15 unit SUB-Q DAILY 05/23/18 08/26/18 History FlexTouch U-100] isosorbide mononitrate 60 mg PO DAILY 05/23/18 08/26/18 History levothyroxine 25 mcg PO DAILY 05/23/18 08/26/18 History linagliptin [Tradjenta] 5 mg PO DAILY 05/23/18 08/26/18 History losartan 100 mg PO DAILY 05/23/18 08/26/18 History nitroglycerin [Nitrostat] 0.4 mg SUBLINGUAL Q5-15M PRN 05/23/18 08/26/18 History omega 0-fjj-pnd-fish oil [Fish Oil] 1,000 mg PO 5XW 05/23/18 08/26/18 History carvedilol 25 mg PO BID 08/26/18 08/26/18 History hydralazine 50 mg PO TID 08/26/18 08/26/18 History Physical Exam Vital signs: Vital Signs 08/29/18 08:53 08/29/18 09:00 08/29/18 12:00 Temperature 97.4 F L Pulse Rate 66 60 Respiratory Rate 16 Blood Pressure 120/60 111/55 L Pulse Oximetry 95 08/29/18 16:00 08/29/18 20:00 08/30/18 00:00 Temperature 97.6 F 97.7 F 99.0 F Pulse Rate 57 L 74 65 Respiratory Rate 16 15 16 Blood Pressure 136/53 L 146/65 H 137/63 Pulse Oximetry 94 L 95 08/30/18 04:00 08/30/18 07:59 08/30/18 08:01 Temperature 97.2 F L 98.4 F Pulse Rate 68 62 Respiratory Rate 17 18 Blood Pressure 127/77 105/49 L Pulse Oximetry 98 97 95 Intake & Output 08/29/18 08/30/18 08/30/18 18:59 06:59 18:59 Intake Total 400 / 400 Balance 400 / 400 Intake: Oral 400 / 400 Other: # Voids 3 2 Date of Last Bowel Movement 08/27/18 - Constitutional no acute distress - Routine Neck Exam Absent: JVD - Routine Respiratory Exam Present: CTA bilaterally - Routine Cardiovascular Exam Present: RRR - Routine Abdominal Exam Present: soft, normoactive bowel sounds - Routine Neurological Exam Absent: sensory deficit, motor deficit Results 08/29/18 06:45 08/29/18 06:45 CBC 08/29/18 Range/Units 06:45 WBC 7.9 (4.0-11.0) th/mm3 RBC 3.22 L (4.00-5.30) mil/mm3 Hgb 10.0 L (11.6-15.3) gm/dL Hct 28.5 L (35.0-46.0) % Plt Count 129 L (150-450) th/mm3 Neut # (Auto) 4.9 (1.8-7.7) th/mm3 Lymph # (Auto) 2.0 (1.0-4.8) th/mm3 [place] # (Auto) 0.6 (0.0-0.9) th/mm3 Eos # (Auto) 0.4 (0.0-0.4) th/mm3 Baso # (Auto) 0.0 (0.0-0.2) th/mm3 Comprehensive Metabolic Panel 08/28/18 08/29/18 Range/Units 11:17 06:45 Sodium 138 137 (136-145) meq/L Potassium 4.4 4.2 (3.5-5.1) meq/L Chloride 105 104 (98-107) meq/L Carbon Dioxide 23.4 23.3 (21.0-32.0) meq/L BUN 55 H 55 H (7-18) mg/dL Creatinine 1.99 H 1.66 H (0.50-1.00) mg/dL Calcium 8.6 8.5 (8.5-10.1) mg/dL Intake and Output 08/29/18 08/30/18 08/30/18 22:59 06:59 14:59 Intake Total 400 / 400 Balance 400 / 400 Intake: Oral 400 / 400 Other: # Voids 3 2 Assessment and Plan - Plan Chest paincontinue medical management. cont isosorbide to 120 mg daily. Hypotensionencourage hydration. Hold angiotensin receptor anuja therapy. Continue carvedilol therapy. Have patient monitor blood pressure at home. Acute renal failure on chronic kidney diseasefollow creatinine result for today. Creatinine trending in the right direction. If creatinine looks better today may initiate Lasix at 20 mg daily. Aortic valve stenosiswill follow up in the outpatient setting to schedule evaluation for consideration of transcatheter aortic valve replacement given her symptoms and severe aortic valve stenosis. Okay for discharge from cardiovascular perspective today. Follow-up in the outpatient setting in the next 2 weeks.
[2018-08-30] MEDS: Isosorbide Mononitrate 60 MG ER 24HR Tablet (Imdur) PO SCH (08:50)
[2018-08-30] MEDS: Carvedilol 6.25 MG Tablet PO SCH ×3 (08:50→21:09)
[2018-08-30] MEDS: Insulin NovoLOG Aspart Correctional Sugar Inj SQ SCH ×4 (08:50→21:12)
--- NOTE | 2018-08-30 14:53 | P.DS ---
<Livier Rockwell W - Last Filed: 08/31/18 14:44> Date of admission: 08/26/18 16:51 Primary care physician: Hermila Anderson Attending physician on discharge: You Cheek Anticipated date of discharge: 08/31/18 Brief History from admission: 83 year old female with history of CAD, x2 CABG surgeries (1994 and 2015), diabetes, ARF, and hypertension presents to ER for further evaluation of chest pain. Follows with Dr. Coyle and reports recent medication changes including stopping metoprolol and amlodipine, increasing losartan from 50 mg to 100 mg daily, adding hydralazine and carvedilol. First dose of hydralazine Tuesday evening. Tolerated well states "I slept the best I have in a long time." Upon awakening Tuesday morning, took second dose of hydralazine. Approximately 1 hour after dose developed substernal heaviness with associated symptoms of dyspnea and nausea. No radiation. Duration approximately 30 minutes. Took a total x2 sublingual nitroglycerin denies immediate if any relief. After pressure resolved continued to feel "poor most of morning." Took second dose of hydralazine around noon Tuesday. Again 1 hour after taking hydralazine developed substernal heaviness somewhat more severe. Associated symptoms included dyspnea, nausea, with radiation to bilateral jaw, neck and "all over." Duration 1 hour. Attempted to call Dr. Coyle's office, unable call center therefore came to the ER for further evaluation. Of note patient states recent bilateral carotid ultrasound and echocardiogram completed last week. Known aortic stenosis. Follow-up appointment scheduled 09/14/18 to determine further plan. Known heart murmur and states Dr. Coyle and Dr. Dickey monitoring closely for possible valve replacement. Denies history of LOC or dizziness, however blood pressure becoming more difficult to manage. Reports [place] January 2018 and cardiac catheterization completed at that time. Medical management recommended. Past cardiac testing 01/22/18 Echocardiogram CONCLUSIONS Normal left ventricular size. Wall thickness is normal. The left ventricular systolic function is hyperdynamic with an estimated ejection fraction in the range of 65-7 Diffuse calcification of the aortic valve. Moderate aortic valve stenosis (severe by GISSELL; mild- moderate by mean gradient). Aortic valve area is 0.43 cm. Aortic valve mean gradient is 23 mmHg. There is mild to moderate tricuspid valve regurgitation. The estimated pulmonary arterial pressure is 36.6 mmHg. Mild pulmonary valve regurgitation. 01/16/[address] Coyle) Conclusions: 1. Severe [place] 3- vessel coronary artery disease. 2. 2 of 3 coronary bypass grafts of [facility] most recent grafts are patent. 06/02/2016 CABG REDO (Dr. Albarado) REDO CABG x3, SHIPMAN to LAD (fair), SVG to OM ( good ), SVG to RCA (good), EVH (left and right legs) 06/02/2017 Cardiac catheterization (Dr. Dickey) Conclusions: She demonstrated rather diffuse CAD. She would appear to be a candidate for repeat bypass graft to LAD, circumflex, and right coronary artery. 02/08/2013 Lexiscan-No evidence of stress induced ischemia. Normal wall motion EF 74%. 1994 CABGx3 ([facility]) Social history Known coronary artery disease, diabetes, hypertension, and hyperlipidemia. Lifelong non-smoker. No alcohol or recreational drug use. Lives independently. Patient update on day of discharge: Patient offers no complaints at this time denies chest pain feels ready to go home DS: Diagnosis - Discharge Diagnosis (1) Chest pain, rule out acute myocardial infarction Status: Acute (2) Aortic stenosis Status: Acute DS: Medications - Discharge Medications Prescriptions: carvedilol [Coreg] 6.25 mg PO BID 30 Days #60 tab isosorbide mononitrate 120 mg PO DAILY 30 Days #60 tab DS: Summary Hospital Course: Chest pain HTN - Pt is an 83 y/o female with CAD s/p CABG x 2 surgeries (1994 and 2015), diabetes, ARF, and hypertension - She presented to ED at [facility] [place], [place] on 08/26/18 for evaluation of chest pain. Pt follows with Dr. Coyle and reports recent medication changes including stopping metoprolol and amlodipine, increasing losartan from 50 mg to 100 mg daily, and adding hydralazine and carvedilol. After starting the Hydralazine she felt like she started having intermittent chest pain similar to her anginal pain she has had in the past. - Pt was initially admitted to the Chest pain center at [place]. - Serial CE and EKG r/o ACS. - Cardiology was consulted. - Pts Hydralazine was stopped and she was ordered Procardia XL 60mg po daily - Pts BP was running low yesterday so the Procardia was cut in half to 30mg po BID with parameters. This was started on 08/27/18. - Pts BP this morning was still rather low - Pt is currently on Coreg 25mg BID, Cozaar 100mg daily, Procardia XL 30mg BID, Imdur 60mg daily, lasix 20mg daily - Discussed the case with Dr. Coyle on 08/28/18, we will stop the Procardia, decrease her Losartan to 50mg daily, decrease her Coreg to 12.5mg BID, increase her Imdur to 120mg daily - Further adjustments on 08/29/18 with stopping Losartan. Decrease Coreg to 6.25mg po BID, Cont. Imdur 120mg daily - Repeat BMP with noted improvement in her renal function, continue on home dose of Lasix. CAD s/p CABG x 2 (1994 and 2015) - 2D echo (01/22/18) - Estimated ejection fraction in the range of 65-70% - Diffuse calcification of the aortic valve. Moderate aortic valve stenosis ( severe by GISSELL; mild-moderate by mean gradient). Aortic valve area is 0.43 cm. Aortic valve mean gradient is 23 mmHg. - There is mild to moderate tricuspid valve regurgitation. - Estimated pulmonary arterial pressure is 36.6 mmHg. Mild pulmonary valve regurgitation. - Pt had LHC on 01/16/[address] Coyle which noted severe [place] 3-vessel coronary artery disease, 2 of 3 coronary bypass grafts of the most recent grafts are patent. Aortic stenosis - management per Cardiology - outpatient follow up in 2 weeks Diabetes Mellitus - NovoLog SSI - Accu checks Hypothyroidism - Home meds continued - Time Spent with Patient Total time spent providing and/or coordinating discharge services: Greater than 30 minutes - Quality: VTE Deep Vein Thrombosis/Pulmonary Embolism Present on Admission: No Exam Vital signs: Vital Signs 08/29/18 16:00 08/29/18 20:00 08/30/18 00:00 Temperature 97.6 F 97.7 F 99.0 F Pulse Rate 57 L 74 65 Respiratory Rate 16 15 16 Blood Pressure 136/53 L 146/65 H 137/63 Pulse Oximetry 94 L 95 08/30/18 04:00 08/30/18 07:59 08/30/18 08:01 Temperature 97.2 F L 98.4 F Pulse Rate 68 62 Respiratory Rate 17 18 Blood Pressure 127/77 105/49 L Pulse Oximetry 98 97 95 08/30/18 12:05 Temperature 97.6 F Pulse Rate 62 Respiratory Rate 18 Blood Pressure 117/53 L Pulse Oximetry 95 Intake & Output 08/29/18 08/30/18 08/30/18 18:59 06:59 18:59 Intake Total 400 / 400 Balance 400 / 400 Intake: Oral 400 / 400 Other: # Voids 3 2 Date of Last Bowel Movement 08/27/18 Narrative: GENERAL: NAD, AAOx3 Cardiac: RRR, 3/6 systolic murmur, bilateral carotid bruits R>L. Chest: CTA bilateral ABD: +BS, soft, NT, ND EXT: No edema Results Procedures completed during hospitalization: none Labs on day of discharge: Labs from last 24 hours 08/30/18 08/30/18 08/29/18 12:54 08:48 22:25 POC Glucose 179 H 129 H 219 H 08/29/18 16:14 POC Glucose 148 H - Impressions ITS Impressions Chest X-Ray 08/26/18 15:47 CONCLUSION: Previous sternotomy. Cardiomegaly. Mild basilar atelectasis. No effusion or pneumothorax. <You Cheek B - Last Filed: 09/03/18 07:34> Date of admission: 08/26/18 16:51 Primary care physician: Hermila Anderson DS: Diagnosis - Discharge Diagnosis (1) Chest pain, rule out acute myocardial infarction Status: Acute (2) Hypertension, essential Status: Acute (3) Aortic stenosis Status: Acute (4) Renal insufficiency Status: Acute (5) Type 2 diabetes mellitus Status: Chronic DS: Summary Hospital Course: The exam, history, and the medical decision-making described in the above note were completed with the assistance of the mid-level provider. I reviewed and agree with the findings presented. I attest that I had a [id number] encounter with the patient on the same day, and personally performed and documented my assessment and findings in the medical record. Patient examined. Assessment and plan formulated with Livier Rockwell PA-C. I agree with the above. - Time Spent with Patient Total time spent providing and/or coordinating discharge services: Greater than 30 minutes Results - Impressions ITS Impressions Chest X-Ray 08/26/18 15:47 CONCLUSION: Previous sternotomy. Cardiomegaly. Mild basilar atelectasis. No effusion or pneumothorax. Discharge Plan - Discharge Order Discharge Orders: Discharge Order (Routine); Ordered 08/31/18 Ordered By: Livier Rockwell Cardiology Clear for Discharge (Routine); Ordered 08/30/18 Ordered By: Leonel Coyle - Discharge Details Anticipated Discharge Date: 08/31/18 - Physicians Team Primary Care Provider: Hermila Anderson Attending Provider: Adrian Garza Other Providers: Wing Pato Wheeler MD ; Adrian Garza MD
[2018-08-31 04:57] VITALS: TEMP 98.8
[2018-08-31 07:45] VITALS: BP 159/67; PULSE 57; RESP 16; O2SAT 96
[2018-08-31] MEDS: Insulin NovoLOG Aspart Correctional Sugar Inj SQ SCH (08:01)
[2018-08-31] MEDS: Isosorbide Mononitrate 60 MG ER 24HR Tablet (Imdur) PO SCH (08:26)
[2018-08-31] MEDS: Carvedilol 6.25 MG Tablet PO SCH (08:26)
== END 2018-08-31 08:45 | disposition home or self-care (01) ==
LOC: NEDA 15:30 → NEPC 15:30 → NEPFCDU 18:40
PROVIDERS: ADMIT Hospitalist; ATTEND Hospitalist

== ENCOUNTER 2018-12-18 17:40 | Inpatient (IN) ==
--- NOTE | 2018-12-18 18:21 | ED ---
HPI General Chief complaint: Chest Pain Stated complaint: Chest Pain Time Seen by Provider: 12/18/18 18:08 Source: patient Mode of arrival: ambulatory Limitations: no limitations History of Present Illness HPI narrative: 83yo F with PMH of CAD with multiple stents, carotid stenosis, aortic stenosis here with c/o chest pain that started about 4pm today. Said pain is left side and goes to left shoulder, back and jaw. Pt had a CT scan today to prepare here for aortic valve replacement and had a meeting with Dr. Lara. Her treating plant pumper is Dr. Coyle. +SOB. She took her aspirin and three nitro and it improved but still did not go away so decided to come. Denies any fever, n/v, abdominal pain, focal weakness or numbness. Related Data Home Medications Medication Instructions Recorded Confirmed aspirin 81 mg PO DAILY 05/23/18 12/18/18 docusate sodium [Colace] 100 mg PO DAILY PRN 05/23/18 12/18/18 furosemide 20 mg PO DAILY 05/23/18 12/18/18 insulin degludec [Tresiba 15 unit SUB-Q DAILY 05/23/18 12/18/18 FlexTouch U-100] levothyroxine 25 mcg PO DAILY 05/23/18 12/18/18 linagliptin [Tradjenta] 5 mg PO DAILY 05/23/18 12/18/18 nitroglycerin [Nitrostat] 0.4 mg SUBLINGUAL Q5-15M PRN 05/23/18 12/18/18 carvedilol 6.25 mg PO Q12HR 12/11/18 12/18/18 cholecalciferol (vitamin D3) 2,000 unit PO DAILY 12/11/18 12/18/18 [Vitamin D3] isosorbide mononitrate 30 mg PO BID 12/11/18 12/18/18 losartan 50 mg PO BID 12/11/18 12/18/18 multivitamin [Multiple Vitamins] 1 tab PO DAILY 12/11/18 12/18/18 yictu-[id number]-epa-fish oil [Poneto-3 2 cap PO DAILY 12/11/18 12/18/18 Fish Oil] Allergies Allergy/AdvReac Type Severity Reaction Status Date / Time glipizide Allergy Intermediate Swelling Verified 12/18/18 17:56 Iodinated Contrast- Oral and Allergy Hives Verified 12/18/18 17:56 IV Dye niacin Allergy Itching, Verified 12/18/18 17:56 [From Niaspan Generalized Extended-Release] fosinopril [From Monopril] AdvReac Flushing Verified 12/18/18 17:56 hydralazine AdvReac Anxiety Verified 12/18/18 17:56 morphine AdvReac Shakiness Verified 12/18/18 17:56 oxycodone [From Percocet] AdvReac Depression Verified 12/18/18 17:56 Kwlpfsv-Acr-Jsk Reductase AdvReac Muscle Pain Verified 12/18/18 17:56 Inhibitor telmisartan [From Micardis] AdvReac Chest Pain Verified 12/18/18 17:56 Review of Systems ROS: all other systems reviewed are negative FOR[facility]LY [facility], [facility] Social History Social History Substance History: No History of Abuse Second Hand Smoke Exposure: No Smoking Status: Never smoker How Often Do You Have a Drink Containing Alcohol: Never Hx Recent Travel: No Immunization History Tetanus Immunization: Unsure Exam Narrative Exam Narrative: GENERAL: 83yo F in mild distress. SKIN: Focused skin assessment warm/dry. HEAD: Atraumatic. Normocephalic. EYES: Pupils equal and round. No scleral icterus. No injection or drainage. ENT: No nasal bleeding or discharge. Mucous membranes pink and moist. NECK: Trachea midline. No JVD. CARDIOVASCULAR: Regular rate and rhythm. +Systolic murmur appreciated. RESPIRATORY: No accessory muscle use. Clear to auscultation. Breath sounds equal bilaterally. GASTROINTESTINAL: Abdomen soft, non-tender, nondistended. MUSCULOSKELETAL: No obvious deformities. No clubbing. No cyanosis. No edema. NEUROLOGICAL: Awake and alert. No obvious cranial nerve deficits. Motor grossly within normal limits. Normal speech. PSYCHIATRIC: Appropriate mood and affect; insight and judgment normal. Course Initial Documented Vital Signs Temperature 98.7 F 12/18/18 17:42 Pulse Rate 88 12/18/18 17:42 Respiratory Rate 17 12/18/18 17:42 Blood Pressure 185/84 H 12/18/18 17:42 Pulse Oximetry 98 12/18/18 17:42 Last Documented Vital Signs Temperature 98 F 12/20/18 16:00 Pulse Rate 59 L 12/20/18 17:59 Respiratory Rate 16 12/20/18 16:00 Blood Pressure 130/82 12/20/18 16:00 Pulse Oximetry 98 12/20/18 16:00 Critical Care Time Critical Care Time: Yes Total Critical Care Time: 50 Attestation: Aggregate critical care time was 50 minutes. Time to perform other separately billable procedures was not included in the critical care time. My time did not include minutes spent treating any other patients simultaneously or on activities that did not directly contribute to the patient's treatment. The services I provided to this patient were to treat and/or prevent clinically significant deterioration that could result in: cardiovascular collapse or . I provided critical care services requiring my management, as noted below: Chart data review, documentation time, medication orders and management, vital sign assessments/reviewing monitor data, ordering and reviewing lab tests, ordering and interpreting/reviewing x-rays and diagnostic studies, care of the patient and discussion of the patient with the admitting physicians. Medical Decision Making MDM Narrative Medical decision making narrative: 83yo F with CAD, aortic stenosis, carotid stenosis here with left sided chest pain, jaw pain, neck pain. Labs reviewed, no leukocytosis. H/H 11.7/33.9. BUN/creatinine elevated at 50/1.81 which is slightly worst than 55/1.77 on 12/11/18. Glucose is elevated at 301, CO2 is normal at 22.9. Troponin is elevated at 0.13. CXR showed no acute cardiopulmonary disease. Pt was still with chest pain and elevated blood pressure after nitropaste so started on nitroglycerin drip. Pt reevaluated at bedside and chest pain is now resolved. However now she has a headache and will acetaminophen. Discussed with her treating plant pumper Dr. Coyle who feels that the elevated troponin may be from the procedure today but agrees with observation and he will see her tomorrow. Discussed about heparin drip and agree to hold it for now. Discussed with Dr. Cheek and accepted to his service for NSTEMI. Pt will be admitted to [facility] since she is on nitroglycerin drip. Medical Screen Exam Complete: Yes Emergency Medical Condition: Yes Differential Diagnosis Differential Diagnosis: ACS vs. aortic stenosis Lab Data Result diagrams: 12/18/18 18:27 12/18/18 18:27 Lab Results 02/11/19 02/11/19 02/11/19 Range/Units 18:27 18:27 18:27 WBC 10.8 (4.0-11.0) th/mm3 RBC 3.82 L (4.00-5.30) mil/mm3 Hgb 11.7 (11.6-15.3) gm/dL Hct 33.9 L (35.0-46.0) % MCV 88.7 (80.0-100.0) fL MCH 30.6 (27.0-34.0) pg MCHC 34.5 (32.0-36.0) % RDW 14.1 (11.6-17.2) % Plt Count 175 (150-450) th/mm3 MPV 9.0 (7.0-11.0) fL Neut % (Auto) 85.7 H (16.0-70.0) % Lymph % (Auto) 10.9 (9.0-44.0) % Child[place] % (Auto) 2.9 (0.0-8.0) % Eos % (Auto) 0.0 (0.0-4.0) % Baso % (Auto) 0.5 (0.0-2.0) % Neut # (Auto) 9.3 H (1.8-7.7) th/mm3 Lymph # (Auto) 1.2 (1.0-4.8) th/mm3 [place] # (Auto) 0.3 (0.0-0.9) th/mm3 Eos # (Auto) 0.0 (0.0-0.4) th/mm3 Baso # (Auto) 0.1 (0.0-0.2) th/mm3 WBC Differential . Differential Comment Auto diff final PT 10.4 (9.8-11.6) sec INR 1.0 Ratio APTT 24.0 (23.4-31.7) sec Sodium 137 (136-145) meq/L Potassium 4.4 (3.5-5.1) meq/L Chloride 105 (98-107) meq/L Carbon Dioxide 22.9 (21.0-32.0) meq/L Anion Gap 9 (5-15) meq/L BUN 50 H (7-18) mg/dL Creatinine 1.81 H (0.50-1.00) mg/dL Estimated GFR 27 L (>89) mL/min POC Glucose (68-110) mg/dl Random Glucose 301 H (74-106) mg/dL Calcium 8.9 (8.5-10.1) mg/dL Total Creatine Kinase (26-192) U/L CK-MB (CK-2) (0.5-3.6) ng/mL CK-MB (CK-2) % (0.0-4.0) % Troponin I 0.13 H (0.02-0.05) ng/mL 12/19/18 12/19/18 12/19/18 Range/Units 02:44 05:20 06:33 WBC (4.0-11.0) th/mm3 RBC (4.00-5.30) mil/mm3 Hgb (11.6-15.3) gm/dL Hct (35.0-46.0) % MCV (80.0-100.0) fL MCH (27.0-34.0) pg MCHC (32.0-36.0) % RDW (11.6-17.2) % Plt Count (150-450) th/mm3 MPV (7.0-11.0) fL Neut % (Auto) (16.0-70.0) % Lymph % (Auto) (9.0-44.0) % Childress % (Auto) (0.0-8.0) % Eos % (Auto) (0.0-4.0) % Baso % (Auto) (0.0-2.0) % Neut # (Auto) (1.8-7.7) th/mm3 Lymph # (Auto) (1.0-4.8) th/mm3 Childress # (Auto) (0.0-0.9) th/mm3 Eos # (Auto) (0.0-0.4) th/mm3 Baso # (Auto) (0.0-0.2) th/mm3 WBC Differential Differential Comment PT (9.8-11.6) sec INR Ratio APTT 23.7 (23.4-31.7) sec Sodium (136-145) meq/L Potassium (3.5-5.1) meq/L Chloride (98-107) meq/L Carbon Dioxide (21.0-32.0) meq/L Anion Gap (5-15) meq/L BUN (7-18) mg/dL Creatinine (0.50-1.00) mg/dL Estimated GFR (>89) mL/min POC Glucose 217 H (68-110) mg/dl Random Glucose (74-106) mg/dL Calcium (8.5-10.1) mg/dL Total Creatine Kinase 199 H (26-192) U/L CK-MB (CK-2) 21.5 H (0.5-3.6) ng/mL CK-MB (CK-2) % 10.8 H* (0.0-4.0) % Troponin I 5.90 H* D (0.02-0.05) ng/mL 12/19/18 12/19/18 12/19/18 Range/Units 08:07 08:27 15:05 WBC (4.0-11.0) th/mm3 RBC (4.00-5.30) mil/mm3 Hgb (11.6-15.3) gm/dL Hct (35.0-46.0) % MCV (80.0-100.0) fL MCH (27.0-34.0) pg MCHC (32.0-36.0) % RDW (11.6-17.2) % Plt Count (150-450) th/mm3 MPV (7.0-11.0) fL Neut % (Auto) (16.0-70.0) % Lymph % (Auto) (9.0-44.0) % Childress % (Auto) (0.0-8.0) % Eos % (Auto) (0.0-4.0) % Baso % (Auto) (0.0-2.0) % Neut # (Auto) (1.8-7.7) th/mm3 Lymph # (Auto) (1.0-4.8) th/mm3 Childress # (Auto) (0.0-0.9) th/mm3 Eos # (Auto) (0.0-0.4) th/mm3 Baso # (Auto) (0.0-0.2) th/mm3 WBC Differential Differential Comment PT (9.8-11.6) sec INR Ratio APTT (23.4-31.7) sec Sodium (136-145) meq/L Potassium (3.5-5.1) meq/L Chloride (98-107) meq/L Carbon Dioxide (21.0-32.0) meq/L Anion Gap (5-15) meq/L BUN (7-18) mg/dL Creatinine (0.50-1.00) mg/dL Estimated GFR (>89) mL/min POC Glucose 155 H 127 H (68-110) mg/dl Random Glucose (74-106) mg/dL Calcium (8.5-10.1) mg/dL Total Creatine Kinase 225 H (26-192) U/L CK-MB (CK-2) 22.6 H (0.5-3.6) ng/mL CK-MB (CK-2) % 10.0 H* (0.0-4.0) % Troponin I 7.59 H* D (0.02-0.05) ng/mL 12/19/18 12/19/18 12/19/18 Range/Units 16:37 16:37 20:55 WBC (4.0-11.0) th/mm3 RBC (4.00-5.30) mil/mm3 Hgb (11.6-15.3) gm/dL Hct (35.0-46.0) % MCV (80.0-100.0) fL MCH (27.0-34.0) pg MCHC (32.0-36.0) % RDW (11.6-17.2) % Plt Count (150-450) th/mm3 MPV (7.0-11.0) fL Neut % (Auto) (16.0-70.0) % Lymph % (Auto) (9.0-44.0) % Childress % (Auto) (0.0-8.0) % Eos % (Auto) (0.0-4.0) % Baso % (Auto) (0.0-2.0) % Neut # (Auto) (1.8-7.7) th/mm3 Lymph # (Auto) (1.0-4.8) th/mm3 Childress # (Auto) (0.0-0.9) th/mm3 Eos # (Auto) (0.0-0.4) th/mm3 Baso # (Auto) (0.0-0.2) th/mm3 WBC Differential Differential Comment PT (9.8-11.6) sec INR Ratio APTT 41.1 H D (23.4-31.7) sec Sodium (136-145) meq/L Potassium (3.5-5.1) meq/L Chloride (98-107) meq/L Carbon Dioxide (21.0-32.0) meq/L Anion Gap (5-15) meq/L BUN (7-18) mg/dL Creatinine (0.50-1.00) mg/dL Estimated GFR (>89) mL/min POC Glucose 152 H 177 H (68-110) mg/dl Random Glucose (74-106) mg/dL Calcium (8.5-10.1) mg/dL Total Creatine Kinase (26-192) U/L CK-MB (CK-2) (0.5-3.6) ng/mL CK-MB (CK-2) % (0.0-4.0) % Troponin I (0.02-0.05) ng/mL 12/20/18 12/20/18 12/20/18 Range/Units 02:01 07:19 08:41 WBC (4.0-11.0) th/mm3 RBC (4.00-5.30) mil/mm3 Hgb (11.6-15.3) gm/dL Hct (35.0-46.0) % MCV (80.0-100.0) fL MCH (27.0-34.0) pg MCHC (32.0-36.0) % RDW (11.6-17.2) % Plt Count (150-450) th/mm3 MPV (7.0-11.0) fL Neut % (Auto) (16.0-70.0) % Lymph % (Auto) (9.0-44.0) % Childress % (Auto) (0.0-8.0) % Eos % (Auto) (0.0-4.0) % Baso % (Auto) (0.0-2.0) % Neut # (Auto) (1.8-7.7) th/mm3 Lymph # (Auto) (1.0-4.8) th/mm3 Childress # (Auto) (0.0-0.9) th/mm3 Eos # (Auto) (0.0-0.4) th/mm3 Baso # (Auto) (0.0-0.2) th/mm3 WBC Differential Differential Comment PT (9.8-11.6) sec INR Ratio APTT 78.1 H D 67.3 H (23.4-31.7) sec Sodium (136-145) meq/L Potassium (3.5-5.1) meq/L Chloride (98-107) meq/L Carbon Dioxide (21.0-32.0) meq/L Anion Gap (5-15) meq/L BUN (7-18) mg/dL Creatinine (0.50-1.00) mg/dL Estimated GFR (>89) mL/min POC Glucose 189 H (68-110) mg/dl Random Glucose (74-106) mg/dL Calcium (8.5-10.1) mg/dL Total Creatine Kinase (26-192) U/L CK-MB (CK-2) (0.5-3.6) ng/mL CK-MB (CK-2) % (0.0-4.0) % Troponin I (0.02-0.05) ng/mL 12/20/18 12/20/18 Range/Units 11:06 16:57 WBC (4.0-11.0) th/mm3 RBC (4.00-5.30) mil/mm3 Hgb (11.6-15.3) gm/dL Hct (35.0-46.0) % MCV (80.0-100.0) fL MCH (27.0-34.0) pg MCHC (32.0-36.0) % RDW (11.6-17.2) % Plt Count (150-450) th/mm3 MPV (7.0-11.0) fL Neut % (Auto) (16.0-70.0) % Lymph % (Auto) (9.0-44.0) % Childress % (Auto) (0.0-8.0) % Eos % (Auto) (0.0-4.0) % Baso % (Auto) (0.0-2.0) % Neut # (Auto) (1.8-7.7) th/mm3 Lymph # (Auto) (1.0-4.8) th/mm3 Childress # (Auto) (0.0-0.9) th/mm3 Eos # (Auto) (0.0-0.4) th/mm3 Baso # (Auto) (0.0-0.2) th/mm3 WBC Differential Differential Comment PT (9.8-11.6) sec INR Ratio APTT (23.4-31.7) sec Sodium (136-145) meq/L Potassium (3.5-5.1) meq/L Chloride (98-107) meq/L Carbon Dioxide (21.0-32.0) meq/L Anion Gap (5-15) meq/L BUN (7-18) mg/dL Creatinine (0.50-1.00) mg/dL Estimated GFR (>89) mL/min POC Glucose 163 H 166 H (68-110) mg/dl Random Glucose (74-106) mg/dL Calcium (8.5-10.1) mg/dL Total Creatine Kinase (26-192) U/L CK-MB (CK-2) (0.5-3.6) ng/mL CK-MB (CK-2) % (0.0-4.0) % Troponin I (0.02-0.05) ng/mL Imaging Data Radiologist's impression: Chest X-Ray 12/18/18 18:17 CONCLUSION: Chronic cardiac silhouette enlargement. No acute cardiopulmonary disease identified. ECG Data EKG Prior to Arrival: No Attestation: I personally reviewed and interpreted this ECG as follows: Interpretation: NSR 84bpm. LAD. RBBB. No significant ST elevation. Discharge Plan Discharge Disposition Patient Disposition: ED Admit(ED Internal Use Only) Discharge Order Discharge Orders: ED Use Only Admit Order (Routine); Ordered 12/18/18 Ordered By: Kate Merchant Discharge Details Diagnosis: Elevated troponin Physicians Team ED Provider: Kate Merchant Attending Provider: You Cheek Other Providers: Minor,Leonel Status ED Status: Left Department Discharge Information Discharge Date/Time: 12/18/18 19:55
[2018-12-18 18:53] LABS: Baso # (Auto) 0.1 th/mm3 (0.0-0.2); Baso % (Auto) 0.5 % (0.0-2.0); Hematocrit 33.9 % (35.0-46.0); Hemoglobin 11.7 gm/dL (11.6-15.3); Lymph # (Auto) 1.2 th/mm3 (1.0-4.8); Lymph % (Auto) 10.9 % (9.0-44.0); Mean Corpuscular HGB Conc 34.5 % (32.0-36.0); Mean Corpuscular Hemoglobin 30.6 pg (27.0-34.0); Mean Corpuscular Volume 88.7 fL (80.0-100.0); Mono # (Auto) 0.3 th/mm3 (0.0-0.9); Mono % (Auto) 2.9 % (0.0-8.0); Neut # (Auto) 9.3 th/mm3 (1.8-7.7); Neut % (Auto) 85.7 % (16.0-70.0); Platelet Count 175 th/mm3 (150-450); Red Blood Count 3.82 mil/mm3 (4.00-5.30); Red Cell Distribution Width 14.1 % (11.6-17.2); White Blood Count 10.8 th/mm3 (4.0-11.0)
[2018-12-18 19:06] LABS: Prothrombin Time 10.4 sec (9.8-11.6)
--- NOTE | 2018-12-18 19:10 | XR ---
EXAM DATE: 12/18/2018 6:54 PM EST AGE/SEX: 83 years / Female INDICATIONS: Chest pain CLINICAL DATA: This is the patient's initial encounter. Patient reports that signs and symptoms have been present for 1 day and indicates a pain score of 4/10. MEDICAL/SURGICAL HISTORY: Hypertension. Diabetes mellitus type II. CABG. COMPARISON: [facility] [place], CHEST 1V SINGLE AP, 08/26/2018. . FINDINGS: Single AP view of the chest. Median sternotomy wires are in place. Mild cardiac silhouette enlargemen t unchanged. Lungs are clear. No evidence of pleural effusion or pneumothorax. CONCLUSION: Chronic cardiac silhouette enlargement. No acute cardiopulmonary disease identified. Electronically signed by: Jaxon Shah MD Board Certified Radiologist 12/18/2018 7:09 PM EST
[2018-12-18] MEDS ORDERED: Nitroglycerin Drip Premix 50 MG/250 ML BOTTLE IV.CONT PRN (19:26)
[2018-12-18 19:33] LABS: Troponin I 0.13 ng/mL (0.02-0.05)
[2018-12-18 19:34] LABS: Calcium 8.9 mg/dL (8.5-10.1); Carbon Dioxide 22.9 meq/L (21.0-32.0); Potassium 4.4 meq/L (3.5-5.1)
[2018-12-18] MEDS ORDERED: Acetaminophen 325 MG Tablet PO PRN (20:00)
[2018-12-18] MEDS ORDERED: Dextrose 50% in Water 50 ML Vial IV.PUSH PRN (20:09)
[2018-12-18] MEDS ORDERED: Nitroglycerin SL (Override) 0.4 MG Tab SL PRN (20:11)
[2018-12-18] MEDS ORDERED: Docusate Sodium 100 MG Capsule PO PRN (20:11)
[2018-12-18] MEDS ORDERED: Isosorbide Mononitrate 30 MG ER 24HR Tablet (Imdur) PO SCH (21:00)
[2018-12-19] MEDS: Insulin NovoLOG Aspart Correctional Sugar Inj SQ SCH ×5 (01:05→22:40)
[2018-12-19] MEDS: Senna/Docusate Sodium 8.6/50 MG Tablet PO SCH ×3 (01:06→20:36)
[2018-12-19 03:34] LABS: Troponin I 5.9 ng/mL (0.02-0.05)
[2018-12-19 03:46] LABS: Creatine Kinase MB 21.5 ng/mL (0.5-3.6)
[2018-12-19 03:59] LABS: CKMB Percent 10.8 % (0.0-4.0)
[2018-12-19] MEDS: Carvedilol 6.25 MG Tablet PO SCH ×3 (06:06→20:37)
[2018-12-19] MEDS ORDERED: Heparin Drip 25,000 UNIT/250 ML BAG IV.CONT PRN (06:23)
--- NOTE | 2018-12-19 07:46 | P.CONCA ---
Addendum entered and electronically signed by Leonel Coyle MD 12/19/18 11:21 : symptomatic bradycardia also noted intraventricular conduction delay suggestive of infrahisian disease high risk for pacemaker with TAVR. will discuss possibility of PPM implantation Original Note: History of Present Illness Primary Care Provider: Hermila Parks History of Present Illness: 83-year-old female with CAD s/p CABG 1994 and 2015, severe aortic stenosis, CHF , HTN, DM, CKD stage III who presented with chest pain. The patient has been undergoing workup for TAVR. She had [facility] earlier this month that showed severe , severe CAD including high-grade left main and LAD stenosis with 2/3 bypass grafts patent to right coronary and obtuse marginal. She has been evaluated by cardiothoracic surgery who has recommended for TAVR. She states that over the past few days she has been needing to utilize nitroglycerin for chest discomfort. She states that yesterday while walking from her car to her house she developed severe chest pain that lasted for several minutes and was unrelieved with nitroglycerin so she came to the ED for evaluation. EKG appears to have no significant from baseline. Troponin 0.13 -> 5.9. Chest pain -free at this time. No breathing complaints. Review of Systems All other systems reviewed negative except as stated in HPI PMFSH - History History Provided By: Patient, Medical Record - Medical History Medical History: Medical History (Last Reviewed 12/18/18 @ 17:58 by Lashawn Campbell RN) CKD (chronic kidney disease) stage 3, GFR 30-59 ml/min Carotid stenosis Coronary artery disease EPSTEIN (dyspnea on exertion) Diabetes High cholesterol Hypertension Myocardial infarction Systolic murmur CHF (congestive heart failure) - Surgical History Surgical History: Surgical History (Last Reviewed 12/18/18 @ 17:58 by Lashawn Campbell RN) Hx of CABG - Tobacco History Second Hand Smoke Exposure: No Smoking Status: Never smoker - Alcohol History How Often Do You Have a Drink Containing Alcohol: Never - Substance Use History Substance History: No History of Abuse - Travel History History of Recent Travel: No Recent Travel in the [place] Within the Last 8 Weeks: No Recent Travel Out of the Country Within the Last 8 Weeks: No - Immunization History Tetanus Immunization: Unsure Medications and Allergies Allergies Allergy/AdvReac Type Severity Reaction Status Date / Time glipizide Allergy Intermediate Swelling Verified 12/18/18 17:56 Iodinated Contrast- Oral and Allergy Hives Verified 12/18/18 17:56 IV Dye niacin Allergy Itching, Verified 12/18/18 17:56 [From Niaspan Generalized Extended-Release] fosinopril [From Monopril] AdvReac Flushing Verified 12/18/18 17:56 hydralazine AdvReac Anxiety Verified 12/18/18 17:56 morphine AdvReac Shakiness Verified 12/18/18 17:56 oxycodone [From Percocet] AdvReac Depression Verified 12/18/18 17:56 Twwlbay-Ztn-Two Reductase AdvReac Muscle Pain Verified 12/18/18 17:56 Inhibitor telmisartan [From Micardis] AdvReac Chest Pain Verified 12/18/18 17:56 Home Medications Medication Instructions Recorded Confirmed Type aspirin 81 mg PO DAILY 05/23/18 12/18/18 History docusate sodium [Colace] 100 mg PO DAILY PRN 05/23/18 12/18/18 History furosemide 20 mg PO DAILY 05/23/18 12/18/18 History insulin degludec [Tresiba 15 unit SUB-Q DAILY 05/23/18 12/18/18 History FlexTouch U-100] levothyroxine 25 mcg PO DAILY 05/23/18 12/18/18 History linagliptin [Tradjenta] 5 mg PO DAILY 05/23/18 12/18/18 History nitroglycerin [Nitrostat] 0.4 mg SUBLINGUAL Q5-15M PRN 05/23/18 12/18/18 History carvedilol 6.25 mg PO Q12HR 12/11/18 12/18/18 History cholecalciferol (vitamin D3) 2,000 unit PO DAILY 12/11/18 12/18/18 History [Vitamin D3] isosorbide mononitrate 30 mg PO BID 12/11/18 12/18/18 History losartan 50 mg PO BID 12/11/18 12/18/18 History multivitamin [Multiple Vitamins] 1 tab PO DAILY 12/11/18 12/18/18 History pytyw-9z-hbl-epa-fish oil [[place]-3 2 cap PO DAILY 12/11/18 12/18/18 History Fish Oil] Active Medications: Active Medications Acetaminophen (Tylenol) 650 mg PO Q4H PRN PRN Reason: Temp > 100.4 Al Hydroxide/Mg Hydroxide (Milk Of Nathen Liq) 30 ml PO Q12H PRN PRN Reason: Mild Constipation Aspirin (Aspirin Chew) 81 mg PO DAILY [facility] Carvedilol (Coreg) 6.25 mg PO Q12HR [facility] Last Admin: 12/19/18 06:06 Dose: Not Given Dextrose (D50w Vial) 50 ml IV.PUSH UNSCH PRN PRN Reason: PER HYPOGLYCEMIA PROTOCOL Docusate Sodium (Colace) 100 mg PO DAILY PRN PRN Reason: Constipation Glucagon (Glucagon Inj) 1 mg OTHER PRN PRN PRN Reason: for Hypoglycemia Protocol Heparin Sodium (Porcine) (Heparin Inj) 2,500 units IV.PUSH UNSCH PRN PRN Reason: aPTT 25-39 Heparin Sodium (Porcine) (Heparin Inj) 5,000 units IV.PUSH UNSCH PRN PRN Reason: aPTT < 25 Nitroglycerin/Dextrose (Nitroglycerin Drip Premix) 50 mg in 250 mls @ 0 mls/hr IV.CONT TITRATE PRN; Protocol PRN Reason: Per Protocol Last Titration: 12/19/18 04:15 Dose: 0 mcg/min, 0 mls/hr Heparin Sodium/Dextrose (Heparin/D5w 25,000 U/250 Ml) 25,000 unit in 250 mls @ 8 mls/hr IV.CONT TITRATE PRN; Protocol PRN Reason: Per Protocol Insulin Aspart (Novolog Insulin Correctional Sugar Inj) 0 unit SQ ACHS [facility]; Protocol Last Admin: 12/19/18 01:05 Dose: Not Given Levothyroxine Sodium (Synthroid) 25 mcg PO DAILY@0600 [facility] Last Admin: 12/19/18 05:20 Dose: 25 mcg Losartan Potassium (Cozaar) 50 mg PO BID [facility] Ondansetron HCl (Zofran Inj) 4 mg IV.PUSH Q6H PRN PRN Reason: NAUSEA OR VOMITING Pt:Tradjenta( (Linagliptin) 4 Mg) 0 each PO DAILY [facility] Senna/Docusate Sodium (Renetta-Colace) 1 tab PO BID [facility] Last Admin: 12/19/18 01:06 Dose: Not Given Sodium Chloride (Ns Flush) 2 ml IV.FLUSH BID [facility] Last Admin: 12/19/18 01:05 Dose: Not Given Sodium Chloride (Ns Flush) 2 ml IV.FLUSH PRN PRN PRN Reason: FLUSH AFTER USING IV ACCESS Vitamin D (Vitamin D3) 2,000 unit PO DAILY [place] Exam Vital signs: Vital Signs 12/18/18 17:42 12/18/18 17:58 12/18/18 19:25 Temperature 98.7 F Pulse Rate 88 85 Respiratory Rate 17 20 Blood Pressure 185/84 H 186/82 H 194/97 H Pulse Oximetry 98 99 12/18/18 20:28 12/18/18 21:21 12/19/18 00:00 Temperature 98.5 F Pulse Rate 67 55 L Respiratory Rate 17 18 Blood Pressure 149/70 H 132/79 Pulse Oximetry 95 96 96 12/19/18 04:00 Temperature 98.3 F Pulse Rate 60 Respiratory Rate 18 Blood Pressure 151/74 H Pulse Oximetry 97 Intake & Output 12/18/18 12/19/18 12/19/18 18:59 06:59 18:59 Intake Total 240 / 240 Output Total 400 / 400 Balance -160 / -160 Weight 140 lb 143 lb 8.335 oz Intake: Oral 240 / 240 Output: Urine 400 / 400 Other: Weight On Admission 144 lb 6.444 oz Narrative: GENERAL: Well-developed well-nourished. In no acute distress. NECK: No carotid bruits. No JVD. CARDIOVASCULAR: Regular rate and rhythm. 2/6 systolic ejection murmur appreciated best at the right sternal border. RESPIRATORY: No accessory muscle use. Clear to auscultation. Breath sounds equal bilaterally. MUSCULOSKELETAL: No clubbing or cyanosis. No edema. NEUROLOGICAL: Awake and alert. Normal speech. Results 12/18/18 18:27 12/18/18 18:27 Cardiac Enzymes 12/18/18 12/19/18 Range/Units 18:27 02:44 CK-MB (CK-2) 21.5 H (0.5-3.6) ng/mL Troponin I 0.13 H 5.90 H* D (0.02-0.05) ng/mL Coagulation 12/18/18 12/19/18 Range/Units 18:27 06:33 PT 10.4 (9.8-11.6) sec APTT 24.0 23.7 (23.4-31.7) sec CBC 12/18/18 Range/Units 18:27 WBC 10.8 (4.0-11.0) th/mm3 RBC 3.82 L (4.00-5.30) mil/mm3 Hgb 11.7 (11.6-15.3) gm/dL Hct 33.9 L (35.0-46.0) % Plt Count 175 (150-450) th/mm3 Neut # (Auto) 9.3 H (1.8-7.7) th/mm3 Lymph # (Auto) 1.2 (1.0-4.8) th/mm3 Mitchell # (Auto) 0.3 (0.0-0.9) th/mm3 Eos # (Auto) 0.0 (0.0-0.4) th/mm3 Baso # (Auto) 0.1 (0.0-0.2) th/mm3 Comprehensive Metabolic Panel 12/18/18 Range/Units 18:27 Sodium 137 (136-145) meq/L Potassium 4.4 (3.5-5.1) meq/L Chloride 105 (98-107) meq/L Carbon Dioxide 22.9 (21.0-32.0) meq/L BUN 50 H (7-18) mg/dL Creatinine 1.81 H (0.50-1.00) mg/dL Calcium 8.9 (8.5-10.1) mg/dL Intake and Output 12/18/18 12/19/18 12/19/18 22:59 06:59 14:59 Intake Total 240 / 240 Output Total 400 / 400 Balance -160 / -160 Intake: Oral 240 / 240 Output: Urine 400 / 400 Other: Weight 144 lb 6.444 oz 143 lb 8.335 oz Weight On Admission 144 lb 6.444 oz - Imaging and Cardiology Imaging: Impressions Chest X-Ray 12/18/18 18:17 CONCLUSION: Chronic cardiac silhouette enlargement. No acute cardiopulmonary disease identified. Assessment and Plan - Plan 83-year-old female with CAD s/p CABG 1994 and 2015, severe aortic stenosis, CHF , HTN, DM, CKD stage III who presented with chest pain NSTEMI: Start heparin gtt. Keep n.p.o. for now. Dr. Coyle to review recent cath films and decide on possible repeat LHC today. Severe aortic stenosis: Likely contributing to ischemia as above. Patient has been evaluated by CT surgery and felt not to be SAVR candidate due to prior sternotomy x2. Unsure if patient would be tolerate TAVR with degree of coronary disease as above. Discussed Condition With: Patient, Dr. Coyle - Attending Attestation Not repeat surgical candidate coronary anatomy - no reasonable PCI candidate. LM only leads to occluded LAD and small diagonal/septal branches. intolerable side effects to isosorbide 60 mg BID. continue 30 BID add ranexa. discuss with TAVR team to move her up to next week DC nitro gtt. DC heparin gtt tomorrow if no further symptoms possible DC planning in next few days.
[2018-12-19] MEDS ORDERED: Non-Formulary Drug (Linagliptin [Tradjenta] 5 MG) PO SCH (09:00)
[2018-12-19] MEDS ORDERED: LINAGLIPTIN PO SCH (09:00)
[2018-12-19] MEDS ORDERED: OMEGA DHA EPA FISH OIL PO SCH (09:00)
[2018-12-19 09:15] LABS: Troponin I 7.59 ng/mL (0.02-0.05)
[2018-12-19 09:30] LABS: Creatine Kinase MB 22.6 ng/mL (0.5-3.6)
[2018-12-19] MEDS ORDERED: Heparin 10,000 UNITS/10 ML Vial (for IV use) IV.PUSH PRN ×2 (12:22→12:23)
--- NOTE | 2018-12-19 12:23 | ECG ---
Date Performed: 12/19/2018 Time Performed: 05:02:42 PTAGE: 83 years EKG: Atrial fibrillation with slow ventricular response Left axis deviation RBBB with left anter ior fascicular block Lateral ST-T changes may be due to myocardial ischemia Abnormal ECG PREVIOUS TRACING : 12/18/2018 23.04 DOCTOR: Yun Lockett Interpretating Date/Time 12/19/2018 12:22:36
--- NOTE | 2018-12-19 12:29 | ECG ---
Date Performed: 12/18/2018 Time Performed: 23:04:48 PTAGE: 83 years EKG: Sinus rhythm with 1st degree A-V block Left axis deviation RBBB with left anterior fascicular block Lateral ST ch anges are nonspecific Abnormal ECG PREVIOUS TRACING : 12/18/2018 18.21 DOCTOR: Yun Lockett Interpretating Date/Time 12/19/2018 12:25:42
--- NOTE | 2018-12-19 12:35 | ECG ---
Date Performed: 12/18/2018 Time Performed: 18:21:32 PTAGE: 83 years EKG: Sinus rhythm WITH FIRST DEGREE AV BLOCK RIGHT BUNDLE BRANCH BLOCK LEFT ANTERIOR FASCICULAR BLOCK ABNORMAL ECG PREVIOUS TRACING : 08/26/2018 23.09 DOCTOR: Yun Lockett Interpretating Date/Time 12/19/2018 12:29:05
--- NOTE | 2018-12-19 14:19 | P.HPIM ---
History of Present Illness Primary Care Physician: Hermila Parks History of Present Illness: 83-year-old female with CAD s/p CABG 1994 and 2015, severe aortic stenosis, CHF, HTN, DM, CKD stage III who presented with chest pain. The patient has been undergoing workup for TAVR. She had [facility] earlier this month that showed severe , severe CAD including high-grade left main and LAD stenosis with 2/3 bypass grafts patent to right coronary and obtuse marginal. She has been evaluated by cardiothoracic surgery who has recommended for TAVR. She states that over the past few days she has been needing to utilize nitroglycerin for chest discomfort. She states that yesterday while walking from her car to her house she developed severe chest pain that lasted for several minutes and was unrelieved with nitroglycerin so she came to the ED for evaluation. EKG appears to have no significant from baseline. Troponin 0.13 -> 5.9. Chest pain-free at this time. No breathing complaints. PMH: CKD (chronic kidney disease) stage 3, GFR 30-59 ml/min Carotid stenosis Coronary artery disease EPSTEIN (dyspnea on exertion) Diabetes High cholesterol Hypertension Myocardial infarction Systolic murmur CHF (congestive heart failure) PSH: - CABG FHX: - noncontributory SHX: never smoker, no alcohol, no illicit drugs. ALL: see chart Diagnosis (1) Elevated troponin: (2) CAD (coronary artery disease): (3) Aortic stenosis: (4) Type 2 diabetes mellitus: (5) Hypertension, essential: Inpatient Certification Inpatient Certification: I certify that the inpatient services were ordered in accordance with Medicare regulations governing the order. This includes certification that hospital inpatient services are reasonable and necessary and in the case of services not specified as inpatient-only under 42 CFR 419.22(n), that they are appropriately provided as inpatient services in accordance to with the 2-midnight benchmark under 43 CFR 412.3(e) Estimated Total Length of Stay (Days): 3 Plans for Post Hospital Care: Not yet determined Medications and Allergies Allergies Allergy/AdvReac Type Severity Reaction Status Date / Time glipizide Allergy Intermediate Swelling Verified 12/18/18 17:56 Iodinated Contrast- Oral and Allergy Hives Verified 12/18/18 17:56 IV Dye niacin Allergy Itching, Verified 12/18/18 17:56 [From Niaspan Generalized Extended-Release] fosinopril [From Monopril] AdvReac Flushing Verified 12/18/18 17:56 hydralazine AdvReac Anxiety Verified 12/18/18 17:56 morphine AdvReac Shakiness Verified 12/18/18 17:56 oxycodone [From Percocet] AdvReac Depression Verified 12/18/18 17:56 Fdaktkf-Ovv-Qmo Reductase AdvReac Muscle Pain Verified 12/18/18 17:56 Inhibitor telmisartan [From Micardis] AdvReac Chest Pain Verified 12/18/18 17:56 Home Medications Medication Instructions Recorded Confirmed Type aspirin 81 mg PO DAILY 05/23/18 12/18/18 History docusate sodium [Colace] 100 mg PO DAILY PRN 05/23/18 12/18/18 History furosemide 20 mg PO DAILY 05/23/18 12/18/18 History insulin degludec [Tresiba 15 unit SUB-Q DAILY 05/23/18 12/18/18 History FlexTouch U-100] levothyroxine 25 mcg PO DAILY 05/23/18 12/18/18 History linagliptin [Tradjenta] 5 mg PO DAILY 05/23/18 12/18/18 History nitroglycerin [Nitrostat] 0.4 mg SUBLINGUAL Q5-15M PRN 05/23/18 12/18/18 History cholecalciferol (vitamin D3) 2,000 unit PO DAILY 12/11/18 12/18/18 History [Vitamin D3] isosorbide mononitrate 30 mg PO BID 12/11/18 12/18/18 History losartan 50 mg PO BID 12/11/18 12/18/18 History multivitamin [Multiple Vitamins] 1 tab PO DAILY 12/11/18 12/18/18 History hirsk-[id number]-epa-fish oil [[place]-3 2 cap PO DAILY 12/11/18 12/18/18 History Fish Oil] Active Medications: Active Medications Acetaminophen (Tylenol) 650 mg PO Q4H PRN PRN Reason: Temp > 100.4 Al Hydroxide/Mg Hydroxide (Milk Of Magnregi Liq) 30 ml PO Q12H PRN PRN Reason: Mild Constipation Aspirin (Aspirin Chew) 81 mg PO DAILY [place] Last Admin: 12/19/18 09:31 Dose: 81 mg Carvedilol (Coreg) 6.25 mg PO Q12HR [facility] Last Admin: 12/19/18 08:31 Dose: Not Given Dextrose (D50w Vial) 50 ml IV.PUSH UNSCH PRN PRN Reason: PER HYPOGLYCEMIA PROTOCOL Docusate Sodium (Colace) 100 mg PO DAILY PRN PRN Reason: Constipation Glucagon (Glucagon Inj) 1 mg OTHER PRN PRN PRN Reason: for Hypoglycemia Protocol Heparin Sodium (Porcine) (Heparin Inj) 2,500 units IV.PUSH UNSCH PRN PRN Reason: aPTT 25-39 Heparin Sodium (Porcine) (Heparin Inj) 5,000 units IV.PUSH UNSCH PRN PRN Reason: aPTT < 25 Heparin Sodium/Dextrose (Heparin/D5w 25,000 U/250 Ml) 25,000 unit in 250 mls @ 8 mls/hr IV.CONT TITRATE PRN; Protocol PRN Reason: Per Protocol Last Admin: 12/19/18 08:29 Dose: 800 units/hr, 8 mls/hr Insulin Aspart (Novolog Insulin Correctional Sugar Inj) 0 unit SQ ACHS [facility]; Protocol Last Admin: 12/19/18 12:00 Dose: Not Given Levothyroxine Sodium (Synthroid) 25 mcg PO DAILY@0600 [facility] Last Admin: 12/19/18 05:20 Dose: 25 mcg Losartan Potassium (Cozaar) 50 mg PO BID [facility] Last Admin: 12/19/18 09:32 Dose: 50 mg Ondansetron HCl (Zofran Inj) 4 mg IV.PUSH Q6H PRN PRN Reason: NAUSEA OR VOMITING Pt:Tradjenta( (Linagliptin) 4 Mg) 0 each PO DAILY [facility] Senna/Docusate Sodium (Renetta-Colace) 1 tab PO BID [facility] Last Admin: 12/19/18 09:32 Dose: Not Given Sodium Chloride (Ns Flush) 2 ml IV.FLUSH BID [facility] Last Admin: 12/19/18 08:31 Dose: 2 ml Sodium Chloride (Ns Flush) 2 ml IV.FLUSH PRN PRN PRN Reason: FLUSH AFTER USING IV ACCESS Vitamin D (Vitamin D3) 2,000 unit PO DAILY [facility] Last Admin: 12/19/18 09:32 Dose: 2,000 unit Physical Exam Vital signs: Last Vital Signs Temp 98 F 12/19/18 12:00 Pulse 60 02/12/19 12:00 Resp 16 12/19/18 12:00 BP 150/70 H 12/19/18 12:00 Pulse Ox 96 12/19/18 12:00 Narrative: GENERAL: This is a well-nourished, well-developed patient, in no apparent distress. CARDIOVASCULAR: Regular rate and rhythm without murmurs, gallops, or rubs. RESPIRATORY: Clear to auscultation. Breath sounds equal bilaterally. No wheezes , rales, or rhonchi. GASTROINTESTINAL: Abdomen soft, non-tender, nondistended. Normal active bowel sounds MUSCULOSKELETAL: Extremities without clubbing, cyanosis, or edema. NEURO: Alert & Oriented x4 to person, place, time, situation. Moves all ext x4 Results Labs CBC & Chem 7: 12/21/18 09:04 12/21/18 09:04 Caprini VTE Risk Assessment Caprini VTE Risk Assessment: Moderate/High Risk (score >= 2) Caprini Risk Assessment Model: Point Value = 1 Point Value = 2 Point Value = 3 Point Value = 5 Age 41-60 Minor surgery BMI > 25 kg/m2 Swollen legs Varicose veins or History of unexplained or recurrent spontaneous Oral contraceptives or hormone replacement Sepsis (< 1 month) Serious lung disease, including pneumonia (< 1 month) Abnormal pulmonary function Acute myocardial infarction Congestive heart failure (< 1 month) History of inflammatory bowel disease Medical patient at bed rest Age 61-74 Arthroscopic surgery Major open surgery (> 45 min) Laparoscopic surgery (> 45 min) Malignancy Confined to bed (> 72 hours) Immobilizing plaster cast Central venous access Age >= 75 History of VTE Family history of VTE Factor V Leiden Prothrombin [id number] Lupus anticoagulant Anticardiolipin antibodies Elevated serum homocysteine Heparin-induced thrombocytopenia Other congenital or acquired thrombophilia Stroke (< 1 month) Elective arthroplasty Hip, pelvis, or leg fracture Acute spinal cord injury (< 1 month) Prophylaxis Regimen: Total Risk Factor Score Risk Level Prophylaxis Regimen 0-1 Low Early ambulation 2 Moderate Order ONE of the following: *Sequential Compression Device (SCD) *Heparin 5000 units SQ BID 3-4 Higher Order ONE of the following medications: *Heparin 5000 units SQ TID *Enoxaparin/Lovenox 40 mg SQ daily (WT < 150 kg, CrCl > 30 mL/min) *Enoxaparin/Lovenox 30 mg SQ daily (WT < 150 kg, CrCl > 10-29 mL/min) *Enoxaparin/Lovenox 30 mg SQ BID (WT < 150 kg, CrCl > 30 mL/min) AND/OR *Sequential Compression Device (SCD) 5 or more Highest Order ONE of the following medications: *Heparin 5000 units SQ TID (Preferred with Epidurals) *Enoxaparin/Lovenox 40 mg SQ daily (WT < 150 kg, CrCl > 30 mL/min) *Enoxaparin/Lovenox 30 mg SQ daily (WT < 150 kg, CrCl > 10-29 mL/min) *Enoxaparin/Lovenox 30 mg SQ BID (WT < 150 kg, CrCl > 30 mL/min) AND *Sequential Compression Device (SCD) Assessment and Plan Assessment (1) Elevated troponin: Code(s): R74.8 - Abnormal levels of other serum enzymes Status: Acute (2) CAD (coronary artery disease): Code(s): I25.10 - Atherosclerotic heart disease of [place] coronary artery without angina pectoris Status: Acute (3) Aortic stenosis: Code(s): I35.0 - Nonrheumatic aortic (valve) stenosis Status: Acute (4) Type 2 diabetes mellitus: Code(s): E11.9 - Type 2 diabetes mellitus without complications Status: Chronic (5) Hypertension, essential: Code(s): I10 - Essential (primary) hypertension Status: Acute Plan 83-year-old female with CAD s/p CABG 1994 and 2015, severe aortic stenosis, CHF , HTN, DM, CKD stage III who presented with chest pain. The patient has been undergoing workup for TAVR. She had [facility] earlier this month that showed severe , severe CAD including high-grade left main and LAD stenosis with 2/3 bypass grafts patent to right coronary and obtuse marginal. She has been evaluated by cardiothoracic surgery who has recommended for TAVR. She states that over the past few days she has been needing to utilize nitroglycerin for chest discomfort. She states that yesterday while walking from her car to her house she developed severe chest pain that lasted for several minutes and was unrelieved with nitroglycerin so she came to the ED for evaluation. EKG appears to have no significant from baseline. Troponin 0.13 -> 5.9. 1) NSTEMI - comgmt with Cardiology - Case d/w Dr. Coyle (12/19/18) - NOT repeat surgical candidate - coronary anatomy - no reasonable PCI candidate. LM only leads to occluded LAD and small diagonal/septal branches. - intolerable side effects to isosorbide 60 mg BID. continue 30 BID - add ranexa 1000MG BID - Dr. Coyle arranging to move up TAVR to next week - DC nitro gtt. - DC heparin gtt tomorrow if no further symptoms possible DC planning in next few days. 2) DM2 - stable - tradjenta - SSI 3) HTN, essential - continue coreg, cozaar H&P: Quality VTE Deep Vein Thrombosis/Pulmonary Embolism Present on Admission: No _ (1) Type 2 diabetes mellitus Qualifiers: Chronic kidney disease stage: Diabetes mellitus complication detail: Diabetes mellitus complication status: with unspecified complications Diabetes mellitus terminal carman insulin use: unspecified intermediate insulin use status Diabetes mellitus macular edema: Diabetic retinopathy severity: Laterality: Proliferative retinopathy type: Qualified Code(s): E11.8 - Type 2 diabetes mellitus with unspecified complications (2) CAD (coronary artery disease) Qualifiers: Associated angina: Coronary Disease-Associated Artery/Lesion type: [place] vs. transplanted heart: (3) Aortic stenosis Qualifiers: Cardiac valve disease etiology:
--- NOTE | 2018-12-19 16:54 | ECHRPT ---
Indication: CONCLUSIONS Normal left ventricular size. Wall thickness is normal. The left ventricular systolic function is normal with an estimated ejection fraction in the range of 60-65%. Normal wall motion. Moderate mitral valve regurgitation. Diffuse moderate calcification of the aortic valve. Aortic valve mean gradient is 30 mmHg, suggesti ng moderate aortic stenosis. Trace aortic valve regurgitation. BP: / HR: Rhythm: Sinus MEASUREMENTS (Male / Female) Normal Values Technical Quality:Fair 2D ECHO LV Diastolic Diameter PLAX 4.8 cm 4.2 - 5.9 / 3.9 - 5.3 cm LV Systolic Diameter PLAX 3.1 cm IVS Diastolic Thickness 1.0 cm 0.6 - 1.0 / 0.6 - 0.9 cm LVPW Diastolic Thickness 0.9 cm 0.6 - 1.0 / 0.6 - 0.9 cm LV Relative Wall Thickness 0.4 RV Internal Dim ED PLAX 2.8 cm LVOT Diameter 1.9 cm Aortic Root Diameter 2.7 cm LA Systolic Diameter LX 3.8 cm 3.0 - 4.0 / 2.7 - 3.8 cm DOPPLER AV Peak Velocity 400.0 cm/s AV Peak Gradient 64.0 mmHg AV Mean Gradient 40.0 mmHg AV Velocity Time Integral 88.0 cm LVOT Peak Velocity 96.8 cm/s LVOT Peak Gradient 3.7 mmHg LVOT Velocity Time Integral 18.8 cm AV Area Cont Eq vti 0.6 cm AV Area Cont Eq pk 0.7 cm Mitral E Point Velocity 164.0 cm/s Mitral A Point Velocity 104.0 cm/s Mitral E to A Ratio 1.6 LV E' Lateral Velocity 5.4 cm/s Mitral E to LV E' Lateral Ratio 30.6 LV E' Septal Velocity 6.1 cm/s Mitral E to LV E' Septal Ratio 26.7 TR Peak Velocity 293.0 cm/s TR Peak Gradient 34.3 mmHg Right Atrial Pressure 10.0 mmHg Pulmonary Artery Systolic Pressu 44.3 mmHg Right Ventricular Systolic Press 44.3 mmHg PV Peak Velocity 71.4 cm/s PV Peak Gradient 2.0 mmHg FINDINGS LEFT VENTRICLE Normal left ventricular size. Wall thickness is normal. The left ventricular systolic function is normal with an estimated ejection fraction in the range of 60-65%. Normal wall motion. RIGHT VENTRICLE Normal right ventricular size and systolic function. LEFT ATRIUM The left atrial size is normal. RIGHT ATRIUM The right atrial size is normal. ATRIAL SEPTUM The interatrial septum not well visualized. AORTA The aortic root and proximal ascending aorta are not well visualized. MITRAL VALVE Moderate mitral valve regurgitation. AORTIC VALVE Diffuse moderate calcification of the aortic valve. Aortic valve mean gradient is 30 mmHg, suggesti ng moderate aortic stenosis. Trace aortic valve regurgitation. TRICUSPID VALVE There is trace tricuspid valve regurgitation. PULMONARY VALVE Mild pulmonary valve regurgitation. VESSELS The inferior vena cava was not well visualized. PERICARDIUM No pericardial effusion. Manish Coulter MD Edited by: test administrator test administrator (Electronically Signed) Final Date:19 December 2018 15:41 Amended: 19 December 2018 16:53
[2018-12-19] MEDS: Ranolazine 500 MG 12HR ER Tablet PO SCH (20:36)
[2018-12-19] MEDS: Isosorbide Mononitrate 30 MG ER 24HR Tablet (Imdur) PO SCH (20:37)
--- NOTE | 2018-12-20 08:32 | P.PNCA ---
Subjective Interval history: feeling well this am no complaints eating breakfast Medications and Allergies Active Medications: Active Medications Acetaminophen (Tylenol) 650 mg PO Q4H PRN PRN Reason: Temp > 100.4 Last Admin: 12/19/18 20:37 Dose: 650 mg Al Hydroxide/Mg Hydroxide (Milk Of Magnregi Liq) 30 ml PO Q12H PRN PRN Reason: Mild Constipation Aspirin (Aspirin Chew) 81 mg PO DAILY [facility] Last Admin: 12/19/18 09:31 Dose: 81 mg Carvedilol (Coreg) 3.125 mg PO Q12HR [facility] Dextrose (D50w Vial) 50 ml IV.PUSH UNSCH PRN PRN Reason: PER HYPOGLYCEMIA PROTOCOL Docusate Sodium (Colace) 100 mg PO DAILY PRN PRN Reason: Constipation Glucagon (Glucagon Inj) 1 mg OTHER PRN PRN PRN Reason: for Hypoglycemia Protocol Heparin Sodium (Porcine) (Heparin Inj) 2,500 units IV.PUSH UNSCH PRN PRN Reason: aPTT 25-39 Insulin Aspart (Novolog Insulin Correctional Sugar Inj) 0 unit SQ [facility]; Protocol Last Admin: 12/19/18 22:40 Dose: 2 unit Isosorbide Mononitrate (Imdur) 30 mg PO BID [facility] Last Admin: 12/19/18 20:37 Dose: 30 mg Levothyroxine Sodium (Synthroid) 25 mcg PO DAILY@0600 [facility] Last Admin: 12/20/18 06:00 Dose: 25 mcg Losartan Potassium (Cozaar) 50 mg PO BID [facility] Last Admin: 12/19/18 20:36 Dose: 50 mg Ondansetron HCl (Zofran Inj) 4 mg IV.PUSH Q6H PRN PRN Reason: NAUSEA OR VOMITING Last Admin: 12/19/18 15:05 Dose: 4 mg Pt:Tradjenta( (Linagliptin) 4 Mg) 0 each PO DAILY [facility] Ranolazine (Ranexa) 1,000 mg PO BID [facility] Last Admin: 12/19/18 20:36 Dose: 1,000 mg Senna/Docusate Sodium (Renetta-Colace) 1 tab PO BID [facility] Last Admin: 12/19/18 20:36 Dose: 1 tab Sodium Chloride (Ns Flush) 2 ml IV.FLUSH BID [facility] Last Admin: 12/19/18 22:40 Dose: 2 ml Sodium Chloride (Ns Flush) 2 ml IV.FLUSH PRN PRN PRN Reason: FLUSH AFTER USING IV ACCESS Vitamin D (Vitamin D3) 2,000 unit PO DAILY [place] Last Admin: 12/19/18 09:32 Dose: 2,000 unit Allergies Allergy/AdvReac Type Severity Reaction Status Date / Time glipizide Allergy Intermediate Swelling Verified 12/18/18 17:56 Iodinated Contrast- Oral and Allergy Hives Verified 12/18/18 17:56 IV Dye niacin Allergy Itching, Verified 12/18/18 17:56 [From Niaspan Generalized Extended-Release] fosinopril [From Monopril] AdvReac Flushing Verified 12/18/18 17:56 hydralazine AdvReac Anxiety Verified 12/18/18 17:56 morphine AdvReac Shakiness Verified 12/18/18 17:56 oxycodone [From Percocet] AdvReac Depression Verified 12/18/18 17:56 Bwotxpw-Kvu-Jyu Reductase AdvReac Muscle Pain Verified 12/18/18 17:56 Inhibitor telmisartan [From Micardis] AdvReac Chest Pain Verified 12/18/18 17:56 Home Medications Medication Instructions Recorded Confirmed Type aspirin 81 mg PO DAILY 05/23/18 12/18/18 History docusate sodium [Colace] 100 mg PO DAILY PRN 05/23/18 12/18/18 History furosemide 20 mg PO DAILY 05/23/18 12/18/18 History insulin degludec [Tresiba 15 unit SUB-Q DAILY 05/23/18 12/18/18 History FlexTouch U-100] levothyroxine 25 mcg PO DAILY 05/23/18 12/18/18 History linagliptin [Tradjenta] 5 mg PO DAILY 05/23/18 12/18/18 History nitroglycerin [Nitrostat] 0.4 mg SUBLINGUAL Q5-15M PRN 05/23/18 12/18/18 History carvedilol 6.25 mg PO Q12HR 12/11/18 12/18/18 History cholecalciferol (vitamin D3) 2,000 unit PO DAILY 12/11/18 12/18/18 History [Vitamin D3] isosorbide mononitrate 30 mg PO BID 12/11/18 12/18/18 History losartan 50 mg PO BID 12/11/18 12/18/18 History multivitamin [Multiple Vitamins] 1 tab PO DAILY 12/11/18 12/18/18 History xzgiq-4h-ujj-epa-fish oil [[place]-3 2 cap PO DAILY 12/11/18 12/18/18 History Fish Oil] Physical Exam Vital signs: Vital Signs 12/19/18 12:00 12/19/18 15:00 12/19/18 16:00 Temperature 98 F 98.9 F Pulse Rate 60 85 59 L Respiratory Rate 16 16 Blood Pressure 150/70 H 141/73 H Pulse Oximetry 96 90 L 12/19/18 17:00 12/19/18 18:00 12/19/18 19:00 Temperature Pulse Rate 74 75 76 Respiratory Rate Blood Pressure Pulse Oximetry 12/19/18 20:00 12/19/18 20:05 12/19/18 21:00 Temperature 98.5 F Pulse Rate 62 55 L Respiratory Rate 18 Blood Pressure 139/59 L Pulse Oximetry 98 98 12/19/18 22:00 12/19/18 22:40 12/19/18 23:00 Temperature Pulse Rate 55 L 55 L Respiratory Rate 18 16 Blood Pressure 98/46 L Pulse Oximetry 12/20/18 00:00 12/20/18 01:00 12/20/18 02:00 Temperature 98.7 F Pulse Rate 56 L 57 L 57 L Respiratory Rate 17 Blood Pressure 98/46 L Pulse Oximetry 96 12/20/18 04:00 12/20/18 05:00 12/20/18 06:00 Temperature 98.8 F Pulse Rate 57 L 55 L 65 Respiratory Rate 17 Blood Pressure 97/49 L Pulse Oximetry 93 L 12/20/18 07:39 Temperature 98.9 F Pulse Rate 64 Respiratory Rate 18 Blood Pressure 114/60 Pulse Oximetry Intake & Output 12/19/18 12/20/18 12/20/18 18:59 06:59 18:59 Intake Total 730 / 730 240 / 240 Output Total 1300 / 1300 250 / 250 Balance -570 / -570 -10 / -10 Weight 65 kg Intake: IV 250 / 250 Nitroglycerin Drip Premix 50 mg 250 / 250 In 250 ml @ Per Protocol IV. CONT TITRATE PRN Rx#:[id number] Oral 480 / 480 240 / 240 Output: Urine 1300 / 1300 250 / 250 - Constitutional no acute distress - Routine HEENT Exam Head: Present: normocephalic, atraumatic Eye: Present: EOMI, PERRL ENT: Present: mucous membranes moist - Routine Neck Exam Absent: JVD - Routine Respiratory Exam Present: CTA bilaterally - Routine Cardiovascular Exam Present: RRR, murmur - Routine Abdominal Exam Present: soft, normoactive bowel sounds - Routine Extremities Exam Present: pulses intact. Absent: edema - Routine Neurological Exam Present: alert, oriented X3, CN II-XII intact. Absent: sensory deficit, motor deficit Results 12/18/18 18:27 12/18/18 18:27 Cardiac Enzymes 12/18/18 12/19/18 12/19/18 Range/Units 18:27 02:44 08:07 CK-MB (CK-2) 21.5 H 22.6 H (0.5-3.6) ng/mL Troponin I 0.13 H 5.90 H* D 7.59 H* D (0.02-0.05) ng/mL Coagulation 12/18/18 12/19/18 12/19/18 Range/Units 18:27 06:33 16:37 PT 10.4 (9.8-11.6) sec APTT 24.0 23.7 41.1 H D (23.4-31.7) sec 12/20/18 Range/Units 02:01 PT (9.8-11.6) sec APTT 78.1 H D (23.4-31.7) sec CBC 12/18/18 Range/Units 18:27 WBC 10.8 (4.0-11.0) th/mm3 RBC 3.82 L (4.00-5.30) mil/mm3 Hgb 11.7 (11.6-15.3) gm/dL Hct 33.9 L (35.0-46.0) % Plt Count 175 (150-450) th/mm3 Neut # (Auto) 9.3 H (1.8-7.7) th/mm3 Lymph # (Auto) 1.2 (1.0-4.8) th/mm3 [place] # (Auto) 0.3 (0.0-0.9) th/mm3 Eos # (Auto) 0.0 (0.0-0.4) th/mm3 Baso # (Auto) 0.1 (0.0-0.2) th/mm3 Comprehensive Metabolic Panel 12/18/18 Range/Units 18:27 Sodium 137 (136-145) meq/L Potassium 4.4 (3.5-5.1) meq/L Chloride 105 (98-107) meq/L Carbon Dioxide 22.9 (21.0-32.0) meq/L BUN 50 H (7-18) mg/dL Creatinine 1.81 H (0.50-1.00) mg/dL Calcium 8.9 (8.5-10.1) mg/dL Intake and Output 12/19/18 12/20/18 12/20/18 22:59 06:59 14:59 Intake Total 730 / 730 240 / 240 Output Total 1300 / 1300 250 / 250 Balance -570 / -570 -10 / -10 Intake: IV 250 / 250 Nitroglycerin Drip Premix 50 mg 250 / 250 In 250 ml @ Per Protocol IV. CONT TITRATE PRN Rx#:[id number] Oral 480 / 480 240 / 240 Output: Urine 1300 / 1300 250 / 250 Other: Weight 65 kg - Imaging and Cardiology Imaging: Impressions Chest X-Ray 12/18/18 18:17 CONCLUSION: Chronic cardiac silhouette enlargement. No acute cardiopulmonary disease identified. Assessment and Plan - Plan 83-year-old female with CAD s/p CABG 1994 and 2015, severe aortic stenosis, CHF , HTN, DM, CKD stage III who presented with chest pain NSTEMI: Medical mgt. isosorbide 120 daily. ranexa 1000 BID. coreg 3.125 BID. DC heparin gtt. Severe aortic stenosis:Patient has been evaluated by CT surgery and felt not to be SAVR candidate due to prior sternotomy x2. plan for TAVR next week. bradycardia - symptomatic. trifascicular block. PPM tomorrow. DC planning for Tuesday
[2018-12-20] MEDS: Insulin NovoLOG Aspart Correctional Sugar Inj SQ SCH ×4 (08:33→20:46)
[2018-12-20] MEDS: Isosorbide Mononitrate 30 MG ER 24HR Tablet (Imdur) PO SCH ×2 (08:38→20:44)
[2018-12-20] MEDS: Senna/Docusate Sodium 8.6/50 MG Tablet PO SCH ×2 (08:39→20:44)
[2018-12-20] MEDS: Ranolazine 500 MG 12HR ER Tablet PO SCH ×2 (08:39→20:44)
--- NOTE | 2018-12-20 12:39 | P.PNIM ---
Subjective Interval history: No new concerns/complaints Physical Exam Vital signs: Last Vital Signs Temp 98.2 F 12/20/18 11:00 Pulse 60 12/20/18 12:00 Resp 18 12/20/18 07:39 BP 118/59 L 12/20/18 11:00 Pulse Ox 95 12/20/18 11:00 Narrative: GENERAL: This is a well-nourished, well-developed patient, in no apparent distress. CARDIOVASCULAR: bradycardic RESPIRATORY: Clear to auscultation. Breath sounds equal bilaterally. GASTROINTESTINAL: Abdomen soft, non-tender, nondistended. Normal active bowel sounds MUSCULOSKELETAL: Extremities without clubbing, cyanosis, or edema. NEURO: Alert & Oriented x4 to person, place, time, situation. Moves all ext x4 Results Labs CBC & Chem 7: 12/21/18 09:04 12/21/18 09:04 Assessment and Plan Plan 83-year-old female with CAD s/p CABG 1994 and 2015, severe aortic stenosis, CHF , HTN, DM, CKD stage III who presented with chest pain. The patient has been undergoing workup for TAVR. She had [facility] earlier this month that showed severe , severe CAD including high-grade left main and LAD stenosis with 2/3 bypass grafts patent to right coronary and obtuse marginal. She has been evaluated by cardiothoracic surgery who has recommended for TAVR. She states that over the past few days she has been needing to utilize nitroglycerin for chest discomfort. She states that yesterday while walking from her car to her house she developed severe chest pain that lasted for several minutes and was unrelieved with nitroglycerin so she came to the ED for evaluation. EKG appears to have no significant from baseline. Troponin 0.13 -> 5.9. 83-year-old female with CAD s/p CABG 1994 and 2015, severe aortic stenosis, CHF , HTN, DM, CKD stage III who presented with chest pain NSTEMI - comgmt with Cardiology - Case d/w Dr. Coyle (12/19/18) - NOT repeat surgical candidate as patient has had CABG 1994 and 2015 - coronary anatomy - no reasonable PCI candidate. LM only leads to occluded LAD and small diagonal/septal branches. - cardiology recommending medical management with isosorbide, Ranexa 1000 mg PO BID, coreg 3.125 BID - intolerable side effects to isosorbide 60 mg BID. continue 30 BID - nitro gtt DC'd - heparin gtt has been DC'd by cardiology Severe aortic stenosis Patient has been evaluated by CT surgery and felt not to be SAVR candidate due to prior sternotomy x2. plan for TAVR next week. Bradycardia - symptomatic. 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 I reviewed and agree with the findings presented. I attest that I had a nsbs-gh-bwaj encounter with the patient on the same day, and personally performed and documented my assessment and findings in the medical record. Patient examined. Assessment and plan formulated with Livier Rockwell PA-C. I agree with the above. Progress Note: Quality VTE Deep Vein Thrombosis/Pulmonary Embolism Present on Admission: No
--- NOTE | 2018-12-21 08:29 | P.PNCA ---
Subjective Interval history: Feeling well today with no issues. Denies any chest pain, shortness of breath, lightheadedness, dizziness. Medications and Allergies Allergies Allergy/AdvReac Type Severity Reaction Status Date / Time glipizide Allergy Intermediate Swelling Verified 12/18/18 17:56 Iodinated Contrast- Oral and Allergy Hives Verified 12/18/18 17:56 IV Dye niacin Allergy Itching, Verified 12/18/18 17:56 [From Niaspan Generalized Extended-Release] fosinopril [From Monopril] AdvReac Flushing Verified 12/18/18 17:56 hydralazine AdvReac Anxiety Verified 12/18/18 17:56 morphine AdvReac Shakiness Verified 12/18/18 17:56 oxycodone [From Percocet] AdvReac Depression Verified 12/18/18 17:56 Ppgrwvl-Fus-Ryv Reductase AdvReac Muscle Pain Verified 12/18/18 17:56 Inhibitor telmisartan [From Micardis] AdvReac Chest Pain Verified 12/18/18 17:56 Home Medications Medication Instructions Recorded Confirmed Type aspirin 81 mg PO DAILY 05/23/18 12/18/18 History docusate sodium [Colace] 100 mg PO DAILY PRN 05/23/18 12/18/18 History furosemide 20 mg PO DAILY 05/23/18 12/18/18 History insulin degludec [Tresiba 15 unit SUB-Q DAILY 05/23/18 12/18/18 History FlexTouch U-100] levothyroxine 25 mcg PO DAILY 05/23/18 12/18/18 History linagliptin [Tradjenta] 5 mg PO DAILY 05/23/18 12/18/18 History nitroglycerin [Nitrostat] 0.4 mg SUBLINGUAL Q5-15M PRN 05/23/18 12/18/18 History carvedilol 6.25 mg PO Q12HR 12/11/18 12/18/18 History cholecalciferol (vitamin D3) 2,000 unit PO DAILY 12/11/18 12/18/18 History [Vitamin D3] isosorbide mononitrate 30 mg PO BID 12/11/18 12/18/18 History losartan 50 mg PO BID 12/11/18 12/18/18 History multivitamin [Multiple Vitamins] 1 tab PO DAILY 12/11/18 12/18/18 History jakme-8g-sor-epa-fish oil [[place]-3 2 cap PO DAILY 12/11/18 12/18/18 History Fish Oil] Active Medications: Active Medications Acetaminophen (Tylenol) 650 mg PO Q4H PRN PRN Reason: Temp > 100.4 Last Admin: 12/19/18 20:37 Dose: 650 mg Al Hydroxide/Mg Hydroxide (Milk Of Nathen Brady) 30 ml PO Q12H PRN PRN Reason: Mild Constipation Aspirin (Aspirin Chew) 81 mg PO DAILY [facility] Last Admin: 12/20/18 08:36 Dose: 81 mg Carvedilol (Coreg) 3.125 mg PO Q12HR [facility] Last Admin: 12/20/18 20:44 Dose: 3.125 mg Dextrose (D50w Vial) 50 ml IV.PUSH UNSCH PRN PRN Reason: PER HYPOGLYCEMIA PROTOCOL Docusate Sodium (Colace) 100 mg PO DAILY PRN PRN Reason: Constipation Glucagon (Glucagon Inj) 1 mg OTHER PRN PRN PRN Reason: for Hypoglycemia Protocol Heparin Sodium (Porcine) (Heparin Inj) 2,500 units IV.PUSH UNSCH PRN PRN Reason: aPTT 25-39 Insulin Aspart (Novolog Insulin Correctional Sugar Inj) 0 unit SQ ACHS [facility]; Protocol Last Admin: 12/20/18 20:46 Dose: 4 unit Isosorbide Mononitrate (Imdur) 30 mg PO BID [facility] Last Admin: 12/20/18 20:44 Dose: 30 mg Levothyroxine Sodium (Synthroid) 25 mcg PO DAILY@0600 [facility] Last Admin: 12/21/18 06:28 Dose: 25 mcg Losartan Potassium (Cozaar) 50 mg PO BID [facility] Last Admin: 12/20/18 20:44 Dose: 50 mg Ondansetron HCl (Zofran Inj) 4 mg IV.PUSH Q6H PRN PRN Reason: NAUSEA OR VOMITING Last Admin: 12/19/18 15:05 Dose: 4 mg Pt:Tradjenta( (Linagliptin) 4 Mg) 0 each PO DAILY [facility] Ranolazine (Ranexa) 1,000 mg PO BID [facility] Last Admin: 12/20/18 20:44 Dose: 1,000 mg Senna/Docusate Sodium (Renetta-Colace) 1 tab PO BID [facility] Last Admin: 12/20/18 20:44 Dose: 1 tab Sodium Chloride (Ns Flush) 2 ml IV.FLUSH BID [facility] Last Admin: 12/20/18 20:46 Dose: 2 ml Sodium Chloride (Ns Flush) 2 ml IV.FLUSH PRN PRN PRN Reason: FLUSH AFTER USING IV ACCESS Vitamin D (Vitamin D3) 2,000 unit PO DAILY [facility] Last Admin: 12/20/18 08:39 Dose: 2,000 unit Physical Exam Vital signs: Vital Signs 12/20/18 09:00 12/20/18 09:04 12/20/18 10:00 Temperature Pulse Rate 62 64 Respiratory Rate Blood Pressure Pulse Oximetry 95 12/20/18 11:00 12/20/18 12:00 12/20/18 13:00 Temperature 98.2 F Pulse Rate 56 L 60 56 L Respiratory Rate Blood Pressure 118/59 L Pulse Oximetry 95 12/20/18 14:00 12/20/18 15:00 12/20/18 16:00 Temperature 98 F Pulse Rate 64 63 62 Respiratory Rate 16 Blood Pressure 130/82 Pulse Oximetry 98 12/20/18 17:00 12/20/18 17:59 12/20/18 19:00 Temperature Pulse Rate 61 59 L 64 Respiratory Rate Blood Pressure Pulse Oximetry 12/20/18 20:00 12/20/18 21:00 12/20/18 22:00 Temperature 98.0 F Pulse Rate 66 64 61 Respiratory Rate 18 Blood Pressure 142/52 H Pulse Oximetry 95 12/20/18 23:00 12/21/18 00:00 12/21/18 01:00 Temperature 98.2 F Pulse Rate 60 67 59 L Respiratory Rate 18 Blood Pressure 127/60 Pulse Oximetry 96 12/21/18 02:00 12/21/18 04:00 12/21/18 04:59 Temperature 98.0 F Pulse Rate 113 H 67 57 L Respiratory Rate 18 Blood Pressure 137/60 Pulse Oximetry 96 Intake & Output 12/20/18 12/21/18 12/21/18 18:59 06:59 18:59 Intake Total 970 / 970 250 / 250 Output Total 1000 / 1000 600 / 600 Balance -30 / -30 -350 / -350 Weight 143 lb 11.862 oz Intake: IV 250 / 250 Heparin/D5W 25,000 U/250 mL 25, 250 / 250 000 unit In 250 ml @ 800 UNITS/ HR 8 mls/hr IV.CONT TITRATE PRN Rx#:[id number] Oral 720 / 720 250 / 250 Output: Urine 1000 / 1000 600 / 600 Narrative: GENERAL: Well-developed well-nourished. In no acute distress. NECK: No carotid bruits. No JVD. CARDIOVASCULAR: Regular rate and rhythm. 3/6 systolic ejection murmur appreciated best at the right sternal border. RESPIRATORY: No accessory muscle use. Clear to auscultation. Breath sounds equal bilaterally. MUSCULOSKELETAL: No clubbing or cyanosis. No edema. NEUROLOGICAL: Awake and alert. Normal speech. Results 12/21/18 09:04 12/21/18 09:04 Cardiac Enzymes 12/19/18 Range/Units 08:07 CK-MB (CK-2) 22.6 H (0.5-3.6) ng/mL Troponin I 7.59 H* D (0.02-0.05) ng/mL Coagulation 12/19/18 12/20/18 12/20/18 Range/Units 16:37 02:01 08:41 APTT 41.1 H D 78.1 H D 67.3 H (23.4-31.7) sec Intake and Output 12/20/18 12/21/18 12/21/18 22:59 06:59 14:59 Intake Total 970 / 970 250 / 250 Output Total 1000 / 1000 600 / 600 Balance -30 / -30 -350 / -350 Intake: IV 250 / 250 Heparin/D5W 25,000 U/250 mL 25, 250 / 250 000 unit In 250 ml @ 800 UNITS/ HR 8 mls/hr IV.CONT TITRATE PRN Rx#:[id number] Oral 720 / 720 250 / 250 Output: Urine 1000 / 1000 600 / 600 Other: Weight 143 lb 11.862 oz Assessment and Plan - Plan 83-year-old female with CAD s/p CABG 1994 and 2015, severe aortic stenosis, CHF , HTN, DM, CKD stage III who presented with chest pain NSTEMI: Medical mgt. isosorbide 120 daily. ranexa 1000 BID. coreg 3.125 BID. Severe aortic stenosis: Patient has been evaluated by CT surgery and felt not to be SAVR candidate due to prior sternotomy x2. Plan for TAVR next week. Trifascicular block, with sinus exit block and symptomatic bradycardia: High risk for complete heart block with TAVR. Discussed risk/benefits/alternatives and patient agreeable to proceed. N.p.o. for PPM today. DC planning for Tuesday if no issues
[2018-12-21] MEDS: Ranolazine 500 MG 12HR ER Tablet PO SCH ×2 (08:33→20:41)
[2018-12-21] MEDS: Isosorbide Mononitrate 30 MG ER 24HR Tablet (Imdur) PO SCH ×2 (08:33→20:41)
[2018-12-21] MEDS: Insulin NovoLOG Aspart Correctional Sugar Inj SQ SCH ×4 (08:35→21:18)
[2018-12-21] MEDS: Senna/Docusate Sodium 8.6/50 MG Tablet PO SCH ×2 (08:36→20:41)
[2018-12-21 09:35] LABS: Baso % (Auto) 0.4 % (0.0-2.0); Eos # (Auto) 0.3 th/mm3 (0.0-0.4); Eos % (Auto) 3.4 % (0.0-4.0); Hematocrit 30.6 % (35.0-46.0); Hemoglobin 10.7 gm/dL (11.6-15.3); Lymph # (Auto) 1.4 th/mm3 (1.0-4.8); Lymph % (Auto) 16.7 % (9.0-44.0); Mean Corpuscular HGB Conc 34.9 % (32.0-36.0); Mean Corpuscular Hemoglobin 30.6 pg (27.0-34.0); Mean Corpuscular Volume 87.7 fL (80.0-100.0); Mean Platelet Volume 8.4 fL (7.0-11.0); Mono # (Auto) 0.6 th/mm3 (0.0-0.9); Mono % (Auto) 7.2 % (0.0-8.0); Neut # (Auto) 6.2 th/mm3 (1.8-7.7); Neut % (Auto) 72.3 % (16.0-70.0); Platelet Count 153 th/mm3 (150-450); Red Blood Count 3.49 mil/mm3 (4.00-5.30); Red Cell Distribution Width 14.1 % (11.6-17.2); White Blood Count 8.6 th/mm3 (4.0-11.0)
[2018-12-21 09:45] LABS: Prothrombin Time 10.3 sec (9.8-11.6)
[2018-12-21 10:12] LABS: Calcium 8.5 mg/dL (8.5-10.1); Carbon Dioxide 24.7 meq/L (21.0-32.0); Potassium 4.2 meq/L (3.5-5.1)
[2018-12-21] MEDS ORDERED: ceFAZolin 1 GM Premix Inj 2 GM/100 ML PIGGYBACK IV.SIG ONE (12:40)
[2018-12-21] MEDS ORDERED: Sodium Chlor 0.9% Inj 250 ML ONE (12:40)
[2018-12-21] MEDS ORDERED: Bupivacaine PF 0.5% Inj 10 ML Vial ONE ×2 (12:40→12:41)
[2018-12-21] MEDS ORDERED: MethylPREDNISolone Sod Succinate Inj 125 MG/2 ML Vial IV.PUSH ONE (12:45)
[2018-12-21] MEDS ORDERED: Lidocaine PF 1% Inj 5 ML Syringe INFILTRATN ONE (13:08)
[2018-12-21] MEDS ORDERED: Sodium Chlor 0.9% Inj 500 ML IV.CONT ONE (13:08)
[2018-12-21] MEDS ORDERED: Phenylephrine/NS 1000 MCG/10ML Syringe IV.PUSH ONE (13:08)
--- NOTE | 2018-12-21 15:15 | CATHPROC ---
Patient Name: Katia Reyes Study #: [id number] Initial MD: Johnny Pressley Date of : 1935 Study Date: 12/21/2018 Cardiac Catheterization Report 12/21/2018 3:15:12 PM Financial #: [id number] 1 of 10 Patient Name: Katia Reyes Study #: [id number] Initial MD: Johnny Pressley Date of : 1935 Study Date: 12/21/2018 Entire Case Report Patient Information Patient Name Katia Reyes Date of 1935 Age 83 years Financial # [id number] Gender F AlternateID Lab Number 6 Room Number 254 Height (in) 58.0 Height (cm) 147.3 BSA 1.58 Weight (lbs) 143.0 Weight (kg) 65.0 Patient Address/Phone Number Home Address [facility] Home Phone Number [phone] [facility] [phone] Study Information Study Number Admission Scheduled Start Study Start [id number] Dec 18 2018 8:00PM 12/21/2018 Dec 21 2018 12:36PM [facility] Cardiac Catheterization Admit Source Facility Department Emergency department [facility] - Sanitary Engineer Physician and Clinical Staff Initial Johnny Quintana First Officer And Flight Instructor Josephine Vaughan [employer] Other Anesthesia, LEATHER SPLITTER Recorder Breanna Pennington RN Scrub Chas Prado,RT(R) Procedures Performed Procedure Location (Site) Vessel Name Lead Insertion Wire insertion Subclav. Vein (Lft Subclavian Vein 12/21/2018 3:15:12 PM Financial #: [id number] 2 of 10 Patient Name: Katia Reyes Study #: [id number] Initial MD: Johnny Pressley Date of : 1935 Study Date: 12/21/2018 Equipment Time Manager Site Description Size Mfg Part Number Used/Scraped INTRODUCER SET, 13:48 [employer] FR 5 [id number] *[id number] Used MICROPUNCTURE STIFF INTRODUCER SET, 13:50 [employer] FR 5 [id number] *[id number] Used MICROPUNCTURE STIFF [id number] 13:40 [employer] BLANKET,WARM AIR CCL * Used *[id number] TP-1103 13:40 [employer] SUTURE, STRIP PLUS 1/2" * Used *[id number] 13:40 MEDLINE PACER ADHESIVE, MASTISOL 2/3CC 2/3CC 0523-48 Used 13:40 MEDLINE PACER RAMIREZ, LIMB * 2530 *[id number] Used [id number] 13:40 MEDLINE PACER PACK, PACER CUSTOM * Used *[id number] 13:40 MEDLINE PACER PEN, SKIN DUAL W/ RULER * Used *[id number] 13:51 [employer] PACER SAFE SHEATH, FR7, 13CM FR 7 CLS-1007 Used 14:21 [employer] PACER SAFE SHEATH, FR7, 13CM FR 7 CLS-1007 Used 13:05 Needle Sponge Count 2 22 Used 13:10 Needle Sponge Count 20 20 Used 13:10 Needle Sponge Count 25 1 Used 13:10 Needle Sponge Count 4 4 Used 14:35 Needle Sponge Count 6 6 Used [id number] *[id number] SUTURE, 0 ETHIBOND [CT1] (CX21D), 8pk SUTURE, 2-0 VICRYL [SH] (KEL241P) SUTURE, 3-0 VICRYL [SH] (SUO369N) SUTURE, 4-0 MONOCRYL [PS2] (Y496G) [place] PAD, ELECTROSURGICAL 13:40 * [id number] *[id number] Used SURGICAL GROUNDING ORANGE LEAD, CAPSURE FIX NOVUS, 4076-45CM 13:58 [employer] 45CM Used 45CM *[id number] LEAD, CAPSURE FIX NOVUS, 4076-52CM 13:51 [employer] 52CM Used 52CM *[id number] 14:27 [employer] MONITOR, PACEMAKER\\ICD 62524 *[id number] Used 14:22 [employer] PACEMAKER, ALAN XT DR LINCOLN-DDDR [id number] Used 5854-7201 13:40 [employer] GARY. / * Used *96908 12/21/2018 3:15:12 PM Financial #: [id number] Patient Name: Katia Reyes Study #: [id number] Initial MD: Johnny Pressley Date of : 1935 Study Date: 12/21/2018 Equipment Model, Serial, Lot Number and Expiration Data Description Model Number Serial Number Lot Number Expiration Date LEAD, CAPSURE FIX NOVUS, 45CM 4076-45 [id number] 10-11-2020 LEAD, CAPSURE FIX NOVUS, 52CM 4076-52 [id number] 10-11-2020 PACEMAKER, ALAN XT [id number] 05-20-2020 Insurance Information Insurance Payor Private Health Insurance Third Constitution Party Third Constitution Party Number [facility] [id number] History: Allergies Allergy Reaction iohexol Hives potassium iodide Hives sodium iodide Hives diatrizoate meglumine Hives iodine Hives povidone-iodine Hives pravastatin BODY ACHES simvastatin BODY ACHES amlodipine BODY ACHES gadoteridol Hives gadodiamide Hives fosinopril Flushing iodixanol Hives atorvastatin ""STATINS""-ELEVATED LIVER ENZYMES telmisartan Chest Pain gadobenic acid Hives glipizide Swelling Iodinated Contrast- Oral and IV Hives Dye Ieougxg-Wdp-Vqs Reductase Muscle Pain Inhibitor niacin Itching, Generalized morphine Shakiness oxycodone Depression acetaminophen Depression hydralazine Anxiety 12/21/2018 3:15:12 PM Financial #: [id number] Patient Name: Katia Reyes Study #: [id number] Initial MD: Johnny Pressley Date of : 1935 Study Date: 12/21/2018 Labs Hgb (g/dl) Hct (%) WBC (l/cumm) Platelets (thousands) 11.60-17.00 35.00-51.00 4.00-11.00 150.00-450.00 12.0 34 10 175 Glucose (mg/dl) BUN (mg/dl) Creatinine (mg/dl) BUN:Creatinine (1:x) 74.00-106.00 7.00-18.00 0.50-1.30 10.00-20.00 201 50 1.8 27.8 Na (meq/l) K (meq/l) 136.00-145.00 3.50-5.10 137 4.4 INR (PTT:PT) 0.90-1.10 1 Medication Medication Total Dose (Bolus/Oral) Medication Total Dosage/Unit 2% XYLOCAINE 50 mL BENADRYL 50 mg SOLU-CORTEF 125 mg Medications (Bolus/Oral) Medication Time Given Dosage/Unit Administered By Reason BENADRYL 12/21/2018 12:56:22 PM 50 mg Carlos Penningtont As per physicians henrry bal order 50 mg BENADRYL given in lab by Breanna Pennington, RN in Left Forearm via Peripheral IV. Ordered by Johnny Lazo. Reason: As per physicians verbal order. SOLU-CORTEF 12/21/2018 12:57:00 PM 125 mg Carlos Penningtont As per physicians v erbal order 125 mg SOLU-CORTEF given in lab by Breanna Pennington, JOLYNN in Left Forearm via Peripheral IV. Ordered by Johnny Pressley. Reason: As per physicians verbal order. 2% XYLOCAINE 12/21/2018 1:36:11 PM 50 mL Johnny Pressley 50 mL 2% XYLOCAINE given in lab by Johnny Pressley in Left upper chest via Subcutaneous. Medication (Drip) Medication Time Given Dosage/Unit Concentration/Unit Diluent (ml) Solution ANCEF 12/21/2018 1:25:58 PM 1 g 1 g ANCEF given in lab by Anesthesia, LEATHER SPLITTER via Peripheral IV. Ordered by Johnny Pressley. Reason: As per physicians verbal order. VANCOMYCIN DRIP 12/21/2018 1:20:31 PM 1 g 1 g VANCOMYCIN DRIP given in lab by Anesthesia, LEATHER SPLITTER via Peripheral IV. Ordered by Johnny Pressley. Reaso n: As per physicians verbal order. 12/21/2018 3:15:12 PM Financial #: [id number] 5 of 10 Patient Name: Katia Reyes Study #: [id number] Initial MD: Johnny Pressley Date of : 1935 Study Date: 12/21/2018 Initial Case Assessment Cardiovascular HR NIBP Chest Pain 77 192/91 0 Edema Present Skin color Skin None Normal Warm Dry Neurological State Oriented to time-place- Alert Moves all extremities person Respiration - General Respiration Rate SpO2 (%) O2 (lpm) (B/min) 8 98 2 12/21/2018 3:15:12 PM Financial #: [id number] 6 of 10 Patient Name: Katia Reyes Study #: [id number] Initial MD: Johnny Pressley Date of : 1935 Study Date: 12/21/2018 Final Case Assessment Cardiovascular HR Rhythm NIBP Chest Pain 71 sales estimator 93/50 0 Edema Present Skin color Skin None Normal Warm Dry Circulatory - Right Pulses Radial 1 Scale (0,1,2,3,4,d) Circulatory - Left Pulses Radial 1 Scale (0,1,2,3,4,d) Circulatory - Lower Extremities Color Lower Right Color Lower Left Normal Normal Neurological State Unresponsive Comment: under ansethesia Respiration - General Respiration Rate SpO2 (%) (B/min) 16 97 Comment: under anesthesia Respiration - Ventilator Type Intubation Type ET(oral) Chronological Log Time Study Chronological Log 12:36:14 Patient arrived via Bed. 12:36:14 Patient Name, D.O.B, / Armband Verified By R.N. 12:36:15 Consent signed by the physician and the patient and verified by the Sanitary Engineer staff. 12:36:15 Pre-op and post- op instructions given; patient acknowledges understanding of instructions. 12:36:37 Presedation assessment performed by Sanitary Engineer RN. 12/21/2018 3:15:12 PM Financial #: [id number] Patient Name: Katia Reyes Study #: [id number] Initial MD: Johnny Pressley Date of : 1935 Study Date: 12/21/2018 12:37:00 2% CHLORHEXIDINE GLUCONATE WASH AND NASAL SWIPE DONE PRIOR TO PROCEDURE. 12:50:04 Patient has been NPO for More than 6Hrs. 12:50:05 Skin Breakdown- none 12:50:20 Patient Warmer Placed on the Table. 12:50:32 A # 20 IV was noted in the Forearm (right). Grade = 0 initiated w good blood return 12:50:33 A # 20 IV was noted in the Wrist (left). Grade = 0 medial wrist initaited w good blood retu rn. 0.9ns kvo 12:50:40 Disposable Defibrillator Pads Placed On Patient. 12:51:00 Lani Prominences Protected Assessment: Initial Case, HR=77 BPM, IRQL=676/91 mmhg, Chest Pain=0, Edema=None, Color=Normal, Skin = Warm, Dry 12:52:16 Neurological: State=Alert, Ox3, NAVA Respiration: Resp=8 B/min, SpO2=98 %, O2=2 lpm 50 mg BENADRYL given in lab by Breanna Pennington, JOLYNN in Left Forearm via Peripheral IV. Ordered by Johnny Pressley. 12:56:22 Reason: As per physicians verbal order. 125 mg SOLU-CORTEF given in lab by Breanna Pennington RN in Left Forearm via Peripheral IV. Orde red by Johnny Pressley. 12:57:00 Reason: As per physicians verbal order. First Sponge And Instrument Count Done by Chas Prado, RT(R). 13:04:11 Hypo's: 6, Sponges: 25, Bovie/scratch: 2 Sutures: 18, Blades: 1, Instruments: 26, Syveck Patches: ~SYVECK PATCH~ verified w DC 13:10:15 Anesthesia at bedside. Assumes care of patient. Shon 13:10:15 Reference ECG taken 1 g VANCOMYCIN DRIP given in lab by Anesthesia, LEATHER SPLITTER via Peripheral IV. Ordered by Johnny Pressley. Reason: As per 13:20:31 physicians verbal order. 1 g ANCEF given in lab by Anesthesia, LEATHER SPLITTER via Peripheral IV. Ordered by Johnny Pressley. Reason: A s per physicians 13:25:58 verbal order. 13:27:13 Left Upper Chest Prepped Times Two. 13:30:57 MD arrived. Time Out. Correct patient, procedure, procedure equipment, site and side verified with physicia n present. Time 13:35:00 concurred by MD, individual staff and LEATHER SPLITTER. Time Out #2 - Consents verified, patient in correct position, all results are labled and displa yed, safety precautions 13:35:20 taken, antibiotics administered. Time out concurred by MD, individual staff and LEATHER SPLITTER in procedu re 13:35:46 Case Start 13:36:11 50 mL 2% XYLOCAINE given in lab by Johnny Pressley in Left upper chest via Subcutaneous. 13:39:05 Surgical Incision Made. 13:46:08 A pocket was created at the L Upper Chest. 13:47:36 Vascular access was obtained in the Subclav. Vein (Lft. A INTRODUCER SET, MICROPUNCTURE STIFF FR 5 was advanced into the Subclav. Vein (Lft using the M odified 13:47:55 Seldinger technique. 13:48:30 Vascular access was obtained in the Subclav. Vein (Lft. A INTRODUCER SET, MICROPUNCTURE STIFF FR 5 was advanced into the Subclav. Vein (Lft using the M odified 13:48:34 Seldinger technique. 13:48:38 A wire was inserted via Subclav. Vein (Lft. 13:50:26 A SAFE SHEATH, FR7, 13CM FR 7 was advanced into the Subclav. Vein (Lft using the Modified S eldinger technique. 13:50:38 A LEAD, CAPSURE FIX NOVUS, 52CM 52CM was inserted and positioned in the RV. 13:51:58 Lead placement verified under fluoroscopy 12/21/2018 3:15:12 PM Financial #: [id number] Patient Name: Katia Reyes Study #: [id number] Initial MD: Johnny Pressley Date of : 1935 Study Date: 12/21/2018 13:57:31 The RV lead impedance and threshold being tested. 14:03:14 The RV lead was sutured to the fascia. 14:09:04 A SAFE SHEATH, FR7, 13CM FR 7 was advanced into the Subclav. Vein (Lft using the Modified S eldinger technique. 14:17:35 A LEAD, CAPSURE FIX NOVUS, 45CM 45CM was inserted and positioned in the RA. 14:18:47 Lead placement verified under fluoroscopy 14:18:52 The Atrial lead impedance and threshold is being tested. 14:24:32 The Atrial lead was sutured to the fascia. 14:24:48 A PACEMAKER, ALAN XT DR QAE-DDDR was connected and placed in the pocket. 14:25:00 Pocket flushed with antibiotic solution Second Sponge And Instrument Count Done by Chas Prado RT(R). 14:35:17 Hypo's: 6, Sponges: 25, Bovie/scratch: 2 Sutures: 18, Blades: 1, Instruments: , Syveck Patches: ~SYVECK PATCH~ verified w DC 14:59:25 The pocket was closed. Final Sponge And Instrument Count Done by Chas Prado RT(R). 15:07:51 Hypo's: 6, Sponges: 25, Bovie/scratch: 2 Sutures: 18, Blades: 1, Instruments: 26, Syveck Patches: ~SYVECK PATCH~ verified w DC 15:08:08 Implant Procedure was performed. 15:08:14 A PPM Implant . (Dual) 15:08:29 Steri-strips and a sterile dressing applied to site. 15:08:51 Case End (Physician broke scrub) Assessment: Final Case, HR=71 BPM, Rhythm=sales estimator, NIBP=93/50 mmhg, Chest Pain=0, Edema=None, Color =Normal, Skin = Warm, Dry Right Pulses: Radial=1 Left Pulses: Radial=1 15:09:16 Lower Right Extremities: Color=Normal Lower Left Extremities: Color=Normal Neurological: State=Unresponsive, Comment=under ansethesia Respiration: Resp=16 B/min, SpO2=97 %, Type=ET(Oral), Comment=under anesthesia 15:10:03 No case complications noted. 15:10:04 Cine recording checked. 15:10:10 Implantable Device card placed in patient's chart. 15:10:22 PACU called. Spoke to Hickey. 15:10:37 Bedside Report will be given. 15:11:33 Defibrillator and ground pads removed. Skin intact. 15:12:34 A sling was placed on the affected arm. 15:18:35 Patient moved to [facility] hospital[facility] 12/21/2018 3:15:12 PM Financial #: [id number] Patient Name: Katia Reyes Study #: [id number] Initial MD: Johnny Pressley Date of : 1935 Study Date: 12/21/2018 End Study - Maximum Contrast Load Max Contrast Load (mL) 180.6 End Study - Radiation Exposure Fluoro Time Fluoro Dose (mGy) Cine Dose (uGym2) (minutes) 6.1 92 846 End Study - Patient Disposition Complications Transferred To Interventional Outcome No Telemetry Bed successful 12/21/2018 3:15:12 PM Financial #: [id number]
[2018-12-21] MEDS ORDERED: Acetaminophen 325 MG Tablet PO PRN (15:16)
--- NOTE | 2018-12-21 16:28 | XR ---
EXAM DATE: 12/21/2018 4:22 PM EST AGE/SEX: 83 years / Female INDICATIONS: Evaluate for pneumothorax. Post pacemaker. CLINICAL DATA: This is the patient's initial encounter. Patient reports that signs and symptoms have been present for 1 day and indicates a pain score of Nonresponsive. MEDICAL/SURGICAL HISTORY: Diabetes mellitus type II. Hypertension. CABG. COMPARISON: C, CHEST 1V SINGLE AP, 12/18/2018. . FINDINGS: The lungs are symmetrically aerated and clear. No infiltrates seen. Evidence of prior median sternoto my and CABG. Coronary stent in place. Sternal wire sutures are intact. Cardiac pacer with leads proje cted in the right atrium and right ventricle. No evidence of pneumothorax. Both hemidiaphragms well d elineated. CONCLUSION: No evidence of pneumothorax status post pacemaker placement. Electronically signed by: Blade Arias MD Board Certified Radiologist 12/21/2018 4:27 PM EST
--- NOTE | 2018-12-21 17:42 | MP ---
cc: Johnny Pressley DO DATE OF OPERATION: 12/21/2018 SURGEON: Johnny Pressley DO PROCEDURE: Dual-chamber permanent pacemaker implantation, Medtronic Gina XT DR ANGELIC Vega. PREOPERATIVE DIAGNOSES: 1. 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 4. Pre transcatheter aortic valve replacement. POSTPROCEDURE DIAGNOSES:. Successful implantation of dual-chamber permanent pacemaker via the left upper chest wall with subcutaneous generator placement. ANESTHESIA: General anesthesia and local combination. Approximately 20 mL of 0.5% bupivacaine and 2% lidocaine in a 50/50 mixture was used for local anesthetic. PROCEDURES PERFORMED: 1. Implantation of pacemaker generator, Medtronic Gina XT DR ANGELIC Vega, model W1DR01, serial number [id number]. 2. Implantation of right atrial pacing lead Medtronic, serial number [id number]. 3. Implantation of right ventricular pacing lead, Medtronic, serial number [id number], implanted in the mid right ventricular septum. 4. Formation of pulse generator pocket in the subcutaneous tissue of the left upper chest wall. ESTIMATED BLOOD LOSS: Less than 10 mL DYE LOAD: None. ANTIBIOTICS: Ancef 2 g intravenously, 1 g of vancomycin in the irrigation solution. INFORMED CONSENT: Prior to the procedure, the risks, benefits and alternatives of the procedure were discussed with the patient and family in detail who agreed to proceed. The risks including but not limited to bleeding, hematoma, infection, pneumothorax, lead dislodgement, arrhythmia, perforation of cardiac chamber, and were discussed with the patient, who agreed to proceed with the procedure. PROCEDURE IN DETAIL: After informed consent was obtained, the patient was brought to the [facility] cardiac catheterization laboratory #6 in a postabsorptive state. The patient's left chest was prepped and draped in the usual sterile fashion. A timeout was taken in order to verify the patient, procedure, and preprocedure labs. A combination of bupivacaine and 2% lidocaine was infused in the subcutaneous tissue, approximately 2 cm inferior to the left clavicle. Using a #10 blade, a small horizontal incision was made, followed by a combination of sharp and blunt dissection and electrocautery for pocket formation. Using a micropuncture finder needle under fluoroscopic guidance, the left subclavian vein was cannulated, and a J-tipped micropuncture wire was advanced into the venous system with right-sided venous system verified with the tip of the wire able to go into the inferior vena cava under fluoroscopic guidance, and then the wire was pulled back. A second wire was placed into the venous system using the same technique. An appropriate size SafeSheath introducer was then used to place the right ventricular lead at the level of the right atrium. Using a combination of curved and mons type stylet, the right ventricular lead was placed at the level of the mid RV septum. The lead was actively fixated, tested and found to be satisfactory and sutured to the pectoralis muscle to prevent migration with nonabsorbable Ethibond 2-0 suture x2 sutures over a suture sleeve. The appropriate size SafeSheath introducer was then used to place the right atrial lead to the level of the right atrium. Then, the introducer was removed. The stylet was removed. A J-tipped stylet was placed to appropriately position, the right atrial lead into the appendage. The lead was actively fixated, tested, and found to be satisfactory and sutured into place in the pectoralis muscle to prevent migration with nonabsorbable Ethibond 2-0 suture x2 sutures over the suture sleeve. The pulse generator was then connected to the leads. The pocket was then irrigated with copious amounts of antibiotic-containing saline solution. The device was placed into the pocket with excess leads being placed posterior to the device in the pocket. The device was sutured to the pectoralis muscle through the suture hole in the header of the device to prevent migration with nonabsorbable Ethibond 2-0 suture. The pocket was then closed with 3 interrupted layers of 3-0 Vicryl through the subcutaneous tissue, followed by the skin being closed with 4-0 Monocryl with the knots being tied on either end external to the incision. Steri-Strips, Telfa pad and Tegaderm were subsequently applied. A 10-pound sandbag was applied over the site for approximately 45 minutes ordered post-procedure. The patient tolerated the procedure well with no apparent complications. The patient will be transferred to the PACU for continued post-procedural monitoring per protocol prior to being transferred back to the telemetry floor overnight for monitoring. MEASURED DATA: The right atrial lead measures at 1.2 millivolt P-wave, 1.2 volt threshold at 0.4 milliseconds pulse width, 469 ohms impedance. The right ventricular lead measures a 6.1 millivolt R-wave, 1.0 volt threshold, at 0.4 milliseconds pulse width, 1202 ohms impedance. The device was programmed AAIR to DDDR with mode switch on, LRL 60 BPM and upper tracking rate 130 BPM. DO Alfreda Fox , 04:59 PM , 05:09 PM
--- NOTE | 2018-12-21 19:38 | P.PNIM ---
Subjective Interval history: No new complaints. Physical Exam Vital signs: Last Vital Signs Temp 97.5 F L 12/21/18 15:26 Pulse 60 12/21/18 18:00 Resp 16 12/21/18 18:00 BP 133/73 12/21/18 18:00 Pulse Ox 100 12/21/18 18:00 Narrative: GENERAL: This is a well-nourished, well-developed patient, in no apparent distress. CARDIOVASCULAR: regular RESPIRATORY: Clear to auscultation. Breath sounds equal bilaterally. GASTROINTESTINAL: Abdomen soft, non-tender, nondistended. Normal active bowel sounds MUSCULOSKELETAL: Extremities without clubbing, cyanosis, or edema. NEURO: Alert & Oriented x4 to person, place, time, situation. Moves all ext x4 Results Labs CBC & Chem 7: 12/21/18 09:04 12/21/18 09:04 Assessment and Plan Plan 83-year-old female with CAD s/p CABG 1994 and 2015, severe aortic stenosis, CHF , HTN, DM, CKD stage III who presented with chest pain. The patient has been undergoing workup for TAVR. She had [facility] earlier this month that showed severe , severe CAD including high-grade left main and LAD stenosis with 2/3 bypass grafts patent to right coronary and obtuse marginal. She has been evaluated by cardiothoracic surgery who has recommended for TAVR. She states that over the past few days she has been needing to utilize nitroglycerin for chest discomfort. She states that yesterday while walking from her car to her house she developed severe chest pain that lasted for several minutes and was unrelieved with nitroglycerin so she came to the ED for evaluation. EKG appears to have no significant from baseline. Troponin 0.13 -> 5.9. 83-year-old female with CAD s/p CABG 1994 and 2015, severe aortic stenosis, CHF , HTN, DM, CKD stage III who presented with chest pain NSTEMI - comgmt with Cardiology - Case d/w Dr. Coyle (12/19/18) - NOT repeat surgical candidate as patient has had CABG 1994 and 2015 - coronary anatomy - no reasonable PCI candidate. LM only leads to occluded LAD and small diagonal/septal branches. - cardiology recommending medical management with isosorbide, Ranexa 1000 mg PO BID, coreg 3.125 BID - intolerable side effects to isosorbide 60 mg BID. continue 30 BID - nitro gtt DC'd - heparin gtt has been DC'd by cardiology Severe aortic stenosis Patient has been evaluated by CT surgery and felt not to be SAVR candidate due to prior sternotomy x2. plan for TAVR next week. Bradycardia - PPM placed by Dr. Pressley (12/21) - observe overnight - anticipate d/c to home 12/22 DM2 - stable - tradjenta - SSI HTN, essential - continue coreg, cozaar Progress Note: Quality VTE Deep Vein Thrombosis/Pulmonary Embolism Present on Admission: No
[2018-12-21] MEDS: ceFAZolin 2 GM Premix Inj 2 GM/50 ML PIGGYBACK IV.SIG SCH (20:35)
[2018-12-22] MEDS: ceFAZolin 2 GM Premix Inj 2 GM/50 ML PIGGYBACK IV.SIG SCH ×2 (03:25→12:28)
--- NOTE | 2018-12-22 07:46 | P.DS ---
DS: Providers Date of admission: 12/18/18 20:00 Primary care physician: Hermila Parks Consults: 12/18/18 20:24 Consult to Cardiology Stat Consulting Provider: Leonel Coyle For STAT consult, spoke directly to:: Dr. Coyle Does the patient have a Melt House Centrifugal Operator who follows them?: Yes Preferred Carpentry Foreman:: Leonel Coyle Reason for Consultation: NSTEMI, pt had imaging today to prepare for aortic valve replacement Notified:: Service Spoke with:: Mayela Date Notified:: 12/18/18 Time Notified:: 20:42 Ordering Provider: JAREN Brief History from admission: 83-year-old female with CAD s/p CABG 1994 and 2015 , severe aortic stenosis, CHF, HTN, DM, CKD stage III who presented with chest pain. The patient has been undergoing workup for TAVR. She had [facility] earlier this month that showed severe , severe CAD including high-grade left main and LAD stenosis with 2/3 bypass grafts patent to right coronary and obtuse marginal. She has been evaluated by cardiothoracic surgery who has recommended for TAVR. She states that over the past few days she has been needing to utilize nitroglycerin for chest discomfort. She states that yesterday while walking from her car to her house she developed severe chest pain that lasted for several minutes and was unrelieved with nitroglycerin so she came to the ED for evaluation. EKG appears to have no significant from baseline. Troponin 0.13 -> 5.9. Chest pain-free at this time. No breathing complaints. PMH: CKD (chronic kidney disease) stage 3, GFR 30-59 ml/min Carotid stenosis Coronary artery disease EPSTEIN (dyspnea on exertion) Diabetes High cholesterol Hypertension Myocardial infarction Systolic murmur CHF (congestive heart failure) PSH: - CABG FHX: - noncontributory SHX: never smoker, no alcohol, no illicit drugs. ALL: see chart DS: Summary 83-year-old female with CAD s/p CABG 1994 and 2015, severe aortic stenosis, CHF , HTN, DM, CKD stage III who presented with chest pain. The patient has been undergoing workup for TAVR. She had [facility] earlier this month that showed severe , severe CAD including high-grade left main and LAD stenosis with 2/3 bypass grafts patent to right coronary and obtuse marginal. She has been evaluated by cardiothoracic surgery who has recommended for TAVR. She states that over the past few days she has been needing to utilize nitroglycerin for chest discomfort. She states that yesterday while walking from her car to her house she developed severe chest pain that lasted for several minutes and was unrelieved with nitroglycerin so she came to the ED for evaluation. EKG appears to have no significant from baseline. Troponin 0.13 -> 5.9. 83-year-old female with CAD s/p CABG 1994 and 2015, severe aortic stenosis, CHF , HTN, DM, CKD stage III who presented with chest pain NSTEMI - comgmt with Cardiology - Case d/w Dr. Coyle (12/19/18) - NOT repeat surgical candidate as patient has had CABG 1994 and 2015 - coronary anatomy - no reasonable PCI candidate. LM only leads to occluded LAD and small diagonal/septal branches. - cardiology recommending medical management with isosorbide, Ranexa 1000 mg PO BID, coreg 3.125 BID - intolerable side effects to isosorbide 60 mg BID. continue 30 BID - nitro gtt DC'd - heparin gtt has been DC'd by cardiology Severe aortic stenosis Patient has been evaluated by CT surgery and felt not to be SAVR candidate due to prior sternotomy x2. plan for TAVR next week. Bradycardia - S/P PPM placed by Dr. Pressley (12/21) - observe overnight , stable - anticipate d/c to home 12/22 DM2 - stable - tradjenta - SSI HTN, essential - continue coreg, cozaar and amlodipine Attending Attestation: The exam, history, and the medical decision-making described in the above note were completed with the assistance of the mid-level provider. I reviewed and agree with the findings presented. I attest that I had a [id number] encounter with the patient on the same day, and personally performed and documented my assessment and findings in the medical record. Patient examined. Assessment and plan formulated with Livier Rockwell PA-C. I agree with the above. Time Spent with Patient Total time spent providing and/or coordinating discharge services: Quality: VTE Deep Vein Thrombosis/Pulmonary Embolism Present on Admission: No Exam Narrative Exam Narrative: GENERAL: This is a well-nourished, well-developed patient, in no apparent distress. SKIN: dressing left chest dry and intact CARDIOVASCULAR: regular RESPIRATORY: Clear to auscultation. Breath sounds equal bilaterally. GASTROINTESTINAL: Abdomen soft, non-tender, nondistended. Normal active bowel sounds MUSCULOSKELETAL: Extremities without clubbing, cyanosis, or edema. NEURO: Alert & Oriented x4 to person, place, time, situation. Moves all ext x4 Results Labs on day of discharge: Labs from last 24 hours 12/21/18 12/21/18 12/21/18 21:12 15:57 11:16 WBC RBC Hgb Hct MCV MCH MCHC RDW Plt Count MPV Neut % (Auto) Lymph % (Auto) [place] % (Auto) Eos % (Auto) Baso % (Auto) Neut # (Auto) Lymph # (Auto) [place] # (Auto) Eos # (Auto) Baso # (Auto) WBC Differential Differential Comment PT INR APTT Sodium Potassium Chloride Carbon Dioxide Anion Gap BUN Creatinine Estimated GFR POC Glucose 343 H 168 H 137 H Random Glucose Calcium 12/21/18 12/21/18 12/21/18 09:04 09:04 09:04 WBC 8.6 RBC 3.49 L Hgb 10.7 L Hct 30.6 L MCV 87.7 MCH 30.6 MCHC 34.9 RDW 14.1 Plt Count 153 MPV 8.4 Neut % (Auto) 72.3 H Lymph % (Auto) 16.7 [place] % (Auto) 7.2 Eos % (Auto) 3.4 Baso % (Auto) 0.4 Neut # (Auto) 6.2 Lymph # (Auto) 1.4 [place] # (Auto) 0.6 Eos # (Auto) 0.3 Baso # (Auto) 0.0 WBC Differential . Differential Comment Auto diff final PT 10.3 INR 1.0 APTT Sodium 137 Potassium 4.2 Chloride 106 Carbon Dioxide 24.7 Anion Gap 6 BUN 41 H Creatinine 1.79 H Estimated GFR 27 L POC Glucose Random Glucose 127 H Calcium 8.5 12/21/18 09:04 WBC RBC Hgb Hct MCV MCH MCHC RDW Plt Count MPV Neut % (Auto) Lymph % (Auto) [place] % (Auto) Eos % (Auto) Baso % (Auto) Neut # (Auto) Lymph # (Auto) [place] # (Auto) Eos # (Auto) Baso # (Auto) WBC Differential Differential Comment PT INR APTT 28.7 D Sodium Potassium Chloride Carbon Dioxide Anion Gap BUN Creatinine Estimated GFR POC Glucose Random Glucose Calcium Impressions ITS Impressions Chest X-Ray 12/21/18 00:00 CONCLUSION: No evidence of pneumothorax status post pacemaker placement. Discharge Plan Discharge Disposition Patient Disposition: Discharge Home Discharge Condition Condition: Stable Discharge Order Discharge Orders: Discharge Order (Routine); Ordered 12/23/18 Ordered By: Livier Rockwell Discharge Details Anticipated Discharge Date: 12/23/18 Physicians Team Attending Provider: You Cheek Other Providers: Leonel Coyle Rxs /Orders / Referrals /Forms Prescriptions: New carvedilol [Coreg] 3.125 mg Tablet 3.125 mg PO Q12HR 30 Days Qty: 60 RF: 0 ranolazine [Ranexa] 500 mg Tablet Extended Release 12 Hr 1,000 mg PO BID 30 Days Qty: 120 RF: 0 amlodipine [Norvasc] 5 mg Tablet 2.5 mg PO DAILY 30 Days Qty: 15 RF: 0 Continue multivitamin [Multiple Vitamins] Tablet 1 tab PO DAILY RF: 0 losartan 50 mg Tablet 50 mg PO BID RF: 0 isosorbide mononitrate 30 mg Tablet Extended Release 24 Hr 30 mg PO BID RF: 0 cholecalciferol (vitamin D3) [Vitamin D3] 2,000 unit Capsule 2,000 unit PO DAILY RF: 0 [id number]-epa-fish oil [[place]-3 Fish Oil] 300-1,000 mg Capsule 2 cap PO DAILY RF: 0 docusate sodium [Colace] 100 mg Capsule 100 mg PO DAILY PRN (Reason: Constipation) RF: 0 levothyroxine 25 mcg Tablet 25 mcg PO DAILY RF: 0 nitroglycerin [Nitrostat] 0.4 mg Tablet, Sublingual 0.4 mg SUBLINGUAL Q5-15M PRN (Reason: Chest Pain) RF: 0 aspirin 81 mg Tablet,Chewable 81 mg PO DAILY RF: 0 furosemide 20 mg Tablet 20 mg PO DAILY RF: 0 linagliptin [Tradjenta] 5 mg Tablet 5 mg PO DAILY RF: 0 insulin degludec [Tresiba FlexTouch U-100] 100 unit/mL (3 mL) Insulin Pen 15 unit SUB-Q DAILY RF: 0 Discontinued carvedilol 6.25 mg Tablet 6.25 mg PO Q12HR RF: 0 Referrals: Hermila Parks MD [Other] - See Instructions (follow up in 1 week) Johnny Pressley DO [Physician] - See Instructions (follow up with Dr. Pressley at 9:20am) Discharge Instructions Patient Printed Instructions: Amlodipine (By mouth), Carvedilol (By mouth), Ranolazine (By mouth), Chest Pain (ED) Additional Instructions: RETURN ON 12/27/18 FOR TAVR AT 530AM TO [facility] REGISTRATION. REMAINDER OF PRE-OP INSTRUCTIONS REMAIN UNCHANGED FROM PREVIOUSLY FOLLOW UP WITH DR PRESSLEY IN [facility] OFFICE 01/04/19 at 9:20am. Status ED Status: Left Department Discharge Information Discharge Date/Time: 12/23/18 11:30
[2018-12-22] MEDS: Insulin NovoLOG Aspart Correctional Sugar Inj SQ SCH ×4 (08:45→20:31)
[2018-12-22] MEDS: Isosorbide Mononitrate 30 MG ER 24HR Tablet (Imdur) PO SCH ×2 (08:45→20:30)
[2018-12-22] MEDS: Ranolazine 500 MG 12HR ER Tablet PO SCH ×2 (08:46→20:30)
[2018-12-22] MEDS: Senna/Docusate Sodium 8.6/50 MG Tablet PO SCH ×2 (08:46→20:30)
--- NOTE | 2018-12-22 09:25 | P.PNCA ---
Subjective Interval history: Patient seen and examined. No complaints. s/p Medtronic dual chamber PPM implant yesterday for symptomatic bradycardia, trifasicular block and sinus exit block with need to TAVR scheduled in next 2 weeks for severe . Admitted with NSTEMI which was medical managed. Medications and Allergies Active Medications: Active Medications Acetaminophen (Tylenol) 650 mg PO Q4H PRN PRN Reason: Temp > 100.4 Last Admin: 12/19/18 20:37 Dose: 650 mg Acetaminophen (Tylenol) 650 mg PO Q4H PRN PRN Reason: PAIN SCALE 1 TO 2 Al Hydroxide/Mg Hydroxide (Milk Of Nathen Brady) 30 ml PO Q12H PRN PRN Reason: Mild Constipation Aspirin (Aspirin Chew) 81 mg PO DAILY [facility] Last Admin: 12/22/18 08:46 Dose: 81 mg Carvedilol (Coreg) 3.125 mg PO Q12HR [facility] Last Admin: 12/22/18 08:45 Dose: 3.125 mg Dextrose (D50w Vial) 50 ml IV.PUSH UNSCH PRN PRN Reason: PER HYPOGLYCEMIA PROTOCOL Docusate Sodium (Colace) 100 mg PO DAILY PRN PRN Reason: Constipation Glucagon (Glucagon Inj) 1 mg OTHER PRN PRN PRN Reason: for Hypoglycemia Protocol Heparin Sodium (Porcine) (Heparin Inj) 2,500 units IV.PUSH UNSCH PRN PRN Reason: aPTT 25-39 Cefazolin Sodium/Dextrose (Ancef 2 Gm Premix Inj) 2 gm in 50 mls @ 100 mls/hr IV.SIG Q8H [facility] Stop: 12/22/18 12:29 Last Infusion: 12/22/18 05:52 Dose: Infused Insulin Aspart (Novolog Insulin Correctional Sugar Inj) 0 unit SQ ACHS [facility]; Protocol Last Admin: 12/22/18 08:45 Dose: 4 unit Isosorbide Mononitrate (Imdur) 30 mg PO BID [facility] Last Admin: 12/22/18 08:45 Dose: 30 mg Levothyroxine Sodium (Synthroid) 25 mcg PO DAILY@0600 [facility] Last Admin: 12/22/18 05:17 Dose: 25 mcg Losartan Potassium (Cozaar) 50 mg PO BID [facility] Last Admin: 12/22/18 08:45 Dose: 50 mg Miscellaneous Information (Mis Nursing Information) 0 each OTHER UNSCH PRN PRN Reason: SEE LABEL COMMENTS Stop: 12/22/18 14:28 Ondansetron HCl (Zofran Inj) 4 mg IV.PUSH Q6H PRN PRN Reason: NAUSEA OR VOMITING Last Admin: 12/19/18 15:05 Dose: 4 mg Pt:Tradjenta( (Linagliptin) 4 Mg) 0 each PO DAILY [facility] Ranolazine (Ranexa) 1,000 mg PO BID [facility] Last Admin: 12/22/18 08:46 Dose: 1,000 mg Senna/Docusate Sodium (Renetta-Colace) 1 tab PO BID [facility] Last Admin: 12/22/18 08:46 Dose: 1 tab Sodium Chloride (Ns Flush) 2 ml IV.FLUSH BID [facility] Last Admin: 12/22/18 08:46 Dose: 2 ml Sodium Chloride (Ns Flush) 2 ml IV.FLUSH PRN PRN PRN Reason: FLUSH AFTER USING IV ACCESS Vitamin D (Vitamin D3) 2,000 unit PO DAILY [facility] Last Admin: 12/22/18 08:45 Dose: 2,000 unit Allergies Allergy/AdvReac Type Severity Reaction Status Date / Time glipizide Allergy Intermediate Swelling Verified 12/18/18 17:56 Iodinated Contrast- Oral and Allergy Hives Verified 12/18/18 17:56 IV Dye niacin Allergy Itching, Verified 12/18/18 17:56 [From Niaspan Generalized Extended-Release] fosinopril [From Monopril] AdvReac Flushing Verified 12/18/18 17:56 hydralazine AdvReac Anxiety Verified 12/18/18 17:56 morphine AdvReac Shakiness Verified 12/18/18 17:56 oxycodone [From Percocet] AdvReac Depression Verified 12/18/18 17:56 Prdpzti-Ton-Ixe Reductase AdvReac Muscle Pain Verified 12/18/18 17:56 Inhibitor telmisartan [From Micardis] AdvReac Chest Pain Verified 12/18/18 17:56 Home Medications Medication Instructions Recorded Confirmed Type aspirin 81 mg PO DAILY 05/23/18 12/18/18 History docusate sodium [Colace] 100 mg PO DAILY PRN 05/23/18 12/18/18 History furosemide 20 mg PO DAILY 05/23/18 12/18/18 History insulin degludec [Tresiba 15 unit SUB-Q DAILY 05/23/18 12/18/18 History FlexTouch U-100] levothyroxine 25 mcg PO DAILY 05/23/18 12/18/18 History linagliptin [Tradjenta] 5 mg PO DAILY 05/23/18 12/18/18 History nitroglycerin [Nitrostat] 0.4 mg SUBLINGUAL Q5-15M PRN 05/23/18 12/18/18 History carvedilol 6.25 mg PO Q12HR 12/11/18 12/18/18 History cholecalciferol (vitamin D3) 2,000 unit PO DAILY 12/11/18 12/18/18 History [Vitamin D3] isosorbide mononitrate 30 mg PO BID 12/11/18 12/18/18 History losartan 50 mg PO BID 12/11/18 12/18/18 History multivitamin [Multiple Vitamins] 1 tab PO DAILY 12/11/18 12/18/18 History rtonw-2v-pib-epa-fish oil [[place]-3 2 cap PO DAILY 12/11/18 12/18/18 History Fish Oil] Physical Exam Vital signs: Vital Signs 12/21/18 10:00 12/21/18 11:00 12/21/18 12:00 Temperature 97.4 F L Pulse Rate 54 L 53 L 64 Respiratory Rate 16 Blood Pressure 139/68 Pulse Oximetry 95 12/21/18 15:26 12/21/18 15:30 12/21/18 15:45 Temperature 97.5 F L Pulse Rate 64 62 60 Respiratory Rate 16 16 16 Blood Pressure 149/65 H 143/67 H 135/64 Pulse Oximetry 93 L 96 97 12/21/18 16:00 12/21/18 16:15 12/21/18 16:32 Temperature Pulse Rate 60 60 60 Respiratory Rate 16 16 16 Blood Pressure 129/59 L 135/67 133/61 Pulse Oximetry 97 99 97 12/21/18 17:00 12/21/18 18:00 12/21/18 19:00 Temperature Pulse Rate 60 60 62 Respiratory Rate 16 16 Blood Pressure 124/60 133/73 Pulse Oximetry 98 100 12/21/18 20:00 12/21/18 20:05 12/21/18 21:00 Temperature 97.8 F Pulse Rate 61 64 Respiratory Rate 18 Blood Pressure 163/78 H Pulse Oximetry 96 100 12/21/18 22:00 12/21/18 22:16 12/21/18 23:00 Temperature 97.8 F Pulse Rate 60 60 60 Respiratory Rate 16 Blood Pressure 136/67 Pulse Oximetry 96 12/22/18 00:00 12/22/18 01:00 12/22/18 02:00 Temperature 98 F Pulse Rate 63 62 61 Respiratory Rate 16 18 Blood Pressure 130/73 Pulse Oximetry 100 12/22/18 03:00 12/22/18 04:00 12/22/18 05:00 Temperature Pulse Rate 62 78 59 L Respiratory Rate 18 Blood Pressure Pulse Oximetry 12/22/18 06:00 12/22/18 07:00 12/22/18 07:59 Temperature 97.9 F Pulse Rate 81 68 Respiratory Rate 16 Blood Pressure 151/83 H Pulse Oximetry 93 L 96 Intake & Output 12/21/18 12/22/18 12/22/18 18:59 06:59 18:59 Intake Total 240 / 240 820 / 820 Output Total 1949 Balance 240 / 240 -1130 / -1130 Weight 66.7 kg Intake: IV 100 / 100 Ancef 2 GM Premix Inj 2 gm In 100 / 100 50 ml @ 100 mls/hr IV.SIG Q8H [place] Rx#:[id number] Oral 240 / 240 720 / 720 Output: Urine 1949 Other: # Voids 4 Narrative: GENERAL: Well-developed well-nourished. In no acute distress. NECK: No carotid bruits. No JVD. CARDIOVASCULAR: Regular rate and rhythm. 3/6 systolic ejection murmur appreciated best at the right sternal border. CHEST: s/p PPM in left anterior chest wall with dressing C/D /I no hematoma or erythema. RESPIRATORY: No accessory muscle use. Clear to auscultation. Breath sounds equal bilaterally. MUSCULOSKELETAL: No clubbing or cyanosis. No edema. NEUROLOGICAL: Awake and alert. Normal speech. Results 12/21/18 09:04 12/21/18 09:04 Coagulation 12/20/18 12/21/18 12/21/18 Range/Units 08:41 09:04 09:04 PT 10.3 (9.8-11.6) sec APTT 67.3 H 28.7 D (23.4-31.7) sec CBC 12/21/18 Range/Units 09:04 WBC 8.6 (4.0-11.0) th/mm3 RBC 3.49 L (4.00-5.30) mil/mm3 Hgb 10.7 L (11.6-15.3) gm/dL Hct 30.6 L (35.0-46.0) % Plt Count 153 (150-450) th/mm3 Neut # (Auto) 6.2 (1.8-7.7) th/mm3 Lymph # (Auto) 1.4 (1.0-4.8) th/mm3 Smyth # (Auto) 0.6 (0.0-0.9) th/mm3 Eos # (Auto) 0.3 (0.0-0.4) th/mm3 Baso # (Auto) 0.0 (0.0-0.2) th/mm3 Comprehensive Metabolic Panel 12/21/18 Range/Units 09:04 Sodium 137 (136-145) meq/L Potassium 4.2 (3.5-5.1) meq/L Chloride 106 (98-107) meq/L Carbon Dioxide 24.7 (21.0-32.0) meq/L BUN 41 H (7-18) mg/dL Creatinine 1.79 H (0.50-1.00) mg/dL Calcium 8.5 (8.5-10.1) mg/dL Intake and Output 12/21/18 12/22/18 12/22/18 22:59 06:59 14:59 Intake Total 240 / 240 820 / 820 Output Total 1950 / 1950 Balance 240 / 240 -1130 / -1130 Intake: IV 100 / 100 Ancef 2 GM Premix Inj 2 gm In 100 / 100 50 ml @ 100 mls/hr IV.SIG Q8H [facility] Rx#:[id number] Oral 240 / 240 720 / 720 Output: Urine 1950 / 1950 Other: # Voids 4 Weight 66.7 kg - Imaging and Cardiology Imaging: Impressions Chest X-Ray 12/21/18 00:00 CONCLUSION: No evidence of pneumothorax status post pacemaker placement. Assessment and Plan - Plan 83-year-old female with CAD s/p CABG 1994 and 2015, severe aortic stenosis, CHF , HTN, DM, CKD stage III who presented with chest pain NSTEMI: Medical mgt. isosorbide 120 daily. ranexa 1000 BID. coreg 3.125 BID. Severe aortic stenosis: Patient has been evaluated by CT surgery and felt not to be SAVR candidate due to prior sternotomy x2. Plan for TAVR next week. Trifascicular block, with sinus exit block and symptomatic bradycardia: High risk for complete heart block with TAVR. s/p medtronic PPM yesterday with no complications. Interrogation today reveals good lead / device function. DC today. f/u in my office on 01/04/19 at 9:20am. please include in d/c paperwork
--- NOTE | 2018-12-22 13:13 | P.PNIM ---
Subjective Interval history: Patient had episode pf chest pain earlier today -since resolved Physical Exam Vital signs: Last Vital Signs Temp 97.9 F 12/22/18 07:00 Pulse 68 12/22/18 07:00 Resp 16 12/22/18 07:00 BP 151/83 H 12/22/18 07:00 Pulse Ox 96 12/22/18 07:59 Narrative: GENERAL: This is a well-nourished, well-developed patient, in no apparent distress. CARDIOVASCULAR: regular RESPIRATORY: Clear to auscultation. Breath sounds equal bilaterally. GASTROINTESTINAL: Abdomen soft, non-tender, nondistended. Normal active bowel sounds MUSCULOSKELETAL: Extremities without clubbing, cyanosis, or edema. NEURO: Alert & Oriented x4 to person, place, time, situation. Moves all ext x4 Results Labs CBC & Chem 7: 12/21/18 09:04 12/21/18 09:04 Assessment and Plan Plan 83-year-old female with CAD s/p CABG 1994 and 2015, severe aortic stenosis, CHF , HTN, DM, CKD stage III who presented with chest pain. The patient has been undergoing workup for TAVR. She had [facility] earlier this month that showed severe , severe CAD including high-grade left main and LAD stenosis with 2/3 bypass grafts patent to right coronary and obtuse marginal. She has been evaluated by cardiothoracic surgery who has recommended for TAVR. She states that over the past few days she has been needing to utilize nitroglycerin for chest discomfort. She states that yesterday while walking from her car to her house she developed severe chest pain that lasted for several minutes and was unrelieved with nitroglycerin so she came to the ED for evaluation. EKG appears to have no significant from baseline. Troponin 0.13 -> 5.9. 83-year-old female with CAD s/p CABG 1994 and 2015, severe aortic stenosis, CHF , HTN, DM, CKD stage III who presented with chest pain NSTEMI - comgmt with Cardiology - Case d/w Dr. Coyle (12/19/18) - NOT repeat surgical candidate as patient has had CABG 1994 and 2015 - coronary anatomy - no reasonable PCI candidate. LM only leads to occluded LAD and small diagonal/septal branches. - cardiology recommending medical management with isosorbide, Ranexa 1000 mg PO BID, coreg 3.125 BID - intolerable side effects to isosorbide 60 mg BID. continue 30 BID - nitro gtt DC'd - heparin gtt has been DC'd by cardiology - patient had episode of chst pain earlier today (12/22)- addressed by Dr. Pressley. Discussed with Dr. Pressley. Amlodipine 2.5 mg daily added and monitor patient overnight. Cleared to DC in AM if patient has no further events. - EKG paced Severe aortic stenosis Patient has been evaluated by CT surgery and felt not to be SAVR candidate due to prior sternotomy x2. plan for TAVR next week. Bradycardia - PPM placed by Dr. Pressley (12/21) - observe overnight - anticipate d/c to home 12/22 DM2 - stable - tradjenta - SSI HTN, essential - continue coreg, cozaar and amlodipine 2.5 mg daily Attending Attestation The exam, history, and the medical decision-making described in the above note were completed with the assistance of the mid-level provider. I reviewed and agree with the findings presented. I attest that I had a [id number] encounter with the patient on the same day, and personally performed and documented my assessment and findings in the medical record. Patient examined. Assessment and plan formulated with Livire Rockwell PA-C. I agree with the above. Progress Note: Quality VTE Deep Vein Thrombosis/Pulmonary Embolism Present on Admission: No
[2018-12-22] MEDS: amLODIPine 5 MG Tablet PO SCH (13:50)
--- NOTE | 2018-12-22 15:47 | ECG ---
Date Performed: 12/22/2018 Time Performed: 10:30:10 PTAGE: 83 years EKG: Sinus rhythm with 1st degree A-V block Anteroseptal infarct - age undetermined Nonspecific ST and T wave abnormal ities Compared to prior electrocardiogram, Right bundle branch block and 2nd AV block are no longer present. Septal infarct pattern is present. DOCTOR: Yo Ferrer Interpretating Date/Time 12/22/2018 15:46:43
[2018-12-23] MEDS: Isosorbide Mononitrate 30 MG ER 24HR Tablet (Imdur) PO SCH (11:12)
[2018-12-23] MEDS: Ranolazine 500 MG 12HR ER Tablet PO SCH (11:12)
[2018-12-23] MEDS: amLODIPine 5 MG Tablet PO SCH (11:12)
--- NOTE | 2018-12-23 11:58 | P.DS ---
DS: Providers Date of admission: 12/18/18 20:00 Discharged 12/23/18 [facility] Consults: 12/18/18 20:24 Consult to Cardiology Stat Consulting Provider: Leonel Coyle For STAT consult, spoke directly to:: Dr. Coyle Does the patient have a Implementation Specialist Payroll who follows them?: Yes Preferred Tucking Machine Operator:: Leonel Coyle Reason for Consultation: NSTEMI, pt had imaging today to prepare for aortic valve replacement Notified:: Service Spoke with:: Mayela Date Notified:: 12/18/18 Time Notified:: 20:42 Ordering Provider: JAREN Brief History from admission: 83-year-old female with CAD s/p CABG 1994 and 2015 , severe aortic stenosis, CHF, HTN, DM, CKD stage III who presented with chest pain. The patient has been undergoing workup for TAVR. She had [facility] earlier this month that showed severe , severe CAD including high-grade left main and LAD stenosis with 2/3 bypass grafts patent to right coronary and obtuse marginal. She has been evaluated by cardiothoracic surgery who has recommended for TAVR. She states that over the past few days she has been needing to utilize nitroglycerin for chest discomfort. She states that yesterday while walking from her car to her house she developed severe chest pain that lasted for several minutes and was unrelieved with nitroglycerin so she came to the ED for evaluation. EKG appears to have no significant from baseline. Troponin 0.13 -> 5.9. Chest pain-free at this time. No breathing complaints. PMH: CKD (chronic kidney disease) stage 3, GFR 30-59 ml/min Carotid stenosis Coronary artery disease EPSTEIN (dyspnea on exertion) Diabetes High cholesterol Hypertension Myocardial infarction Systolic murmur CHF (congestive heart failure) PSH: - CABG FHX: - noncontributory SHX: never smoker, no alcohol, no illicit drugs. ALL: see chart DS: Summary Plan 83-year-old female with CAD s/p CABG 1994 and 2015, severe aortic stenosis, CHF , HTN, DM, CKD stage III who presented with chest pain. The patient has been undergoing workup for TAVR. She had [facility] earlier this month that showed severe , severe CAD including high-grade left main and LAD stenosis with 2/3 bypass grafts patent to right coronary and obtuse marginal. She has been evaluated by cardiothoracic surgery who has recommended for TAVR. She states that over the past few days she has been needing to utilize nitroglycerin for chest discomfort. She states that yesterday while walking from her car to her house she developed severe chest pain that lasted for several minutes and was unrelieved with nitroglycerin so she came to the ED for evaluation. EKG appears to have no significant from baseline. Troponin 0.13 -> 5.9. 83-year-old female with CAD s/p CABG 1994 and 2015, severe aortic stenosis, CHF , HTN, DM, CKD stage III who presented with chest pain NSTEMI - comgmt with Cardiology - Case d/w Dr. Coyle (12/19/18) - NOT repeat surgical candidate as patient has had CABG 1994 and 2015 - coronary anatomy - no reasonable PCI candidate. LM only leads to occluded LAD and small diagonal/septal branches. - cardiology recommending medical management with isosorbide, Ranexa 1000 mg PO BID, coreg 3.125 BID - intolerable side effects to isosorbide 60 mg BID. continue 30 BID - nitro gtt DC'd - heparin gtt has been DC'd by cardiology - patient had episode of chst pain earlier today (12/22)- addressed by Dr. Pressley. Discussed with Dr. Pressley. Amlodipine 2.5 mg daily added and monitor patient overnight. Cleared to DC in AM if patient has no further events. - Pt NO furthter events. Pt dischargeed to home as planned - see discharge orders Severe aortic stenosis Patient has been evaluated by CT surgery and felt not to be SAVR candidate due to prior sternotomy x2. plan for TAVR next week. Bradycardia - PPM placed by Dr. Pressley (12/21) DM2 - stable - tradjenta - SSI HTN, essential - continue coreg, cozaar and amlodipine 2.5 mg daily Time Spent with Patient Total time spent providing and/or coordinating discharge services: Quality: VTE Deep Vein Thrombosis/Pulmonary Embolism Present on Admission: No Results Labs on day of discharge: Labs from last 24 hours 12/23/18 12/22/18 12/22/18 07:40 20:39 17:00 POC Glucose 131 H 150 H 165 H 12/22/18 12:05 POC Glucose 279 H Impressions ITS Impressions Chest X-Ray 12/21/18 00:00 CONCLUSION: No evidence of pneumothorax status post pacemaker placement. Discharge Plan Discharge Disposition Patient Disposition: Discharge Home Discharge Condition Condition: Stable Discharge Order Discharge Orders: Discharge Order (Routine); Ordered 12/23/18 Ordered By: Livier Rockwell Discharge Details Anticipated Discharge Date: 12/23/18 Physicians Team ED Provider: Kate Merchant Attending Provider: You Cheek Other Providers: Leonel Coyle Rxs /Orders / Referrals /Forms Prescriptions: New carvedilol [Coreg] 3.125 mg Tablet 3.125 mg PO Q12HR 30 Days Qty: 60 RF: 0 ranolazine [Ranexa] 500 mg Tablet Extended Release 12 Hr 1,000 mg PO BID 30 Days Qty: 120 RF: 0 amlodipine [Norvasc] 5 mg Tablet 2.5 mg PO DAILY 30 Days Qty: 15 RF: 0 Continue multivitamin [Multiple Vitamins] Tablet 1 tab PO DAILY RF: 0 losartan 50 mg Tablet 50 mg PO BID RF: 0 isosorbide mononitrate 30 mg Tablet Extended Release 24 Hr 30 mg PO BID RF: 0 cholecalciferol (vitamin D3) [Vitamin D3] 2,000 unit Capsule 2,000 unit PO DAILY RF: 0 [id number]-[id number]-fwh-epa-fish oil [Sandy-3 Fish Oil] 300-1,000 mg Capsule 2 cap PO DAILY RF: 0 docusate sodium [Colace] 100 mg Capsule 100 mg PO DAILY PRN (Reason: Constipation) RF: 0 levothyroxine 25 mcg Tablet 25 mcg PO DAILY RF: 0 nitroglycerin [Nitrostat] 0.4 mg Tablet, Sublingual 0.4 mg SUBLINGUAL Q5-15M PRN (Reason: Chest Pain) RF: 0 aspirin 81 mg Tablet,Chewable 81 mg PO DAILY RF: 0 furosemide 20 mg Tablet 20 mg PO DAILY RF: 0 linagliptin [Tradjenta] 5 mg Tablet 5 mg PO DAILY RF: 0 insulin degludec [Tresiba FlexTouch U-100] 100 unit/mL (3 mL) Insulin Pen 15 unit SUB-Q DAILY RF: 0 Discontinued carvedilol 6.25 mg Tablet 6.25 mg PO Q12HR RF: 0 Referrals: Hermila Parks MD [Other] - See Instructions (follow up in 1 week) Johnny Pressley DO [Physician] - See Instructions (follow up with Dr. Pressley at 9:20am) Discharge Instructions Patient Printed Instructions: Amlodipine (By mouth), Carvedilol (By mouth), Ranolazine (By mouth), Chest Pain (ED) Additional Instructions: RETURN ON 12/27/18 FOR TAVR AT 530AM TO [facility]. REMAINDER OF PRE-OP INSTRUCTIONS REMAIN UNCHANGED FROM PREVIOUSLY FOLLOW UP WITH DR PRESSLEY IN [facility] OFFICE 01/04/19 at 9:20am. Status ED Status: Left Department Discharge Information Discharge Date/Time: 12/23/18 11:30
== END 2018-12-23 11:30 | disposition home or self-care (01) | DRG 243 ==
LOC: NEPE 17:40 → HCIS 19:55 → NEDA 20:48 → HCIS 21:49
PROVIDERS: ADMIT Hospitalist; ATTEND Hospitalist
DX: N18.3 Chronic kidney disease, stage 3 (moderate); I45.3 Trifascicular block; Z95.1 Presence of aortocoronary bypass graft; I25.119 Atherosclerotic heart disease of native coronary artery with unspecified angina pectoris; Z79.82 Long term (current) use of aspirin; I13.0 Hypertensive heart and chronic kidney disease with heart failure and stage 1 through stage 4 chronic kidney disease, or unspecified chronic kidney disease; Z79.890 Hormone replacement therapy; I25.2 Old myocardial infarction; R06.09 Other forms of dyspnea; Z95.5 Presence of coronary angioplasty implant and graft; I21.4 Non-ST elevation (NSTEMI) myocardial infarction; E78.00 Pure hypercholesterolemia, unspecified; E11.22 Type 2 diabetes mellitus with diabetic chronic kidney disease; E11.3599 Type 2 diabetes mellitus with proliferative diabetic retinopathy without macular edema, unspecified eye; Z79.899 Other long term (current) drug therapy; I50.9 Heart failure, unspecified; Z79.4 Long term (current) use of insulin; R00.1 Bradycardia, unspecified; I35.0 Nonrheumatic aortic (valve) stenosis
CPT/HCPCS: 33208; 71010; 71045; 74174; 80048; 82550; 82552; 82948; 82962; 84484; 85025; 85610; 85730; 90765; 90766; 93005; 93306; 96365; 96366; 97110; 97116; 97162; 99285; C1785; C1898; C8950; C8951; J0690; J1200; J1644; J1815; J2370; J2405; J2704; J2930; J3370; J7040; J7050; Q9967

== ENCOUNTER 2018-12-27 05:08 | Inpatient (IN) ==
[2018-12-27] MEDS ORDERED: Sod Chloride 0.9% Inj 1,000 ML IV.CONT SCH (05:45)
[2018-12-27] MEDS ORDERED: Chlorhexidine Gluconate 2% 1 Pack (2 Cloths) TOPICAL ONE (05:45)
[2018-12-27] MEDS ORDERED: Metoprolol Tartrate 25 MG Tablet PO ONE (05:45)
[2018-12-27] MEDS ORDERED: Chlorhexidine Gluconate 2% 1 Pack (2 Cloths) TOPICAL SCH (05:45)
[2018-12-27] MEDS ORDERED: Aspirin 325 MG Tablet PO SCH (05:45)
[2018-12-27] MEDS ORDERED: Sodium Chlor 0.9% Inj 500 ML IV.CONT ONE ×2 (05:45→07:39)
[2018-12-27] MEDS ORDERED: Mupirocin 2% Nasal Oint Topical Syringe EACH NARE SCH (05:45)
[2018-12-27] MEDS ORDERED: ceFAZolin 2 GM Premix Inj 2 GM/50 ML PIGGYBACK IV.SIG SCH (06:00)
[2018-12-27] MEDS ORDERED: Protamine Sulfate Inj 50 MG/5 ML Vial ONE (06:12)
[2018-12-27] MEDS ORDERED: Heparin 10,000 UNITS/10 ML Vial (for IV use) ONE (06:12)
[2018-12-27 06:23] LABS: Baso % (Auto) 0.2 % (0.0-2.0); Hematocrit 31.6 % (35.0-46.0); Mean Corpuscular HGB Conc 34.8 % (32.0-36.0); Mean Corpuscular Hemoglobin 31.2 pg (27.0-34.0); Mean Corpuscular Volume 89.6 fL (80.0-100.0); Mean Platelet Volume 8.4 fL (7.0-11.0); Mono # (Auto) 0.1 th/mm3 (0.0-0.9); Mono % (Auto) 1.3 % (0.0-8.0); Neut # (Auto) 6.6 th/mm3 (1.8-7.7); Neut % (Auto) 85.5 % (16.0-70.0); Platelet Count 197 th/mm3 (150-450); Red Blood Count 3.53 mil/mm3 (4.00-5.30); Red Cell Distribution Width 14.2 % (11.6-17.2); White Blood Count 7.7 th/mm3 (4.0-11.0)
[2018-12-27 06:35] LABS: Activated Partial Thrombo Time 26.1 sec (23.4-31.7); Prothrombin Time 10.4 sec (9.8-11.6)
[2018-12-27 06:48] LABS: Carbon Dioxide 24.7 meq/L (21.0-32.0); Potassium 4.7 meq/L (3.5-5.1)
[2018-12-27] MEDS ORDERED: Heparin - SQ 10,000 UNITS/ML Vial ONE (06:52)
--- NOTE | 2018-12-27 07:31 | P.HPCA ---
History of Present Illness Service: Cardiology Primary Care Physician: Hermila Lanier MD Chief Complaint: Severe aortic valve stenosis History of Present Illness: This is an 83-year-old female who has history of known coronary disease with prior bypass surgery in both 1994 and 2015 who has had complaints of progressive shortness of breath and fatigue. Transthoracic echocardiogram performed at the end of last year showed severe aortic valve stenosis. Patient underwent cardiac catheterization which showed severe ute coronary artery disease but patent grafts and she was decided to be treated medically. Despite guideline directed medical therapy she still had symptoms of chest pain or shortness of breath. 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 After evaluation by cardiothoracic surgery she was felt to be too high risk for consideration of surgical aortic valve replacement is now here for consideration of transcatheter aortic valve replacement. Inpatient Certification: I certify that the inpatient services were ordered in accordance with Medicare regulations governing the order. This includes certification that hospital inpatient services are reasonable and necessary and in the case of services not specified as inpatient-only under 42 CFR 419.22(n), that they are appropriately provided as inpatient services in accordance to with the 2-midnight benchmark under 43 CFR 412.3(e) Estimated Total Length of Stay (Days): 3 Plans for Post Hospital Care: Home Review of Systems All other systems reviewed negative except as stated in HPI PMFSH - History History Provided By: Patient - Medical History Medical History: Medical History (Last Updated 12/26/18 @ 13:54 by Laury Horowitz RN) CKD (chronic kidney disease) stage 3, GFR 30-59 ml/min Carotid stenosis Coronary artery disease EPSTEIN (dyspnea on exertion) Diabetes High cholesterol Hx of hysterectomy Hx of renal failure Hypertension Myocardial infarction Systolic murmur Wears glasses CHF (congestive heart failure) - Surgical History Surgical History: Surgical History (Last Updated 12/26/18 @ 13:53 by Laury Horowitz RN) Hx of CABG Hx of section Hx of cholecystectomy Hx of exploratory laparotomy Hx of heart artery stent Hx of tonsillectomy - Tobacco History Second Hand Smoke Exposure: No Smoking Status: Never smoker - Alcohol History How Often Do You Have a Drink Containing Alcohol: Never - Substance Use History Substance History: No History of Abuse - Travel History History of Recent Travel: No Medications and Allergies Active Medications: Active Medications Aspirin (Aspirin) 325 mg PO [employer]URE [employer]CHIT[employer] [place] Stop: 12/30/18 05:36 Last Admin: 12/27/18 06:15 Dose: 325 mg Chlorhexidine Gluconate (Chlorhexidine 2% Cloth) 3 pack 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 [facility] Stop: 12/30/18 05:36 Diphenhydramine HCl (Benadryl Inj) 50 mg IV.PUSH ONCE ONE Stop: 12/27/18 07:31 Cefazolin Sodium/Dextrose (Ancef 2 Gm Premix Inj) 2 gm in 50 mls @ 100 mls/hr IV.SIG ONCE [facility] Stop: 12/30/18 05:36 Sodium Chloride (Ns Inj) 1,000 mls @ 125 mls/hr IV.CONT .Q8H [place] Lactated Ringer's (Lr 1000 Ml Inj) 1,000 mls @ 30 mls/hr IV.CONT .Q24H ONE Stop: 12/28/18 05:44 Sodium Chloride (Ns Inj) 500 mls @ 30 mls/hr IV.CONT .[id number] ONE Stop: 12/27/18 22:24 Mupirocin (Bactroban 2% Nasal Oint) 1 applicatio EACH NARE [employer]STRU[employer]URE ARCHITECT [facility] Stop: 12/30/18 05:36 Povidone Iodine (Betadine 5% Antisepsis Kit) 1 applicatio 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 [facility] Stop: 12/30/18 05:36 Last Admin: 12/27/18 06:19 Dose: 1 applicatio Allergies Allergy/AdvReac Type Severity Reaction Status Date / Time glipizide Allergy Intermediate Swelling Verified 12/27/18 05:48 Iodinated Contrast- Oral and Allergy Hives Verified 12/27/18 05:48 IV Dye niacin Allergy Itching, Verified 12/27/18 05:48 [From Niaspan Generalized Extended-Release] fosinopril [From Monopril] AdvReac Flushing, Verified 12/27/18 05:48 COUGH hydralazine AdvReac Anxiety Verified 12/27/18 05:48 morphine AdvReac Shakiness Verified 12/27/18 05:48 oxycodone [From Percocet] AdvReac Depression Verified 12/27/18 05:48 [id number]-Aph Reductase AdvReac Muscle Pain Verified 12/27/18 05:48 Inhibitor telmisartan [From Micardis] AdvReac Chest Pain Verified 12/27/18 05:48 Home Medications Medication Instructions Recorded Confirmed Type aspirin 81 mg PO DAILY 05/23/18 12/27/18 History docusate sodium [Colace] 100 mg PO DAILY PRN 05/23/18 12/27/18 History furosemide 20 mg PO DAILY 05/23/18 12/27/18 History insulin degludec [Tresiba 15 unit SUB-Q DAILY 05/23/18 12/27/18 History FlexTouch U-100] levothyroxine 25 mcg PO DAILY 05/23/18 12/27/18 History nitroglycerin [Nitrostat] 0.4 mg SUBLINGUAL Q5-15M PRN 05/23/18 12/27/18 History cholecalciferol (vitamin D3) 2,000 unit PO DAILY 12/11/18 12/27/18 History [Vitamin D3] isosorbide mononitrate 30 mg PO BID 12/11/18 12/27/18 History losartan 50 mg PO BID 12/11/18 12/27/18 History multivitamin [Multiple Vitamins] 1 tab PO DAILY 12/11/18 12/27/18 History [id number]-fish oil [[place]-3 2 cap PO DAILY 12/11/18 12/27/18 History Fish Oil] amlodipine [Norvasc] 2.5 mg PO HS 12/26/18 12/27/18 History prednisone 50 mg PO DAILY 12/26/18 12/27/18 History Exam Vital signs: Intake & Output 12/26/18 12/27/18 12/27/18 18:59 06:59 18:59 Weight 64.7 kg Other: Weight On Admission 64.7 kg - Constitutional no acute distress - Routine HEENT Exam Eye: Present: EOMI, PERRL ENT: Present: mucous membranes moist - Routine Neck Exam Absent: JVD - Routine Respiratory Exam Present: CTA bilaterally - Routine Cardiovascular Exam Present: RRR, murmur - Routine Abdominal Exam Present: soft, normoactive bowel sounds - Routine Extremities Exam Absent: edema - Routine Neurological Exam Present: alert, oriented X3, CN II-XII intact. Absent: sensory deficit, motor deficit Results 12/27/18 06:10 12/27/18 06:10 Coagulation 12/27/18 Range/Units 06:10 PT 10.4 (9.8-11.6) sec APTT 26.1 (23.4-31.7) sec CBC 12/27/18 Range/Units 06:10 WBC 7.7 (4.0-11.0) th/mm3 RBC 3.53 L (4.00-5.30) mil/mm3 Hgb 11.0 L (11.6-15.3) gm/dL Hct 31.6 L (35.0-46.0) % Plt Count 197 (150-450) th/mm3 Neut # (Auto) 6.6 (1.8-7.7) th/mm3 Lymph # (Auto) 1.0 (1.0-4.8) th/mm3 Faulk # (Auto) 0.1 (0.0-0.9) th/mm3 Eos # (Auto) 0.0 (0.0-0.4) th/mm3 Baso # (Auto) 0.0 (0.0-0.2) th/mm3 Comprehensive Metabolic Panel 12/27/18 Range/Units 06:10 Sodium 134 L (136-145) meq/L Potassium 4.7 (3.5-5.1) meq/L Chloride 101 (98-107) meq/L Carbon Dioxide 24.7 (21.0-32.0) meq/L BUN 31 H (7-18) mg/dL Creatinine 1.56 H (0.50-1.00) mg/dL Calcium 9.0 (8.5-10.1) mg/dL Intake and Output 12/26/18 12/27/18 12/27/18 22:59 06:59 14:59 Other: Weight 64.7 kg Weight On Admission 64.7 kg Caprini VTE Risk Assessment Caprini VTE Risk Assessment: Moderate/High Risk (score >= 2) Caprini Risk Assessment Model: Point Value = 1 Point Value = 2 Point Value = 3 Point Value = 5 Age 41-60 Minor surgery BMI > 25 kg/m2 Swollen legs Varicose veins or History of unexplained or recurrent spontaneous Oral contraceptives or hormone replacement Sepsis (< 1 month) Serious lung disease, including pneumonia (< 1 month) Abnormal pulmonary function Acute myocardial infarction Congestive heart failure (< 1 month) History of inflammatory bowel disease Medical patient at bed rest Age 61-74 Arthroscopic surgery Major open surgery (> 45 min) Laparoscopic surgery (> 45 min) Malignancy Confined to bed (> 72 hours) Immobilizing plaster cast Central venous access Age >= 75 History of VTE Family history of VTE Factor V Leiden Prothrombin [id number] Lupus anticoagulant Anticardiolipin antibodies Elevated serum homocysteine Heparin-induced thrombocytopenia Other congenital or acquired thrombophilia Stroke (< 1 month) Elective arthroplasty Hip, pelvis, or leg fracture Acute spinal cord injury (< 1 month) Prophylaxis Regimen: Total Risk Factor Score Risk Level Prophylaxis Regimen 0-1 Low Early ambulation 2 Moderate Order ONE of the following: *Sequential Compression Device (SCD) *Heparin 5000 units SQ BID 3-4 Higher Order ONE of the following medications: *Heparin 5000 units SQ TID *Enoxaparin/Lovenox 40 mg SQ daily (WT < 150 kg, CrCl > 30 mL/min) *Enoxaparin/Lovenox 30 mg SQ daily (WT < 150 kg, CrCl > 10-29 mL/min) *Enoxaparin/Lovenox 30 mg SQ BID (WT < 150 kg, CrCl > 30 mL/min) AND/OR *Sequential Compression Device (SCD) 5 or more Highest Order ONE of the following medications: *Heparin 5000 units SQ TID (Preferred with Epidurals) *Enoxaparin/Lovenox 40 mg SQ daily (WT < 150 kg, CrCl > 30 mL/min) *Enoxaparin/Lovenox 30 mg SQ daily (WT < 150 kg, CrCl > 10-29 mL/min) *Enoxaparin/Lovenox 30 mg SQ BID (WT < 150 kg, CrCl > 30 mL/min) AND *Sequential Compression Device (SCD) Assessment and Plan - Plan Severe aortic valve stenosis This 83-year-old female with history of 2 prior bypass surgeries with now progressive symptoms and severe aortic valve stenosis by transthoracic echocardiogram. Patient is here for elective transcatheter valve replacement Preoperative workup: STS score 11.5% [place] [employer] functional class III/class IV symptoms Body mass index 28.9 STS score 2/4 Electrocardiogram shows normal sinus rhythm with right bundle branch block Pulmonary function test from December 11, 2018 shows FEV1 of 78% Transthoracic echocardiogram from August 28, 2018 shows peak jet velocity 4.25 m/s, mean gradient 40 mmHg, valve area 0.52 cm with moderate mitral regurgitation Cardiac catheterization from October 05, 2018 shows severe ute coronary disease and 2 remaining coronary bypass grafts are patent. Computed tomography scan of the chest shows short annulus diameter 17.0 mm, long anus diameter 22.5 mm, annual area 291 mm with a perimeter of 61.6 mm, sinus of Valsalva diameter 20.9 mm, sinotubular junction diameter 22.0 mm, minimal luminal diameter on the right 7.0 mm and on the left 6.3 mm Risks, benefits, and alternatives were discussed with the patient. Patient understood and consented to proceed. We will plan for a Medtronic evolute 23 mm transcatheter aortic valve replacement via a right common femoral approach.
[2018-12-27] MEDS ORDERED: Sodium Chlor 0.9% Inj 250 ML IV.CONT ONE (07:39)
[2018-12-27] MEDS ORDERED: Lidocaine PF 1% Inj 5 ML Syringe OTHER ONE (07:39)
[2018-12-27] MEDS ORDERED: Iohexol 350 MG/ML 100 ML Vial (for Cath Lab) IVCONTRAST ONE (08:45)
[2018-12-27] MEDS ORDERED: Iohexol Inj 350 MG/ML 100 ML Bottle (for RAD Diag) IVCONTRAST ONE (09:14)
--- NOTE | 2018-12-27 09:33 | P.OP ---
- Preoperative Diagnosis (1) Diastolic heart failure (2) Aortic stenosis (3) CAD (coronary artery disease) Postoperative Diagnosis: same Date of procedure: 12/27/18 Procedure: Transcatheter aortic valve replacement with a 23 Evolut PRO tissue valve Bilateral femoral artery access percutaneously with Perclose closure on the right. Aortography Fluoroscopy Implants: 23 Evolut PRO tissue valve Anesthesia: MAC Surgeon: Giovanna Albarado MD Co -surgeon - Dr. Coyle Tableau Analyst: Mann Dominguez Pathology: none sent Operation and Findings: The risks, benefits, complications, treatment options, and expected outcomes were discussed with the patient. The possibilities of reaction to medication, pulmonary aspiration, perforation of viscus, bleeding, recurrent infection, the need for additional procedures, failure to diagnose a condition, and creating a complication requiring transfusion or operation were discussed with the patient. The patient concurred with the proposed plan, giving informed consent. The site of surgery properly noted/marked. The patient was taken to hybrid operating room, identified as Katia Reyes and the procedure verified as Transcatheter Aortic Valve Replacement. A Time Out was held and the above information confirmed. Standard monitoring lines and Jefferson catheter were placed. Moderate sedation was induced. The patient was prepped and draped in a sterile fashion. Initially, left femoral arterial access was acquired using a Seldinger percutaneous technique. The details of this procedure were dictated under separate note by cardiology. Once a pigtail was positioned in the aortic annulus and a temporary transvenous pacemaker wire was placed in the right ventricular apex and tested, the right femoral artery was accessed using a needle followed by a guidewire under fluoroscopic guidance. The patient was heparinized and 2 Perclose devices deployed for later closure. Serial dilators were used to dilate the right femoral artery to 14 [place] caliber. Arch aortography was performed to define the implant view. The Medtronic delivery system with the valve was then inserted up to the distal abdominal aorta. A 23 Evolut PRO transcatheter aortic valve was then positioned in the annulus and deployed. Following deployment, the valve apparatus was withdrawn and arch aortography and TTE were performed to assess the valve. The valve had no significant perivalvular leaks. Gradients were then measured and the sheath was removed. Perclose sutures were secured with good hemostasis. Protamine was administered. Sterile dressings were placed. At the end of the operation, all sponge, instruments, and needle counts were correct. The patient was transferred to the CVICU in stable condition. Findings: Uneventful deployment of 23 Evolut PRO Complications: none
[2018-12-27] MEDS ORDERED: fentaNYL Citrate Inj 250 MCG/5 ML Ampul ONE (09:39)
[2018-12-27] MEDS ORDERED: hydrALAZINE HCl Inj 20 MG/ML Vial IV.PUSH PRN (09:39)
--- NOTE | 2018-12-27 09:44 | P.OP ---
- Preoperative Diagnosis (1) Aortic stenosis Date of procedure: 12/27/18 Procedure: cat wagon operator: Leonel Coyle MD Primary Surgeon: Giovanna Albarado MD Procedures performed: 1. Fluoroscopy with interpretation 2. Left heart catheterization 3. Ascending aortography 4. Temporary transvenous pacemaker placement 5. Transcatheter aortic valve replacement with Medtronic Evolut R 23 mm bioprosthetic valve Methods: Risks, benefits, and alternatives were discussed with the patient. Patient understood and consented to the procedure. Patient was brought into the operating room and placed on the operating table. Bilateral groins and chest were prepped and draped. Under fluoroscopic guidance the left common femoral artery was cannulated and a 5 [place] 11 cm sheath was placed without difficulty. Left femoral vein was accessed and a 5 [place] 11 cm sheath was placed without difficulty. Right common femoral artery was cannulated under fluoroscopic and angiographic guidance through using a micropuncture sheath. Angiography confirmed appropriate placement. An 8 [place] sheath was placed without difficulty. 2 Perclose devices were deployed in a pre-close manner. The 14 sheath was then advanced up over the wire through the iliac system without difficulty into the descending abdominal aorta. Temporary transvenous pacemaker placement: A 5 [place] balloontipped temporary transvenous pacemaker was advanced under fluoroscopic guidance to the right internal jugular sheath to the right ventricular apex. Appropriate pacing and capture was confirmed and utilized during the procedure for rapid ventricular pacing. Ascending aortography: Ascending aortography was performed using an 5 [place] angled pigtail catheter advanced to the left common femoral arterial sheath to the level of the descending aorta and its the right coronary cusp. Ascending aortography was performed which showed 3 leaflets and parallax view. The ascending aorta was not significantly dilated. Left heart catheterization: A 5 [place] AL-1 catheter was advanced through the right common femoral sheath to the level of the descending aorta a 0.035 inch Amplatz straight tip Super Stiff wire was then advanced across the aortic valve with some difficulty. The AL-1 catheter was advanced into the left ventricle. A 260 cm 0.035 inch standard J-wire was then advanced to the left ventricular apex and the AL-1 catheter removed. A 5 [place] angled pigtail catheter was then advanced over the J-wire into the left ventricular apex and the J-wire removed. A 0.035 inch 260 cm Medtronic Confida wire was then advanced to the left ventricular apex through the pigtail catheter, and the pigtail catheter removed. Transcatheter aortic valve replacement: A 34 mm Medtronic Evolut R valve was advanced through the right common femoral sheath to the level of the descending aorta. The device was then advanced up and over the arch to the level of the ascending aorta and across the aortic valve. Appropriate positioning was confirmed with a sending aortography and fluoroscopy. Under ventricular pacing at rate of 120 bpm, the transcatheter aortic valve was slowly deployed. Immediate post deployment transesophageal echocardiogram revealed appropriate positioning. There was no perivalvular leak or pericardial effusion. Patient tolerated the procedure with good hemodynamic stability. The delivery sheath was then removed. The right common femoral arterial sheath was removed and 2 Perclose devices deployed with good hemostasis. The left common femoral artery and venous sheaths were also removed and 2 Vascade closure devices were deployed with good hemostasis. Post valve deployment intraoperative transesophageal echocardiogram findings: 1. Post aortic valve area was 1.69 cm 2. Post implant mean aortic valve gradient was 7 mmHg 3. Post implant peak velocity was 1.65 m/seconds 4. Aortic valve insufficiency showed no perivalvular leak Conclusions: 1. Severe false pass aortic valve stenosis 2. Successful transcatheter aortic valve replacement with a 23 mm Medtronic Evolut R bioprosthetic valve Plan: We will monitor the patient closely for any immediate postprocedural complications. We will obtain a limited transthoracic echocardiogram. We will initiate antiplatelet therapy with aspirin and Plavix. Patient be transferred to the cardiovascular intensive care unit for further monitoring Surgeon: Leonel Coyle MD Assistant Professor Of Geography: Giovanna Albarado Assistant Professor Of Geography: Interventional Cardiology Assistant Professor Of Geography: Dr. Cali Dominguez
--- NOTE | 2018-12-27 10:35 | P.CONCC ---
History of Present Illness Service: Critical care Consult date: 12/27/18 Requesting Physician: Leonel Coyle Reason for Consult: s/p TAVR Primary Care Provider: Hermila Lanier MD Chief Complaint: Severe aortic valve stenosis History of Present Illness: This is an 83-year-old female with past medical history of known coronary disease with prior bypass surgery in both 1994 and 2015, chronic kidney disease stage 3, history of carotid stenosis, diabetes, dyslipidemia, hypertension, history of congestive heart failure who was evaluated for progressive shortness of breath and fatigue. Transthoracic echocardiogram performed at the end of last year showed severe aortic valve stenosis. Patient underwent cardiac catheterization which showed severe navajo coronary artery disease but patent grafts. 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 Referred to real estate administrator Dr. Coyle for consideration of transcatheter aortic valve replacement, as she was deemed too high risk for open aortic valve replacement. Patient underwent successful transcatheter aortic valve replacement with a 23 mm Medtronic Evolut R bioprosthetic valve today. Post aortic valve area was 1.69 cm, post implant mean aortic valve gradient was 7 mmHg. No significant perivalvular leak. Critical care medicine was consulted I evaluated the patient in the CV ICU. She is quite somnolent opens eyes to painful stimuli. There is evidence of right facial droop. Also it was noted that patient has right-sided weakness, spontaneously moves but 4/5 power on the right upper and lower extremity. A stroke alert had been initiated. Dr. Harvey had been notified. A CT of the head and CT angiogram of the head and neck ordered stat Review of Systems unobtainable due to mental condition PMFSH - History History Provided By: Patient - Medical History Medical History: Medical History (Last Reviewed 12/27/18 @ 10:54 by Alie Lambert MD) CKD (chronic kidney disease) stage 3, GFR 30-59 ml/min Carotid stenosis Coronary artery disease EPSTEIN (dyspnea on exertion) Diabetes High cholesterol Hx of hysterectomy Hx of renal failure Hypertension Myocardial infarction Systolic murmur Wears glasses CHF (congestive heart failure) - Surgical History Surgical History: Surgical History (Last Reviewed 12/27/18 @ 10:54 by Alie Lambert MD) Hx of CABG Hx of section Hx of cholecystectomy Hx of exploratory laparotomy Hx of heart artery stent Hx of tonsillectomy - Tobacco History Second Hand Smoke Exposure: No Smoking Status: Never smoker - Alcohol History How Often Do You Have a Drink Containing Alcohol: Never - Substance Use History Substance History: No History of Abuse - Travel History History of Recent Travel: No Medications and Allergies Active Medications: Active Medications Aspirin (Aspirin) 325 mg PO [facility] [place] Stop: 12/30/18 05:36 Last Admin: 12/27/18 06:15 Dose: 325 mg Aspirin (Aspirin Chew) 81 mg PO DAILY [facility] Chlorhexidine Gluconate (Chlorhexidine 2% Cloth) 3 pack TOPICAL [facility] [place] Stop: 12/30/18 05:36 Clonidine HCl (Catapres) 0.2 mg PO Q6H PRN PRN Reason: SBP > 160 mmHg Clopidogrel Bisulfate (Plavix) 75 mg PO DAILY [facility] Ferrous Sulfate (Ferosul) 325 mg PO DAILY [facility] Hydralazine HCl (Apresoline Inj) 10 mg IV.PUSH Q30M PRN PRN Reason: SBP > 160 mmHg Cefazolin Sodium/Dextrose (Ancef 2 Gm Premix Inj) 2 gm in 50 mls @ 100 mls/hr IV.SIG ONCE [facility] [place] Stop: 12/30/18 05:36 Last Infusion: 12/27/18 08:45 Dose: Infused Sodium Chloride (Ns Inj) 1,000 mls @ 125 mls/hr IV.CONT .Q8H [facility] Lactated Ringer's (Lr 1000 Ml Inj) 1,000 mls @ 30 mls/hr IV.CONT .Q24H ONE Stop: 12/28/18 05:44 Sodium Chloride (Ns Inj) 500 mls @ 30 mls/hr IV.CONT .[id number] ONE Stop: 12/27/18 22:24 Mupirocin (Bactroban 2% Nasal Oint) 1 applicatio EACH NARE [facility] [place] Stop: 12/30/18 05:36 Ondansetron HCl (Zofran Inj) 4 mg IV.PUSH ONCE PRN PRN Reason: NAUSEA OR VOMITING Stop: 12/30/18 09:38 Oxycodone/Acetaminophen (Percocet 5/325 Mg) 1 tab PO Q6H PRN PRN Reason: PAIN SCALE 3 TO 5 Povidone Iodine (Betadine 5% Antisepsis Kit) 1 applicatio TOPICAL [facility] [place] Stop: 12/30/18 05:36 Last Admin: 12/27/18 06:19 Dose: 1 applicatio Allergies Allergy/AdvReac Type Severity Reaction Status Date / Time glipizide Allergy Intermediate Swelling Verified 12/27/18 05:48 Iodinated Contrast- Oral and Allergy Hives Verified 12/27/18 05:48 IV Dye niacin Allergy Itching, Verified 12/27/18 05:48 [From Niaspan Generalized Extended-Release] fosinopril [From Monopril] AdvReac Flushing, Verified 12/27/18 05:48 COUGH hydralazine AdvReac Anxiety Verified 12/27/18 05:48 morphine AdvReac Shakiness Verified 12/27/18 05:48 oxycodone [From Percocet] AdvReac Depression Verified 12/27/18 05:48 Lvnxtfw-Hve-Vwv Reductase AdvReac Muscle Pain Verified 12/27/18 05:48 Inhibitor telmisartan [From Micardis] AdvReac Chest Pain Verified 12/27/18 05:48 Home Medications Medication Instructions Recorded Confirmed Type aspirin 81 mg PO DAILY 05/23/18 12/27/18 History docusate sodium [Colace] 100 mg PO DAILY PRN 05/23/18 12/27/18 History furosemide 20 mg PO DAILY 05/23/18 12/27/18 History insulin degludec [Tresiba 15 unit SUB-Q DAILY 05/23/18 12/27/18 History FlexTouch U-100] levothyroxine 25 mcg PO DAILY 05/23/18 12/27/18 History nitroglycerin [Nitrostat] 0.4 mg SUBLINGUAL Q5-15M PRN 05/23/18 12/27/18 History cholecalciferol (vitamin D3) 2,000 unit PO DAILY 12/11/18 12/27/18 History [Vitamin D3] isosorbide mononitrate 30 mg PO BID 12/11/18 12/27/18 History losartan 50 mg PO BID 12/11/18 12/27/18 History multivitamin [Multiple Vitamins] 1 tab PO DAILY 12/11/18 12/27/18 History athru-3k-uzq-epa-fish oil [[place]-3 2 cap PO DAILY 12/11/18 12/27/18 History Fish Oil] amlodipine [Norvasc] 2.5 mg PO HS 12/26/18 12/27/18 History prednisone 50 mg PO DAILY 12/26/18 12/27/18 History Physical Exam Vital signs: Vital Signs 12/27/18 09:52 12/27/18 09:57 12/27/18 10:00 Temperature 97.5 F L Pulse Rate 70 59 L Respiratory Rate 12 12 Blood Pressure 103/64 Pulse Oximetry 98 Intake & Output 12/26/18 12/27/18 12/27/18 18:59 06:59 18:59 Intake Total 650 / 650 Output Total 50 / 50 Balance 600 / 600 Weight 64.7 kg Intake: IV 50 / 50 Ancef 2 GM Premix Inj 2 gm In 50 / 50 50 ml @ 100 mls/hr IV.SIG ONCE [place] Rx#:[id number] Anesthesia Amount 600 / 600 Output: Estimated Blood Loss 50 / 50 Other: Weight On Admission 64.7 kg Narrative: - Constitutional Very somnolent. Not appear to be in acute distress. Clear right facial droop - Routine HEENT Exam Eye: Present: PERRL ENT: Present: Right facial droop - Routine Neck Exam Absent: JVD - Routine Respiratory Exam Present: CTA bilaterally. No wheezes or crackles - Routine Cardiovascular Exam Present: RRR, no murmur. Peripheral pulses are palpable - Routine Abdominal Exam Present: soft, normoactive bowel sounds - Routine Extremities Exam Absent: No groin hematoma. Present: Peripheral pulses. - Routine Neurological Exam Somnolent but wakes up to painful stimuli. Did not follow commands at this time. Obvious right facial droop. Right upper and lower extremity 4 out of 5 power. Normal strength in spontaneous movements on the left side Septic Shock Reassessment Septic shock perfusion: reassessment completed Assessment and Plan - Assessment and Plan Plan: ASSESSMENT: Acute onset right-sided weakness rule out acute stroke Right hemiparesis, aphasia Acute encephalopathy Status post TAVR for severe aortic stenosis Symptomatic bradycardia/AVB status post pacemaker placement Chronic kidney disease stage 3 History of carotid stenosis History of coronary artery disease, CABG Diabetes Dyslipidemia Hypertension History of congestive heart failure PLAN: NEURO: -A stroke alert was initiated -Stat CT of the head without contrast, stat stat CT angiogram of the brain and neck -Neurology Dr. Harvey consulted stat -Received 300 mg aspirin today -Hold Plavix until CT is completed, and decision for TPA administration had been made -Further recommendations based on imaging studies -Cardiology has cleared for TPA however has to use FemStop at the femoral access site RESP: -Monitor neuro status closely -Protecting airway at this time -Aggressive pulmonary toilet CV: -Status post TAVR today -No postoperative perivalvular leak based on ROBERTO -Received aspirin hold Plavix load and schedule Plavix until CT head is completed, bleed ruled out -Also hold further antiplatelet therapy until recommendations are made by neurology -Normal saline IV fluids -Patient had recent pacemaker placement for symptomatic AV block GI: -N.p.o. : -Monitor renal function closely. ID: -Renetta-procedure antibiotics per cardiology HEME: -Monitor CBC, coags ENDO: -Electrolyte replacement per protocol -Sliding scale insulin LINES: -Utilize peripheral IVs, central line if needed CC time 55 min Addendum: CT brain, CTA of brain and neck negative for acute findings. Clinical findings consistent with acute ischemic strokes and patient is within 3 -hour window. Proceed with TPA per neurology recommendations. Cardiology had cleared for TPA administration. Further recommendations per post TPA order set Code Status: Full Discussed Condition With: Dr. Harvey, Dr. Coyle, Dr. Dominguez
[2018-12-27] MEDS ORDERED: Naloxone Inj 0.4 MG/ML Vial IV.PUSH ONE ×3 (11:00→14:00)
[2018-12-27] MEDS ORDERED: Naloxone Inj 0.4 MG/ML Vial ONE ×2 (11:05→11:14)
[2018-12-27 11:36] LABS: Baso % (Auto) 0.1 % (0.0-2.0); Eos % (Auto) 0.1 % (0.0-4.0); Hematocrit 28.4 % (35.0-46.0); Hemoglobin 9.7 gm/dL (11.6-15.3); Lymph # (Auto) 0.9 th/mm3 (1.0-4.8); Mean Corpuscular HGB Conc 34.2 % (32.0-36.0); Mean Corpuscular Hemoglobin 30.6 pg (27.0-34.0); Mean Corpuscular Volume 89.7 fL (80.0-100.0); Mean Platelet Volume 8.3 fL (7.0-11.0); Mono # (Auto) 0.3 th/mm3 (0.0-0.9); Mono % (Auto) 2.9 % (0.0-8.0); Neut # (Auto) 10.5 th/mm3 (1.8-7.7); Neut % (Auto) 88.9 % (16.0-70.0); Platelet Count 168 th/mm3 (150-450); Red Blood Count 3.17 mil/mm3 (4.00-5.30); Red Cell Distribution Width 14.3 % (11.6-17.2); White Blood Count 11.8 th/mm3 (4.0-11.0)
[2018-12-27 11:38] LABS: Activated Partial Thrombo Time 25.6 sec (23.4-31.7); INR 1.1 Ratio; Prothrombin Time 11.2 sec (9.8-11.6)
[2018-12-27 11:49] LABS: Troponin I 0.46 ng/mL (0.02-0.05)
--- NOTE | 2018-12-27 11:53 | CT ---
EXAM DATE: 12/27/2018 11:39 AM EST AGE/SEX: 83 years / Female INDICATIONS: STROKE ALERT. Right sided weakness. Right sided facial droop. CLINICAL DATA: This is the patient's initial encounter. Patient reports that signs and symptoms have been present for 1 day and indicates a pain score of Nonresponsive. MEDICAL/SURGICAL HISTORY: Non-responsive. Non-responsive. RADIATION DOSE: 29.51 CTDI (mGy) COMPARISON: [facility] [place], [place], CT STROKE ALERT HEAD WO CON, 12/27/2018. . TECHNIQUE: CT of the head without contrast. Using automated exposure control and adjustment of the mA and/or kV according to patient size, radiation dose was kept as low as reasonably achievable to ob tain optimal diagnostic quality images. DICOM format image data is available electronically for revi ew and comparison. FINDINGS: A study is degraded by motion artifact. Intravenous contrast is present from prior procedur e performed earlier on this date. Cerebrum: The ventricles are normal for age. No evidence of midline shift, mass lesion, hemorrhage or acute infarction. No extraaxial fluid collections are seen. Posterior Fossa: The cerebellum and brainstem are intact. The 4th ventricle is midline. The cerebe llopontine angle is unremarkable. Extracranial: The visualized portion of the orbits is intact. Skull: The calvaria is intact. No evidence of skull fracture. CONCLUSION: 1. Suboptimal examination secondary to motion artifact and intravenous contrast. 2. No definite mass effect, hemorrhage or acute infarction identified. 5 separate attempts were made by Dr. Gardner to call Dr. Harvey and a message was left on his cell p joshua at 1140 hours. The department will continue to try to notify Dr. Harvey. Electronically signed by: Trae Gardner MD Board Certified Radiologist 12/27/2018 11:52 AM EST
--- NOTE | 2018-12-27 12:26 | CT ---
EXAM DATE: 12/27/2018 12:02 PM EST AGE/SEX: 83 years / Female INDICATIONS: STROKE ALERT. Right sided weakness. Right side facial droop. CLINICAL DATA: This is the patient's initial encounter. Patient reports that signs and symptoms have been present for 1 day and indicates a pain score of Nonresponsive. MEDICAL/SURGICAL HISTORY: Non-responsive. Non-responsive. RADIATION DOSE: 24.41 CTDI (mGy) COMPARISON: [facility], CTA STROKE ALERT NECK W CONTRAST W 3D, 12/27/2018. . TECHNIQUE: Volumetric scanning was performed using a multi-row detector CT scanner during bolus infu sienna of 75 ml Omnipaque 350 (iohexol) nonionic water-soluble contrast as a single exam dose. The d alda was post processed with a variety of visualization algorithms including full volume maximum inten sity projection, multi-planar sliding thin slab reformation, curved planar reformation, and surface r endering techniques. Using automated exposure control and adjustment of the mA and/or kV according t o patient size, radiation dose was kept as low as reasonably achievable to obtain optimal diagnostic quality images. DICOM format image data is available electronically for review and comparison. FINDINGS: There is excellent visualization of the major intracranial arteries out to the second-order branch ve ssels. There is no evidence for aneurysm, vessel truncation or stenosis, and no evidence for vascula r malformation. CONCLUSION: 1. Negative examination. Report was called by Dr. Gardner to Dr. Harvey at 1220 hours.. Electronically signed by: Trae Gardner MD Board Certified Radiologist 12/27/2018 12:25 PM EST
[2018-12-27] MEDS ORDERED: Iohexol 350 MG/ML 50 ML Vial (for Rad Diag) PO ONE (12:30)
[2018-12-27] MEDS ORDERED: Alteplase Bolus 9 MG/9 ML Syringe IV.PUSH ONE (12:30)
--- NOTE | 2018-12-27 12:59 | CT ---
EXAM DATE: 12/27/2018 12:23 PM EST AGE/SEX: 83 years / Female INDICATIONS: STROKE ALERT. Right side facial droop. Right side weakness. CLINICAL DATA: This is the patient's initial encounter. Patient reports that signs and symptoms have been present for 1 day and indicates a pain score of Nonresponsive. MEDICAL/SURGICAL HISTORY: Non-responsive. Non-responsive. RADIATION DOSE: 26.41 CTDI (mGy) COMPARISON: No prior exams available for comparison. TECHNIQUE: Volumetric scanning was performed using a multirow detector CT scanner during bolus infus ion of 78 ml Visipaque 320 (iodixanol) nonionic water-soluble contrast as a single exam dose. The data was postprocessed with a variety of visualization algorithms including full-volume maximum inten sity projection, multiplanar sliding thin-slab reformation, curved-planar reformation, and surface-re ndering techniques. Using automated exposure control and adjustment of the mA and/or kV according to patient size, radiation dose was kept as low as reasonably achievable to obtain optimal diagnostic q uality images. DICOM format image data is available electronically for review and comparison. Percent stenosis is calculated using the diameter of the stenotic region over the diameter of the nor mal distal internal carotid artery. FINDINGS: Aortic Arch: There is a three-vessel origin of the great vessels from the aorta. No evidence of ost ial narrowing Right Carotid: Eccentric soft and calcific plaque involving the bulb and ICA origin without signific ant associated stenotic narrowing. Thereafter, the ICA is markedly tortuous however widely patent to the skull base. Left Carotid: Concentric calcific plaque encompassing the ICA origin producing 50% stenotic narrowin g. Minimal poststenotic dilatation beyond which the vessel is normal in caliber and widely patent to the skull base. Vertebrals: The vertebral arteries have a symmetric diameter. No stenotic lesions are seen. CONCLUSION: 1. 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 2. No significant stenotic narrowing on the right. Electronically signed by: Fausto Todd MD Board Certified Radiologist 12/27/2018 12:58 PM EST
[2018-12-27] MEDS ORDERED: ALTEPLASE DRIP IV.SIG ONE (13:00)
--- NOTE | 2018-12-27 13:26 | ECHRPT ---
Indication: CONCLUSIONS Severe aortic valve stenosis. status post amanda-operative transcatheter aortic valve replacement. No residual stenosis. no paravalv ular leak. BP: / HR: Rhythm: Technical Quality: Medications Complications Proc. Components FINDINGS LEFT VENTRICLE Normal left ventricular size and wall thickness. The left ventricular systolic function is normal wi th an estimated ejection fraction in the range of 60-65%. Left ventricular diastolic function parameters a re normal. RIGHT VENTRICLE Normal right ventricular size and systolic function. LEFT ATRIUM The left atrial size is normal. RIGHT ATRIUM The right atrial size is normal. ATRIAL SEPTUM Normal atrial septal thickness without atrial level shunting by limited color doppler interrogation. AORTA The aortic root and proximal ascending aorta are normal in size on limited imaging. MITRAL VALVE Structurally normal mitral valve. Mild mitral valve regurgitation. AORTIC VALVE Trileaflet aortic valve. Diffuse calcification of the aortic valve. Trace aortic valve regurgitation. Severe aortic valve stenosis. status post amanda-operative transcatheter aortic valve replacement. No residual stenosis. no paravalv ular leak. TRICUSPID VALVE Structurally normal tricuspid valve. No tricuspid valve stenosis or regurgitation. VESSELS The inferior vena cava is normal in size. PULMONARY VALVE The pulmonary valve is not well visualized. PERICADIUM No pericardial effusion. Leonel Coyle MD, FACC (Electronically Signed) Final Date:27 December 2018 13:25
--- NOTE | 2018-12-27 13:41 | MB ---
cc: Toni Harvey MD, PhD DATE: 12/27/2018 REASON FOR CONSULTATION: Stroke alert. HISTORY OF PRESENT ILLNESS: Ms. Reyes is an 83-year-old woman who has a history of coronary artery disease with coronary artery bypass surgery in the past with a history of severe aortic valve stenosis. She underwent TAVR procedure this morning. At 9:30, she was noted to be weak on the right side and not expressing any speech, not following any commands. Therefore, stroke alert was called. In the interim, the patient has gone down for a CT scan of the brain, which is unremarkable. CT angiogram of the brain is unremarkable as well. Her symptoms have persisted. She is starting to show initially some mild improvement in the right-sided strength, but still is very weak on that right side. PAST MEDICAL HISTORY: She has a history of chronic kidney disease, carotid stenosis, coronary artery disease, diabetes, hypercholesterolemia, hysterectomy, aortic stenosis, status post TAVR, hypertension, [place] in the past, congestive heart failure in the past, CABG procedure, , cholecystectomy, coronary artery stent, tonsillectomy. CURRENT MEDICATIONS: She received aspirin metal bonding assembler for the TAVR procedure as well as Plavix 75 mg. She is on Apresoline p.r.n., ____, Zofran p.r.n., Percocet p.r.n., not on any anticoagulation. ALLERGIES: GLIPIZIDE, IODINE CONTRAST, NIACIN. NEUROLOGIC EXAMINATION: VITAL SIGNS: Her blood pressure is 103/64, pulse 59, temperature 97.5 degrees, respirations are 12. NEUROLOGIC: Higher cortical functions, she is obtunded, is minimally responsive. She does open her eyes with sternal rub and stimulation. She is not following any commands. There is no spontaneous speech output. Cranial nerves: There is some mild right facial weakness. Pupils equal, reactive. Extraocular movements intact. On motor exam, she is clearly weaker in the right side. She can hold the left arm up by herself and the left leg, but not the right arm, it quickly drifts down to the bedside as does the right leg. Reflexes are symmetric. IMAGING STUDIES: CT of the brain as noted above. No acute changes identified. There is no hemorrhage or acute change. CT angiogram of the brain. This is discussed with Dr. Vilchis of neuroradiology. No evidence of any large vessel occlusion is identified in the CT of the brain. LABORATORY DATA: Sodium is 135, potassium is 5, chloride 102. The BUN is 28, creatinine 1.2, glucose is 216. CPK is 55. The white count is 11,800, hemoglobin 9.7, hematocrit 28%, platelet count is 168,000. PT 11.2, INR 1.1, aPTT 25.6. NIH stroke scale is 19. IMPRESSION: Left hemisphere stroke with global aphasia, right-sided weakness, and decreased mental status. The patient is within the timeframe for IV tPA. I therefore would recommend proceeding with IV tPA per stroke protocol. FemoStops will be placed bilaterally to guard against hematoma at the cath site. This will be monitored very carefully as well. The risks versus benefits of tPA were evaluated in this patient. Although she did have the recent catheterization, the concern is that without tPA she may sustain a completed infarct with profound deficits. Therefore, it was felt that the benefit potential of tPA outweighs the risks in this case. There is no evidence for large vessel occlusion to indicate endovascular therapy. Toni Harvey MD, PhD ISAURO/babak/nadine , 12:23 PM , 12:34 PM
[2018-12-27 16:03] LABS: ABG Base Excess 0.4 mmol/L (-2-2); ABG PCO2 41 mmHg (38-42); ABG PO2 133 mmHG (61-120)
[2018-12-27] MEDS ORDERED: Gelatin Size 100 Topical Foam ONE (16:12)
--- NOTE | 2018-12-27 16:18 | OTSOAPIP ---
TIME SESSION COMPLETED: 1530 RECEIVED OCCUPATIONAL THERAPY ORDER. ATTEMPTED TO SEE PATIENT, HOWEVER PER NURSING PLEASE DEFER EVALUATION THIS DATE. WILL REATTEMPT NEXT DAY. INTERDISCIPLINARY COMMUNICATION: REVIEWED ELECTRONIC MEDICAL RECORD Therapist: Klarissa Alva OTR/Se Signature on file
--- NOTE | 2018-12-27 22:31 | ECG ---
Date Performed: 12/27/2018 Time Performed: 09:58:30 PTAGE: 83 years EKG: Electronic AV sequential paced rhythm. PREVIOUS TRACING : 12/22/2018 10.30 Compared to previous tracing, AV sequential paced rhy thm is new. DOCTOR: Johnny Pressley Interpretating Date/Time 12/27/2018 22:29:55
[2018-12-28 04:48] LABS: Hemoglobin 9.1 gm/dL (11.6-15.3); Mean Corpuscular Volume 88.5 fL (80.0-100.0); Platelet Count 166 th/mm3 (150-450); Red Blood Count 2.94 mil/mm3 (4.00-5.30); Red Cell Distribution Width 14.4 % (11.6-17.2); White Blood Count 10.9 th/mm3 (4.0-11.0)
[2018-12-28 05:14] LABS: Alanine Aminotransferase 19 U/L (10-53); Alkaline Phosphatase 95 U/L (45-117); Anion Gap 8 meq/L (5-15); Aspartate Aminotransferase 30 U/L (15-37); Blood Urea Nitrogen 33 mg/dL (7-18); Calcium 8.2 mg/dL (8.5-10.1); Carbon Dioxide 26.8 meq/L (21.0-32.0); Chloride 105 meq/L (98-107); Chol/HDL Ratio 7.45 Ratio; Cholesterol 290 mg/dL (120-200); Glomerular Filtration Rate 32 mL/min (>89); Glucose,Random 134 mg/dL (74-106); HDL Cholesterol 38.9 mg/dL (40.0-60.0); LDL Cholesterol,Calculated 186 mg/dL (0-99); Potassium 3.8 meq/L (3.5-5.1); Sodium 140 meq/L (136-145); Total Protein 6.6 g/dL (6.4-8.2); Triglycerides 324 mg/dL (42-150)
[2018-12-28] MEDS ORDERED: Potassium Chlor 20 mEq Premix 20 MEQ/100 ML PIGGYBACK IV.SIG ONE (07:30)
--- NOTE | 2018-12-28 07:40 | P.PNCC ---
Subjective Subjective Remarks/Hospital Course: This is an 83-year-old female with past medical history of known coronary disease with prior bypass surgery in both 1994 and 2015, chronic kidney disease stage 3, history of carotid stenosis, diabetes, dyslipidemia, hypertension, history of congestive heart failure who was evaluated for progressive shortness of breath and fatigue. Transthoracic echocardiogram performed at the end of last year showed severe aortic valve stenosis. Patient underwent cardiac catheterization which showed severe [place] coronary artery disease but patent grafts. 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 Referred to melt room operator Dr. Coyle for consideration of transcatheter aortic valve replacement, as she was deemed too high risk for open aortic valve replacement. Patient underwent successful transcatheter aortic valve replacement with a 23 mm Medtronic Evolut R bioprosthetic valve today. Post aortic valve area was 1.69 cm, post implant mean aortic valve gradient was 7 mmHg. No significant perivalvular leak. Critical care medicine was consulted I evaluated the patient in the CV ICU. She is quite somnolent opens eyes to painful stimuli. There is evidence of right facial droop. Also it was noted that patient has right-sided weakness, spontaneously moves but 4/5 power on the right upper and lower extremity. A stroke alert had been initiated. Dr. Harvey had been notified. A CT of the head and CT angiogram of the head and neck ordered stat 12/28/28: Patient developed acute left hemispheric stroke following TAVR. Status post TPA with improvement in symptoms. Today patient is able to say a few words oriented to person and intermittently to place. Speech is still garbled. Muscle strength almost back to baseline. Remains slightly somnolent follow-up CT scan is pending at this time. Objective Vital Signs / I&O: Vital Signs 12/27/18 09:52 12/27/18 09:57 12/27/18 10:00 Temperature 97.5 F L Pulse Rate 70 59 L Respiratory Rate 12 12 Blood Pressure 103/64 Pulse Oximetry 98 12/27/18 11:00 12/27/18 12:12 12/27/18 12:27 Temperature Pulse Rate 60 59 L 60 Respiratory Rate 12 12 12 Blood Pressure 126/64 113/56 L 125/60 Pulse Oximetry 98 99 98 12/27/18 12:42 12/27/18 13:00 12/27/18 13:12 Temperature Pulse Rate 59 L 59 L 59 L Respiratory Rate 12 12 12 Blood Pressure 126/57 L 114/53 L 130/60 Pulse Oximetry 98 98 99 12/27/18 13:27 12/27/18 13:49 12/27/18 14:00 Temperature Pulse Rate 59 L 59 L 61 Respiratory Rate 11 L 11 L 12 Blood Pressure 130/56 L 145/64 H 134/59 L Pulse Oximetry 99 99 98 12/27/18 14:27 12/27/18 15:00 12/27/18 15:27 Temperature 97.5 F L Pulse Rate 59 L 60 59 L Respiratory Rate 11 L 12 11 L Blood Pressure 137/65 161/74 H 142/67 H Pulse Oximetry 99 99 99 12/27/18 16:00 12/27/18 16:27 12/27/18 17:00 Temperature Pulse Rate 59 L 59 L 59 L Respiratory Rate 12 12 12 Blood Pressure 142/67 H 139/66 140/65 Pulse Oximetry 97 97 97 12/27/18 17:27 12/27/18 18:00 12/27/18 18:27 Temperature Pulse Rate 60 63 59 L Respiratory Rate 12 12 11 L Blood Pressure 143/64 H 141/64 H 121/58 L Pulse Oximetry 97 98 97 12/27/18 19:00 12/27/18 20:00 12/27/18 23:00 Temperature 97.5 F L 97.6 F Pulse Rate 64 59 L Respiratory Rate 18 18 Blood Pressure 136/64 113/56 L Pulse Oximetry 97 97 97 12/28/18 03:00 12/28/18 07:00 Temperature 97.5 F L Pulse Rate 61 59 L Respiratory Rate 18 Blood Pressure 135/59 L Pulse Oximetry 95 Intake & Output 12/27/18 12/28/18 12/28/18 18:59 06:59 18:59 Intake Total 702.5 / 702.5 Output Total 50 / 50 200 / 200 Balance 652.5 / 652.5 -200 / -200 Weight 62.5 kg Intake: IV 102.5 / 102.5 Activase Drip 52.5 MG In Bag/ 52.5 / 52.5 Syringe 1 EACH @ 52.5 mls/hr IV .SIG ONCE ONE Rx#:[id number] Ancef 2 GM Premix Inj 2 gm In 50 / 50 50 ml @ 100 mls/hr IV.SIG ONCE [place] Rx#:[id number] Anesthesia Amount 600 / 600 Output: Urine 200 / 200 Estimated Blood Loss 50 / 50 Other: # Incontinent Voids 1 1 Result Diagrams: 12/28/18 04:05 12/28/18 04:05 Objective Remarks: - Constitutional Somnolent. Not appear to be in acute distress. Right facial droop - Routine HEENT Exam Eye: Present: PERRL ENT: Present: Right facial droop - Routine Neck Exam Absent: JVD. Right IJ central line in place with minimal oozing - Routine Respiratory Exam Present: CTA bilaterally. No wheezes or crackles - Routine Cardiovascular Exam Present: RRR, grade 1 systolic murmur at the left sternal border. Peripheral pulses are palpable - Routine Abdominal Exam Present: soft, normoactive bowel sounds - Routine Extremities Exam Absent: No groin hematoma. Present: Peripheral pulses. - Routine Neurological Exam Somnolent but wakes up easily, follows commands. Obvious right facial droop. Right upper and lower extremity improved to 5 out of 5 now. Normal strength in spontaneous movements on the left side. 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 Harvey following -Received 300 mg aspirin 12/27/18, hold further antiplatelet therapy until repeat CTA completed and cleared by neurology -Hold Plavix until post TPA CT is completed, and cleared by neurology -PT/OT/speech -Atorvastatin 80 mg p.o. nightly (side effect listed as muscle pain will trial) RESP: -Monitor neuro status closely -Protecting airway at this time -Aggressive pulmonary toilet CV: -Status post TAVR 12/27 -No postoperative perivalvular leak based on ROBERTO -Received aspirin 12/27/2018 hold further antiplatelet therapy post TPA is CT scan is completed and cleared by neurology -Normal saline IV fluids -Patient had recent pacemaker placement for symptomatic AV block GI: -N.p.o. speech following -Diet per speech recommendation : -Monitor renal function closely. ID: -Renetta-procedure antibiotics per cardiology HEME: -Monitor CBC, coags -Fibrinogen level yesterday post TPA 182 no treatment indicated ENDO: -Electrolyte replacement per protocol LINES: -Utilize peripheral IVs, central line if needed CC time 38 min Critically ill. Developed acute ischemic stroke following aortic valve replacement. Received TPA she is weakly stabilizing to improving. But she is at high risk for acute complication and neurological decompensation. Continue ICU care
--- NOTE | 2018-12-28 08:17 | P.PNCA ---
Subjective Interval history: Doing well this morning. Getting transthoracic echocardiogram at the bedside. No complaints. Medications and Allergies Active Medications: Active Medications Aspirin (Aspirin) 325 mg PO [employer] Stop: 12/30/18 05:36 Last Admin: 12/27/18 06:15 Dose: 325 mg Atorvastatin Calcium (Lipitor) 80 mg PO HS [facility] Chlorhexidine Gluconate (Chlorhexidine 2% Cloth) 3 pack TOPICAL [employer] [facility] Stop: 12/30/18 05:36 Clonidine HCl (Catapres) 0.2 mg PO Q6H PRN PRN Reason: SBP > 160 mmHg Ferrous Sulfate (Ferosul) 325 mg PO DAILY [facility] Hydralazine HCl (Apresoline Inj) 10 mg IV.PUSH Q30M PRN PRN Reason: SBP > 160 mmHg Cefazolin Sodium/Dextrose (Ancef 2 Gm Premix Inj) 2 gm in 50 mls @ 100 mls/hr IV.SIG ONCE [place] Stop: 12/30/18 05:36 Last Infusion: 12/27/18 08:45 Dose: Infused Sodium Chloride (Ns Inj) 1,000 mls @ 125 mls/hr IV.CONT .Q8H [facility] Potassium Chloride (Kcl 20 Meq Premix Inj) 20 meq in 100 mls @ 50 mls/hr IV.SIG ONCE ONE Stop: 12/28/18 09:29 Mupirocin (Bactroban 2% Nasal Oint) 1 applicatio EACH NARE [employer] [facility] Stop: 12/30/18 05:36 Ondansetron HCl (Zofran Inj) 4 mg IV.PUSH ONCE PRN PRN Reason: NAUSEA OR VOMITING Stop: 12/30/18 09:38 Oxycodone/Acetaminophen (Percocet 5/325 Mg) 1 tab PO Q6H PRN PRN Reason: PAIN SCALE 3 TO 5 Povidone Iodine (Betadine 5% Antisepsis Kit) 1 applicatio TOPICAL [employer] [facility] Stop: 12/30/18 05:36 Last Admin: 12/27/18 06:19 Dose: 1 applicatio Allergies Allergy/AdvReac Type Severity Reaction Status Date / Time glipizide Allergy Intermediate Swelling Verified 12/27/18 05:48 Iodinated Contrast- Oral and Allergy Hives Verified 12/27/18 05:48 IV Dye niacin Allergy Itching, Verified 12/27/18 05:48 [From Niaspan Generalized Extended-Release] fosinopril [From Monopril] AdvReac Flushing, Verified 12/27/18 05:48 COUGH hydralazine AdvReac Anxiety Verified 12/27/18 05:48 morphine AdvReac Shakiness Verified 12/27/18 05:48 oxycodone [From Percocet] AdvReac Depression Verified 12/27/18 05:48 Rkxfuwi-Vlz-Fym Reductase AdvReac Muscle Pain Verified 12/27/18 05:48 Inhibitor telmisartan [From Micardis] AdvReac Chest Pain Verified 12/27/18 05:48 Home Medications Medication Instructions Recorded Confirmed Type aspirin 81 mg PO DAILY 05/23/18 12/27/18 History docusate sodium [Colace] 100 mg PO DAILY PRN 05/23/18 12/27/18 History furosemide 20 mg PO DAILY 05/23/18 12/27/18 History insulin degludec [Tresiba 15 unit SUB-Q DAILY 05/23/18 12/27/18 History FlexTouch U-100] levothyroxine 25 mcg PO DAILY 05/23/18 12/27/18 History nitroglycerin [Nitrostat] 0.4 mg SUBLINGUAL Q5-15M PRN 05/23/18 12/27/18 History cholecalciferol (vitamin D3) 2,000 unit PO DAILY 12/11/18 12/27/18 History [Vitamin D3] isosorbide mononitrate 30 mg PO BID 12/11/18 12/27/18 History losartan 50 mg PO BID 12/11/18 12/27/18 History multivitamin [Multiple Vitamins] 1 tab PO DAILY 12/11/18 12/27/18 History yhwee-[id number]-epa-fish oil [[place]-3 2 cap PO DAILY 12/11/18 12/27/18 History Fish Oil] amlodipine [Norvasc] 2.5 mg PO HS 12/26/18 12/27/18 History prednisone 50 mg PO DAILY 12/26/18 12/27/18 History Physical Exam Vital signs: Vital Signs 12/27/18 09:52 12/27/18 09:57 12/27/18 10:00 Temperature 97.5 F L Pulse Rate 70 59 L Respiratory Rate 12 12 Blood Pressure 103/64 Pulse Oximetry 98 12/27/18 11:00 12/27/18 12:12 12/27/18 12:27 Temperature Pulse Rate 60 59 L 60 Respiratory Rate 12 12 12 Blood Pressure 126/64 113/56 L 125/60 Pulse Oximetry 98 99 98 12/27/18 12:42 12/27/18 13:00 12/27/18 13:12 Temperature Pulse Rate 59 L 59 L 59 L Respiratory Rate 12 12 12 Blood Pressure 126/57 L 114/53 L 130/60 Pulse Oximetry 98 98 99 12/27/18 13:27 12/27/18 13:49 12/27/18 14:00 Temperature Pulse Rate 59 L 59 L 61 Respiratory Rate 11 L 11 L 12 Blood Pressure 130/56 L 145/64 H 134/59 L Pulse Oximetry 99 99 98 12/27/18 14:27 12/27/18 15:00 12/27/18 15:27 Temperature 97.5 F L Pulse Rate 59 L 60 59 L Respiratory Rate 11 L 12 11 L Blood Pressure 137/65 161/74 H 142/67 H Pulse Oximetry 99 99 99 12/27/18 16:00 12/27/18 16:27 12/27/18 17:00 Temperature Pulse Rate 59 L 59 L 59 L Respiratory Rate 12 12 12 Blood Pressure 142/67 H 139/66 140/65 Pulse Oximetry 97 97 97 12/27/18 17:27 12/27/18 18:00 12/27/18 18:27 Temperature Pulse Rate 60 63 59 L Respiratory Rate 12 12 11 L Blood Pressure 143/64 H 141/64 H 121/58 L Pulse Oximetry 97 98 97 12/27/18 19:00 12/27/18 20:00 12/27/18 23:00 Temperature 97.5 F L 97.6 F Pulse Rate 64 59 L Respiratory Rate 18 18 Blood Pressure 136/64 113/56 L Pulse Oximetry 97 97 97 12/28/18 03:00 12/28/18 07:00 12/28/18 07:54 Temperature 97.5 F L 97.7 F Pulse Rate 61 73 Respiratory Rate 18 13 Blood Pressure 135/59 L 147/73 H Pulse Oximetry 95 96 96 12/28/18 08:00 Temperature Pulse Rate 70 Respiratory Rate 12 Blood Pressure 167/62 H Pulse Oximetry 95 Intake & Output 12/27/18 12/28/18 12/28/18 18:59 06:59 18:59 Intake Total 702.5 / 702.5 Output Total 50 / 50 200 / 200 Balance 652.5 / 652.5 -200 / -200 Weight 62.5 kg Intake: IV 102.5 / 102.5 Activase Drip 52.5 MG In Bag/ 52.5 / 52.5 Syringe 1 EACH @ 52.5 mls/hr IV .SIG ONCE ONE Rx#:[id number] Ancef 2 GM Premix Inj 2 gm In 50 / 50 50 ml @ 100 mls/hr IV.SIG ONCE [place] Rx#:[id number] Anesthesia Amount 600 / 600 Output: Urine 200 / 200 Estimated Blood Loss 50 / 50 Other: # Incontinent Voids 1 1 - Constitutional no acute distress - Routine HEENT Exam Head: Present: normocephalic Eye: Present: EOMI, PERRL ENT: Present: mucous membranes moist - Routine Neck Exam Present: supple. Absent: JVD - Routine Respiratory Exam Present: CTA bilaterally - Routine Cardiovascular Exam Present: RRR. Absent: murmur - Routine Abdominal Exam Present: soft, normoactive bowel sounds - Routine Extremities Exam Absent: edema - Routine Skin Exam Absent: erythema - Routine Neurological Exam Present: alert, oriented X3, CN II-XII intact. Absent: sensory deficit, motor deficit Results 12/28/18 04:05 12/28/18 04:05 Cardiac Enzymes 12/27/18 12/28/18 Range/Units 11:14 04:05 AST 30 (15-37) U/L Troponin I 0.46 H (0.02-0.05) ng/mL Coagulation 12/27/18 12/27/18 Range/Units 06:10 11:14 PT 10.4 11.2 (9.8-11.6) sec APTT 26.1 25.6 (23.4-31.7) sec Lipids 12/28/18 Range/Units 04:05 Triglycerides 324 H (42-150) mg/dL Cholesterol 290 H (120-200) mg/dL HDL Cholesterol 38.9 L (40.0-60.0) mg/dL Cholesterol/HDL Ratio 7.45 Ratio CBC 12/27/18 12/27/18 12/28/18 Range/Units 06:10 11:14 04:05 WBC 7.7 11.8 H D 10.9 (4.0-11.0) th/mm3 RBC 3.53 L 3.17 L 2.94 L (4.00-5.30) mil/mm3 Hgb 11.0 L 9.7 L 9.1 L (11.6-15.3) gm/dL Hct 31.6 L 28.4 L 26.0 L (35.0-46.0) % Plt Count 197 168 166 (150-450) th/mm3 Neut # (Auto) 6.6 10.5 H (1.8-7.7) th/mm3 Lymph # (Auto) 1.0 0.9 L (1.0-4.8) th/mm3 [place] # (Auto) 0.1 0.3 (0.0-0.9) th/mm3 Eos # (Auto) 0.0 0.0 (0.0-0.4) th/mm3 Baso # (Auto) 0.0 0.0 (0.0-0.2) th/mm3 Comprehensive Metabolic Panel 12/27/18 12/28/18 Range/Units 06:10 04:05 Sodium 134 L 140 (136-145) meq/L Potassium 4.7 3.8 D (3.5-5.1) meq/L Chloride 101 105 (98-107) meq/L Carbon Dioxide 24.7 26.8 (21.0-32.0) meq/L BUN 31 H 33 H (7-18) mg/dL Creatinine 1.56 H 1.53 H (0.50-1.00) mg/dL Calcium 9.0 8.2 L D (8.5-10.1) mg/dL AST 30 (15-37) U/L ALT 19 (10-53) U/L Alkaline Phosphatase 95 (45-117) U/L Total Protein 6.6 (6.4-8.2) g/dL Albumin 3.0 L (3.4-5.0) g/dL Intake and Output 12/27/18 12/28/18 12/28/18 22:59 06:59 14:59 Output Total 200 / 200 Balance -200 / -200 Output: Urine 200 / 200 Other: # Incontinent Voids 1 1 Weight 62.5 kg - Imaging and Cardiology Imaging: Impressions Head CT 12/27/18 00:00 CONCLUSION: 1. Suboptimal examination secondary to motion artifact and intravenous contrast. 2. No definite mass effect, hemorrhage or acute infarction identified. 5 separate attempts were made by Dr. Gardner to call Dr. Harvey and a message was left on his cell phone at 1140 hours. The department will continue to try to notify Dr. Harvey. Head CTA 12/27/18 00:00 CONCLUSION: 1. Negative examination. Report was called by Dr. Gardner to Dr. Harvey at 1220 hours.. Neck CTA 12/27/18 00:00 CONCLUSION: 1. 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 2. No significant stenotic narrowing on the right. Assessment and Plan - Plan Severe aortic valve stenosis This 83-year-old female with history of 2 prior bypass surgeries with now progressive symptoms and severe aortic valve stenosis by transthoracic echocardiogram. Patient is here for elective transcatheter valve replacement Status post transcatheter aortic valve replacement. Follow-up on 2D echocardiogram Remove right internal jugular introducer sheath Suspected stroke Imaging negative. Symptoms suggestive. Patient received thrombolytic therapy yesterday. No active bleeding. Neurologically doing very well without apparent residual deficit. Appreciate neurology input. Physical therapy Discharge planning
[2018-12-28] MEDS ORDERED: Ferrous Sulfate 325 MG Tablet PO SCH (09:00)
--- NOTE | 2018-12-28 11:21 | ECHRPT ---
Indication: HEART FAILURE CONCLUSIONS This is a limited study for a S/P TAVR evaluation. Mild concentric left ventricular hypertrophy. The left ventricular systolic function is low normal with an estimated ejection fraction in the rang e of 50- 55%. Moderate mitral valve regurgitation. Status-post percutaneous aortic valve replacement. Aortic valve mean gradient is 10 mmHg. BP: / HR: Rhythm: Sinus MEASUREMENTS (Male / Female) Normal Values Technical Quality:Fair 2D ECHO LV Diastolic Diameter PLAX 3.9 cm 4.2 - 5.9 / 3.9 - 5.3 cm LV Systolic Diameter PLAX 3.2 cm IVS Diastolic Thickness 1.0 cm 0.6 - 1.0 / 0.6 - 0.9 cm LVPW Diastolic Thickness 1.0 cm 0.6 - 1.0 / 0.6 - 0.9 cm LV Relative Wall Thickness 0.5 RV Internal Dim ED PLAX 2.4 cm LVOT Diameter 1.4 cm Aortic Root Diameter 2.0 cm LA Systolic Diameter LX 4.0 cm 3.0 - 4.0 / 2.7 - 3.8 cm DOPPLER AV Peak Velocity 205.5 cm/s AV Peak Gradient 16.9 mmHg AV Mean Gradient 10.0 mmHg AV Velocity Time Integral 40.1 cm FINDINGS LEFT VENTRICLE Normal left ventricular size. Mild concentric left ventricular hypertrophy. The left ventricular systolic function is low normal with an estimated ejection fraction in the rang e of 50- 55%. RIGHT VENTRICLE Normal right ventricular size and systolic function. LEFT ATRIUM The left atrial size is normal. RIGHT ATRIUM The right atrial size is normal. ATRIAL SEPTUM Normal atrial septal thickness without atrial level shunting by limited color doppler interrogation. AORTA The aortic root and proximal ascending aorta are normal in size on limited imaging. MITRAL VALVE Moderate mitral valve regurgitation. AORTIC VALVE Status-post percutaneous aortic valve replacement. Aortic valve mean gradient is 10 mmHg. TRICUSPID VALVE Structurally normal tricuspid valve. No tricuspid valve stenosis or regurgitation. PULMONARY VALVE The pulmonary valve is not well visualized. VESSELS The inferior vena cava is normal in size. PERICARDIUM No pericardial effusion. Leonel Coyle MD, FACC (Electronically Signed) Final Date:28 December 2018 11:20
--- NOTE | 2018-12-28 11:22 | P.PNNEU ---
Subjective Subjective Comments: No new neuro sx. Has regained speech and function of right arm and leg. Tolerated TPA well with no significant hemorrhage at cath sites Active Medications: Active Medications Aspirin (Aspirin) 325 mg PO [employer] [facility] Stop: 12/30/18 05:36 Last Admin: 12/27/18 06:15 Dose: 325 mg Atorvastatin Calcium (Lipitor) 80 mg PO HS [facility] Chlorhexidine Gluconate (Chlorhexidine 2% Cloth) 3 pack [employer] [facility] Stop: 12/30/18 05:36 Clonidine HCl (Catapres) 0.2 mg PO Q6H PRN PRN Reason: SBP > 160 mmHg Ferrous Sulfate (Ferosul) 325 mg PO DAILY [facility] Last Admin: 12/28/18 09:35 Dose: 325 mg Hydralazine HCl (Apresoline Inj) 10 mg IV.PUSH Q30M PRN PRN Reason: SBP > 160 mmHg Last Admin: 12/28/18 08:48 Dose: 10 mg Cefazolin Sodium/Dextrose (Ancef 2 Gm Premix Inj) 2 gm in 50 mls @ 100 mls/hr IV.SIG ONCE [facility] Stop: 12/30/18 05:36 Last Infusion: 12/27/18 08:45 Dose: Infused Sodium Chloride (Ns Inj) 1,000 mls @ 125 mls/hr IV.CONT .Q8H [facility] Mupirocin (Bactroban 2% Nasal Oint) 1 applicatio EACH [employer] [facility] Stop: 12/30/18 05:36 Ondansetron HCl (Zofran Inj) 4 mg IV.PUSH ONCE PRN PRN Reason: NAUSEA OR VOMITING Stop: 12/30/18 09:38 Oxycodone/Acetaminophen (Percocet 5/325 Mg) 1 tab PO Q6H PRN PRN Reason: PAIN SCALE 3 TO 5 Povidone Iodine (Betadine 5% Antisepsis Kit) 1 applicatio [employer] [facility] Stop: 12/30/18 05:36 Last Admin: 12/27/18 06:19 Dose: 1 applicatio Allergies/Adverse Reactions: Allergies Allergy/AdvReac Type Severity Reaction Status Date / Time glipizide Allergy Intermediate Swelling Verified 12/27/18 05:48 Iodinated Contrast- Oral and Allergy Hives Verified 12/27/18 05:48 IV Dye niacin Allergy Itching, Verified 12/27/18 05:48 [From Niaspan Generalized Extended-Release] fosinopril [From Monopril] AdvReac Flushing, Verified 12/27/18 05:48 COUGH hydralazine AdvReac Anxiety Verified 12/27/18 05:48 morphine AdvReac Shakiness Verified 12/27/18 05:48 oxycodone [From Percocet] AdvReac Depression Verified 12/27/18 05:48 Mzmntab-Shh-Sop Reductase AdvReac Muscle Pain Verified 12/27/18 05:48 Inhibitor telmisartan [From Micardis] AdvReac Chest Pain Verified 12/27/18 05:48 Physical Exam Vital signs: Vital Signs 12/27/18 12:12 12/27/18 12:27 12/27/18 12:42 Temperature Pulse Rate 59 L 60 59 L Respiratory Rate 12 12 12 Blood Pressure 113/56 L 125/60 126/57 L Pulse Oximetry 99 98 98 12/27/18 13:00 12/27/18 13:12 12/27/18 13:27 Temperature Pulse Rate 59 L 59 L 59 L Respiratory Rate 12 12 11 L Blood Pressure 114/53 L 130/60 130/56 L Pulse Oximetry 98 99 99 12/27/18 13:49 12/27/18 14:00 12/27/18 14:27 Temperature Pulse Rate 59 L 61 59 L Respiratory Rate 11 L 12 11 L Blood Pressure 145/64 H 134/59 L 137/65 Pulse Oximetry 99 98 99 12/27/18 15:00 12/27/18 15:27 12/27/18 16:00 Temperature 97.5 F L Pulse Rate 60 59 L 59 L Respiratory Rate 12 11 L 12 Blood Pressure 161/74 H 142/67 H 142/67 H Pulse Oximetry 99 99 97 12/27/18 16:27 12/27/18 17:00 12/27/18 17:27 Temperature Pulse Rate 59 L 59 L 60 Respiratory Rate 12 12 12 Blood Pressure 139/66 140/65 143/64 H Pulse Oximetry 97 97 97 12/27/18 18:00 12/27/18 18:27 12/27/18 19:00 Temperature 97.5 F L Pulse Rate 63 59 L 64 Respiratory Rate 12 11 L 18 Blood Pressure 141/64 H 121/58 L 136/64 Pulse Oximetry 98 97 97 12/27/18 20:00 12/27/18 23:00 12/28/18 03:00 Temperature 97.6 F 97.5 F L Pulse Rate 59 L 61 Respiratory Rate 18 18 Blood Pressure 113/56 L 135/59 L Pulse Oximetry 97 97 95 12/28/18 07:00 12/28/18 07:54 12/28/18 08:00 Temperature 97.7 F Pulse Rate 73 70 Respiratory Rate 13 12 Blood Pressure 147/73 H 167/62 H Pulse Oximetry 96 96 95 12/28/18 09:00 12/28/18 09:09 12/28/18 10:00 Temperature Pulse Rate 72 72 Respiratory Rate 12 12 Blood Pressure 136/53 L 128/72 Pulse Oximetry 96 97 95 12/28/18 11:00 Temperature 97.8 F Pulse Rate 75 Respiratory Rate 12 Blood Pressure 123/52 L Pulse Oximetry 95 Intake & Output 12/27/18 12/28/18 12/28/18 18:59 06:59 18:59 Intake Total 702.5 / 702.5 100 / 100 Output Total 50 / 50 200 / 200 Balance 652.5 / 652.5 -200 / -200 100 / 100 Weight 62.5 kg Intake: IV 102.5 / 102.5 100 / 100 Activase Drip 52.5 MG In Bag/ 52.5 / 52.5 Syringe 1 EACH @ 52.5 mls/hr IV .SIG ONCE ONE Rx#:[id number] KCl 20 mEq Premix Inj 20 meq In 100 / 100 100 ml @ 50 mls/hr IV.SIG ONCE ONE Rx#:[id number] Ancef 2 GM Premix Inj 2 gm In 50 / 50 50 ml @ 100 mls/hr IV.SIG ONCE [place] Rx#:[id number] Anesthesia Amount 600 / 600 Output: Urine 200 / 200 Estimated Blood Loss 50 / 50 Other: # Incontinent Voids 1 1 - Routine Neurological Exam alert, follow commands, oriented to year and place. speech fluent and can repeat simple phrases CN intact. No facial asymmetry, EOM intact PERRL MOTOR moves BUE equally with no drift. Objective Laboratory Results - last 24 hr 12/27/18 12/27/18 12/27/18 11:04 11:14 11:14 WBC 11.8 H D RBC 3.17 L Hgb 9.7 L POC Hgb (Calc) 9.2 L Hct 28.4 L POC Hct 27.0 L MCV 89.7 MCH 30.6 MCHC 34.2 RDW 14.3 Plt Count 168 MPV 8.3 Neut % (Auto) 88.9 H Lymph % (Auto) 8.0 L [place] % (Auto) 2.9 Eos % (Auto) 0.1 Baso % (Auto) 0.1 Neut # (Auto) 10.5 H Lymph # (Auto) 0.9 L [place] # (Auto) 0.3 Eos # (Auto) 0.0 Baso # (Auto) 0.0 WBC Differential . Differential Comment Auto diff final PT INR APTT Fibrinogen Puncture Site Patient Temperature O2 Saturation ABG pH ABG pCO2 ABG pO2 ABG HCO3 ABG O2 Content ABG Base Excess ABG Methemoglobin Hemoglobin Carboxyhemoglobin O2 Delivery Device Liter Flow Critical Value POC Sodium 135 L Sodium POC Potassium 5.0 Potassium POC Chloride 102 Chloride Carbon Dioxide Anion Gap POC BUN 28 H BUN Creatinine POC Creatinine 1.2 Estimated GFR POC Glucose 236 H 216 H Random Glucose Calcium Magnesium Total Bilirubin AST ALT Alkaline Phosphatase Total Creatine Kinase Troponin I Total Protein Albumin Triglycerides Cholesterol LDL Cholesterol, Calc HDL Cholesterol Cholesterol/HDL Ratio 12/27/18 12/27/18 12/27/18 11:14 11:14 15:34 WBC RBC Hgb POC Hgb (Calc) Hct POC Hct MCV MCH MCHC RDW Plt Count MPV Neut % (Auto) Lymph % (Auto) [place] % (Auto) Eos % (Auto) Baso % (Auto) Neut # (Auto) Lymph # (Auto) [place] # (Auto) Eos # (Auto) Baso # (Auto) WBC Differential Differential Comment PT 11.2 INR 1.1 APTT 25.6 Fibrinogen 315 Puncture Site Art line Patient Temperature 98.6 O2 Saturation 96 ABG pH 7.40 ABG pCO2 41 ABG pO2 133 H ABG HCO3 25 ABG O2 Content 13.6 ABG Base Excess 0.4 ABG Methemoglobin 2.0 Hemoglobin 9.9 L Carboxyhemoglobin 0.7 O2 Delivery Device Nasal cannula Liter Flow 2.50 Critical Value No POC Sodium Sodium POC Potassium Potassium POC Chloride Chloride Carbon Dioxide Anion Gap POC BUN BUN Creatinine POC Creatinine Estimated GFR POC Glucose Random Glucose Calcium Magnesium Total Bilirubin AST ALT Alkaline Phosphatase Total Creatine Kinase 55 Troponin I 0.46 H Total Protein Albumin Triglycerides Cholesterol LDL Cholesterol, Calc HDL Cholesterol Cholesterol/HDL Ratio 12/27/18 12/28/18 12/28/18 17:03 04:05 04:05 WBC 10.9 RBC 2.94 L Hgb 9.1 L POC Hgb (Calc) Hct 26.0 L POC Hct MCV 88.5 MCH 31.0 MCHC 35.0 RDW 14.4 Plt Count 166 MPV 8.0 Neut % (Auto) Lymph % (Auto) [place] % (Auto) Eos % (Auto) Baso % (Auto) Neut # (Auto) Lymph # (Auto) [place] # (Auto) Eos # (Auto) Baso # (Auto) WBC Differential Differential Comment PT INR APTT Fibrinogen 182 L Puncture Site Patient Temperature O2 Saturation ABG pH ABG pCO2 ABG pO2 ABG HCO3 ABG O2 Content ABG Base Excess ABG Methemoglobin Hemoglobin Carboxyhemoglobin O2 Delivery Device Liter Flow Critical Value POC Sodium Sodium 140 POC Potassium Potassium 3.8 D POC Chloride Chloride 105 Carbon Dioxide 26.8 Anion Gap 8 POC BUN BUN 33 H Creatinine 1.53 H POC Creatinine Estimated GFR 32 L POC Glucose Random Glucose 134 H D Calcium 8.2 L D Magnesium 2.0 Total Bilirubin 0.4 AST 30 ALT 19 Alkaline Phosphatase 95 Total Creatine Kinase Troponin I Total Protein 6.6 Albumin 3.0 L Triglycerides 324 H Cholesterol 290 H LDL Cholesterol, Calc 186 H HDL Cholesterol 38.9 L Cholesterol/HDL Ratio 7.45 12/28/18 04:05 WBC RBC Hgb POC Hgb (Calc) Hct POC Hct MCV MCH MCHC RDW Plt Count MPV Neut % (Auto) Lymph % (Auto) [place] % (Auto) Eos % (Auto) Baso % (Auto) Neut # (Auto) Lymph # (Auto) [place] # (Auto) Eos # (Auto) Baso # (Auto) WBC Differential Differential Comment PT INR APTT Fibrinogen Puncture Site Patient Temperature O2 Saturation ABG pH ABG pCO2 ABG pO2 ABG HCO3 ABG O2 Content ABG Base Excess ABG Methemoglobin Hemoglobin Carboxyhemoglobin O2 Delivery Device Liter Flow Critical Value POC Sodium Sodium POC Potassium Potassium POC Chloride Chloride Carbon Dioxide Anion Gap POC BUN BUN Creatinine POC Creatinine Estimated GFR POC Glucose Random Glucose Calcium Magnesium Cancelled Total Bilirubin AST ALT Alkaline Phosphatase Total Creatine Kinase Troponin I Total Protein Albumin Triglycerides Cholesterol LDL Cholesterol, Calc HDL Cholesterol Cholesterol/HDL Ratio Review/Management - Review/Management Plan: cva s/p iv TPA with resolution of neuro sx Recommend--follow up CT brain 24 post tpa. If no hemorrhage, start plavix and aspirin. Continue statin
--- NOTE | 2018-12-28 15:44 | CT ---
EXAM DATE: 12/28/2018 3:41 PM EST AGE/SEX: 83 years / Female INDICATIONS: Acute neurological change. CLINICAL DATA: This is the patient's initial encounter. Patient reports that signs and symptoms have been present for 1 day and indicates a pain score of 0/10. MEDICAL/SURGICAL HISTORY: Carotid stenosis. Congestive heart failure. Renal disease. CA, hyperte nsion CABG. RADIATION DOSE: 35.05 CTDI (mGy) COMPARISON: [facility] [place], CT STROKE ALERT HEAD WO CON, 12/27/2018. . TECHNIQUE: CT of the head without contrast. Using automated exposure control and adjustment of the mA and/or kV according to patient size, radiation dose was kept as low as reasonably achievable to ob tain optimal diagnostic quality images. DICOM format image data is available electronically for revi ew and comparison. FINDINGS: Cerebrum: The ventricles are normal for age. No evidence of midline shift, mass lesion, hemorrhage or acute infarction. No extraaxial fluid collections are seen. Posterior Fossa: The cerebellum and brainstem are intact. The 4th ventricle is midline. The cerebe llopontine angle is unremarkable. Extracranial: The visualized portion of the orbits is intact. Skull: The calvaria is intact. No evidence of skull fracture. CONCLUSION: 1. No acute intracranial abnormality . . Electronically signed by: Jose C Neves MD Board Certified Radiologist 12/28/2018 3:42 PM EST
--- NOTE | 2018-12-28 16:00 | ECG ---
Date Performed: 12/28/2018 Time Performed: 04:15:24 PTAGE: 83 years EKG: AV Paced Abnormal ECG PREVIOUS TRACING : 12/27/2018 09.58 DOCTOR: Arlene Jacobson Interpretating Date/Time 12/28/2018 15:59:47
[2018-12-28] MEDS: Aspirin 325 MG Tablet PO SCH (18:16)
[2018-12-29 07:05] LABS: Hematocrit 23.5 % (35.0-46.0); Hemoglobin 8.1 gm/dL (11.6-15.3); Mean Corpuscular HGB Conc 34.3 % (32.0-36.0); Mean Corpuscular Hemoglobin 30.6 pg (27.0-34.0); Mean Corpuscular Volume 89.3 fL (80.0-100.0); Mean Platelet Volume 8.3 fL (7.0-11.0); Platelet Count 122 th/mm3 (150-450); Red Blood Count 2.63 mil/mm3 (4.00-5.30); Red Cell Distribution Width 14.3 % (11.6-17.2); White Blood Count 9.2 th/mm3 (4.0-11.0)
[2018-12-29 07:15] LABS: Prothrombin Time 10.5 sec (9.8-11.6)
[2018-12-29 07:21] LABS: Alanine Aminotransferase 16 U/L (10-53); Albumin 2.8 g/dL (3.4-5.0); Anion Gap 8 meq/L (5-15); Aspartate Aminotransferase 21 U/L (15-37); Blood Urea Nitrogen 36 mg/dL (7-18); Calcium 7.9 mg/dL (8.5-10.1); Carbon Dioxide 27.1 meq/L (21.0-32.0); Chloride 105 meq/L (98-107); Glomerular Filtration Rate 30 mL/min (>89); Glucose,Random 151 mg/dL (74-106); Potassium 3.9 meq/L (3.5-5.1); Sodium 140 meq/L (136-145)
[2018-12-29 07:24] LABS: Alkaline Phosphatase 81 U/L (45-117); Total Protein 6.2 g/dL (6.4-8.2)
[2018-12-29] MEDS: Aspirin 325 MG Tablet PO SCH (09:25)
[2018-12-29] MEDS: Ferrous Sulfate 325 MG Tablet PO SCH ×2 (09:26→21:09)
--- NOTE | 2018-12-29 10:38 | P.PNCC ---
Subjective Subjective Remarks/Hospital Course: This is an 83-year-old female with past medical history of known coronary disease with prior bypass surgery in both 1994 and 2015, chronic kidney disease stage 3, history of carotid stenosis, diabetes, dyslipidemia, hypertension, history of congestive heart failure who was evaluated for progressive shortness of breath and fatigue. Transthoracic echocardiogram performed at the end of last year showed severe aortic valve stenosis. Patient underwent cardiac catheterization which showed severe tetlin coronary artery disease but patent grafts. 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 Referred to cigarette making machine catcher Dr. Coyle for consideration of transcatheter aortic valve replacement, as she was deemed too high risk for open aortic valve replacement. Patient underwent successful transcatheter aortic valve replacement with a 23 mm Medtronic Evolut R bioprosthetic valve today. Post aortic valve area was 1.69 cm, post implant mean aortic valve gradient was 7 mmHg. No significant perivalvular leak. Critical care medicine was consulted I evaluated the patient in the CV ICU. She is quite somnolent opens eyes to painful stimuli. There is evidence of right facial droop. Also it was noted that patient has right-sided weakness, spontaneously moves but 4/5 power on the right upper and lower extremity. A stroke alert had been initiated. Dr. Harvey had been notified. A CT of the head and CT angiogram of the head and neck ordered stat 12/28/18: Patient developed acute left hemispheric stroke following TAVR. Status post TPA with improvement in symptoms. Today patient is able to say a few words oriented to person and intermittently to place. Speech is still garbled. Muscle strength almost back to baseline. Remains slightly somnolent follow-up CT scan is pending at this time. 12/29/18. Lying in bed remains somnolent however right-sided weakness is significantly improved muscle strength back to normal. Aphasia also significantly improved. EEG ordered. Not cleared for MRI by Dr. Coyle Objective Vital Signs / I&O: Vital Signs 12/28/18 11:00 12/28/18 12:00 12/28/18 14:00 Temperature 97.8 F Pulse Rate 75 74 73 Respiratory Rate 12 13 14 Blood Pressure 123/52 L 136/54 L 129/58 L Pulse Oximetry 95 12/28/18 15:00 12/28/18 19:00 12/28/18 19:22 Temperature 97.6 F 99.2 F Pulse Rate 75 75 73 Respiratory Rate 16 16 Blood Pressure 120/54 L 114/49 L Pulse Oximetry 92 L 12/28/18 20:18 12/28/18 21:14 12/28/18 23:00 Temperature Pulse Rate 70 Respiratory Rate Blood Pressure Pulse Oximetry 92 L 93 L 12/28/18 23:18 12/29/18 03:00 12/29/18 03:42 Temperature 99.1 F 98.4 F Pulse Rate 71 73 69 Respiratory Rate 16 16 Blood Pressure 131/55 L 143/56 H Pulse Oximetry 94 L 94 L 12/29/18 07:00 12/29/18 08:00 Temperature 98.5 F Pulse Rate 69 Respiratory Rate 16 Blood Pressure 136/63 Pulse Oximetry 93 L 93 L Intake & Output 12/28/18 12/29/18 12/29/18 18:59 06:59 18:59 Intake Total 940 / 940 Output Total 200 / 200 350 / 350 Balance 740 / 740 -350 / -350 Weight 66 kg Intake: IV 100 / 100 KCl 20 mEq Premix Inj 20 meq In 100 / 100 100 ml @ 50 mls/hr IV.SIG ONCE ONE Rx#:[id number] Oral 840 / 840 Output: Urine 200 / 200 350 / 350 Other: # Voids 2 # Incontinent Voids 1 Result Diagrams: 12/29/18 06:30 12/29/18 06:30 Objective Remarks: - Constitutional Somnolent. Not appear to be in acute distress. Right facial droop, improved - Routine HEENT Exam Eye: Present: PERRL ENT: Present: Right facial droop, improving - Routine Neck Exam Absent: JVD. Right IJ central line in place with minimal oozing - Routine Respiratory Exam Present: CTA bilaterally. No wheezes or crackles - Routine Cardiovascular Exam Present: RRR, grade 1 systolic murmur at the left sternal border, apex. Peripheral pulses are palpable - Routine Abdominal Exam Present: soft, normoactive bowel sounds - Routine Extremities Exam Absent: No groin hematoma. Present: Peripheral pulses. - Routine Neurological Exam Somnolent but wakes up easily, follows commands. Facial droop is almost resolved. Right upper and lower extremity improved to 5 out of 5 now. Normal strength in spontaneous movements on the left side. 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 Harvey following -Received 300 mg aspirin 12/27/18, resume aspirin Plavix per Dr. Harvey -PT/OT/speech -Atorvastatin 80 mg p.o. nightly (side effect listed as muscle pain will trial) RESP: -Monitor neuro status closely -Protecting airway at this time -Aggressive pulmonary toilet CV: -Status post TAVR 12/27 -No postoperative perivalvular leak based on ROBERTO -Cleared by neurology to continue aspirin Plavix --Patient had recent pacemaker placement for symptomatic AV block GI: -Diet per speech recommendation : -Monitor renal function closely. ID: -Renetta-procedure antibiotics per cardiology HEME: -Monitor CBC, coags -s/p TPA 12/27/18 ENDO: -Electrolyte replacement per protocol LINES: -Utilize peripheral IVs, central line if needed Level 3
--- NOTE | 2018-12-29 11:32 | P.PNCA ---
Subjective Interval history: no events. Showing neurologic improvement day by day. still sleepy. ambulating yesterday with assistance. Medications and Allergies Active Medications: Active Medications Aspirin (Aspirin) 325 mg PO DAILY [facility] Last Admin: 12/29/18 09:25 Dose: 325 mg Atorvastatin Calcium (Lipitor) 80 mg PO HS [facility] Last Admin: 12/28/18 21:10 Dose: 80 mg Chlorhexidine Gluconate (Chlorhexidine 2% Cloth) 3 pack TOPICAL SHAKE PACKER [facility] Stop: 12/30/18 05:36 Clonidine HCl (Catapres) 0.2 mg PO Q6H PRN PRN Reason: SBP > 160 mmHg Clopidogrel Bisulfate (Plavix) 75 mg PO DAILY [facility] Last Admin: 12/29/18 09:26 Dose: 75 mg Ferrous Sulfate (Ferosul) 325 mg PO BID [facility] Last Admin: 12/29/18 09:26 Dose: 325 mg Hydralazine HCl (Apresoline Inj) 10 mg IV.PUSH Q30M PRN PRN Reason: SBP > 160 mmHg Last Admin: 12/28/18 08:48 Dose: 10 mg Cefazolin Sodium/Dextrose (Ancef 2 Gm Premix Inj) 2 gm in 50 mls @ 100 mls/hr IV.SIG ONCE [facility] Stop: 12/30/18 05:36 Last Infusion: 12/27/18 08:45 Dose: Infused Sodium Chloride (Ns Inj) 1,000 mls @ 125 mls/hr IV.CONT .Q8H [facility] Mupirocin (Bactroban 2% Nasal Oint) 1 applicatio EACH [employer]ACK[employer] [facility] Stop: 12/30/18 05:36 Ondansetron HCl (Zofran Inj) 4 mg IV.PUSH ONCE PRN PRN Reason: NAUSEA OR VOMITING Stop: 12/30/18 09:38 Oxycodone/Acetaminophen (Percocet 5/325 Mg) 1 tab PO Q6H PRN PRN Reason: PAIN SCALE 3 TO 5 Povidone Iodine (Betadine 5% Antisepsis Kit) 1 applicatio [employer]ICAL [employer] [facility] Stop: 12/30/18 05:36 Last Admin: 12/27/18 06:19 Dose: 1 applicatio Allergies Allergy/AdvReac Type Severity Reaction Status Date / Time glipizide Allergy Intermediate Swelling Verified 12/27/18 05:48 Iodinated Contrast- Oral and Allergy Hives Verified 12/27/18 05:48 IV Dye niacin Allergy Itching, Verified 12/27/18 05:48 [From Niaspan Generalized Extended-Release] fosinopril [From Monopril] AdvReac Flushing, Verified 12/27/18 05:48 COUGH hydralazine AdvReac Anxiety Verified 12/27/18 05:48 morphine AdvReac Shakiness Verified 12/27/18 05:48 oxycodone [From Percocet] AdvReac Depression Verified 12/27/18 05:48 Qhuyfmo-[id number]-Rfu Reductase AdvReac Muscle Pain Verified 12/27/18 05:48 Inhibitor telmisartan [From Micardis] AdvReac Chest Pain Verified 12/27/18 05:48 Home Medications Medication Instructions Recorded Confirmed Type aspirin 81 mg PO DAILY 05/23/18 12/27/18 History docusate sodium [Colace] 100 mg PO DAILY PRN 05/23/18 12/27/18 History furosemide 20 mg PO DAILY 05/23/18 12/27/18 History insulin degludec [Tresiba 15 unit SUB-Q DAILY 05/23/18 12/27/18 History FlexTouch U-100] levothyroxine 25 mcg PO DAILY 05/23/18 12/27/18 History nitroglycerin [Nitrostat] 0.4 mg SUBLINGUAL Q5-15M PRN 05/23/18 12/27/18 History cholecalciferol (vitamin D3) 2,000 unit PO DAILY 12/11/18 12/27/18 History [Vitamin D3] isosorbide mononitrate 30 mg PO BID 12/11/18 12/27/18 History losartan 50 mg PO BID 12/11/18 12/27/18 History multivitamin [Multiple Vitamins] 1 tab PO DAILY 12/11/18 12/27/18 History ppyrv-[id number]-epa-fish oil [[place]-3 2 cap PO DAILY 12/11/18 12/27/18 History Fish Oil] amlodipine [Norvasc] 2.5 mg PO HS 12/26/18 12/27/18 History prednisone 50 mg PO DAILY 12/26/18 12/27/18 History Physical Exam Vital signs: Vital Signs 12/28/18 12:00 12/28/18 14:00 12/28/18 15:00 Temperature 97.6 F Pulse Rate 74 73 75 Respiratory Rate 13 14 16 Blood Pressure 136/54 L 129/58 L 120/54 L Pulse Oximetry 12/28/18 19:00 12/28/18 19:22 12/28/18 20:18 Temperature 99.2 F Pulse Rate 75 73 Respiratory Rate 16 Blood Pressure 114/49 L Pulse Oximetry 92 L 92 L 12/28/18 21:14 12/28/18 23:00 12/28/18 23:18 Temperature 99.1 F Pulse Rate 70 71 Respiratory Rate 16 Blood Pressure 131/55 L Pulse Oximetry 93 L 94 L 12/29/18 03:00 12/29/18 03:42 12/29/18 07:00 Temperature 98.4 F 98.5 F Pulse Rate 73 69 69 Respiratory Rate 16 16 Blood Pressure 143/56 H 136/63 Pulse Oximetry 94 L 93 L 12/29/18 08:00 Temperature Pulse Rate Respiratory Rate Blood Pressure Pulse Oximetry 93 L Intake & Output 12/28/18 12/29/18 12/29/18 18:59 06:59 18:59 Intake Total 940 / 940 Output Total 200 / 200 350 / 350 Balance 740 / 740 -350 / -350 Weight 66 kg Intake: IV 100 / 100 KCl 20 mEq Premix Inj 20 meq In 100 / 100 100 ml @ 50 mls/hr IV.SIG ONCE ONE Rx#:[id number] Oral 840 / 840 Output: Urine 200 / 200 350 / 350 Other: # Voids 2 # Incontinent Voids 1 - Constitutional no acute distress - Routine HEENT Exam Head: Present: normocephalic Eye: Present: EOMI, PERRL ENT: Present: mucous membranes moist - Routine Neck Exam Absent: JVD - Routine Respiratory Exam Present: CTA bilaterally - Routine Cardiovascular Exam Present: RRR. Absent: murmur - Routine Abdominal Exam Present: normoactive bowel sounds - Routine Extremities Exam Absent: edema - Routine Neurological Exam Present: alert, oriented X3, CN II-XII intact. Absent: sensory deficit, motor deficit Results 12/29/18 06:30 12/29/18 06:30 Cardiac Enzymes 12/27/18 12/28/18 12/29/18 Range/Units 11:14 04:05 06:30 AST 30 21 (15-37) U/L Troponin I 0.46 H (0.02-0.05) ng/mL Coagulation 12/27/18 12/29/18 Range/Units 11:14 06:30 PT 11.2 10.5 (9.8-11.6) sec APTT 25.6 (23.4-31.7) sec Lipids 12/28/18 Range/Units 04:05 Triglycerides 324 H (42-150) mg/dL Cholesterol 290 H (120-200) mg/dL HDL Cholesterol 38.9 L (40.0-60.0) mg/dL Cholesterol/HDL Ratio 7.45 Ratio CBC 12/27/18 12/28/18 12/29/18 Range/Units 11:14 04:05 06:30 WBC 11.8 H D 10.9 9.2 (4.0-11.0) th/mm3 RBC 3.17 L 2.94 L 2.63 L (4.00-5.30) mil/mm3 Hgb 9.7 L 9.1 L 8.1 L (11.6-15.3) gm/dL Hct 28.4 L 26.0 L 23.5 L (35.0-46.0) % Plt Count 168 166 122 L (150-450) th/mm3 Neut # (Auto) 10.5 H (1.8-7.7) th/mm3 Lymph # (Auto) 0.9 L (1.0-4.8) th/mm3 [place] # (Auto) 0.3 (0.0-0.9) th/mm3 Eos # (Auto) 0.0 (0.0-0.4) th/mm3 Baso # (Auto) 0.0 (0.0-0.2) th/mm3 Comprehensive Metabolic Panel 12/28/18 12/29/18 Range/Units 04:05 06:30 Sodium 140 140 (136-145) meq/L Potassium 3.8 D 3.9 (3.5-5.1) meq/L Chloride 105 105 (98-107) meq/L Carbon Dioxide 26.8 27.1 (21.0-32.0) meq/L BUN 33 H 36 H (7-18) mg/dL Creatinine 1.53 H 1.63 H (0.50-1.00) mg/dL Calcium 8.2 L D 7.9 L (8.5-10.1) mg/dL AST 30 21 (15-37) U/L ALT 19 16 (10-53) U/L Alkaline Phosphatase 95 81 (45-117) U/L Total Protein 6.6 6.2 L (6.4-8.2) g/dL Albumin 3.0 L 2.8 L (3.4-5.0) g/dL Intake and Output 12/28/18 12/29/18 12/29/18 22:59 06:59 14:59 Intake Total 840 / 840 Output Total 200 / 200 350 / 350 Balance 640 / 640 -350 / -350 Intake: Oral 840 / 840 Output: Urine 200 / 200 350 / 350 Other: # Voids 2 # Incontinent Voids 1 Weight 66 kg - Imaging and Cardiology Imaging: Impressions Head CT 12/27/18 00:00 CONCLUSION: 1. Suboptimal examination secondary to motion artifact and intravenous contrast. 2. No definite mass effect, hemorrhage or acute infarction identified. 5 separate attempts were made by Dr. Gardner to call Dr. Harvey and a message was left on his cell phone at 1140 hours. The department will continue to try to notify Dr. Harvey. Head CTA 12/27/18 00:00 CONCLUSION: 1. Negative examination. Report was called by Dr. Gardner to Dr. Harvey at 1220 hours.. Neck CTA 12/27/18 00:00 CONCLUSION: 1. 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 2. No significant stenotic narrowing on the right. Head CT 12/28/18 12:12 CONCLUSION: 1. No acute intracranial abnormality . . Assessment and Plan - Plan Severe aortic valve stenosis This 83-year-old female with history of 2 prior bypass surgeries with now progressive symptoms and severe aortic valve stenosis by transthoracic echocardiogram. Patient is status post elective transcatheter valve replacement 2D echocardiogram looks good. Suspected stroke Imaging negative. Patient received thrombolytic therapy yesterday. No active bleeding. Neurologically doing very well without apparent residual deficit. Appreciate neurology assistance. Physical therapy home health case specialist Discharge planning day by day
--- NOTE | 2018-12-29 11:33 | P.DCO ---
- Home Health Nursing Order: Medical education, Nursing assessment with vital signs - Case Management Consult Case Management Consult-Home Health: Yes - Certification I have seen patient Katia Reyes on 12/29/18. My clinical findings support the need for the requested home health care services because: Limited mobility due to disease progression, Patient has SOB, Deconditioned with increased weakness I certify that my clinical findings support that this patient is homebound because: Post-op weakness
[2018-12-29] MEDS ORDERED: Dextrose 50% in Water 50 ML Vial IV.PUSH PRN (14:15)
[2018-12-29] MEDS ORDERED: Insulin Detemir Inj 1,000 UNIT/10 ML Vial SQ ONE (14:16)
[2018-12-29] MEDS: Insulin NovoLIN Regular Correctional Sugar Inj SQ SCH ×2 (15:39→20:00)
--- NOTE | 2018-12-29 17:24 | P.PNNEU ---
Subjective Subjective Comments: pt c/o double vision Active Medications: Active Medications Aspirin (Aspirin) 325 mg PO DAILY [facility] Last Admin: 12/29/18 09:25 Dose: 325 mg Atorvastatin Calcium (Lipitor) 80 mg PO HS [facility] Last Admin: 12/28/18 21:10 Dose: 80 mg Chlorhexidine Gluconate (Chlorhexidine 2% Cloth) 3 pack TOPICAL CARBONATION TESTER [facility] Stop: 12/30/18 05:36 Clonidine HCl (Catapres) 0.2 mg PO Q6H PRN PRN Reason: SBP > 160 mmHg Clopidogrel Bisulfate (Plavix) 75 mg PO DAILY [facility] Last Admin: 12/29/18 09:26 Dose: 75 mg Dextrose (D50w Vial) 50 ml IV.PUSH UNSCH PRN PRN Reason: PER HYPOGLYCEMIA PROTOCOL Ferrous Sulfate (Ferosul) 325 mg PO BID [facility] Last Admin: 12/29/18 09:26 Dose: 325 mg Glucagon (Glucagon Inj) 1 mg OTHER PRN PRN PRN Reason: for Hypoglycemia Protocol Hydralazine HCl (Apresoline Inj) 10 mg IV.PUSH Q30M PRN PRN Reason: SBP > 160 mmHg Last Admin: 12/28/18 08:48 Dose: 10 mg Cefazolin Sodium/Dextrose (Ancef 2 Gm Premix Inj) 2 gm in 50 mls @ 100 mls/hr IV.SIG ONCE [facility] Stop: 12/30/18 05:36 Last Infusion: 12/27/18 08:45 Dose: Infused Sodium Chloride (Ns Inj) 1,000 mls @ 125 mls/hr IV.CONT .Q8H [facility] Insulin Detemir (Levemir Inj) 7 unit SQ BID [facility] Insulin Human Regular (Novolin R Correctional Sugar Inj) 0 units SQ Q4HR [facility]; Protocol Last Admin: 12/29/18 15:39 Dose: 1 units Isosorbide Mononitrate (Imdur) 30 mg PO DAILY@0700 [facility] Losartan Potassium (Cozaar) 25 mg PO DAILY [facility] Mupirocin (Bactroban 2% Nasal Oint) 1 applicatio EACH N[employer] CARBONATION TESTER [facility] Stop: 12/30/18 05:36 Ondansetron HCl (Zofran Inj) 4 mg IV.PUSH ONCE PRN PRN Reason: NAUSEA OR VOMITING Stop: 12/30/18 09:38 Oxycodone/Acetaminophen (Percocet 5/325 Mg) 1 tab PO Q6H PRN PRN Reason: PAIN SCALE 3 TO 5 Povidone Iodine (Betadine 5% Antisepsis Kit) 1 applicatio TOPICAL [employer]ONATION TE[employer] [place] Stop: 12/30/18 05:36 Last Admin: 12/27/18 06:19 Dose: 1 applicatio Allergies/Adverse Reactions: Allergies Allergy/AdvReac Type Severity Reaction Status Date / Time glipizide Allergy Intermediate Swelling Verified 12/27/18 05:48 Iodinated Contrast- Oral and Allergy Hives Verified 12/27/18 05:48 IV Dye niacin Allergy Itching, Verified 12/27/18 05:48 [From Niaspan Generalized Extended-Release] fosinopril [From Monopril] AdvReac Flushing, Verified 12/27/18 05:48 COUGH hydralazine AdvReac Anxiety Verified 12/27/18 05:48 morphine AdvReac Shakiness Verified 12/27/18 05:48 oxycodone [From Percocet] AdvReac Depression Verified 12/27/18 05:48 Gyrqolw-Ksz-Mmf Reductase AdvReac Muscle Pain Verified 12/27/18 05:48 Inhibitor telmisartan [From Micardis] AdvReac Chest Pain Verified 12/27/18 05:48 Physical Exam Vital signs: Vital Signs 12/28/18 19:00 12/28/18 19:22 12/28/18 20:18 Temperature 99.2 F Pulse Rate 75 73 Respiratory Rate 16 Blood Pressure 114/49 L Pulse Oximetry 92 L 92 L 12/28/18 21:14 12/28/18 23:00 12/28/18 23:18 Temperature 99.1 F Pulse Rate 70 71 Respiratory Rate 16 Blood Pressure 131/55 L Pulse Oximetry 93 L 94 L 12/29/18 03:00 12/29/18 03:42 12/29/18 07:00 Temperature 98.4 F 98.5 F Pulse Rate 73 69 69 Respiratory Rate 16 16 Blood Pressure 143/56 H 136/63 Pulse Oximetry 94 L 93 L 12/29/18 08:00 12/29/18 11:00 12/29/18 15:00 Temperature 97.3 F L Pulse Rate 78 Respiratory Rate 16 Blood Pressure 112/48 L Pulse Oximetry 93 L 97 94 L Intake & Output 0212/29/18 12/29/18 18:59 06:59 18:59 Intake Total 940 / 940 Output Total 200 / 200 350 / 350 Balance 740 / 740 -350 / -350 Weight 66 kg Intake: IV 100 / 100 KCl 20 mEq Premix Inj 20 meq In 100 / 100 100 ml @ 50 mls/hr IV.SIG ONCE ONE Rx#:[id number] Oral 840 / 840 Output: Urine 200 / 200 350 / 350 Other: # Voids 2 # Incontinent Voids 1 - Routine Neurological Exam alert, speech normal. follow commands extra-occular motility normal. I can not find any gaze paresis to explain her double vision perrl No facial asymmetry MOTOR 5/5 BUE Objective Laboratory Results - last 24 hr 12/29/18 12/29/18 12/29/18 06:30 06:30 06:30 WBC 9.2 RBC 2.63 L Hgb 8.1 L Hct 23.5 L MCV 89.3 MCH 30.6 MCHC 34.3 RDW 14.3 Plt Count 122 L MPV 8.3 PT 10.5 INR 1.0 Sodium 140 Potassium 3.9 Chloride 105 Carbon Dioxide 27.1 Anion Gap 8 BUN 36 H Creatinine 1.63 H Estimated GFR 30 L POC Glucose Random Glucose 151 H Calcium 7.9 L Total Bilirubin 0.5 AST 21 ALT 16 Alkaline Phosphatase 81 Total Protein 6.2 L Albumin 2.8 L 12/29/18 12/29/18 11:42 15:36 WBC RBC Hgb Hct MCV MCH MCHC RDW Plt Count MPV PT INR Sodium Potassium Chloride Carbon Dioxide Anion Gap BUN Creatinine Estimated GFR POC Glucose 271 H 153 H Random Glucose Calcium Total Bilirubin AST ALT Alkaline Phosphatase Total Protein Albumin Review/Management - Review/Management Plan: cva s/p iv TPA with resolution of neuro sx double vision ? etiology--no sign of gaze paresis continue plavix and asa
--- NOTE | 2018-12-29 19:05 | MG ---
cc: Marlon Dee MD ELECTROENCEPHALOGRAM NUMBER: [id number] CLINICAL HISTORY: Lethargy, 83-year-old woman, carotid stenosis. MEDICATIONS: Plavix. DESCRIPTION: A 7-8 Hz, 60 microvolt posterior rhythm is noted. Recording overall is synchronous and symmetric. No major hemisphere asymmetry is seen. No epileptiform or seizure activity is noted. Occasional movement artifact is seen. Hyperventilation not performed. Photic stimulation was performed without any posterior driving. IMPRESSION: Some minimal diffuse slowing in the theta range. Otherwise, a normal electroencephalogram. Some snoring was noted. Sleep apnea could be considered. The patient did not reach stage II sleep, however. No focal abnormalities were noted. No seizure activity was seen. MD GOLD Desai/nabor , 06:04 PM , 06:08 PM
[2018-12-30] MEDS: Insulin NovoLIN Regular Correctional Sugar Inj SQ SCH ×7 (05:32→23:49)
[2018-12-30] MEDS: Isosorbide Mononitrate 30 MG ER 24HR Tablet (Imdur) PO SCH (06:41)
--- NOTE | 2018-12-30 09:10 | P.PNCC ---
Subjective Subjective Remarks/Hospital Course: This is an 83-year-old female with past medical history of known coronary disease with prior bypass surgery in both 1994 and 2015, chronic kidney disease stage 3, history of carotid stenosis, diabetes, dyslipidemia, hypertension, history of congestive heart failure who was evaluated for progressive shortness of breath and fatigue. Transthoracic echocardiogram performed at the end of last year showed severe aortic valve stenosis. Patient underwent cardiac catheterization which showed severe [place] coronary artery disease but patent grafts. 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 Referred to credit collections clerk Dr. Coyle for consideration of transcatheter aortic valve replacement, as she was deemed too high risk for open aortic valve replacement. Patient underwent successful transcatheter aortic valve replacement with a 23 mm Medtronic Evolut R bioprosthetic valve today. Post aortic valve area was 1.69 cm, post implant mean aortic valve gradient was 7 mmHg. No significant perivalvular leak. Critical care medicine was consulted I evaluated the patient in the CV ICU. She is quite somnolent opens eyes to painful stimuli. There is evidence of right facial droop. Also it was noted that patient has right-sided weakness, spontaneously moves but 4/5 power on the right upper and lower extremity. A stroke alert had been initiated. Dr. Harvey had been notified. A CT of the head and CT angiogram of the head and neck ordered stat 12/28/18: Patient developed acute left hemispheric stroke following TAVR. Status post TPA with improvement in symptoms. Today patient is able to say a few words oriented to person and intermittently to place. Speech is still garbled. Muscle strength almost back to baseline. Remains slightly somnolent follow-up CT scan is pending at this time. 12/29/18. Lying in bed remains somnolent however right-sided weakness is significantly improved muscle strength back to normal. Aphasia also significantly improved. EEG ordered. Not cleared for MRI by Dr. Coyle 12/30/18: Sitting up in chair wakes up easily strength seems equal. No complaints overnight. No labs today. Okay to transfer to [facility] from critical care standpoint. Discussed with Dr. Coyle and Dr. Lara Objective Vital Signs / I&O: Vital Signs 12/29/18 11:00 12/29/18 15:00 12/29/18 19:00 Temperature 97.3 F L 99.1 F Pulse Rate 78 75 Respiratory Rate 16 16 Blood Pressure 112/48 L 128/52 L Pulse Oximetry 97 94 L 91 L 12/29/18 23:00 12/30/18 02:39 12/30/18 03:00 Temperature 99.5 F Pulse Rate 75 73 Respiratory Rate 16 16 Blood Pressure 130/57 L 126/57 L Pulse Oximetry 92 L 91 L 92 L 12/30/18 07:00 Temperature 98.4 F Pulse Rate 65 Respiratory Rate 18 Blood Pressure 117/58 L Pulse Oximetry 92 L Intake & Output 12/29/18 12/30/18 12/30/18 18:59 06:59 18:59 Intake Total 600 / 600 480 / 480 Output Total 500 / 500 Balance 600 / 600 -20 / -20 Weight 68 kg Intake: Oral 600 / 600 480 / 480 Output: Urine 500 / 500 Other: # Voids 2 0 # Bowel Movements 0 0 Result Diagrams: 12/29/18 06:30 12/29/18 06:30 Objective Remarks: - Constitutional Somnolent. Not appear to be in acute distress. Right facial droop, improved - Routine HEENT Exam Eye: Present: PERRL ENT: Present: Right facial droop, improved - Routine Neck Exam Absent: JVD. Right IJ central line removed - Routine Respiratory Exam Present: CTA bilaterally. No wheezes or crackles - Routine Cardiovascular Exam Present: RRR, grade 1 systolic murmur at the left sternal border, apex. Peripheral pulses are palpable - Routine Abdominal Exam Present: soft, normoactive bowel sounds - Routine Extremities Exam Absent: No groin hematoma. Present: Peripheral pulses. - Routine Neurological Exam Sitting up in chair. Facial droop is almost resolved. Right upper and lower extremity improved to 5 out of 5 now. Normal strength in spontaneous movements on the left side. 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 Harvey following -Received 300 mg aspirin 12/27/18, resumed aspirin Plavix per Dr. Harvey -PT/OT/speech -Atorvastatin 80 mg p.o. nightly (side effect listed as muscle pain will trial) RESP: -Monitor neuro status closely -Protecting airway at this time -Aggressive pulmonary toilet -Keep oxygen saturation more than 94% CV: -Status post TAVR 12/27 -No postoperative perivalvular leak based on ROBERTO -Cleared by neurology to continue aspirin Plavix -Patient had recent pacemaker placement for symptomatic AV block -Atorvastatin 80 mg p.o. nightly (side effect listed as muscle pain will trial) GI: -Diet per speech recommendation : -Monitor renal function closely. ID: -Renetta-procedure antibiotics per cardiology HEME: -Monitor CBC, coags -s/p TPA 12/27/18 ENDO: -Electrolyte replacement per protocol LINES: -Utilize peripheral IVs, central line if needed Level 2 Okay to transfer to [facility]U from critical care standpoint. Discussed with Dr. Coyle, Dr. Lara. Dr. Basilio is covering for cardiology today. I will consult hospitalist for 12/31/2018 Code Status: Full
[2018-12-30] MEDS: Insulin Detemir Inj 1,000 UNIT/10 ML Vial SQ SCH ×2 (09:39→21:15)
[2018-12-30] MEDS: Aspirin 325 MG Tablet PO SCH (09:40)
[2018-12-30] MEDS: Ferrous Sulfate 325 MG Tablet PO SCH ×2 (09:40→21:15)
--- NOTE | 2018-12-30 19:42 | P.PNCA ---
Subjective Interval history: Feeling ok No new event. OK to transfer out ICU. Need PT OT continue Aspirin, Plavix recommended by neuro. Should we consider Coumadin ??? Medications and Allergies Active Medications: Active Medications Aspirin (Aspirin) 325 mg PO DAILY [facility] Last Admin: 12/30/18 09:40 Dose: 325 mg Atorvastatin Calcium (Lipitor) 80 mg PO HS [facility] Last Admin: 12/29/18 21:09 Dose: 80 mg Clonidine HCl (Catapres) 0.2 mg PO Q6H PRN PRN Reason: SBP > 160 mmHg Clopidogrel Bisulfate (Plavix) 75 mg PO DAILY [facility] Last Admin: 12/30/18 09:40 Dose: 75 mg Dextrose (D50w Vial) 50 ml IV.PUSH UNSCH PRN PRN Reason: PER HYPOGLYCEMIA PROTOCOL Ferrous Sulfate (Ferosul) 325 mg PO BID [facility] Last Admin: 12/30/18 09:40 Dose: 325 mg Glucagon (Glucagon Inj) 1 mg OTHER PRN PRN PRN Reason: for Hypoglycemia Protocol Hydralazine HCl (Apresoline Inj) 10 mg IV.PUSH Q30M PRN PRN Reason: SBP > 160 mmHg Last Admin: 12/28/18 08:48 Dose: 10 mg Sodium Chloride (Ns Inj) 1,000 mls @ 125 mls/hr IV.CONT .Q8H [facility] Insulin Detemir (Levemir Inj) 7 unit SQ BID [facility] Last Admin: 12/30/18 09:39 Dose: 7 unit Insulin Human Regular (Novolin R Correctional Sugar Inj) 0 units SQ Q4HR [facility]; Protocol Last Admin: 12/30/18 16:59 Dose: 1 units Isosorbide Mononitrate (Imdur) 30 mg PO DAILY@0700 [facility] Last Admin: 12/30/18 06:41 Dose: 30 mg Losartan Potassium (Cozaar) 25 mg PO DAILY [facility] Last Admin: 12/30/18 09:40 Dose: 25 mg Oxycodone/Acetaminophen (Percocet 5/325 Mg) 1 tab PO Q6H PRN PRN Reason: PAIN SCALE 3 TO 5 Pantoprazole Sodium (Protonix) 40 mg PO DAILY [facility] Last Admin: 12/30/18 09:40 Dose: 40 mg Allergies Allergy/AdvReac Type Severity Reaction Status Date / Time glipizide Allergy Intermediate Swelling Verified 12/27/18 05:48 Iodinated Contrast- Oral and Allergy Hives Verified 12/27/18 05:48 IV Dye niacin Allergy Itching, Verified 12/27/18 05:48 [From Niaspan Generalized Extended-Release] fosinopril [From Monopril] AdvReac Flushing, Verified 12/27/18 05:48 COUGH hydralazine AdvReac Anxiety Verified 12/27/18 05:48 morphine AdvReac Shakiness Verified 12/27/18 05:48 oxycodone [From Percocet] AdvReac Depression Verified 12/27/18 05:48 Gtpvrrs-Pup-Aiw Reductase AdvReac Muscle Pain Verified 12/27/18 05:48 Inhibitor telmisartan [From Micardis] AdvReac Chest Pain Verified 12/27/18 05:48 Home Medications Medication Instructions Recorded Confirmed Type aspirin 81 mg PO DAILY 05/23/18 12/27/18 History docusate sodium [Colace] 100 mg PO DAILY PRN 05/23/18 12/27/18 History furosemide 20 mg PO DAILY 05/23/18 12/27/18 History insulin degludec [Tresiba 15 unit SUB-Q DAILY 05/23/18 12/27/18 History FlexTouch U-100] levothyroxine 25 mcg PO DAILY 05/23/18 12/27/18 History nitroglycerin [Nitrostat] 0.4 mg SUBLINGUAL Q5-15M PRN 05/23/18 12/27/18 History cholecalciferol (vitamin D3) 2,000 unit PO DAILY 12/11/18 12/27/18 History [Vitamin D3] isosorbide mononitrate 30 mg PO BID 12/11/18 12/27/18 History losartan 50 mg PO BID 12/11/18 12/27/18 History multivitamin [Multiple Vitamins] 1 tab PO DAILY 12/11/18 12/27/18 History itwdt-7u-sdl-epa-fish oil [[place]-3 2 cap PO DAILY 12/11/18 12/27/18 History Fish Oil] amlodipine [Norvasc] 2.5 mg PO HS 12/26/18 12/27/18 History prednisone 50 mg PO DAILY 12/26/18 12/27/18 History Physical Exam Vital signs: Vital Signs 12/29/18 23:00 12/30/18 02:39 12/30/18 03:00 Temperature 99.5 F Pulse Rate 75 73 Respiratory Rate 16 16 Blood Pressure 130/57 L 126/57 L Pulse Oximetry 92 L 91 L 92 L 12/30/18 07:00 12/30/18 10:16 12/30/18 11:00 Temperature 98.4 F 97.8 F Pulse Rate 65 70 Respiratory Rate 18 16 Blood Pressure 117/58 L 103/43 L Pulse Oximetry 92 L 92 L 95 12/30/18 15:00 Temperature 97.5 F L Pulse Rate 61 Respiratory Rate 16 Blood Pressure 124/50 L Pulse Oximetry 95 Intake & Output 12/30/18 12/30/18 12/31/18 06:59 18:59 06:59 Intake Total 480 / 480 360 / 360 Output Total 500 / 500 300 / 300 Balance -20 / -20 60 / 60 Weight 68 kg Intake: Oral 480 / 480 360 / 360 Output: Urine 500 / 500 300 / 300 Other: # Voids 0 # Bowel Movements 0 1 Narrative: - Constitutional Very somnolent. Not appear to be in acute distress. Clear right facial droop - Routine HEENT Exam Eye: Present: PERRL ENT: Present: Right facial droop - Routine Neck Exam Absent: JVD - Routine Respiratory Exam Present: CTA bilaterally. No wheezes or crackles - Routine Cardiovascular Exam Present: RRR, no murmur. Peripheral pulses are palpable - Routine Abdominal Exam Present: soft, normoactive bowel sounds - Routine Extremities Exam Absent: No groin hematoma. Present: Peripheral pulses. - Routine Neurological Exam Somnolent but wakes up to painful stimuli. Did not follow commands at this time. Obvious right facial droop. Right upper and lower extremity 4 out of 5 power. Normal strength in spontaneous movements on the left side Results 12/29/18 06:30 12/29/18 06:30 Cardiac Enzymes 12/29/18 Range/Units 06:30 AST 21 (15-37) U/L Coagulation 12/29/18 Range/Units 06:30 PT 10.5 (9.8-11.6) sec CBC 12/29/18 Range/Units 06:30 WBC 9.2 (4.0-11.0) th/mm3 RBC 2.63 L (4.00-5.30) mil/mm3 Hgb 8.1 L (11.6-15.3) gm/dL Hct 23.5 L (35.0-46.0) % Plt Count 122 L (150-450) th/mm3 Comprehensive Metabolic Panel 12/29/18 Range/Units 06:30 Sodium 140 (136-145) meq/L Potassium 3.9 (3.5-5.1) meq/L Chloride 105 (98-107) meq/L Carbon Dioxide 27.1 (21.0-32.0) meq/L BUN 36 H (7-18) mg/dL Creatinine 1.63 H (0.50-1.00) mg/dL Calcium 7.9 L (8.5-10.1) mg/dL AST 21 (15-37) U/L ALT 16 (10-53) U/L Alkaline Phosphatase 81 (45-117) U/L Total Protein 6.2 L (6.4-8.2) g/dL Albumin 2.8 L (3.4-5.0) g/dL Intake and Output 12/30/18 12/30/18 12/30/18 06:59 14:59 22:59 Intake Total 480 / 480 360 / 360 Output Total 500 / 500 300 / 300 Balance -20 / -20 60 / 60 Intake: Oral 480 / 480 360 / 360 Output: Urine 500 / 500 300 / 300 Other: # Voids 0 # Bowel Movements 0 1 Weight 68 kg Assessment and Plan - Assessment (1) S/P TAVR (transcatheter aortic valve replacement) Code(s): Z95.2 - Presence of prosthetic heart valve Status: Acute (2) TIA (transient ischemic attack) Code(s): G45.9 - Transient cerebral ischemic attack, unspecified Status: Acute - Plan Severe aortic valve stenosis This 83-year-old female with history of 2 prior bypass surgeries with now progressive symptoms and severe aortic valve stenosis by transthoracic echocardiogram. Patient is status post elective transcatheter valve replacement 2D echocardiogram looks good. Suspected stroke Imaging negative. Patient received thrombolytic therapy yesterday. No active bleeding. Neurologically doing very well without apparent residual deficit. Appreciate neurology assistance. Physical therapy home health clinical case manager Discharge planning day by day
[2018-12-31 04:49] LABS: Hematocrit 22.4 % (35.0-46.0); Hemoglobin 7.9 gm/dL (11.6-15.3); Mean Corpuscular HGB Conc 35.2 % (32.0-36.0); Mean Corpuscular Hemoglobin 31.7 pg (27.0-34.0); Mean Platelet Volume 8.3 fL (7.0-11.0); Platelet Count 121 th/mm3 (150-450); Red Blood Count 2.49 mil/mm3 (4.00-5.30); Red Cell Distribution Width 14.3 % (11.6-17.2); White Blood Count 9.1 th/mm3 (4.0-11.0)
[2018-12-31 05:04] LABS: Aspartate Aminotransferase 19 U/L (15-37); Calcium 8.2 mg/dL (8.5-10.1); Chloride 107 meq/L (98-107); Glomerular Filtration Rate 35 mL/min (>89); Glucose,Random 113 mg/dL (74-106); Potassium 4.1 meq/L (3.5-5.1); Sodium 140 meq/L (136-145)
[2018-12-31 05:05] LABS: Albumin 2.7 g/dL (3.4-5.0); Alkaline Phosphatase 102 U/L (45-117); Anion Gap 9 meq/L (5-15); Blood Urea Nitrogen 28 mg/dL (7-18); Carbon Dioxide 24.5 meq/L (21.0-32.0); Magnesium 1.9 mg/dL (1.5-2.5)
[2018-12-31] MEDS: Insulin NovoLIN Regular Correctional Sugar Inj SQ SCH ×5 (05:06→21:03)
[2018-12-31 05:07] LABS: Alanine Aminotransferase 14 U/L (10-53); Total Protein 6.3 g/dL (6.4-8.2)
[2018-12-31] MEDS: Isosorbide Mononitrate 30 MG ER 24HR Tablet (Imdur) PO SCH (06:17)
[2018-12-31] MEDS: Aspirin 325 MG Tablet PO SCH (09:28)
[2018-12-31] MEDS: Ferrous Sulfate 325 MG Tablet PO SCH ×2 (09:28→21:03)
[2018-12-31] MEDS: Insulin Detemir Inj 1,000 UNIT/10 ML Vial SQ SCH ×2 (09:28→21:03)
--- NOTE | 2018-12-31 10:13 | P.PNCA ---
Subjective Interval history: doing better, transferred out ICU last night Has been working with physical therapist daily discussed with patient and her twin sister at bedside. Medications and Allergies Active Medications: Active Medications Aspirin (Aspirin) 325 mg PO DAILY [facility] B[facility]S AT [facility] Last Admin: 12/31/18 09:28 Dose: 325 mg Atorvastatin Calcium (Lipitor) 80 mg PO HS [facility] 234 BEDS AT [facility] Last Admin: 12/30/18 21:15 Dose: 80 mg Clonidine HCl (Catapres) 0.2 mg PO Q6H PRN PRN Reason: SBP > 160 mmHg Clopidogrel Bisulfate (Plavix) 75 mg PO DAILY [facility]S AT [facility] Last Admin: 12/31/18 09:27 Dose: 75 mg Dextrose (D50w Vial) 50 ml IV.PUSH UNSCH PRN PRN Reason: PER HYPOGLYCEMIA PROTOCOL Ferrous Sulfate (Ferosul) 325 mg PO BID [facility] 234 B[facility]S AT [facility] Last Admin: 12/31/18 09:28 Dose: 325 mg Glucagon (Glucagon Inj) 1 mg OTHER PRN PRN PRN Reason: for Hypoglycemia Protocol Hydralazine HCl (Apresoline Inj) 10 mg IV.PUSH Q30M PRN PRN Reason: SBP > 160 mmHg Last Admin: 12/28/18 08:48 Dose: 10 mg Sodium Chloride (Ns Inj) 1,000 mls @ 125 mls/hr IV.CONT .Q8H [facility] 234 B[facility]S AT [facility] Insulin Detemir (Levemir Inj) 7 unit SQ BID [facility]S AT [facility] Last Admin: 12/31/18 09:28 Dose: 7 unit Insulin Human Regular (Novolin R Correctional Sugar Inj) 0 units SQ Q4HR [facility] 234 BEDS AT [facility]; Protocol Last Admin: 12/31/18 08:34 Dose: Not Given Isosorbide Mononitrate (Imdur) 30 mg PO DAILY@0700 [facility] 234 BEDS AT [facility] Last Admin: 12/31/18 06:17 Dose: 30 mg Losartan Potassium (Cozaar) 25 mg PO DAILY [facility] 234 BEDS AT [facility] Last Admin: 12/31/18 09:28 Dose: 25 mg Oxycodone/Acetaminophen (Percocet 5/325 Mg) 1 tab PO Q6H PRN PRN Reason: PAIN SCALE 3 TO 5 Pantoprazole Sodium (Protonix) 40 mg PO DAILY [facility] 234 BEDS AT [facility] Last Admin: 12/31/18 09:27 Dose: 40 mg Allergies Allergy/AdvReac Type Severity Reaction Status Date / Time glipizide Allergy Intermediate Swelling Verified 12/27/18 05:48 Iodinated Contrast- Oral and Allergy Hives Verified 12/27/18 05:48 IV Dye niacin Allergy Itching, Verified 12/27/18 05:48 [From Niaspan Generalized Extended-Release] fosinopril [From Monopril] AdvReac Flushing, Verified 12/27/18 05:48 COUGH hydralazine AdvReac Anxiety Verified 12/27/18 05:48 morphine AdvReac Shakiness Verified 12/27/18 05:48 oxycodone [From Percocet] AdvReac Depression Verified 12/27/18 05:48 Adnjazy-Urr-Czl Reductase AdvReac Muscle Pain Verified 12/27/18 05:48 Inhibitor telmisartan [From Micardis] AdvReac Chest Pain Verified 12/27/18 05:48 Home Medications Medication Instructions Recorded Confirmed Type aspirin 81 mg PO DAILY 05/23/18 12/27/18 History docusate sodium [Colace] 100 mg PO DAILY PRN 05/23/18 12/27/18 History furosemide 20 mg PO DAILY 05/23/18 12/27/18 History insulin degludec [Tresiba 15 unit SUB-Q DAILY 05/23/18 12/27/18 History FlexTouch U-100] levothyroxine 25 mcg PO DAILY 05/23/18 12/27/18 History nitroglycerin [Nitrostat] 0.4 mg SUBLINGUAL Q5-15M PRN 05/23/18 12/27/18 History cholecalciferol (vitamin D3) 2,000 unit PO DAILY 12/11/18 12/27/18 History [Vitamin D3] isosorbide mononitrate 30 mg PO BID 12/11/18 12/27/18 History losartan 50 mg PO BID 12/11/18 12/27/18 History multivitamin [Multiple Vitamins] 1 tab PO DAILY 12/11/18 12/27/18 History zdvmx-0p-ark-epa-fish oil [[place]-3 2 cap PO DAILY 12/11/18 12/27/18 History Fish Oil] amlodipine [Norvasc] 2.5 mg PO HS 12/26/18 12/27/18 History prednisone 50 mg PO DAILY 12/26/18 12/27/18 History Physical Exam Vital signs: Vital Signs 12/30/18 10:16 12/30/18 11:00 12/30/18 15:00 Temperature 97.8 F 97.5 F L Pulse Rate 70 61 Respiratory Rate 16 16 Blood Pressure 103/43 L 124/50 L Pulse Oximetry 92 L 95 95 12/30/18 19:00 12/30/18 20:00 12/30/18 23:00 Temperature 98.4 F 98.3 F Pulse Rate 66 66 Respiratory Rate 18 18 Blood Pressure 124/55 L 112/50 L Pulse Oximetry 92 L 92 L 92 L 12/31/18 03:00 12/31/18 04:00 12/31/18 05:00 Temperature 98.6 F Pulse Rate 67 66 66 Respiratory Rate 16 Blood Pressure 128/55 L Pulse Oximetry 94 L 12/31/18 06:00 Temperature Pulse Rate 68 Respiratory Rate Blood Pressure Pulse Oximetry Intake & Output 12/30/18 12/31/18 12/31/18 18:59 06:59 18:59 Intake Total 360 / 360 120 / 120 Output Total 300 / 300 Balance 60 / 60 120 / 120 Weight 67.5 kg Intake: Oral 360 / 360 120 / 120 Output: Urine 300 / 300 Other: Date of Last Bowel Movement 12/30/18 # Bowel Movements 1 Narrative: - Constitutional Very somnolent. Not appear to be in acute distress. Clear right facial droop - Routine HEENT Exam Eye: Present: PERRL ENT: Present: Right facial droop - Routine Neck Exam Absent: JVD - Routine Respiratory Exam Present: CTA bilaterally. No wheezes or crackles - Routine Cardiovascular Exam Present: RRR, no murmur. Peripheral pulses are palpable - Routine Abdominal Exam Present: soft, normoactive bowel sounds - Routine Extremities Exam Absent: No groin hematoma. Present: Peripheral pulses. - Routine Neurological Exam Somnolent but wakes up to painful stimuli. Did not follow commands at this time. Obvious right facial droop. Right upper and lower extremity 4 out of 5 power. Normal strength in spontaneous movements on the left side Results 12/31/18 04:30 12/31/18 04:30 Cardiac Enzymes 12/31/18 Range/Units 04:30 AST 19 (15-37) U/L CBC 12/31/18 Range/Units 04:30 WBC 9.1 (4.0-11.0) th/mm3 RBC 2.49 L (4.00-5.30) mil/mm3 Hgb 7.9 L (11.6-15.3) gm/dL Hct 22.4 L (35.0-46.0) % Plt Count 121 L (150-450) th/mm3 Comprehensive Metabolic Panel 12/31/18 Range/Units 04:30 Sodium 140 (136-145) meq/L Potassium 4.1 (3.5-5.1) meq/L Chloride 107 (98-107) meq/L Carbon Dioxide 24.5 (21.0-32.0) meq/L BUN 28 H (7-18) mg/dL Creatinine 1.43 H (0.50-1.00) mg/dL Calcium 8.2 L (8.5-10.1) mg/dL AST 19 (15-37) U/L ALT 14 (10-53) U/L Alkaline Phosphatase 102 (45-117) U/L Total Protein 6.3 L (6.4-8.2) g/dL Albumin 2.7 L (3.4-5.0) g/dL Intake and Output 12/30/18 12/31/18 12/31/18 22:59 06:59 14:59 Intake Total 360 / 360 120 / 120 Output Total 300 / 300 Balance 60 / 60 120 / 120 Intake: Oral 360 / 360 120 / 120 Output: Urine 300 / 300 Other: Date of Last Bowel Movement 12/30/18 12/30/18 # Bowel Movements 1 Weight 67.5 kg Assessment and Plan - Assessment (1) S/P TAVR (transcatheter aortic valve replacement) Code(s): Z95.2 - Presence of prosthetic heart valve Status: Acute (2) TIA (transient ischemic attack) Code(s): G45.9 - Transient cerebral ischemic attack, unspecified Status: Acute - Plan Severe aortic valve stenosis This 83-year-old female with history of 2 prior bypass surgeries with now progressive symptoms and severe aortic valve stenosis by transthoracic echocardiogram. Patient is status post elective transcatheter valve replacement 2D echocardiogram looks good. Suspected stroke Imaging negative. Patient received thrombolytic therapy yesterday. No active bleeding. Neurologically doing very well without apparent residual deficit. Appreciate neurology assistance. Physical therapy home health disease case manager rn Discharge planning day by day 12/31/18: Doing great from cardiology standpoint. Continue physical therapy. She still appeared physical deconditioning CP machine woodworking sander will resume the care this patient tomorrow.
--- NOTE | 2018-12-31 10:20 | P.PNIM ---
Subjective Interval history: pt doing well Physical Exam Vital signs: Last Vital Signs Temp 98.6 F 12/31/18 03:00 Pulse 68 12/31/18 06:00 Resp 16 12/31/18 03:00 BP 128/55 L 12/31/18 03:00 Pulse Ox 94 L 12/31/18 03:00 Narrative: heart reg lung cta abd s/nt ext no edema Results Labs CBC & Chem 7: 12/31/18 04:30 12/31/18 04:30 Assessment and Plan Assessment (1) S/P TAVR (transcatheter aortic valve replacement): Code(s): Z95.2 - Presence of prosthetic heart valve Status: Acute (2) TIA (transient ischemic attack): Code(s): G45.9 - Transient cerebral ischemic attack, unspecified Status: Acute Plan ASSESSMENT: 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, aphasia-resolved with TPA -Status post TPA administration for acute ischemic stroke, with resolution of symptoms -Negative CT of the head without contrast, neg CT angiogram of the brain and neck -Likely postprocedural embolic stroke Status post TAVR for severe aortic stenosis Symptomatic bradycardia/AVB status post pacemaker placement Chronic kidney disease stage 3 History of carotid stenosis History of coronary artery disease, CABG Diabetes Dyslipidemia Hypertension History of congestive heart failure anemia PLAN: continue daily PT plan for snf/rehab ministration for acute ischemic stroke, with resolution of symptoms asa/plavix/statin cont basal/bolus insulin monitor hgb
[2019-01-01] MEDS: Insulin NovoLIN Regular Correctional Sugar Inj SQ SCH ×5 (00:25→22:49)
[2019-01-01] MEDS: Isosorbide Mononitrate 30 MG ER 24HR Tablet (Imdur) PO SCH (06:09)
[2019-01-01] MEDS: Aspirin 325 MG Tablet PO SCH (08:11)
[2019-01-01] MEDS: Ferrous Sulfate 325 MG Tablet PO SCH ×2 (08:11→20:53)
[2019-01-01] MEDS: Insulin Detemir Inj 1,000 UNIT/10 ML Vial SQ SCH ×2 (08:12→23:01)
--- NOTE | 2019-01-01 08:42 | P.PNCA ---
Subjective Interval history: Continues to complain of double vision, worse whenever she stands up and is walking. No chest pain or shortness of breath. Denies any issues with vascular access sites. Denies any bleeding issues. Medications and Allergies Active Medications: Active Medications Aspirin (Aspirin) 325 mg PO DAILY [facility] Last Admin: 01/01/19 08:11 Dose: 325 mg Atorvastatin Calcium (Lipitor) 80 mg PO HS [facility] Last Admin: 12/31/18 21:03 Dose: 80 mg Clonidine HCl (Catapres) 0.2 mg PO Q6H PRN PRN Reason: SBP > 160 mmHg Clopidogrel Bisulfate (Plavix) 75 mg PO DAILY [facility] Last Admin: 01/01/19 08:11 Dose: 75 mg Dextrose (D50w Vial) 50 ml IV.PUSH UNSCH PRN PRN Reason: PER HYPOGLYCEMIA PROTOCOL Ferrous Sulfate (Ferosul) 325 mg PO BID [facility] Last Admin: 01/01/19 08:11 Dose: 325 mg Glucagon (Glucagon Inj) 1 mg OTHER PRN PRN PRN Reason: for Hypoglycemia Protocol Hydralazine HCl (Apresoline Inj) 10 mg IV.PUSH Q30M PRN PRN Reason: SBP > 160 mmHg Last Admin: 12/28/18 08:48 Dose: 10 mg Insulin Detemir (Levemir Inj) 7 unit SQ BID [facility] Last Admin: 01/01/19 08:12 Dose: 7 unit Insulin Human Regular (Novolin R Correctional Sugar Inj) 0 units SQ Q4HR [facility]; Protocol Last Admin: 01/01/19 08:09 Dose: Not Given Isosorbide Mononitrate (Imdur) 30 mg PO DAILY@0700 [facility] Last Admin: 01/01/19 06:09 Dose: 30 mg Losartan Potassium (Cozaar) 25 mg PO DAILY [facility] Last Admin: 01/01/19 08:11 Dose: 25 mg Oxycodone/Acetaminophen (Percocet 5/325 Mg) 1 tab PO Q6H PRN PRN Reason: PAIN SCALE 3 TO 5 Pantoprazole Sodium (Protonix) 40 mg PO DAILY [facility] Last Admin: 01/01/19 08:11 Dose: 40 mg Allergies Allergy/AdvReac Type Severity Reaction Status Date / Time glipizide Allergy Intermediate Swelling Verified 12/27/18 05:48 Iodinated Contrast- Oral and Allergy Hives Verified 12/27/18 05:48 IV Dye niacin Allergy Itching, Verified 12/27/18 05:48 [From Niaspan Generalized Extended-Release] fosinopril [From Monopril] AdvReac Flushing, Verified 12/27/18 05:48 COUGH hydralazine AdvReac Anxiety Verified 12/27/18 05:48 morphine AdvReac Shakiness Verified 12/27/18 05:48 oxycodone [From Percocet] AdvReac Depression Verified 12/27/18 05:48 Pzyqjda-Txv-Bwb Reductase AdvReac Muscle Pain Verified 12/27/18 05:48 Inhibitor telmisartan [From Micardis] AdvReac Chest Pain Verified 12/27/18 05:48 Home Medications Medication Instructions Recorded Confirmed Type aspirin 81 mg PO DAILY 05/23/18 12/27/18 History docusate sodium [Colace] 100 mg PO DAILY PRN 05/23/18 12/27/18 History furosemide 20 mg PO DAILY 05/23/18 12/27/18 History insulin degludec [Tresiba 15 unit SUB-Q DAILY 05/23/18 12/27/18 History FlexTouch U-100] levothyroxine 25 mcg PO DAILY 05/23/18 12/27/18 History nitroglycerin [Nitrostat] 0.4 mg SUBLINGUAL Q5-15M PRN 05/23/18 12/27/18 History cholecalciferol (vitamin D3) 2,000 unit PO DAILY 12/11/18 12/27/18 History [Vitamin D3] isosorbide mononitrate 30 mg PO BID 12/11/18 12/27/18 History losartan 50 mg PO BID 12/11/18 12/27/18 History multivitamin [Multiple Vitamins] 1 tab PO DAILY 12/11/18 12/27/18 History dnneb-2g-yqj-epa-fish oil [[place]-3 2 cap PO DAILY 12/11/18 12/27/18 History Fish Oil] amlodipine [Norvasc] 2.5 mg PO HS 12/26/18 12/27/18 History prednisone 50 mg PO DAILY 12/26/18 12/27/18 History Physical Exam Vital signs: Vital Signs 12/31/18 09:00 12/31/18 10:00 12/31/18 11:00 Temperature 97.4 F L Pulse Rate 74 72 76 Respiratory Rate 20 Blood Pressure 115/55 L Pulse Oximetry 94 L 12/31/18 12:00 12/31/18 13:00 12/31/18 14:00 Temperature Pulse Rate 75 68 70 Respiratory Rate Blood Pressure Pulse Oximetry 12/31/18 15:00 12/31/18 16:00 12/31/18 17:00 Temperature 97.6 F Pulse Rate 69 66 72 Respiratory Rate 20 Blood Pressure 129/57 L Pulse Oximetry 95 12/31/18 18:00 12/31/18 19:00 12/31/18 20:00 Temperature 98.6 F Pulse Rate 74 70 72 Respiratory Rate 18 Blood Pressure 139/63 Pulse Oximetry 97 97 12/31/18 21:00 12/31/18 22:00 12/31/18 23:00 Temperature 97.6 F Pulse Rate 70 70 72 Respiratory Rate 18 Blood Pressure 127/59 L Pulse Oximetry 95 01/01/19 00:00 01/01/19 01:00 01/01/19 02:00 Temperature Pulse Rate 70 70 74 Respiratory Rate Blood Pressure Pulse Oximetry 01/01/19 03:00 01/01/19 04:00 01/01/19 05:00 Temperature 98.7 F Pulse Rate 77 74 72 Respiratory Rate 18 Blood Pressure 115/56 L Pulse Oximetry 95 01/01/19 06:00 01/01/19 07:00 Temperature Pulse Rate 74 68 Respiratory Rate Blood Pressure Pulse Oximetry Intake & Output 12/31/18 01/01/19 01/01/19 18:59 06:59 18:59 Intake Total 720 / 720 240 / 240 Output Total 600 / 600 800 / 800 Balance 120 / 120 -560 / -560 Weight 142 lb 3.17 oz Intake: Oral 720 / 720 240 / 240 Output: Urine 600 / 600 800 / 800 Other: Date of Last Bowel Movement 12/31/18 12/31/18 # Bowel Movements 1 Narrative: GENERAL: Well-developed well-nourished. In no acute distress. NECK: No carotid bruits. No JVD. CARDIOVASCULAR: Regular rate and rhythm. 1/6 systolic murmur appreciated. RESPIRATORY: No accessory muscle use. Clear to auscultation. Breath sounds equal bilaterally. MUSCULOSKELETAL: No clubbing or cyanosis. No edema. NEUROLOGICAL: Awake and alert. Normal speech. Results 12/31/18 04:30 12/31/18 04:30 Cardiac Enzymes 12/31/18 Range/Units 04:30 AST 19 (15-37) U/L CBC 12/31/18 Range/Units 04:30 WBC 9.1 (4.0-11.0) th/mm3 RBC 2.49 L (4.00-5.30) mil/mm3 Hgb 7.9 L (11.6-15.3) gm/dL Hct 22.4 L (35.0-46.0) % Plt Count 121 L (150-450) th/mm3 Comprehensive Metabolic Panel 12/31/18 Range/Units 04:30 Sodium 140 (136-145) meq/L Potassium 4.1 (3.5-5.1) meq/L Chloride 107 (98-107) meq/L Carbon Dioxide 24.5 (21.0-32.0) meq/L BUN 28 H (7-18) mg/dL Creatinine 1.43 H (0.50-1.00) mg/dL Calcium 8.2 L (8.5-10.1) mg/dL AST 19 (15-37) U/L ALT 14 (10-53) U/L Alkaline Phosphatase 102 (45-117) U/L Total Protein 6.3 L (6.4-8.2) g/dL Albumin 2.7 L (3.4-5.0) g/dL Intake and Output 12/31/18 01/01/19 01/01/19 22:59 06:59 14:59 Intake Total 720 / 720 240 / 240 Output Total 600 / 600 800 / 800 Balance 120 / 120 -560 / -560 Intake: Oral 720 / 720 240 / 240 Output: Urine 600 / 600 800 / 800 Other: Date of Last Bowel Movement 12/31/18 12/31/18 # Bowel Movements 1 Weight 142 lb 3.17 oz Assessment and Plan - Plan Severe aortic valve stenosis This 83-year-old female with history of 2 prior bypass surgeries with now progressive symptoms and severe aortic valve stenosis by transthoracic echocardiogram. Patient is status post elective transcatheter valve replacement. 2D echocardiogram looks good. Continue aspirin and Plavix. Suspected stroke Imaging negative. Patient received thrombolytic therapy. No active bleeding. Appreciate neurology assistance. On full dose aspirin per neurology. Anemia Patient denies any signs or symptoms of bleeding. Monitor. Physical therapy case preparer and liner Discharge planning day by day Discussed Condition With: Patient, Dr. Coyle
--- NOTE | 2019-01-01 11:27 | P.DS ---
Date of admission: 12/27/18 05:08 Primary care physician: Hermila Lanier MD Brief History from admission: This is an 83-year-old female who has history of known coronary disease with prior bypass surgery in both 1994 and 2015 who has had complaints of progressive shortness of breath and fatigue. Transthoracic echocardiogram performed at the end of last year showed severe aortic valve stenosis. Patient underwent cardiac catheterization which showed severe [place] coronary artery disease but patent grafts and she was decided to be treated medically. Despite guideline directed medical therapy she still had symptoms of chest pain or shortness of breath. 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 After evaluation by cardiothoracic surgery she was felt to be too high risk for consideration of surgical aortic valve replacement is now here for consideration of transcatheter aortic valve replacement. DS: Diagnosis - Discharge Diagnosis (1) Aortic stenosis Status: Acute DS: Medications - Discharge Medications Prescriptions: atorvastatin 80 mg PO HS #30 tab clopidogrel [Plavix] 75 mg PO DAILY #30 tab losartan [Cozaar] 25 mg PO DAILY #30 tab DS: Summary Hospital Course: Postoperative course complicated by symptoms of stroke with right-sided weakness. Patient underwent thrombolytic therapy with significant improvement in symptoms. Patient still has some double vision but otherwise has been ambulating without difficulty. Still short of breath. - Time Spent with Patient Total time spent providing and/or coordinating discharge services: Greater than 30 minutes - Quality: Stroke Last date observed well: 12/27/18 Last time observed well: 07:00 Exam Vital signs: Vital Signs 12/31/18 12:00 12/31/18 13:00 12/31/18 14:00 Temperature Pulse Rate 75 68 70 Respiratory Rate Blood Pressure Pulse Oximetry 12/31/18 15:00 12/31/18 16:00 12/31/18 17:00 Temperature 97.6 F Pulse Rate 69 66 72 Respiratory Rate 20 Blood Pressure 129/57 L Pulse Oximetry 95 12/31/18 18:00 12/31/18 19:00 12/31/18 20:00 Temperature 98.6 F Pulse Rate 74 70 72 Respiratory Rate 18 Blood Pressure 139/63 Pulse Oximetry 97 97 12/31/18 21:00 12/31/18 22:00 12/31/18 23:00 Temperature 97.6 F Pulse Rate 70 70 72 Respiratory Rate 18 Blood Pressure 127/59 L Pulse Oximetry 95 01/01/19 00:00 01/01/19 01:00 01/01/19 02:00 Temperature Pulse Rate 70 70 74 Respiratory Rate Blood Pressure Pulse Oximetry 01/01/19 03:00 01/01/19 04:00 01/01/19 05:00 Temperature 98.7 F Pulse Rate 77 74 72 Respiratory Rate 18 Blood Pressure 115/56 L Pulse Oximetry 95 01/01/19 06:00 01/01/19 07:00 01/01/19 08:00 Temperature 99.4 F Pulse Rate 74 66 72 Respiratory Rate 18 Blood Pressure 122/58 L Pulse Oximetry 95 95 01/01/19 09:00 01/01/19 10:00 Temperature Pulse Rate 68 72 Respiratory Rate Blood Pressure Pulse Oximetry Intake & Output 12/31/18 01/01/19 01/01/19 18:59 06:59 18:59 Intake Total 720 / 720 240 / 240 Output Total 600 / 600 800 / 800 Balance 120 / 120 -560 / -560 Weight 64.5 kg Intake: Oral 720 / 720 240 / 240 Output: Urine 600 / 600 800 / 800 Other: Date of Last Bowel Movement 12/31/18 12/31/18 # Bowel Movements 1 - Constitutional no acute distress - Routine HEENT Exam Head: Present: normocephalic, atraumatic Eye: Present: EOMI, PERRL ENT: Present: mucous membranes moist - Routine Neck Exam Absent: JVD - Routine Respiratory Exam Present: CTA bilaterally - Routine Cardiovascular Exam Present: RRR, murmur - Routine Abdominal Exam Present: soft, normoactive bowel sounds - Routine Extremities Exam Absent: edema - Routine Neurological Exam Present: alert, oriented X3. Absent: sensory deficit, motor deficit Results Procedures completed during hospitalization: Transcatheter aortic valve replacement Labs on day of discharge: Labs from last 24 hours 01/01/19 01/01/19 01/01/19 08:08 03:52 00:09 POC Glucose 148 H 130 H 135 H 12/31/18 12/31/18 12/31/18 20:59 15:49 11:58 POC Glucose 181 H 198 H 216 H - Impressions ITS Impressions Head CTA 12/27/18 00:00 CONCLUSION: 1. Negative examination. Report was called by Dr. Gardner to Dr. Harvey at 1220 hours.. Neck CTA 12/27/18 00:00 CONCLUSION: 1. 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 2. No significant stenotic narrowing on the right. Head CT 12/28/18 12:12 CONCLUSION: 1. No acute intracranial abnormality . . Discharge Plan - Discharge Disposition Patient Disposition: [facility] Inpatient - Discharge Condition Condition: Good - Discharge Order Discharge Orders: Discharge Order (Routine); Ordered 01/01/19 Ordered By: Leonel Coyle Cardiology Clear for Discharge (Routine); Ordered 01/01/19 Ordered By: Leonel Coyle - Discharge Details Anticipated Discharge Date: 01/01/19 - Physicians Team Primary Care Provider: Hermila Lanier Attending Provider: Leonel Coyle Other Providers: Giovanna Albarado MD ; Alie Lambert MD ; Toni Harvey MD, PhD ; Adrian Garza MD - Rxs /Orders / Referrals /Forms Prescriptions: New atorvastatin 80 mg Tablet 80 mg PO HS Qty: 30 RF: 3 clopidogrel [Plavix] 75 mg Tablet 75 mg PO DAILY Qty: 30 RF: 3 losartan [Cozaar] 25 mg Tablet 25 mg PO DAILY Qty: 30 RF: 3 Continue aspirin 81 mg Tablet,Chewable 81 mg PO DAILY carvedilol [Coreg] 3.125 mg Tablet 3.125 mg PO Q12HR 30 Days Qty: 60 RF: 0 cholecalciferol (vitamin D3) [Vitamin D3] 2,000 unit Capsule 2,000 unit PO DAILY docusate sodium [Colace] 100 mg Capsule 100 mg PO DAILY PRN (Reason: Constipation) furosemide 20 mg Tablet 20 mg PO DAILY insulin degludec [Tresiba FlexTouch U-100] 100 unit/mL (3 mL) Insulin Pen 15 unit SUB-Q DAILY isosorbide mononitrate 30 mg Tablet Extended Release 24 Hr 30 mg PO BID levothyroxine 25 mcg Tablet 25 mcg PO DAILY multivitamin [Multiple Vitamins] Tablet 1 tab PO DAILY nitroglycerin [Nitrostat] 0.4 mg Tablet, Sublingual 0.4 mg SUBLINGUAL Q5-15M PRN (Reason: Chest Pain) [id number]-fish oil [[place]-3 Fish Oil] 300-1,000 mg Capsule 2 cap PO DAILY prednisone 50 mg Tablet 50 mg PO DAILY ranolazine [Ranexa] 500 mg Tablet Extended Release 12 Hr 1,000 mg PO BID 30 Days Qty: 120 RF: 0 Discontinued amlodipine [Norvasc] 5 mg tablet 2.5 mg PO HS losartan 50 mg Tablet 50 mg PO BID Referrals: Hermila Lanier MD [Primary Care Provider] - See Instructions - Discharge Instructions Patient Printed Instructions: Transcatheter Aortic Valve Replacement (DC) Additional Instructions: Office will call with 30 day echocardiogram 30 day TAVR follow up 01/25/[address] Coyle [phone] [facility] Card[facility] [address] [place] [address] KEEP FOLLOW UP APPOINTMENTS WITH DR DANIELLE AND DR CHURCHILL ON 01/04/19
[2019-01-02] MEDS: Insulin NovoLIN Regular Correctional Sugar Inj SQ SCH ×4 (05:00→12:39)
[2019-01-02] MEDS: Isosorbide Mononitrate 30 MG ER 24HR Tablet (Imdur) PO SCH (06:41)
--- NOTE | 2019-01-02 08:34 | P.PNCA ---
Subjective Interval history: Discussed with RN, [facility]. Patient denies any acute issues. Medications and Allergies Active Medications: Active Medications Aspirin (Aspirin) 325 mg PO DAILY [facility] Last Admin: 01/01/19 08:11 Dose: 325 mg Atorvastatin Calcium (Lipitor) 80 mg PO HS [facility] Last Admin: 01/01/19 20:53 Dose: 80 mg Clonidine HCl (Catapres) 0.2 mg PO Q6H PRN PRN Reason: SBP > 160 mmHg Clopidogrel Bisulfate (Plavix) 75 mg PO DAILY [facility] Last Admin: 01/01/19 08:11 Dose: 75 mg Dextrose (D50w Vial) 50 ml IV.PUSH UNSCH PRN PRN Reason: PER HYPOGLYCEMIA PROTOCOL Ferrous Sulfate (Ferosul) 325 mg PO BID [facility] Last Admin: 01/01/19 20:53 Dose: 325 mg Glucagon (Glucagon Inj) 1 mg OTHER PRN PRN PRN Reason: for Hypoglycemia Protocol Hydralazine HCl (Apresoline Inj) 10 mg IV.PUSH Q30M PRN PRN Reason: SBP > 160 mmHg Last Admin: 12/28/18 08:48 Dose: 10 mg Insulin Detemir (Levemir Inj) 7 unit SQ BID [facility] Last Admin: 01/01/19 23:01 Dose: 7 unit Insulin Human Regular (Novolin R Correctional Sugar Inj) 0 units SQ Q4HR [facility]; Protocol Last Admin: 01/02/19 05:00 Dose: Not Given Isosorbide Mononitrate (Imdur) 30 mg PO DAILY@0700 [facility] Last Admin: 01/02/19 06:41 Dose: 30 mg Losartan Potassium (Cozaar) 25 mg PO DAILY [facility] Last Admin: 01/01/19 08:11 Dose: 25 mg Oxycodone/Acetaminophen (Percocet 5/325 Mg) 1 tab PO Q6H PRN PRN Reason: PAIN SCALE 3 TO 5 Pantoprazole Sodium (Protonix) 40 mg PO DAILY [facility] Last Admin: 01/01/19 08:11 Dose: 40 mg Allergies Allergy/AdvReac Type Severity Reaction Status Date / Time glipizide Allergy Intermediate Swelling Verified 12/27/18 05:48 Iodinated Contrast- Oral and Allergy Hives Verified 12/27/18 05:48 IV Dye niacin Allergy Itching, Verified 12/27/18 05:48 [From Niaspan Generalized Extended-Release] fosinopril [From Monopril] AdvReac Flushing, Verified 12/27/18 05:48 COUGH hydralazine AdvReac Anxiety Verified 12/27/18 05:48 morphine AdvReac Shakiness Verified 12/27/18 05:48 oxycodone [From Percocet] AdvReac Depression Verified 12/27/18 05:48 Xymctbh-Dhr-Xgm Reductase AdvReac Muscle Pain Verified 12/27/18 05:48 Inhibitor telmisartan [From Micardis] AdvReac Chest Pain Verified 12/27/18 05:48 Home Medications Medication Instructions Recorded Confirmed Type aspirin 81 mg PO DAILY 05/23/18 12/27/18 History docusate sodium [Colace] 100 mg PO DAILY PRN 05/23/18 12/27/18 History furosemide 20 mg PO DAILY 05/23/18 12/27/18 History insulin degludec [Tresiba 15 unit SUB-Q DAILY 05/23/18 12/27/18 History FlexTouch U-100] levothyroxine 25 mcg PO DAILY 05/23/18 12/27/18 History nitroglycerin [Nitrostat] 0.4 mg SUBLINGUAL Q5-15M PRN 05/23/18 12/27/18 History cholecalciferol (vitamin D3) 2,000 unit PO DAILY 12/11/18 12/27/18 History [Vitamin D3] isosorbide mononitrate 30 mg PO BID 12/11/18 12/27/18 History losartan 50 mg PO BID 12/11/18 12/27/18 History multivitamin [Multiple Vitamins] 1 tab PO DAILY 12/11/18 12/27/18 History dvsfh-7g-jib-epa-fish oil [[place]-3 2 cap PO DAILY 12/11/18 12/27/18 History Fish Oil] amlodipine [Norvasc] 2.5 mg PO HS 12/26/18 12/27/18 History prednisone 50 mg PO DAILY 12/26/18 12/27/18 History Physical Exam Vital signs: Vital Signs 01/01/19 09:00 01/01/19 10:00 01/01/19 11:00 Temperature 98.7 F Pulse Rate 68 72 79 Respiratory Rate 18 Blood Pressure 109/55 L Pulse Oximetry 97 01/01/19 12:00 01/01/19 13:00 01/01/19 14:00 Temperature Pulse Rate 83 76 70 Respiratory Rate Blood Pressure Pulse Oximetry 01/01/19 15:00 01/01/19 16:00 01/01/19 17:00 Temperature 98.6 F Pulse Rate 75 70 82 Respiratory Rate 18 Blood Pressure 125/57 L Pulse Oximetry 97 01/01/19 18:00 01/01/19 19:00 01/01/19 20:00 Temperature Pulse Rate 77 77 82 Respiratory Rate Blood Pressure Pulse Oximetry 01/01/19 20:25 01/01/19 21:00 01/01/19 22:00 Temperature 98.7 F Pulse Rate 75 78 78 Respiratory Rate 20 Blood Pressure 131/62 Pulse Oximetry 96 01/01/19 23:00 01/02/19 00:00 01/02/19 00:20 Temperature 99.0 F Pulse Rate 76 76 77 Respiratory Rate 18 Blood Pressure 121/58 L Pulse Oximetry 96 01/02/19 01:00 01/02/19 02:00 01/02/19 03:00 Temperature Pulse Rate 76 74 74 Respiratory Rate Blood Pressure Pulse Oximetry 01/02/19 04:00 01/02/19 04:30 01/02/19 05:00 Temperature 99.1 F Pulse Rate 72 72 72 Respiratory Rate 16 Blood Pressure 118/58 L Pulse Oximetry 96 01/02/19 06:00 01/02/19 07:00 Temperature Pulse Rate 77 76 Respiratory Rate Blood Pressure Pulse Oximetry Intake & Output 01/01/19 01/02/19 01/02/19 18:59 06:59 18:59 Intake Total 600 / 600 240 / 240 Output Total 300 / 300 Balance 300 / 300 240 / 240 Weight 144 lb 6.444 oz Intake: Oral 600 / 600 240 / 240 Output: Urine 300 / 300 Other: # Voids 2 2 Narrative: GENERAL: Well-developed well-nourished. In no acute distress. NECK: No carotid bruits. No JVD. CARDIOVASCULAR: Regular rate and rhythm. 1/6 systolic murmur appreciated. RESPIRATORY: No accessory muscle use. Clear to auscultation. Breath sounds equal bilaterally. MUSCULOSKELETAL: No clubbing or cyanosis. No edema. NEUROLOGICAL: Awake and alert. Normal speech. Results 12/31/18 04:30 12/31/18 04:30 Intake and Output 01/01/19 01/02/19 01/02/19 22:59 06:59 14:59 Intake Total 600 / 600 240 / 240 Output Total 300 / 300 Balance 300 / 300 240 / 240 Intake: Oral 600 / 600 240 / 240 Output: Urine 300 / 300 Other: # Voids 2 2 Weight 144 lb 6.444 oz Assessment and Plan - Assessment (1) Aortic stenosis Code(s): I35.0 - Nonrheumatic aortic (valve) stenosis Status: Acute - Plan Severe aortic valve stenosis This 83-year-old female with history of 2 prior bypass surgeries with now progressive symptoms and severe aortic valve stenosis by transthoracic echocardiogram. Patient is status post elective transcatheter valve replacement. 2D echocardiogram looks good. Continue aspirin and Plavix. Pacemaker placed prior to TAVR, incision evaluation on 01/04, inpatient vs outpatient Suspected stroke Imaging negative. Patient received thrombolytic therapy. No active bleeding. Appreciate neurology assistance. On full dose aspirin per neurology. 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 Coyle, Dr. Pressley
[2019-01-02] MEDS: Aspirin 325 MG Tablet PO SCH (08:57)
[2019-01-02] MEDS: Ferrous Sulfate 325 MG Tablet PO SCH (08:57)
[2019-01-02] MEDS: Insulin Detemir Inj 1,000 UNIT/10 ML Vial SQ SCH (08:58)
[2019-01-02 09:13] VITALS: RESP 18; TEMP 98.8
--- NOTE | 2019-01-02 09:14 | P.PCN ---
Date of procedure: 01/02/19 Pre-op diagnosis: Severe aortic valve stenosis Procedure: flotation tank operator: Daniel Coyle MD Procedure performed: 1. Fluoroscopy with interpretation 2. Right heart catheterization 3. Coronary angiography Methods: Risks, benefits, and alternatives were discussed with the patient. Patient understood and consented to the procedure. Patient was brought into the cardiac catheterization lab placed in the catheterization table. Right groin was prepped and draped in a sterile fashion. Right groin was anesthetized with 1% lidocaine. Right femoral vein was accessed and a 7 [place] 11 cm sheath was placed without difficulty. The right common femoral artery was cannulated under fluoroscopic guidance and a 5 [place] 11 cm sheath was placed without difficulty. Right heart catheterization: A 7 [place] pulmonary arterial catheter was advanced to the right femoral venous sheath to the level of the right atrium under fluoroscopic guidance. Hemodynamics were performed in all chambers while venting to the pulmonary capillary wedge position. Hemodynamics were as follows, 1. Right atrial pressure measured at 5 mmHg 2. Right ventricular pressure measured at 49/1 mmHg 3. Pulmonary tube pressure measured at 52/16 mmHg 4. Pulmonary capillary wedge pressure measured at 20 mmHg 5. Cardiac output measured at 4.9 L/min 6. Cardiac index measured at 2.. L/min/m Coronary angiography: Left coronary circulation selectively engaged with a 5 [place] JL 4.0 catheter and right coronary circulations selectively engaged with a 5 [place] JR4 catheter. 1. Left main coronary has no significant obstructive disease. 2. The left anterior descending coronary artery is a large caliber size vessel and angiographically only has minor luminal irregularities. There is a large diagonal branch with minor luminal irregularities 3. Left circumflex gives rise to an obtuse marginal branch with minor luminal irregularities. Left circumflex is codominant with small posterior descending branch which is widely patent 4. Right coronary artery is co-dominant vessel giving rise to posterior descending coronary artery. The right coronary artery has minor luminal irregularities Conclusions: 1. Severe aortic valve stenosis Plan: We will monitor patient for any postprocedural complications. We will obtain cardiothoracic surgical consultation for consideration of surgical aortic valve replacement versus transcatheter aortic valve replacement. Anticipate discharge later today.
[2019-01-02 11:47] VITALS: BP 107/59; O2SAT 96
[2019-01-02 13:11] VITALS: PULSE 72
== END 2019-01-02 13:32 | disposition home health service (06) | DRG 266 ==
LOC: HSDI 05:08 → HDIC 05:13 → HCVI 09:50 → HCPC 12-31 02:07
PROVIDERS: ADMIT Internal Medicine; ATTEND Internal Medicine
PROC: TAVRHYB (ICD-10-PCS; 2018-12-27 08:00)
DX: Z00.6 Encounter for examination for normal comparison and control in clinical research program; I25.10 Atherosclerotic heart disease of native coronary artery without angina pectoris; I97.820 Postprocedural cerebrovascular infarction following cardiac surgery; Z95.0 Presence of cardiac pacemaker; G81.91 Hemiplegia, unspecified affecting right dominant side; D64.9 Anemia, unspecified; I25.2 Old myocardial infarction; Z79.82 Long term (current) use of aspirin; Z95.1 Presence of aortocoronary bypass graft; Z90.49 Acquired absence of other specified parts of digestive tract; Z95.5 Presence of coronary angioplasty implant and graft; I63.40 Cerebral infarction due to embolism of unspecified cerebral artery; R29.719 NIHSS score 19; E78.5 Hyperlipidemia, unspecified; Z79.4 Long term (current) use of insulin; I50.30 Unspecified diastolic (congestive) heart failure; E11.22 Type 2 diabetes mellitus with diabetic chronic kidney disease; I13.0 Hypertensive heart and chronic kidney disease with heart failure and stage 1 through stage 4 chronic kidney disease, or unspecified chronic kidney disease; I35.0 Nonrheumatic aortic (valve) stenosis; Z79.02 Long term (current) use of antithrombotics/antiplatelets; N18.3 Chronic kidney disease, stage 3 (moderate); G93.40 Encephalopathy, unspecified
CPT/HCPCS: 33210; 33361; 36430; 70450; 70496; 70498; 80048; 80053; 80061; 82435; 82550; 82565; 82805; 82947; 82948; 82962; 83735; 84132; 84295; 84484; 84520; 85002; 85025; 85027; 85384; 85610; 85730; 86850; 86900; 86901; 86923; 92526; 92610; 93005; 93308; 93312; 93320; 93325; 94150; 95819; 97110; 97116; 97162; 97167; 97530; 97535; A4646; C1760; C1769; C1893; G0168; G0195; G0269; J0360; J0690; J1200; J1644; J2250; J2310; J2720; J2997; J3010; J3480; J7040; J7050; J7120; P9016; Q9950; Q9965; Q9967